=== PATIENT | male | born 1945 | race Caucasian/White ===

== ENCOUNTER 2017-12-09 08:13 | Inpatient (IN) | payer OTHER ==
[~2017-12-09] VITALS: Ht 152.4 cm; Wt 65.8 kg
--- NOTE | 2017-12-09 08:27 | ED UPPER/LOWER EXTREMITY COMPL ---
History of Present Illness General Chief Complaint: General Adult Stated Complaint: LEG WOUND Source: patient, old records, EMS Exam Limitations: no limitations Vital Signs & Intake/Output Vital Signs & Intake/Output Vital Signs Date Time Temp Pulse Resp B/P B/P Pulse O2 O2 Flow FiO2 Mean Ox Delivery Rate 12/09 0814 98.1 68 20 149/78 95 Room Air Allergies Coded Allergies: No Known Allergies (12/09/17) Reconcile Medications Acetaminophen (Tylenol Extra Strength) 500 MG TABLET 2 TAB PO BID PAIM Amiodarone (Cordarone) 200 MG TAB 1 TAB PO DAILY PAF (Reported) Amlodipine Besylate 5 MG TABLET 1 TAB PO DAILY HTN (Reported) Aspirin (Aspirin*) 81 MG TAB.CHEW 1 TAB PO DAILY HEART HEALTH (Reported) Atorvastatin Calcium 80 MG TABLET 1 TAB PO DAILY HLD (Reported) Carvedilol (Coreg) 12.5 MG TABLET 1 TAB PO BID HTN (Reported) Ezetimibe (Zetia) 10 MG TABLET 1 TAB PO DAILY HLP (Reported) Fluticasone Propionate/Salme (Advair Hfa 115-21 Mcg Inhaler) 115 MCG-21 MCG/ ACTUATION HFA.AER.AD 2 PUF IH Q12 sob (Reported) Furosemide (Lasix) 40 MG TABLET 1 TAB PO DAILY WATER RETENTION Ibuprofen 400 MG TABLET 1 TAB PO TID PRN pain control Levothyroxine Sodium (Levo-T) 125 MCG TABLET 1 TAB PO DAILY Hypothyrodism ( Reported) Nystatin (Nyata) 100,000 UNIT/GRAM POWDER 1 AMIE TOP BID SKIN PROBLEMS Potassium Chloride (Klor-Con 10) 10 MEQ TABLET.ER 20 MEQ PO DAILY Potassium supplement (Reported) Triage Note: 72 YO MALE BIBA FROM HOME. PT STATES HE WAS SEEN HERE APPROX 1.5 WEEKS AGO FOR A WOUND ON THE RIGHT LATERAL SIDE OF HIS LOWER LEG. PT NOTED WITH 2 OPEN WOUNDS ON EXTREMTITY. STATES HE HAS VISITNG NURSES THAT COME TO HIS HOUSE EVERY OTHER DAY. R LOWER EXTREMITY NOTED WITH REDNESS AND SWELLING. MD AT BEDSIDE Triage Nurses Notes Reviewed? yes Duration: week(s): (1.5) Timing: recent history Severity: mild, moderate No Modifying Factors: none HPI: This is a 72 year old male with history of CVA, right sided defect who presents from home via EMS for chief complaint of worsening right leg wound. He was seen here on the and had u/s, xray and labs done. He has had nursing care 4 visits every other day and was due to see a vascular specialist yesterday but states the van never came to pick him up. No fever or chills. Reports worsening leg pain. Past History Travel History Traveled to [place] past 21 day No Medical History Any Pertinent Medical History? 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 No Review of Systems Review of Systems Constitutional: Denies: chills, fever. EENTM: Reports: no symptoms. Respiratory: Denies: cough, short of breath. Cardiovascular: Denies: chest pain, palpitations. Gastrointestinal/Abdominal: Denies: abdominal pain. Genitourinary: Reports: no symptoms. Musculoskeletal: Reports: no symptoms. Skin: Reports: erythema. Neurological/Psychological: Reports: no symptoms. Hematologic/Endocrine: Denies: bruising, bleeding, polyuria, polydipsia. Immunological: Reports: no symptoms. All Other Systems: Reviewed and Negative Physical Exam Physical Exam General Appearance: well developed/nourished, alert, awake, mild distress Head: atraumatic Eyes: Bilateral: PERRL, EOMI. Ears, Nose, Throat: normal pharynx, normal ENT inspection, hearing grossly normal Neck: normal inspection, supple Cardiovascular/Respiratory: regular rate/rhythm Back: normal inspection Leg Left: normal range of motion, normal inspection Leg Right: CELLULITIC WITH TWO OPEN WOUNDS TO THE LATERAL SIDE APPROX 4 X 6 CM WITH FOUL SMELLING DISCHARGE Hip Left: normal range of motion, normal inspection Hip Right: normal range of motion, normal inspection Knee Left: normal range of motion, normal inspection Knee Right: normal range of motion, normal inspection Foot Left: normal inspection, normal range of motion Foot Right: normal inspection, normal range of motion Neurologic/Tendon: normal motor functions, normal tendon functions, sensory deficit Skin: intact, normal color, warm/dry Lymphatic: no anterior cervical jay Progress Differential Diagnosis: CELLULITIS, OPEN WOUND, WOUND INFECTION, PVD, PAD Plan of Care: Orders Procedure Date/time Status Heart Healthy Diet 12/09 L Active LACTIC ACID 12/09 1128 Active Patient Data 12/09 1006 Active ED Holding Orders 12/09 955 Active Admit to inpatient 12/09 955 Active Vital Signs 12/09 955 Active Code Status 12/09 955 Active EKG 12/09 940 Active Intake & Output 12/09 845 Active BLOOD CULTURE 12/09 827 Active LACTIC ACID 12/09 827 Complete WESTERGREN SED RATE 12/09 827 Complete COMPREHENSIVE METABOLIC PANEL 12/09 827 Complete CBC WITHOUT DIFFERENTIAL 12/09 827 Complete Laboratory Tests 12/09/17 0845: Anion Gap 14, Estimated GFR > 60, BUN/Creatinine Ratio 46.7 H, Glucose 86, Lactic Acid 1.2, Calcium 9.2, Total Bilirubin 0.6, AST 33, ALT 40, Alkaline Phosphatase 84, Total Protein 6.6, Albumin 3.6, Globulin 3.0, Albumin/Globulin Ratio 1.2, CBC w Diff NO MAN DIFF REQ, RBC 3.66 L, MCV 85.7, MCH 28.3, RDW 15.1 H, MPV 7.4, Gran % 81.1 H, Lymphocytes % 7.6 L, Monocytes % 9.3, Eosinophils % 1.7, Basophils % 0.3, Absolute Granulocytes 6.3, Absolute Lymphocytes 0.6 L, Absolute Monocytes 0.7 H, Absolute Eosinophils 0.1, Absolute Basophils 0, PUBS MCHC 33.0, ESR Westergren 66 H Microbiology 12/09 854 BLOOD: Blood Culture - RECD 12/09 844 BLOOD: Blood Culture - RECD PATIENT HAD RECENT U/S AND XRAY. AGREES TO REPEAT BLOOD WORK. IV ABX ORDERED. PATIETN RELUCTANT TO STAY BUT WOUND HEALING IS AN ISSUE AND PATIETN IS UNABLE TO EVEN SEE THE WOUND. WILL NEED INPATIETN ADMISSION AND WOUND CARE. Initial ED EKG: NSR, LVH, 1ST DEGREE AV BLOCK, T WAVE INVERSIONS V1-V3 Prior EKG: unchanged Departure Departure Time of Disposition: 956 Disposition: STILL A PATIENT Condition: Stable Clinical Impression Primary Impression: Cellulitis Secondary Impressions: Open wound Referrals: Alton COVINGTON,Bill Ramsey (PCP/Family) Departure Forms: Customer Survey General Discharge Information Prescriptions: Current Visit Scripts Nystatin (Nyata) 1 AMIE TOP BID #1 POW Ref 1 Ibuprofen 1 TAB PO TID PRN pain control #15 TAB Furosemide (Lasix) 1 TAB PO DAILY #30 TAB Acetaminophen (Tylenol Extra Strength) 2 TAB PO BID #40 TAB Admission Note Spoke With: Adriana Edgar MD Documentation of Exam: Documentation of any treatments & extenuating circumstances including Concerns Regarding Discharge (functional status, medication knowledge or non-compliance, living conditions, etc.) that warrant an admission rather than observation: [IV ABX, WOUND CARE, WOUND CARE CONSULT, CONSIDER VASCULAR CONSULTATION]
[2017-12-09 08:59] LABS: ABSOLUTE BASOPHIL COUNT 0 /CUMM (0.0-0.2); ABSOLUTE EOSINOPHIL COUNT 0.1 /CUMM (0.0-0.7); ABSOLUTE GRANULOCYTE CT 6.3 /CUMM (1.4-6.5); ABSOLUTE LYMPH COUNT 0.6 /CUMM (1.2-3.4); ABSOLUTE MONOCYTE COUNT 0.7 /CUMM (0.10-0.60); BASOPHIL % 0.3 % (0.0-2.0); EOSINOPHIL % 1.7 % (0-5); GRANULOCYTE % 81.1 % (42.2-75.2); HEMATOCRIT 31.3 % (42-52); MEAN CORPUSCULAR HGB 28.3 PG (27.0-31.0); MEAN CORPUSCULAR VOLUME 85.7 FL (80.0-94.0); MEAN PLATELET VOLUME 7.4 FL (7.4-10.4); PLATELET COUNT 195 /CUMM (130-400); RBC DISTRIBUTION WIDTH 15.1 % (11.5-14.5); RED BLOOD CELL CT 3.66 /CUMM (4.70-6.10); WHITE BLOOD CELL COUNT 7.7 /CUMM (4.8-10.8)
[2017-12-09] MEDS ORDERED: ADVAIR HFA 115-12 GM IH (11:32)
[2017-12-09] MEDS ORDERED: KLOR-CON 1010 ME1 PO (11:36)
[2017-12-09] MEDS ORDERED: AMIODARONE HCL200 M1 PO (11:37)
[2017-12-09] MEDS ORDERED: LEVO-T125 MCG PO (11:37)
[2017-12-09] MEDS ORDERED: COREG12.5 M1 PO (11:38)
[2017-12-09] MEDS ORDERED: ATORVASTATIN CA80 M1 PO (11:38)
[2017-12-09] MEDS ORDERED: AMLODIPINE BESYL5 M1 PO (11:38)
[2017-12-09] MEDS ORDERED: ZETIA10 M1 PO (11:39)
[2017-12-09] MEDS ORDERED: LASIX40 M1 PO (11:39)
[2017-12-09] MEDS ORDERED: ASPIRIN81 M4 PO (11:41)
--- NOTE | 2017-12-09 12:01 | History & Physical ---
See Addendum General Information and HPI MD Statement: I have seen and personally examined ANGEL VALERIO and documented this H& P. The patient is a 72 year old M who presented with a patient stated chief complaint of [bilateral lower extremity ulcers]. Source of Information: patient Exam Limitations: no limitations History of Present Illness: Mr. Valerio is 72 year old male with past medical history significant for hypertension, hyperlipidemia, paroxysmal atrial fibrillation on admission not no anticoagulation for fall risk, hypothyroidism, coronary artery disease status post quadruple bypass in 2001, CVA with residual right-sided weakness happened approximately 4-5 years ago. Patient was recently discharged from short-term rehabilitation after spending 10 month after admission for aspiration pneumonia at [facility], discharged October 08. Patient BIBA because of extreme pain in bilateral lower extremity from ulcers. Patient maintained that he used to sleep on a recliner and used to wrap his legs against each other, one month ago he started to develop ulcers on the inferior surface of bilateral legs. Patient has a visiting nurse since his discharge from short-term rehabilitation that used to come every 3 days, after he developed ulcers she started to come every other day to do change the wound, he reported discharge but do not know the discharge color but no blood. Over the last week, discharge and pain increased, patient visited the ED last week and was discharged after cleaning the wounds. He described pain as throbbing pain 8 out of 10, use aspirin for his pain 5-6 tablets every day for last 4-5 days. He reported having an appointment with vascular surgeon Dr. de la torre yesterday but couldn't make it because of transportation issues. Patient denied any fever, reported chills today. Denied any chest pain, palpitation, shortness of breath, nausea, vomiting, dizziness, new weakness. Patient sleeps on a recliner not because of orthopnea or shortness of breath but because it is easier for him to get help since he have the residual right-sided weakness. Patient use walker and wheelchair to move around. Allergies/Medications Allergies: Coded Allergies: No Known Allergies (12/09/17) Home Med list Amiodarone (Cordarone) 200 MG TAB 1 TAB PO DAILY PAF (Reported) Amlodipine Besylate 5 MG TABLET 1 TAB PO DAILY HTN (Reported) Aspirin (Aspirin*) 81 MG TAB.CHEW 1 TAB PO DAILY HEART HEALTH (Reported) Atorvastatin Calcium 80 MG TABLET 1 TAB PO DAILY HLD (Reported) Carvedilol (Coreg) 12.5 MG TABLET 1 TAB PO BID HTN (Reported) Ezetimibe (Zetia) 10 MG TABLET 1 TAB PO DAILY HLP (Reported) Fluticasone Propionate/Salme (Advair Hfa 115-21 Mcg Inhaler) 115 MCG-21 MCG/ ACTUATION HFA.AER.AD 2 PUF IH Q12 sob (Reported) Furosemide (Lasix) 40 MG TABLET 60 MG PO DAILY WATER RETENTION (Reported) Levothyroxine Sodium (Levo-T) 125 MCG TABLET 1 TAB PO DAILY Hypothyrodism ( Reported) Potassium Chloride (Klor-Con 10) 10 MEQ TABLET.ER 20 MEQ PO DAILY Potassium supplement (Reported) Past History Travel History Traveled to [place] past 21 day No Medical History Neurological: CVA EENT: NONE Cardiovascular: BYPASS Respiratory: pneumonia Gastrointestinal: NONE Hepatic: NONE Renal: NONE Musculoskeletal: rheumatoid arthritis Psychiatric: NONE Endocrine: NONE Blood Disorders: NONE Cancer(s): NONE 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 Denies: fever, weakness. EENTM: Denies: blurred vision, nasal congestion, nasal pain, throat pain. Cardiovascular: Denies: chest pain, orthopena, palpitations, syncope. Respiratory: Denies: cough, short of breath. GI: Denies: abdominal pain, bloating, constipation, nausea. Genitourinary: Denies: hematuria, nocturia. Musculoskeletal: Denies: back pain, joint pain, joint swelling. Skin: Denies: rash. Exam & Diagnostic Data Last 24 Hrs of Vital Signs/I&O Vital Signs Date Time Temp Pulse Resp B/P B/P Pulse O2 O2 Flow FiO2 Mean Ox Delivery Rate 12/09 1219 98.5 68 18 158/64 95 Room Air Room Air 12/09 1047 98.1 76 18 146/84 98 Room Air 12/09 0814 98.1 68 20 149/78 95 Room Air Intake & Output 12/09 1600 12/09 0800 12/09 0000 Intake Total 0 Output Total Balance 0 Intake, Oral 0 Patient 65.771 kg Weight Weight Reported by Patient Measurement Method Physical Exam General Appearance Alert, Oriented X3, Cooperative, No Acute Distress Skin No Rashes, Bilateral ulcers on LE Right leg posterior surface 1x1 supeficial ulcer, no bleeding or purilent discharge Left leg 2 ulcerson posterior serfaces, 5x5 CM, whilte discharge, no blood Skin Temp/Moisture Exam: Warm/Dry HEENT Atraumatic, PERRLA, EOMI, Mucous Membr. moist/pink Neck Supple Lymphatic No cervical lymphadenopathy Cardiovascular Regular Rate, Normal S1, Normal S2, No Murmurs Lungs Clear to Auscultation, Normal Air Movement Abdomen Normal Bowel Sounds, Soft, No Tenderness, Inguinal rash Neurological Normal Speech, Strength 4/5 left LE, 3/5 right LE Sterngth 5/5 BUE on flexion and 4/5 on extension Extremities No Clubbing, No Cyanosis, BL LE edema +1 threading pulse BL Assessment/Plan Assessment: Mr. Valerio is 72 year old male with past medical history significant for hypertension, hyperlipidemia, paroxysmal atrial fibrillation on admission not no anticoagulation for fall risk, hypothyroidism, coronary artery disease status post quadruple bypass in 2001, CVA with residual right-sided weakness happened approximately 4-5 years ago. On admission, vital signs 98.1, pulse 68 regular, blood pressure 149/78, saturating 95% on room air Labs significant for WBC 7.7, H&H 10.4/31.3 with baseline 10-11, platelet 195, electrolytes within normal, ESR 66, lactic acid 1.2. X-ray of right tibia-fibula didn't reveal any osteomyelitis Doppler no DVT EKG sinus rhythm, 63 pulse, first-degree heart block, deep Q waves in V1, V2. Problem list #Bilateral lower extremity for 4 weeks not improving associated with worsening discharge and pain #Questionable peripheral vascular disease #History of paroxysmal atrial fibrillation on aspirin, no anticoagulation due to high fall risk #History of hypertension, hyperlipidemia #History of hypothyroidism #History of CVA with residual right-sided weakness Plan -Admit to general med floor -Continue Unasyn given history of chills, worsening discharge and excruciating pain -We'll obtain vascular consultation -Vital signs every shift -A.m. CBC and BMP -Obtain Hemoccult stool given history of excessive aspirin consumption for pain -Wound consultation -Patient presented with +1 lower extremity edema, will continue Lasix 60 daily and obtain strict ins and outs -Continue home medication -DVT prophylaxis heparin subcutaneous -Diet heart healthy -Code DNI only As Ranked By This Provider Problem List: 1. Open wound Core Measures/Misc (08/17) Acute Coronary Syndrome ACS Diagnosis: No Congestive Heart Failure Congestive Heart Failure Diagnosis No Cerebrovascular Accident CVA/TIA Diagnosis: No VTE (View Protocol) VTE Risk Factors Age>40 No Mechanical VTE Prophylaxis d/t Medical Contraindication No VTE Pharm Prophylaxis d/t NA PharmProphylax ordered Sepsis (View protocol) Sepsis Present: No
[2017-12-09 14:13] VITALS: BP 124/60
--- NOTE | 2017-12-09 15:15 | Admission Certification ---
Admission Certification Certification Statement - As attending physician, I certify that at the time of - admission, based on clinical presentation, severity of - symptoms, need for further diagnostic testing and - therapeutic interventions, and risk of adverse outcomes - without in-hospital treatment, in my clinical assessment, - this patient requires an acute hospital stay for a minimum - of two nights or longer. I have also considered psychsocial - factors such as support system, advanced age, financial - issues, cognitive issues, and failed out-patient treatments, - past re-admission history, safety of patient, and lack of - compliance as applicable. Specific rationale supporting this admission is: Patient with A. fib, hypertension and lower extremity ulcer with suspected cellulitis.
--- NOTE | 2017-12-09 17:03 | Cons- Vascular Surgery ---
General Information and HPI Consulting Request Date of Consult: 12/09/17 Requested By: Dipti Ricketts MD Reason for Consult: Bilateral leg wounds R > L Source of Information: patient, old records Exam Limitations: no limitations History of Present Illness: 72 year old male with past medical history significant for hypertension, hyperlipidemia, paroxysmal atrial fibrillation, CAD, CVA with residual right- sided weakness who has bilateral pressure wounds R>L. Patient was recently discharged from short-term rehabilitation after spending 10 month after admission for aspiration pneumonia. One month ago he started to develop ulcers on the posterior surface of bilateral legs. This corresponds tp recumbent area of leg. Denies rest pain. Allergies/Medications Allergies: Coded Allergies: No Known Allergies (12/09/17) Home Med List: Amiodarone (Cordarone) 200 MG TAB 1 TAB PO DAILY PAF (Reported) Amlodipine Besylate 5 MG TABLET 1 TAB PO DAILY HTN (Reported) Aspirin (Aspirin*) 81 MG TAB.CHEW 1 TAB PO DAILY HEART HEALTH (Reported) Atorvastatin Calcium 80 MG TABLET 1 TAB PO DAILY HLD (Reported) Carvedilol (Coreg) 12.5 MG TABLET 1 TAB PO BID HTN (Reported) Ezetimibe (Zetia) 10 MG TABLET 1 TAB PO DAILY HLP (Reported) Fluticasone Propionate/Salme (Advair Hfa 115-21 Mcg Inhaler) 115 MCG-21 MCG/ ACTUATION HFA.AER.AD 2 PUF IH Q12 sob (Reported) Furosemide (Lasix) 40 MG TABLET 60 MG PO DAILY WATER RETENTION (Reported) Levothyroxine Sodium (Levo-T) 125 MCG TABLET 1 TAB PO DAILY Hypothyrodism ( Reported) Potassium Chloride (Klor-Con 10) 10 MEQ TABLET.ER 20 MEQ PO DAILY Potassium supplement (Reported) Current Medications: Current Medications Sig/Jamie Start time Last Medication Dose Route Stop Time Status Admin Acetaminophen 650 MG Q6P PRN 12/09 1130 AC PO Acetaminophen 1,000 MG Q6P PRN 12/09 1130 AC IV Amiodarone HCl 200 MG DAILY 12/10 1000 DC PO Amiodarone HCl 200 MG DAILY 12/09 1430 AC PO Amlodipine Besylate 5 MG DAILY 12/10 1000 DC PO Amlodipine Besylate 5 MG DAILY 12/09 1430 AC PO Ampicillin Sodium/ 3,000 MG Q6H 12/09 1600 AC Sulbactam Sodium IV Sodium Chloride 100 ML Ampicillin Sodium/ 0 .STK-MED ONE 12/09 0849 DC Sulbactam Sodium .ROUTE Ampicillin Sodium/ 3,000 MG ONCE ONE 12/09 929 DC 12/09 Sulbactam Sodium IV 12/09 958 0953 Sodium Chloride 100 ML Aspirin 81 MG DAILY 12/10 1000 DC PO Aspirin 81 MG DAILY 12/09 1430 AC PO Atorvastatin Calcium 80 MG 1700 12/10 1700 DC PO Atorvastatin Calcium 80 MG 1700 12/09 1700 AC PO Budesonide/ 2 PUF BID 12/09 2200 AC Formoterol Fumarate INH Carvedilol 12.5 MG BID 12/09 2200 AC PO Ezetimibe 10 MG DAILY 12/10 1000 DC PO Ezetimibe 10 MG DAILY 12/09 1430 AC PO Furosemide 60 MG DAILY 12/10 1000 DC PO Furosemide 60 MG DAILY 12/09 1430 AC PO Heparin Sodium 5,000 UNIT Q8 12/09 1400 AC (Porcine) SC Levothyroxine Sodium 0.125 MG DAILY AC 12/10 0700 DC PO Levothyroxine Sodium 0.125 MG DAILY AC 12/09 1430 AC PO Oxycodone/ 1 TAB Q6P PRN 12/09 1130 AC Acetaminophen PO Senna/Docusate Sodium 1 TAB AT BEDTIME NEED.. 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 Home Services at Home: Nursing Smoking Status: Former Smoker Review of Systems Review of Systems: Mild B/L LE pain Review of Systems Constitutional: Reports: no symptoms, see HPI. Exam & Diagnostic Data Vital Signs and I&O Vital Signs Date Time Temp Pulse Resp B/P B/P Pulse O2 O2 Flow FiO2 Mean Ox Delivery Rate 12/09 1413 98.3 67 20 124/60 94 Room Air 12/09 1338 98.4 66 20 123/56 96 Room Air Room Air 12/09 1219 98.5 68 18 158/64 95 Room Air Room Air 12/09 1047 98.1 76 18 146/84 98 Room Air 12/09 0814 98.1 68 20 149/78 95 Room Air Intake & Output 12/09 0000 12/08 0000 Intake Total 0 Output Total Balance 0 Intake, Oral 0 Patient 145 lb Weight Weight Reported by Patient Measurement Method Physical Exam: B/L LE are perfused, normal cap. refill, + eschar on RLE > LLE, this corresponds to pressure area of calf bilaterally, no pus, mild erythema Last 24 Hours of Labs: Laboratory Tests 12/09 12/09 1128 0845 Chemistry Sodium (137 - 145 mmol/L) 145 Potassium (3.5 - 5.1 mmol/L) 3.7 Chloride (98 - 107 mmol/L) 103 Carbon Dioxide (22 - 30 mmol/L) 28 Anion Gap (5 - 16) 14 BUN (9 - 20 mg/dL) 28 H Creatinine (0.7 - 1.2 mg/dL) 0.6 L Estimated GFR (>60 ml/min) > 60 BUN/Creatinine Ratio (7 - 25 %) 46.7 H Glucose (65 - 99 mg/dL) 86 Lactic Acid (0.7 - 2.1 mmol/L) Cancelled 1.2 Calcium (8.4 - 10.2 mg/dL) 9.2 Total Bilirubin (0.2 - 1.3 mg/dL) 0.6 AST (17 - 59 U/L) 33 ALT (21 - 72 U/L) 40 Alkaline Phosphatase (< 127 U/L) 84 Total Protein (6.3 - 8.2 g/dL) 6.6 Albumin (3.5 - 5.0 g/dL) 3.6 Globulin (1.9 - 4.2 gm/dL) 3.0 Albumin/Globulin Ratio (1.1 - 2.2 %) 1.2 Hematology CBC w Diff NO MAN DIFF REQ WBC (4.8 - 10.8 /CUMM) 7.7 RBC (4.70 - 6.10 /CUMM) 3.66 L Hgb (14.0 - 18.0 G/DL) 10.4 L Hct (42 - 52 %) 31.3 L MCV (80.0 - 94.0 FL) 85.7 MCH (27.0 - 31.0 PG) 28.3 RDW (11.5 - 14.5 %) 15.1 H Plt Count (130 - 400 /CUMM) 195 MPV (7.4 - 10.4 FL) 7.4 Gran % (42.2 - 75.2 %) 81.1 H Lymphocytes % (20.5 - 51.1 %) 7.6 L Monocytes % (1.7 - 9.3 %) 9.3 Eosinophils % (0 - 5 %) 1.7 Basophils % (0.0 - 2.0 %) 0.3 Absolute Granulocytes (1.4 - 6.5 /CUMM) 6.3 Absolute Lymphocytes (1.2 - 3.4 /CUMM) 0.6 L Absolute Monocytes (0.10 - 0.60 /CUMM) 0.7 H Absolute Eosinophils (0.0 - 0.7 /CUMM) 0.1 Absolute Basophils (0.0 - 0.2 /CUMM) 0 PUBS MCHC (33.0 - 37.0 G/DL) 33.0 ESR Westergren (0 - 10 MM) 66 H Imaging Results: Neg. for DVT B/L Assessment/Plan Assessment/Plan 72 yo with multiple medical problems and recent prolonged hospital stay now with bilateral pressure wounds. 1.) Recommend a course of local wound care in this patient in a compromised medical state 2.) NO TELFA--recommend santyl to both wounds with gauze and kerlix wrap 3.) Cont. care/abx as per primary team 4.) Offload right calg at all times by laying on left hip 5.) F/u at Wound center on discharge 6.) May need further vascular testing if wounds do not heal with local wound care Consult Acknowledgment - Thank you for your consult request.
[2017-12-09 22:15] VITALS: BP 116/62
[2017-12-10 07:09] VITALS: BP 116/60
--- NOTE | 2017-12-10 08:22 | ULTRASOUND REPORT ---
EXAMINATION: NONINVASIVE ASSESSMENT OF THE ARTERIES OF BOTH LOWER EXTREMITIES INTERPRETING VASCULAR \T\ INTERVENTIONAL RADIOLOGIST: David Aguirre MD CLINICAL INFORMATION: Chronic bilateral lower extremity ulcers. TECHNIQUE: Bilateral lower extremity duplex ultrasound was performed with velocity measurements and waveform analysis in the common femoral arteries, profunda femoris arteries, proximal mid and distal superficial femoral arteries, popliteal arteries and tibial vessels. This study was performed only at rest. COMPARISON: None FINDINGS: Velocities in cm/sec and phasicity as well as the presence of plaque are reported below. Diffuse [id number] plaquing is seen. On the right, there are areas of stenosis seen in the profunda femoris on the right, as well as probably the popliteal artery. On the left, moderate popliteal plaque is present as well. Monophasic flow is noted on the right. On the left, monophasic flow is noted in the tibial vessels. RIGHT LEG: Common Femoral: 154 Profunda Femoris: 60.1 Proximal SFA: 134 Mid SFA: 141 Distal SFA: 127 Popliteal: 142 Anterior tibial: 48.1 Posterior tibial: 104 Dorsalis pedis 96.9 LEFT LEG: Common Femoral: 208 Profunda Femoris: 121 Proximal SFA: 120 Mid SFA: 134 Distal SFA: 132 Popliteal: 149 Anterior tibial: 71.9 Posterior tibial 90.3 Dorsalis pedis 92.4 IMPRESSION: There is evidence of peripheral vascular disease. No critical stenoses are noted. CT angiography may be useful for defining anatomy further.
--- NOTE | 2017-12-10 08:27 | Cons- Wound Care ---
General Information and HPI Consulting Request Date of Consult: 12/10/17 Requested By: Dipti Ricketts MD Reason for Consult: Bilateral lower extremity ulcers present on admission History of Present Illness: Patient is a 72-year-old gentleman with multiple medical problems nonambulatory who is had chronic bilateral lower extremity ulcers. He is sedentary and spends most of the time in a recliner where his legs are externally rotated creating opportunity for pressure ulceration in conjunction with chronic edema. Admitted because of concerns over possible infection though his white count is normal his sedimentation rate is elevated 66. Allergies/Medications Allergies: Coded Allergies: No Known Allergies (12/09/17) Home Med List: Amiodarone (Cordarone) 200 MG TAB 1 TAB PO DAILY PAF (Reported) Amlodipine Besylate 5 MG TABLET 1 TAB PO DAILY HTN (Reported) Aspirin (Aspirin*) 81 MG TAB.CHEW 1 TAB PO DAILY HEART HEALTH (Reported) Atorvastatin Calcium 80 MG TABLET 1 TAB PO DAILY HLD (Reported) Carvedilol (Coreg) 12.5 MG TABLET 1 TAB PO BID HTN (Reported) Ezetimibe (Zetia) 10 MG TABLET 1 TAB PO DAILY HLP (Reported) Fluticasone Propionate/Salme (Advair Hfa 115-21 Mcg Inhaler) 115 MCG-21 MCG/ ACTUATION HFA.AER.AD 2 PUF IH Q12 sob (Reported) Furosemide (Lasix) 40 MG TABLET 60 MG PO DAILY WATER RETENTION (Reported) Levothyroxine Sodium (Levo-T) 125 MCG TABLET 1 TAB PO DAILY Hypothyrodism ( Reported) Potassium Chloride (Klor-Con 10) 10 MEQ TABLET.ER 20 MEQ PO DAILY Potassium supplement (Reported) Review of Systems Review of Systems: Noncontributory Past History Travel History Traveled to [place] past 21 day No Medical History Blood Transfusion Hx: No Neurological: CVA EENT: NONE Cardiovascular: AFIB, hypertension, hyperlipidemia, BYPASS Respiratory: pneumonia Gastrointestinal: NONE Hepatic: NONE Renal: NONE Musculoskeletal: rheumatoid arthritis Psychiatric: NONE Endocrine: NONE Blood Disorders: NONE Cancer(s): NONE CITY WEIGHMASTER/Reproductive: NONE Surgical History Surgical History: non-contributory Psychosocial History Where Do You Live? Home Services at Home: Nursing Smoking Status: Former Smoker Exam & Diagnostic Data Vital Signs and I&O Vital Signs Result Date Time Pulse Ox 94 12/10 0709 B/P 116/60 01/10 0709 Temp 97.0 12/10 708 Pulse 55 12/10 708 Resp 18 12/10 708 O2 Delivery CPAP 12/10 O2 Flow Rate Room Air 12/09 1338 Intake & Output 12/10 0000 12/09 1600 12/09 0800 Intake Total 600 0 Output Total 200 Balance 400 0 Intake, IV 120 Intake, Oral 480 0 Number 0 0 Bowel Movements Output, Urine 200 Patient 145 lb Weight Weight Reported by Patient Measurement Method Exam of the right lateral leg shows there to be 2 ulcers the superior ulcer measures approximately 4 x 2.5 cm with red and yellow fill the wound is several millimeters deep without exposed bone there is no periwound erythema inferior to this is a 4 x 1.5 cm wound with black eschar distal pulses are unable to be palpated there is minimal lower extremity edema over the left lower extremity is a area of ulceration measuring approximately 0.8 x 0.8 mm the surrounding area is slightly indurated though there is no erythema exposed bone or undermining. The pulses are unable be palpated Assessment/Plan Impression/Plan: 72-year-old gentleman who is nonambulatory appears to have bilateral pressure injury ulcers present on admission. Whether there is complicating peripheral vascular disease is at this point uncertain. Elevated sedimentation rate is of concern especially for the superior right lower extremity ulcer which does appear to have depth. Recommend arterial ultrasound to exclude peripheral vascular disease. At this point there does not appear to be evidence of acute soft tissue infection. Lower extremities should be offloaded. Wound care can continue to be Santyl daily with aggressive wound cleansing covered by Adaptic. Further imaging of these areas will likely be necessary in view of elevated sedimentation rate and duration of ulceration. Consult Acknowledgment - Thank you for your consult request.
[2017-12-10 09:27] LABS: ABSOLUTE BASOPHIL COUNT 0 /CUMM (0.0-0.2); ABSOLUTE EOSINOPHIL COUNT 0.2 /CUMM (0.0-0.7); ABSOLUTE GRANULOCYTE CT 4.3 /CUMM (1.4-6.5); ABSOLUTE LYMPH COUNT 0.8 /CUMM (1.2-3.4); ABSOLUTE MONOCYTE COUNT 0.7 /CUMM (0.10-0.60); BASOPHIL % 0.3 % (0.0-2.0); EOSINOPHIL % 2.6 % (0-5); GRANULOCYTE % 71.8 % (42.2-75.2); HEMATOCRIT 28.3 % (42-52); MEAN CORPUSCULAR HGB 28.2 PG (27.0-31.0); MEAN CORPUSCULAR HGB CONC 32.7 G/DL (33.0-37.0); MEAN CORPUSCULAR VOLUME 86.4 FL (80.0-94.0); MEAN PLATELET VOLUME 8.1 FL (7.4-10.4); PLATELET COUNT 166 /CUMM (130-400); RBC DISTRIBUTION WIDTH 15.4 % (11.5-14.5); RED BLOOD CELL CT 3.27 /CUMM (4.70-6.10); WHITE BLOOD CELL COUNT 5.9 /CUMM (4.8-10.8)
--- NOTE | 2017-12-10 10:40 | PN- Housestaff ---
Leeann COVINGTON,[facility] 12/10/17 1039: Subjective Follow-up For: Bilateral lower extremity ulcer Subjective: Patient seen and examined this morning, afebrile, vital signs stable, reported improvement of bilateral lower extremity pain. Review of Systems Constitutional: Reports: see HPI. Objective Last 24 Hrs of Vital Signs/I&O Vital Signs Date Time Temp Pulse Resp B/P B/P Pulse O2 O2 Flow FiO2 Mean Ox Delivery Rate 12/10 1427 98.2 58 18 114/72 92 Room Air 12/10 0906 60 132/68 12/10 0905 60 132/68 12/10 0905 60 132/68 12/10 0709 97.0 55 18 116/60 94 12/10 0235 59 92 12/10 0000 93 CPAP 12/09 2238 65 93 12/09 2215 98.2 66 19 116/62 92 Room Air 12/09 2207 68 116/62 12/09 2115 Room Air Intake & Output 12/10 1600 12/10 0800 12/10 0000 Intake Total 360 600 Output Total 900 200 200 Balance -900 160 400 Intake, IV 120 120 Intake, Oral 240 480 Number 0 Bowel Movements Output, Urine 900 200 200 Physical Exam General Appearance: Alert, Oriented X3, Cooperative, No Acute Distress Skin: No Rashes HEENT: Atraumatic, PERRLA, EOMI, Mucous Membr. moist/pink Neck: Supple Cardiovascular: Regular Rate, Normal S1, Normal S2, No Murmurs Lungs: Clear to Auscultation, Normal Air Movement Abdomen: Normal Bowel Sounds, Soft, No Tenderness Neurological: Normal Speech, right side weakness 4 minus/5 Extremities: No Clubbing, No Cyanosis, Normal Pulses, bilateral +1 pedal edema Assessment/Plan Assessment: Mr. Anders is 72 year old male with past medical history significant for hypertension, hyperlipidemia, paroxysmal atrial fibrillation on admission not no anticoagulation for fall risk, hypothyroidism, coronary artery disease status post quadruple bypass in 2001, CVA with residual right-sided weakness happened approximately 4-5 years ago. Problem list #Bilateral lower extremity for 4 weeks not improving associated with worsening discharge and pain #Questionable peripheral vascular disease #History of paroxysmal atrial fibrillation on aspirin, no anticoagulation due to high fall risk #History of hypertension, hyperlipidemia #History of hypothyroidism #History of CVA with residual right-sided weakness Plan -Wound consultation was obtained, thanks for recommendation -Vascular surgery consultation was obtained, thanks the recommendation -We will discontinue Unasyn since after cleaning the wounds look much better with no signs of inflammation -Peripheral arterial Doppler scan was a day for peripheral vascular disease however no signs of stenosis. We'll continue aspirin and statin -Given elevated ESR 66 on admission, will obtain MRI right leg -Potassium repleted, will remeasure potassium and magnesium in a.m. -DVT prophylaxis heparin subcutaneous -Diet heart healthy -Code DNI only Problem List: 1. Open wound 2. Chronic wound of extremity Pain Ratin Pain Location: Lower extermities Pain Goal: Pain 4 or less Pain Plan: See medication Tomorrow's Labs & Rationales: CBC BMP Mg Dipti Ricketts MD 12/10/17 1314: Attending MD Review Statement Attending Statement Attending MD Statement: examined this patient, discuss w/resident/PA/SUPERVISORY INVESTIGATIVE SPECIALIST, agreed w/resident/PA/SUPERVISORY INVESTIGATIVE SPECIALIST, reviewed EMR data (avail), discussed with case mgmt, reviewed images Attending Assessment/Plan: Overall patient feels okay. He is keen on leaving tomorrow. He was seen by physical therapy who is recommending STR versus home with PT of goals are met. I stopped antibiotics given vascular and wound care input. We'll get an MRI to make sure there is no osteomyelitis. The arterial ultrasound showed peripheral vascular disease but no significant stenosis and patient is already on an aspirin and statin. Will follow-up with the MRI and with PT.
[2017-12-10 14:27] VITALS: BP 114/72
[2017-12-10 22:13] VITALS: BP 114/52
[2017-12-11 07:19] VITALS: BP 110/54
[2017-12-11 08:23] LABS: ABSOLUTE BASOPHIL COUNT 0 /CUMM (0.0-0.2); ABSOLUTE EOSINOPHIL COUNT 0.2 /CUMM (0.0-0.7); ABSOLUTE GRANULOCYTE CT 4.1 /CUMM (1.4-6.5); ABSOLUTE LYMPH COUNT 0.9 /CUMM (1.2-3.4); ABSOLUTE MONOCYTE COUNT 0.8 /CUMM (0.10-0.60); BASOPHIL % 0.4 % (0.0-2.0); EOSINOPHIL % 3.7 % (0-5); GRANULOCYTE % 68.8 % (42.2-75.2); HEMATOCRIT 28.1 % (42-52); MEAN CORPUSCULAR HGB 28.6 PG (27.0-31.0); MEAN CORPUSCULAR HGB CONC 33.3 G/DL (33.0-37.0); MEAN CORPUSCULAR VOLUME 85.9 FL (80.0-94.0); MEAN PLATELET VOLUME 8.2 FL (7.4-10.4); PLATELET COUNT 171 /CUMM (130-400); RBC DISTRIBUTION WIDTH 15.3 % (11.5-14.5); RED BLOOD CELL CT 3.27 /CUMM (4.70-6.10)
--- NOTE | 2017-12-11 08:39 | PN- Wound Care ---
Subjective Subjective: Patient feels well and anticipates discharge. He reports chronic bilateral buttock ulcers present for the past several weeks. Arterial ultrasound demonstrates peripheral vascular disease and vascular surgery follow-up as outpatient would be appropriate Objective Vital Signs and I&Os Vital Signs Result Date Time Pulse Ox 96 12/11 718 B/P 110/54 12/11 718 Temp 97.6 12/11 718 Pulse 51 12/11 718 Resp 18 12/11 718 O2 Delivery CPAP 12/11 O2 Flow Rate Room Air 12/09 1338 Intake & Output 12/11 0000 12/10 1600 12/10 0800 Intake Total 360 Output Total 900 200 Balance -900 160 Intake, IV 120 Intake, Oral 240 Output, Urine 900 200 Bilateral stage III buttock ulcers are present over the right buttock is a 1.5 x 1 cm ulcer with red fill over the left buttock is a 2 x 1 cm stage III pressure ulcer is present both of which were present on admission. Lower extremity ulcers are stage III and 1 is unstageable due to the presence of eschar. Impression/Plan Impression/Plan Impression/Plan: 72-year-old gentleman who is nonambulatory appears to have bilateral pressure injury ulcers present on admission. Bilateral buttock ulcers require offloading and arrangements will be made for offloading cushion when follow-up is in the wound care center. Wound care can be a thin do a term changed every 2-3 days. Lower extremity ulcers continue current wound care regimen with outpatient follow-up in the wound center
[2017-12-11] MEDS ORDERED: TYLENOL EXTRA500 M2 PO ×2 (10:13→14:38)
[2017-12-11] MEDS ORDERED: NYATA15 GM TOP (10:13)
--- NOTE | 2017-12-11 10:32 | PN- Housestaff ---
Leeann COVINGTON,[facility] 12/11/17 1031: Subjective Follow-up For: Bilateral lower extremity ulcer Subjective: Patient was seen and examined, afibrile, vital stable. No complaints. No overnight events. Review of Systems Constitutional: Reports: see HPI. Objective Last 24 Hrs of Vital Signs/I&O Vital Signs Date Time Temp Pulse Resp B/P B/P Pulse O2 O2 Flow FiO2 Mean Ox Delivery Rate 12/11 1341 98.9 57 20 104/54 92 Room Air 12/11 1252 CPAP Room Air 12/11 0947 51 110/54 12/11 0940 51 110/54 12/11 0939 51 110/54 12/11 0719 97.6 51 18 110/54 96 12/11 0054 57 94 12/11 0000 CPAP 12/10 2319 52 92 12/10 2213 98.5 56 20 114/52 92 Room Air 12/10 2117 56 114/52 Intake & Output 12/11 1600 12/11 0800 12/11 0000 Intake Total 720 120 120 Output Total 250 Balance 470 120 120 Intake, Oral 720 120 120 Number 0 Bowel Movements Output, Urine 250 Physical Exam General Appearance: Alert, Oriented X3, Cooperative, No Acute Distress Skin: No Rashes Skin Temp/Moisture Exam: Warm/Dry HEENT: Atraumatic, PERRLA, EOMI, Mucous Membr. moist/pink Neck: Supple Cardiovascular: Regular Rate, Normal S1, Normal S2, No Murmurs Lungs: Clear to Auscultation, Normal Air Movement Abdomen: Normal Bowel Sounds, Soft, No Tenderness Neurological: Normal Speech, Normal Tone Extremities: No Clubbing, No Cyanosis, No Edema, Normal Pulses, 2 buttock wounds approx 2x2 cm present at admission 1 approx 2x2 cm left leg posterior surface wound presents on admission 2 approx 5x5 cm right leg posterior surface wounds present on admission Assessment/Plan Assessment: Mr. Anders is 72 year old male with past medical history significant for hypertension, hyperlipidemia, paroxysmal atrial fibrillation on admission not no anticoagulation for fall risk, hypothyroidism, coronary artery disease status post quadruple bypass in 2001, CVA with residual right-sided weakness happened approximately 4-5 years ago. Problem list #Bilateral lower extremity for 4 weeks not improving associated with worsening discharge and pain #Questionable peripheral vascular disease #History of paroxysmal atrial fibrillation on aspirin, no anticoagulation due to high fall risk #History of hypertension, hyperlipidemia #History of hypothyroidism #History of CVA with residual right-sided weakness Plan -Wound consultation was obtained, thanks for recommendation -Vascular surgery consultation was obtained, thanks the recommendation -Continue off Abx, afibrile, no leukocytosis -Peripheral arterial Doppler scan was a day for peripheral vascular disease however no signs of stenosis. We'll continue aspirin and statin -MRI right leg will be obtained as a outpatient -Potassium repleted, magnisium repleted -PT evaluation with STR recommendation, waiting for placement -DVT prophylaxis heparin subcutaneous -Diet heart healthy -Code DNI only Problem List: 1. Open wound Pain Ratin Pain Location: BL LE Pain Goal: Pain 4 or less Pain Plan: See medication Tomorrow's Labs & Rationales: N/A Dipti Ricketts MD 12/11/17 1543: Attending MD Review Statement Attending Statement Attending MD Statement: examined this patient, discuss w/resident/PA/SWIMMING POOL INSTALLER, agreed w/resident/PA/SWIMMING POOL INSTALLER, reviewed EMR data (avail), discussed with nursing, discussed with case mgmt Attending Assessment/Plan: Appreciate wound care follow-up. We are watching him off antibiotics for bilateral pressure ulcers. PT is recommending STIR versus 24-hour care. Initially the patient was very adamant that he would go home and I explained to him that this would have to be AGAINST MEDICAL ADVICE given PTs recommendations. Case management talk to him and convinced him about STR. The plan will be STR when a bed is available and he'll need outpatient vascular follow-up. He will also need outpatient follow-up for a questionable osteomyeltits. We couldn't get the MRI because of the patient giving this history of a defibrillator wire. We've ordered a chest x-ray to follow-up.
--- NOTE | 2017-12-11 10:47 | Patient Discharge Instructions ---
Discharge Instructions General Discharge Information You were seen/treated for: BILATERAL LOWER EXTERMITIES ULCER Other wound care: PLEASE CHANGE THE WOUND DAILY, APPLY SANTYL AND COVER WITH ADAPTIC ON LOWER EXTERMITY UKCERS PLEASE APPLY DOUDERM ON HIS BACK WOUNDS EVERY 2-3 DAYS Special Instructions: -PLEASE FOLLOW UP WITH YOUR PCP AFTER DISCHARGE -PLEASE FOLLOW UP WITH VASCULAR DR. CEDILLO AFTER DISCHARGE -PLEASE FOLLOW UP CLOSELY WITH WOUND CARE AFTER DISCHARGE -PLEASE DO THE WOUND CARE DIRECTED Acute Coronary Syndrome Inclusion Criteria At DC or during hospital stay patient has or had the following: ACS DIAGNOSIS No Discharge Core Measures Meds if any: Prescribed or Continued at Discharge Meds if any: NOT Prescribed or Continued at Discharge Congestive Heart Failure Inclusion Criteria At DC or during hospital stay patient has or had the following: CHF DIAGNOSIS No Discharge Core Measures Meds if any: Prescribed or Continued at Discharge Meds if any: NOT Prescribed or Continued at Discharge Cerebrovascular accident Inclusion Criteria At DC or during hospital stay patient has or had the following: CVA/TIA Diagnosis No Discharge Core Measures Meds if any: Prescribed or Continued at Discharge Meds if any: NOT Prescribed or Continued at Discharge Venous thromboembolism Inclusion Criteria VTE Diagnosis No VTE Type NONE VTE Confirmed by (Test) UNILATERAL VENOUS DOPPLER Discharge Core Measures - Per Current guidelines, there needs to be overlap - treatment for the first 5 days of Warfarin therapy. - If discharged on Warfarin prior to 5 days of - overlap therapy, the patient will need to be - assessed for post discharge needs including - *Post discharge parental anticoagulation - *Warfarin and/or parental anticoagulation education - *Follow up date to check INR post discharge At least 5 days overlap therapy as Inpatient Yes Meds if any: Prescribed or Continued at Discharge Note: Overlap Therapy is Warfarin and Anticoagulant Meds if any: NOT Prescribed or Continued at Discharge
--- NOTE | 2017-12-11 11:02 | RADIOLOGY REPORT ---
EXAMINATION: XR PORTABLE CHEST CLINICAL INFORMATION: Patient should have MRI. No clear history about intracardiac device. COMPARISON: None TECHNIQUE: Portable AP 85 degree upright view of the chest was obtained. FINDINGS: There is an abandoned epicardial lead. There is no pacemaker or defibrillator device. The heart is normal in size. There is no congestion. There is moderate elevation of the left hemidiaphragm with minor left base atelectasis. Sternal wires are intact. There are [id number] degenerative changes in both shoulders. IMPRESSION: 1. Abandoned epicardial lead. No pacemaker or defibrillator device. 2. Moderate elevation of the left hemidiaphragm with minor left base atelectasis.
[2017-12-11 13:41] VITALS: BP 104/54
[2017-12-11] MEDS ORDERED: IBUPROFEN400 M1 PO (14:38)
--- NOTE | 2017-12-11 17:08 | Discharge Summary ---
Visit Information Visit Dates Admission Date: 12/09/17 Discharge Date: 12/13/17 Hospital Course Course Attending Physician: Jamarcus COVINGTON,Dipti Clemons Primary Care Physician: Alton COVINGTON,Bill Ramsey Consulting Request: Consulting Specialty: Thoracic/Vascular Surgery Hospital Course: Mr. Anders is 72 year old male with past medical history significant for hypertension, hyperlipidemia, paroxysmal atrial fibrillation not no anticoagulation for fall risk, hypothyroidism, coronary artery disease status post quadruple bypass in 2001, CVA with residual right-sided weakness happened approximately 4-5 years ago who presented to ED with complaint of excruciating pain with bilateral lower extremity ulcers. Patient reported left leg posterior surface ulcer and right leg posterior surface 2 ulcers with discharge, unknown color, denied bleeding. Patient denied fever, chills. Reported that his visiting nurse advised him to come to ED in addition to excruciating pain that didn't improve with aspirin. On admission, vital signs 98.1, pulse 68 regular, blood pressure 149/78, saturating 95% on room air Labs significant for WBC 7.7, H&H 10.4/31.3 with baseline 10-11, platelet 195, electrolytes within normal, ESR 66, lactic acid 1.2. X-ray of right tibia-fibula didn't reveal any osteomyelitis Doppler no DVT EKG sinus rhythm, 63 pulse, first-degree heart block, deep Q waves in V1, V2. Problem list #Bilateral pressure lower extremity ulcers for 4 weeks not improving associated with worsening discharge and pain: On admission, wounds were found to have purulent discharge in addition to elevated erythrocytic sedimentation rate 66 and was started on IV Unasyn for cellulitis however next day patient showed great improvement after cleaning and covering his wound. IV Unasyn was discontinued and patient was followed off antibiotics with no documented fever or leukocytosis. X-ray negative for osteomyelitis, will obtain MRI as an outpatient to rule out osteo. Wound consultation was obtained with recommendation for wound care with Santyl daily and aggressive wound cleansing covered by Adaptic. Lower extremities should be offloaded. Lower extremity arterial Doppler scan was obtained that revealed peripheral vascular disease with no critical stenoses are noted. Vascular consultation was obtained, recommendation to follow-up as an outpatient. Pain was controlled with acetaminophen during hospital stay however movement aggravated his pain. Patient will be discharged on acetaminophen extra strength BID scheduled in addition to ibuprofen Q8 hours PRN. Pain regimen should be reviewed and adjusted for better pain control if needed. PT evaluation was obtained with recommendation for 24 hours home health services or STR. Patient was discharged recently from [facility] 10 months ago, he agreed to go to [facility] for wound care and muscle strengthening. On admission: Patient was found to have total of 5 pressure ulcers 3 on the posterior surface of bilateral lower extremities and 2 on the buttock: Exam of the right lateral leg shows there to be 2 ulcers the superior ulcer measures approximately 4 x 2.5 cm with red and yellow fill the wound is several millimeters deep without exposed bone there is no periwound erythema inferior to this is a 4 x 1.5 cm wound with black eschar. over the left lower extremity is a area of ulceration measuring approximately 0.8 x 0.8 mm the surrounding area is slightly indurated though there is no erythema exposed bone or undermining. Lower extremity ulcers are stage III and 1 is unstageable due to the presence of eschar. Bilateral stage III buttock ulcers are present over the right buttock is a 1.5 x 1 cm ulcer with red fill over the left buttock is a 2 x 1 cm stage III pressure ulcer is present both of which were present on admission. PATIENT SHOULD FOLLOW UP CLOSELY WITH WOUND CARE/DR BARNES AFTER DISCHARGE. PATIENT SHOULD FOLLOW WITH VASCULAR DR. CEDILLO AFTER DISCHARGE. #Borderline blood pressure Patient has a home dose lasix of 60 mg daily, during his hospital stay, his BP was borderline with HR 60s and high 50s. He has borderline oral intake (pt is very picky eater, will be given enshur), with no signs of volume overload, lasix was decreased to 40 mg. -DVT prophylaxis heparin subcutaneous -Diet heart healthy -Code DNI only Images 1- EXAM TYPE: US - US-BILAT LOW EXTR ARTERIAL DOP IMPRESSION: There is evidence of peripheral vascular disease. No critical stenoses are noted. CT angiography may be useful for defining anatomy further. 2- EXAM TYPE: RAD - XRY-PORTABLE CHEST XRAY EXAMINATION: XR PORTABLE CHEST CLINICAL INFORMATION: Patient should have MRI. No clear history about intracardiac device. IMPRESSION: 1. Abandoned epicardial lead. No pacemaker or defibrillator device. 2. Moderate elevation of the left hemidiaphragm with minor left base atelectasis. Allergies: Coded Allergies: No Known Allergies (12/09/17) Disposition Summary Disposition Principal Diagnosis: Pressure ulcer b/L lower exremity B/L buttock ulcer PAD Additional Diagnosis: Afib , not on ac CAD Discharge Disposition: SNF Discharge Instructions General Discharge Information Code Status: Do Not Intubate Patient's Diet: Heart healthy Patient's Activity: as tolerated Follow-Up Instructions/Appts: -PLEASE FOLLOW UP WITH YOUR PCP AFTER DISCHARGE -PLEASE FOLLOW UP WITH VASCULAR DR. CEDILLO AFTER DISCHARGE -PLEASE FOLLOW UP WITH WOUND CARE AFTER DISCHARGE -PLEASE DO THE WOUND CARE DIRECTED Medications at Discharge Discharge Medications: Stop taking the following medications: Furosemide (Lasix) 40 MG TABLET ORAL DAILY Continue taking these medications: Fluticasone Propionate/Salme (Advair Hfa 115-21 Mcg Inhaler) 115 MCG-21 MCG/ ACTUATION HFA.AER.AD 2 Puff INHALATION EVERY 12 HOURS Potassium Chloride (Klor-Con 10) 10 MEQ TABLET.ER 20 Millequivalent ORAL DAILY Amiodarone (Cordarone) 200 MG TAB 1 Tablet ORAL DAILY Levothyroxine Sodium (Levo-T) 125 MCG TABLET 1 Tablet ORAL DAILY Amlodipine Besylate (Amlodipine Besylate) 5 MG TABLET 1 Tablet ORAL DAILY Carvedilol (Coreg) 12.5 MG TABLET 1 Tablet ORAL TWICE DAILY Atorvastatin Calcium (Atorvastatin Calcium) 80 MG TABLET 1 Tablet ORAL DAILY Ezetimibe (Zetia) 10 MG TABLET 1 Tablet ORAL DAILY Aspirin (Aspirin*) 81 MG TAB.CHEW 1 Tablet ORAL DAILY Start taking the following new medications: Acetaminophen (Tylenol Extra Strength) 500 MG TABLET 2 Tablet ORAL TWICE DAILY Qty = 40 No Refills Nystatin (Nyata) 100,000 UNIT/GRAM POWDER 1 Application On the skin TWICE DAILY Qty = 1 Refills = 1 Ibuprofen (Ibuprofen) 400 MG TABLET 1 Tablet ORAL THREE TIMES DAILY as needed for pain control Qty = 15 No Refills Furosemide (Lasix) 40 MG TABLET 1 Tablet ORAL DAILY Qty = 30 No Refills Copies To: Yaniv COVINGTON,Asher Ratliff; Alton COVINGTON,Bill Ramsey; Bill Cedillo MD
[2017-12-11 21:47] VITALS: BP 104/66
[2017-12-12 06:32] VITALS: BP 108/54
--- NOTE | 2017-12-12 09:15 | PN- Housestaff ---
Leeann COVINGTON,[facility] 12/12/17 0910: Subjective Follow-up For: Bilateral lower extremity ulcer Subjective: Patient was seen and examined this morning, offer no complaints. He is a very picky eater, suggested enshur. Patient has borderline HR and BP, will decrease the lasix dose to 40 for 60 and monitor. Waiting for palcement. Review of Systems Constitutional: Reports: see HPI. Objective Last 24 Hrs of Vital Signs/I&O Vital Signs Date Time Temp Pulse Resp B/P B/P Pulse O2 O2 Flow FiO2 Mean Ox Delivery Rate 12/12 0632 98.1 56 20 108/54 94 Room Air 12/12 0057 63 95 12/12 0000 CPAP 12/11 2232 58 93 12/11 2148 58 104/66 12/11 2147 98.4 58 20 10466 92 Room Air 12/11 1341 98.9 57 20 104/54 92 Room Air 12/11 1252 CPAP Room Air 12/11 0947 51 110/54 12/11 0940 51 110/54 12/11 0939 51 110/54 Intake & Output 12/12 1600 12/12 0800 12/12 0000 Intake Total 250 480 Output Total 220 200 Balance 30 280 Intake, Oral 250 480 Output, Urine 220 200 Physical Exam General Appearance: Alert, Oriented X3, Cooperative, No Acute Distress Skin: No Rashes Skin Temp/Moisture Exam: Warm/Dry HEENT: Atraumatic, PERRLA, EOMI, Mucous Membr. moist/pink Neck: Supple Cardiovascular: Regular Rate, Normal S1, Normal S2, No Murmurs Lungs: Clear to Auscultation, Normal Air Movement Abdomen: Normal Bowel Sounds, Soft, No Tenderness Neurological: Normal Speech, Strength at 5/5 X4 Ext, Normal Tone, Sensation Intact Extremities: No Clubbing, No Cyanosis, No Edema, Normal Pulses, Chhronic ulcers right 2 and left 1 Assessment/Plan Assessment: Mr. Anders is 72 year old male with past medical history significant for hypertension, hyperlipidemia, paroxysmal atrial fibrillation on admission not no anticoagulation for fall risk, hypothyroidism, coronary artery disease status post quadruple bypass in 2001, CVA with residual right-sided weakness happened approximately 4-5 years ago. Problem list #Bilateral lower extremity for 4 weeks not improving associated with worsening discharge and pain #Questionable peripheral vascular disease #History of paroxysmal atrial fibrillation on aspirin, no anticoagulation due to high fall risk #History of hypertension, hyperlipidemia #History of hypothyroidism #History of CVA with residual right-sided weakness Plan -Wound consultation was obtained, thanks for recommendation -Vascular surgery consultation was obtained, thanks the recommendation -Continue off Abx, afibrile, no leukocytosis -Peripheral arterial Doppler scan was a day for peripheral vascular disease however no signs of stenosis. We'll continue aspirin and statin -Plans for MRI right leg after discharge however I contacted the MRI departement today and they said the defibrliator wire he has is incompatable with MRI -Potassium repleted, magnisium repleted -PT evaluation with STR recommendation, waiting for placement -Miralax for constipation -Decrease lasix to 40 mg for borderline BP and HR with borderline oral intake ( pt is very picky eater, will be given enshur) -DVT prophylaxis heparin subcutaneous -Diet heart healthy -Code DNI only Problem List: 1. Open wound Pain Ratin Pain Location: BL LE Pain Goal: Pain 4 or less Pain Plan: See medication Tomorrow's Labs & Rationales: N/A Jamarcus COVINGTON,[facility] 12/12/17 1444: Attending MD Review Statement Attending Statement Attending MD Statement: examined this patient, discuss w/resident/PA/BRANCH EMPLOYMENT COORDINATOR, agreed w/resident/PA/BRANCH EMPLOYMENT COORDINATOR, reviewed EMR data (avail), discussed with nursing, discussed with case mgmt Attending Assessment/Plan: Patient is doing well. He is awaiting a bed STR. He is given case management a couple of choices and we are waiting to hear back. PT is recommending STIR versus 24-hour care. Initially was reluctant to go to STR but he has agreed. He has underlying A. fib not on anticoagulation due to high fall risk, previous CVA, CAD on a beta clifford and aspirin. He has underlying peripheral arterial disease with pressure ulcers on both his lower extremities and bilateral buttocks. The plan is outpatient follow-up at the wound care center and with vascular surgery.
[2017-12-12] MEDS ORDERED: LASIX40 M1 PO (10:02)
[2017-12-12] MEDS ORDERED: TYLENOL EXTRA500 M2 PO (10:30)
[2017-12-12 15:50] VITALS: BP 120/74
[2017-12-12 22:35] VITALS: BP 108/62
[2017-12-13 06:42] VITALS: BP 119/68
[2017-12-13 14:59] VITALS: BP 110/70
[2017-12-13 17:18] VITALS: BP 110/70
== END 2017-12-13 17:48 | DRG 592 ==
LOC: ERH 08:13 → ERHI 09:56 → 2NB 09:56 → ERHI 10:26 → ENRESERV 13:19 → ENTRNSPT 13:38 → EDTRNSPTSTS 13:49 → 2NB 14:02 → CMPTRNSPT 14:11 → 2NB 15:54 → ENPENDDIS 12-13 15:00 → 2NB 12-13 17:48
PROVIDERS: Emergency Medicine; Student in an Organized Health Care Education/Training Program
DX: L89.893 Pressure ulcer of other site, stage 3 (principal); I48.0 Paroxysmal atrial fibrillation; I69.351 Hemiplegia and hemiparesis following cerebral infarction affecting right dominant side; I10 Essential (primary) hypertension; L89.323 Pressure ulcer of left buttock, stage 3; L89.313 Pressure ulcer of right buttock, stage 3; L89.890 Pressure ulcer of other site, unstageable; I73.9 Peripheral vascular disease, unspecified; E78.5 Hyperlipidemia, unspecified; E03.9 Hypothyroidism, unspecified; I25.10 Atherosclerotic heart disease of native coronary artery without angina pectoris; Z95.1 Presence of aortocoronary bypass graft
CPT/HCPCS: 2NBP; 36415; 71045; 82436; 87040; 93005; 93010; 93925; 97110-GO; 97116-GO; 97161-GP; 97530-GO; J0131; J1644; J3490

== ENCOUNTER 2018-07-17 15:23 | Inpatient (IN) | payer OTHER ==
[~2018-07-17] VITALS: Ht 152.4 cm; Wt 62.6 kg
[~2018-07-17 15:23] MED LIST: ADVAIR HFA 115-12 GM IH; AMIODARONE HCL200 M1 PO; AMLODIPINE BESYL5 M1 PO; ASPIRIN81 M4 PO; ATORVASTATIN CA80 M1 PO; COREG12.5 M1 PO; IBUPROFEN400 M1 PO; KLOR-CON 1010 ME1 PO; LASIX40 M1 PO; LEVO-T125 MCG PO; NYATA15 GM TOP; TYLENOL EXTRA500 M2 PO; ZETIA10 M1 PO
--- NOTE | 2018-07-17 15:34 | ED CARDIAC/CP/PALPITATIONS ---
History of Present Illness General Chief Complaint: Chest Pain Stated Complaint: CP/SOB Source: patient, old records, EMS Exam Limitations: no limitations Vital Signs & Intake/Output Vital Signs & Intake/Output Vital Signs Date Time Temp Pulse Resp B/P B/P Pulse O2 O2 Flow FiO2 Mean Ox Delivery Rate 07/17 1716 Ventilator 50% 07/17 1530 20 89 Nasal 4.0L Cannula 07/17 1528 98.6 59 20 167/68 80 Room Air Allergies Coded Allergies: No Known Allergies (12/09/17) Reconcile Medications Acetaminophen (Tylenol Extra Strength) 500 MG TABLET 2 TAB PO BID PAIM Amiodarone (Cordarone) 200 MG TAB 1 TAB PO DAILY PAF (Reported) Amlodipine Besylate 5 MG TABLET 1 TAB PO DAILY HTN (Reported) Aspirin (Aspirin*) 81 MG TAB.CHEW 1 TAB PO DAILY HEART HEALTH (Reported) Atorvastatin Calcium 80 MG TABLET 1 TAB PO DAILY HLD (Reported) Carvedilol (Coreg) 12.5 MG TABLET 1 TAB PO BID HTN (Reported) Ezetimibe (Zetia) 10 MG TABLET 1 TAB PO DAILY HLP (Reported) Fluticasone Propionate/Salme (Advair Hfa 115-21 Mcg Inhaler) 115 MCG-21 MCG/ ACTUATION HFA.AER.AD 2 PUF IH Q12 sob (Reported) Furosemide (Lasix) 40 MG TABLET 1 TAB PO DAILY WATER RETENTION Ibuprofen 400 MG TABLET 1 TAB PO TID PRN pain control Levothyroxine Sodium (Levo-T) 125 MCG TABLET 1 TAB PO DAILY Hypothyrodism ( Reported) Nystatin (Nyata) 100,000 UNIT/GRAM POWDER 1 AMIE TOP BID SKIN PROBLEMS Potassium Chloride (Klor-Con 10) 10 MEQ TABLET.ER 20 MEQ PO DAILY Potassium supplement (Reported) Triage Note: PT BIBA FROM HOME C/O X1 HR. PT STATES HE WAS EATING A SNACK AND TAKING HIS AFTERNOON MEDICATION WHERE HE WAS HAVING DIFFICULTY SWALLOWING. PT ARRIVED A&0X3. PT STATES SOB AND CP 1 HR PRIOR, PAIN FREE ON ARRIVAL. Triage Nurses Notes Reviewed? yes HPI: Patient brought in by ambulance for increasing shortness of breath, nonproductive cough and chest pain. The shortness of breath and nonproductive cough started 2 days ago and then the chest pain started approximately 1 hour ago. The chest pain has subsequently resolved. He states that the chest pain started after eating something of a likely got stuck transiently before it radiated down into his epigastric area and then went away. In total the chest pain lasted approximately 5-10 minutes. The pain was cramping in nature. There are no aggravating or mitigating factors. His shortness of breath and nonproductive cough he states are very similar to when he had aspiration pneumonia in the past. He denies any fevers or chills. Past History Travel History Traveled to [place] past 21 day No Medical History Any Pertinent Medical History? 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 No Review of Systems Review of Systems Constitutional: Reports: no symptoms. EENTM: Reports: no symptoms. Respiratory: Reports: see HPI, cough, short of breath. Cardiovascular: Reports: see HPI, chest pain. GI: Reports: no symptoms. Genitourinary: Reports: no symptoms. Musculoskeletal: Reports: no symptoms. Skin: Reports: no symptoms. Neurological/Psychological: Reports: no symptoms. Hematologic/Endocrine: Reports: no symptoms. Immunologic/Allergic: Reports: no symptoms. All Other Systems: Reviewed and Negative Physical Exam Physical Exam General Appearance: well developed/nourished, alert, awake, anxious, moderate distress Head: atraumatic, normal appearance Eyes: Bilateral: PERRL, EOMI. Ears, Nose, Throat: normal pharynx, normal ENT inspection Neck: normal inspection, supple, full range of motion Respiratory: decreased breath sounds, rhonchi, respiratory distress Cardiovascular: regular rate/rhythm, normal peripheral pulses Gastrointestinal: normal bowel sounds, soft, non-tender, no organomegaly Back: normal inspection, normal range of motion Extremities: normal inspection, normal capillary refill Neurologic/Psych: no motor/sensory deficits, awake, alert, oriented x 3, normal gait, normal mood/affect Skin: intact, normal color, warm/dry Core Measures ACS in differential dx? No CVA/TIA Diagnosis No Sepsis Present: No Sepsis Focused Exam Completed? No Progress Differential Diagnosis: AMI, CHF/pulm edema, musculoskeletal pain, myocarditis, pericarditis, pneumonia, pneumothorax Plan of Care: Orders Procedure Date/time Status Nothing by Mouth 07/18 B Active ED Holding Orders 07/17 171 Active Admit to inpatient 07/17 1719 Active Vital Signs 07/17 1719 Active Code Status 07/17 1719 Active ARTERIAL BLOOD GAS (GEN) 07/17 1649 Active EKG 07/17 1619 Active BLOOD CULTURE 07/17 1540 Active Telemetry/Soldering Machine Operator Automatic 07/17 1534 Active TROPONIN LEVEL 07/17 1534 Complete COMPREHENSIVE METABOLIC PANEL 07/17 1534 Complete CBC WITHOUT DIFFERENTIAL 07/17 1534 Complete Current Medications Sig/Jamie Start time Last Medication Dose Stop Time Status Admin Albuterol Sulfate 3 ML ONCE ONE 07/17 1700 UNVr 07/17 (Proventil) 07/17 1701 1716 Ampicillin Sodium/ 3,000 MG ONCE ONE 07/17 1700 UNVr 07/17 Sulbactam Sodium 07/17 1729 1708 (Unasyn) Sodium Chloride 100 ML (Normal Saline 0.9%) Laboratory Tests 07/17/18 1550: Anion Gap 9, Estimated GFR > 60, BUN/Creatinine Ratio 31.7 H, Glucose 153 H, Calcium 9.1, Total Bilirubin 0.7, AST 36, ALT 32, Alkaline Phosphatase 71, Troponin I 0.02, Total Protein 6.8, Albumin 3.8, Globulin 3.0, Albumin/Globulin Ratio 1.3, CBC w Diff NO MAN DIFF REQ, RBC 4.08 L, MCV 87.3, MCH 29.2, MCHC 33.4, RDW 15.6 H, MPV 7.4, Gran % 84.5 H, Lymphocytes % 5.2 L, Monocytes % 9.5 H, Eosinophils % 0.6, Basophils % 0.2, Absolute Granulocytes 6.1, Absolute Lymphocytes 0.4 L, Absolute Monocytes 0.7 H, Absolute Eosinophils 0, Absolute Basophils 0 Microbiology 07/17 1556 BLOOD: Blood Culture - RECD 07/17 1550 BLOOD: Blood Culture - RECD Diagnostic Imaging: Viewed by Me: Radiology Read. Discussed w/RAD: Radiology Read. CXR Impression: PATIENT: ANGEL VALERIO PRESENT AGE: 73 PATIENT ACCOUNT NO: [id number] : 44 LOCATION: [facility] ORDERING PHYSICIAN: Hamzah Hopson MD SERVICE DATE: 07/17/18 EXAM TYPE: RAD - XRY-PORTABLE CHEST XRAY EXAMINATION: XR PORTABLE CHEST CLINICAL INFORMATION: Chest pain. Cough. Presumptive diagnosis of aspiration pneumonia. COMPARISON: Chest x-ray dated 12/11/2017. TECHNIQUE: Portable AP semierect view of the chest was obtained. FINDINGS: EKG leads overlie the chest. Patient is status post median sternotomy and CABG surgery. Orphaned epicardiac pacer lead is seen projected over the left heart border, unchanged. The cardiomediastinal silhouette is enlarged, unchanged.. Again seen is elevation of the left hemidiaphragm with gaseous distention of the stomach underneath the left hemidiaphragm and presumably dependent and compressive atelectasis in the left lung base. There are some reticular opacity in the right lung base, most likely due to incomplete lung expansion and subsegmental atelectasis, though evolving pneumonia cannot be excluded. No significant effusion is seen. No pneumothorax is noted. Lower cervical spine fusion hardware is partially included. S-shaped thoracolumbar scoliosis is seen. IMPRESSION: 1. Chronic elevation of left hemidiaphragm and associated left basilar atelectasis. 2. New reticular opacity in the right lung base, likely representing atelectasis. However, clinical correlation and follow-up films are recommended to exclude an evolving pneumonia. DICTATED BY: Adrianna Mackey MD DATE/TIME DICTATED:07/17/181604 UNIX ANALYST:ANTONIA DATE/TIME TRANSCRIBED:07/17/181604 CONFIDENTIAL, DO NOT COPY WITHOUT APPROPRIATE AUTHORIZATION. <Electronically signed in Other Vendor System> SIGNED BY: Adrianna Mackey MD 07/17/18 1614 Initial ED EKG: NSR, nonspecific ST T wave chg Prior EKG: unchanged Comments: Patient dropped his O2 sat. Patient came in on 2 L and was hovering around 92% however then he desaturated into the low 80s. Patient is currently on a Ventimask and his O2 sat is 89%. Departure Departure Disposition: STILL A PATIENT Condition: Stable Clinical Impression Primary Impression: Aspiration pneumonia Secondary Impressions: ACS (acute coronary syndrome) Referrals: Alton COVINGTON,Bill Ramsey (PCP/Family) Departure Forms: Customer Survey General Discharge Information Admission Note Spoke With: Adriana Edgar MD Documentation of Exam: Documentation of any treatments & extenuating circumstances including Concerns Regarding Discharge (functional status, medication knowledge or non-compliance, living conditions, etc.) that warrant an admission rather than observation: [ TELE MONITORING, SERIALENZYMES, IV ABX, SWALLOW EVAL, CARDIOLOGY CONSULT] Critical Care Note Critical Care Note Critical Care Time: mins: (90 MIN)
[2018-07-17 16:08] LABS: ABSOLUTE BASOPHIL COUNT 0 /CUMM (0.0-0.2); ABSOLUTE EOSINOPHIL COUNT 0 /CUMM (0.0-0.7); ABSOLUTE GRANULOCYTE CT 6.1 /CUMM (1.4-6.5); ABSOLUTE LYMPH COUNT 0.4 /CUMM (1.2-3.4); ABSOLUTE MONOCYTE COUNT 0.7 /CUMM (0.10-0.60); BASOPHIL % 0.2 % (0.0-2.0); EOSINOPHIL % 0.6 % (0-5); GRANULOCYTE % 84.5 % (42.2-75.2); HEMATOCRIT 35.6 % (42-52); MEAN CORPUSCULAR HGB 29.2 PG (27.0-31.0); MEAN CORPUSCULAR HGB CONC 33.4 G/DL (33.0-37.0); MEAN CORPUSCULAR VOLUME 87.3 FL (80.0-94.0); MEAN PLATELET VOLUME 7.4 FL (7.4-10.4); PLATELET COUNT 141 /CUMM (130-400); RBC DISTRIBUTION WIDTH 15.6 % (11.5-14.5); RED BLOOD CELL CT 4.08 /CUMM (4.70-6.10); WHITE BLOOD CELL COUNT 7.3 /CUMM (4.8-10.8)
--- NOTE | 2018-07-17 16:17 | RADIOLOGY REPORT ---
EXAMINATION: XR PORTABLE CHEST CLINICAL INFORMATION: Chest pain. Cough. Presumptive diagnosis of aspiration pneumonia. COMPARISON: Chest x-ray dated 12/11/2017. TECHNIQUE: Portable AP semierect view of the chest was obtained. FINDINGS: EKG leads overlie the chest. Patient is status post median sternotomy and CABG surgery. Orphaned epicardiac pacer lead is seen projected over the left heart border, unchanged. The cardiomediastinal silhouette is enlarged, unchanged.. Again seen is elevation of the left hemidiaphragm with gaseous distention of the stomach underneath the left hemidiaphragm and presumably dependent and compressive atelectasis in the left lung base. There are some reticular opacity in the right lung base, most likely due to incomplete lung expansion and subsegmental atelectasis, though evolving pneumonia cannot be excluded. No significant effusion is seen. No pneumothorax is noted. Lower cervical spine fusion hardware is partially included. S-shaped thoracolumbar scoliosis is seen. IMPRESSION: 1. Chronic elevation of left hemidiaphragm and associated left basilar atelectasis. 2. New reticular opacity in the right lung base, likely representing atelectasis. However, clinical correlation and follow-up films are recommended to exclude an evolving pneumonia.
--- NOTE | 2018-07-17 19:04 | History & Physical ---
Agustin Turner 07/17/183: General Information and HPI MD Statement: I have seen and personally examined ANGEL ANDERS and documented this H& P. 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 He was known to be in his usual state of health until a few days prior to presentation. He reported to have cough with productive sputum that started a few days ago, associated with occasional chest pain. He also reported difficulty swallowing large pills, but did not have any difficulty swallowing fluids. Reported decreased by mouth intake in the last few days. He is usually ambulatory at baseline, uses a walker. He had fever on the a.m. of admission, but did not have any recorded temperature. He was sitting in his chair, outside his home when he had acute onset of dyspnea. While he was being brought to the hospital, he had chest pain located in the center of the chest, with no radiation and lasted for approximately 20 minutes. Also associated with diaphoresis. Reported to have orthopnea, but no PND recently. He also had nausea, but did not have any vomiting. No pedal edema, no change in urine output. He has multiple ulcers on his back, and lower extremities which did not have any serious sinus discharge. No abdominal pain, neurological symptoms. No loss of consciousness, lightheadedness or dizziness. No recent falls. No chest pain at the time of examination. But, had chills and acute dyspnea at the time of examination. Allergies/Medications Allergies: Coded Allergies: No Known Allergies (12/09/17) Home Med list Acetaminophen (Tylenol Extra Strength) 500 MG TABLET 2 TAB PO BID PAIM Amiodarone (Cordarone) 200 MG TAB 1 TAB PO DAILY PAF (Reported) Amlodipine Besylate 5 MG TABLET 1 TAB PO DAILY HTN (Reported) Amoxicillin 875 MG TABLET 1 TAB PO BID ABX (Reported) Aspirin (Ecotrin*) 325 MG TABLET.DR 1 TAB PO DAILY HEART/BLOOD (Reported) Atorvastatin Calcium 80 MG TABLET 1 TAB PO DAILY HLD (Reported) Carvedilol (Coreg) 12.5 MG TABLET 1 TAB PO BID HTN (Reported) Ezetimibe (Zetia) 10 MG TABLET 1 TAB PO DAILY HLP (Reported) Fluticasone Propionate (Flonase Allergy Relief) 50 MCG/ACTUATION SPRAY.SUSP 2 SPRAY NASB AD PRN ALLERGIES (Reported) Fluticasone Propionate/Salme (Advair Hfa 115-21 Mcg Inhaler) 115 MCG-21 MCG/ ACTUATION HFA.AER.AD 2 PUF IH Q12 sob (Reported) Levothyroxine Sodium 100 MCG TABLET 1 TAB PO DAILY THYROID (Reported) Potassium Chloride (Klor-Con 10) 10 MEQ TABLET.ER 20 MEQ PO DAILY Potassium supplement (Reported) Past History Travel History Traveled to [place] past 21 day No Medical History Neurological: CVA EENT: NONE Cardiovascular: AFIB, hypertension, hyperlipidemia, BYPASS Respiratory: pneumonia Gastrointestinal: NONE Hepatic: NONE Renal: NONE Musculoskeletal: rheumatoid arthritis Psychiatric: NONE Endocrine: NONE Blood Disorders: NONE Cancer(s): NONE COMMODITIES MANAGER/Reproductive: NONE History of MRSA: No History of VRE: No History of CDIFF: No Surgical History Surgical History: non-contributory Past Family/Social History Family History Relations & Conditions if any No Known Family History. Psychosocial History Services at Home: Nursing ETOH Use: denies use Illicit Drug Use: denies illicit drug use Functional Ability ADLs Independent: dressing, eating. Unknown: toileting, bathing. Ambulation: walker Review of Systems Review of Systems Constitutional: Reports: chills, fever, malaise. EENTM: Denies: blurred vision. Cardiovascular: Denies: chest pain. Respiratory: Denies: hemoptysis. GI: Denies: abdominal pain, distention. Genitourinary: Denies: dysuria. Musculoskeletal: Denies: back pain. Skin: Denies: change in skin color. Neurological/Psychological: Denies: anxiety. Hematologic/Endocrine: Denies: bruising. Exam & Diagnostic Data Last 24 Hrs of Vital Signs/I&O Vital Signs Date Time Temp Pulse Resp B/P B/P Pulse O2 O2 Flow FiO2 Mean Ox Delivery Rate 07/17 1901 98.8 76 20 146/70 95 Venti Mask 55% 07/17 1757 98.7 72 18 129/78 94 Venti Mask 55% 07/17 1729 94 Venti Mask 55% 07/17 1729 18 94 Venti Mask 55% 07/17 1716 Ventilator 50% 07/17 1530 20 89 Nasal 4.0L Cannula 07/17 1528 98.6 59 20 167/68 80 Room Air Intake & Output 07/17 1600 07/17 0800 07/17 0000 Intake Total Output Total Balance Patient 145 lb Weight Weight Reported by Patient Measurement Method Physical Exam General Appearance Alert, Oriented X3, Cooperative, Mild Distress Skin No Rashes, multiple ulcers on the back ( couldnt examine all the ulcers, because the pt didnt let us examine due to discomfort ? stage 2) ulcers on the RLE, and LLE stage 1. no erythema, serous discharge in the right ear, auricular area associated erythema Skin Temp/Moisture Exam: Warm/Dry Sepsis Skin Exam (color): Normal for Ethnicity HEENT Atraumatic, PERRLA, EOMI, mucus membranes dry Neck Supple, No JVD, No thryomegaly, no JVD Lymphatic Axillary nl, Cervical nl Cardiovascular Regular Rate, Normal S1, Normal S2, No Murmurs, Gallops, Rubs Lungs ronchi b/l, no wheezes decreased air entry ( limited exam due to venti mask ) Abdomen Normal Bowel Sounds, Soft, No Tenderness, No Hepatospenomegaly, No Masses Neurological Normal Speech, Strength at 5/5 X4 Ext, Normal Tone, Sensation Intact, Cranial Nerves 3-12 NL, Reflexes 2+, cerebellar test no done. Extremities No Clubbing, No Cyanosis, Normal Pulses, swelling in feet due to bandages. Unclear if he has pedal edema due to bandages extendign upto knees Vascular Pulses Symmetrical Sepsis Peripheral Pulse Location: Dorsalis Pedis Sepsis Peripheral Pulse Exam: Normal Sepsis Cap Refill Exam: <2 Sec Breasts No breast discharge Body Front and Back (Adult) 1) multiple ulcers 2) multiple ulcers no erythema Diagnostic Data EKG Results Regular rhythm, left axis deviation, left anterior physical block, first-degree AV block. T-wave inversions in V3-V4 which are new compared to before. V5-V6 t wave flattening. could not visualize P waves, due to artifact. Would repeat. 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 At the time of admission-temperature 98.7, pulse rate 72, respiration 18, blood pressure 129/78, 94% on 55% oxygen-Ventimask. Pertinent lab findings: WBC 7.3 (84.5 granulocytes), hemoglobin 11.9, platelet count 141. Sodium 137, potassium 4.4, chloride 98, bicarbonate 29. BUN 19, creatinine 0.6. Glucose 153 AST 36, AST 32, alkaline phosphatase 71. Troponin I- 0.02 VBG-pH 7.35. UA revealed elevated protein, but no ULE, nitrites. Chest x-ray revealed- 1. Chronic elevation of left hemidiaphragm and associated left basilar atelectasis. 2. New reticular opacity in the right lung base, likely representing atelectasis. However, clinical correlation and follow-up films are recommended to exclude an evolving pneumonia. He was given ampicillin sulbactam, albuterol. Blood cultures drawn. History of acute onset of symptoms associated w/ fever, chills, rigors, cough with purulent sputum, dyspnea, chest pain is likely due to pneumonia. Radiological signs of diffuse interstitial opacity on the right side is likely bacterial pneumonia- community acquired pneumonia. Typical organisms usually considered are strep pneumo, Haemophilus, Klebsiella, Moraxella, staph aureus, while atypicals such as mycoplasma, chlamydophila, Legionella shold be covered. Given possible history suggestive of aspiration, chemical pneumonitis with oral and gastric anaerobes causing pneumonia are likely. Mortality is usually higher in elderly patients with coexisting conditions such as chronic heart disease, which needs an admission. Based on the severity of illness, and these coexisting conditions, ability of home care and follow-up this patient needs to be admitted to general medicine service. Other differentials are CHF, COPD exacerbation. In regards to his chest pain, ACS should be ruled out given his previous cardiac history. He also had an acute onset of dyspnea, but no history of immobility or history of cancer, that said PE should be in the differentials that need to be ruled out. About the right external otititis externa, he should be covered for strep, but should broaden the abx coverage if no response. Problem list: 1. Pneumonia- commnity acquired pneumonia, aspiration pneumonia, acute hypoxic respiratory failure 2. r/o ACS 3. h/o paroxysmal Afib 4. h/o COPD 5. h/o PAD, multiple ulcers in LE. 6. h/o CAD s/p CABG in 2001 7. Otitis externa r/o mastoiditis Plan: # Obtain venous access, and fluid resuscitation as needed. Check proBNP. #Supplemental oxygen, TRC as needed. NIPPV if needed. #Continue cardiac technician. #Inhaled bronchodilators as needed #Follow CBCs with differential, serum chemistry #Check blood cultures, sputum cultures and Gram stain #Check urine antigen test for strep pneumo and legionella #Trend lactate, if elevated. #Start IV antibiotics-preferably beta lactam+ macrolide at this time for possible CAP. #Check CTA. #ASA UT for ACS. #Check Echocardiogram #Serial electrocardiograms, and cardiac enzymes. Admission checklist: 1. DVT PPx- Heparin sc 2. Code- Full code. 3. Med rec not completed. Pt unclear about his meds, will follow up. 4. Diet NPO, pending swallow eval. 5. Consults- Cards, Swallow eval. ENT surgeon Dr. Perez called back for discussing about the pt. He recommend neomycin+polymyxin+HC ear drops for now. He plans on seeing this patient, and would review the CT scan findings. As Ranked By This Provider Problem List: 1. ACS (acute coronary syndrome) 2. Aspiration pneumonia 3. Open wound Core Measures/Misc (08/17) Acute Coronary Syndrome ACS Diagnosis: No Congestive Heart Failure Congestive Heart Failure Diagnosis No Cerebrovascular Accident CVA/TIA Diagnosis: No VTE (View Protocol) VTE Risk Factors Acute Medical Illness No Mechanical VTE Prophylaxis d/t N/A MechProphylax Ordered No VTE Pharm Prophylaxis d/t NA PharmProphylax ordered Sepsis (View protocol) Sepsis Present: No If YES complete Sepsis Event Note If YES complete Sepsis Event Note Joce COVINGTON,Dolores 07/17/18 5574: Core Measures/Misc (08/17) Sepsis (View protocol) If YES complete Sepsis Event Note If YES complete Sepsis Event Note Attending MD Review Statement Attending Statement Attending Assessment/Plan: This is a 73-year-old male with a past medical history significant for coronary artery disease status post CABG who presented to the hospital for evaluation of dysphagia, shortness of breath and fevers. Of note, he was recently prescribed doxycycline for a right ear infection and felt a sensation of something being stuck in the center of his chest after taking this pill. He also admitted to mild aspiration. Patient states that this has happened to him in the past, requiring a swallow evaluation which he states he passed. Problem list: Acute hypoxic respiratory failure secondary to aspiration pneumonia versus community-acquired pneumonia. CTA of the chest was done to rule out pulmonary embolism; findings revealed right lower lobe consolidation with air bronchogram involving the entire right lobe/partial consolidation of the right middle lobe Right periauricular cellulitis/otitis externa/mastoiditis: Patient has mild erythema, edema and exudative purulent discharge surrounding his periauricular region. Upon otoscopic examination he had significant edema and erythema noted in the middle ear. Plan: Start ceftriaxone and doxycycline Obtain sputum culture and blood cultures ENT consultation in the morning CT of the right ear Speech evaluation tomorrow morning; patient is to remain n.p.o.
[2018-07-17] MEDS ORDERED: ASPIRIN EC325 M2 PO (19:51)
[2018-07-17] MEDS ORDERED: AMOXICILLIN875 M1 PO (19:54)
[2018-07-17] MEDS ORDERED: LEVOTHYROXINE100 MC1 PO (19:54)
[2018-07-17] MEDS ORDERED: FLONASE ALLERG9.9 ML NASB (19:55)
[2018-07-17 20:25] VITALS: BP 128/68
--- NOTE | 2018-07-17 23:21 | CT SCAN REPORT ---
EXAMINATION: CT ANGIOGRAM OF THE CHEST WITH AND WITHOUT CONTRAST (CT PULMONARY ANGIOGRAM FOR PE) CLINICAL INFORMATION: Acute onset of dyspnea. COMPARISON: Radiograph from earlier today. TECHNIQUE: Prior to contrast administration, noncontrast localization images were obtained. Subsequently, multidetector volumetric imaging was performed from the thoracic inlet to below the diaphragms following the administration of 95 mL Optiray 320 intravenous contrast. No contrast reaction reported. Sagittal, coronal, and MIP oblique sagittal reformatted images were obtained on the CT workstation, uploaded to PACS, and reviewed. Total exam dose-length product 493 mGy-cm. FINDINGS: QUALITY OF STUDY/CONTRAST BOLUS: Satisfactory PULMONARY ARTERIES: No central or segmental pulmonary emboli. THORACIC AORTA: No aneurysm or dissection. Moderate atherosclerotic calcifications. LUNG: The central airways are patent. Multiple bronchial filling defects are seen in the right lower lobe. There is a dense right lower lobe consolidation, involving nearly the entire right lower lobe. Right middle lobe consolidation also present. Air bronchograms noted. There is also a left lower lobe consolidation with air bronchograms, to a lesser extent in the right. This is seen at the base. No pneumothorax. Trace left pleural effusion. Elevated left hemidiaphragm. MEDIASTINUM: The heart is enlarged. No pericardial effusion. Epicardial pacer lead is noted. No mediastinal lymphadenopathy. Multiple small mediastinal nodes are present. No evidence of septal bowing or right heart strain. CHEST WALL/AXILLA: No axillary or internal mammary lymphadenopathy. OSSEOUS STRUCTURES: No acute or suspicious osseous abnormality. Multilevel degenerative changes throughout the spine. Status post median sternotomy. UPPER ABDOMEN: Unremarkable. No reflux of contrast into the hepatic veins to suggest elevated right heart pressures. IMPRESSION: 1. No pulmonary embolism. 2. There is a dense right lower lobe consolidation with air bronchograms, involving essentially the entire right lower lobe. Partial consolidation within the right middle lobe as well. Smaller left lower lobe consolidation. The appearance is suspicious for pneumonia, given the presence of air bronchograms in the patency of the central airways. Some component of atelectasis is likely present. Follow-up to resolution. VTE: negative
[2018-07-18 06:23] VITALS: BP 120/58
[2018-07-18 08:37] LABS: ABSOLUTE BASOPHIL COUNT 0 /CUMM (0.0-0.2); ABSOLUTE EOSINOPHIL COUNT 0 /CUMM (0.0-0.7); ABSOLUTE GRANULOCYTE CT 8.2 /CUMM (1.4-6.5); ABSOLUTE LYMPH COUNT 0.5 /CUMM (1.2-3.4); ABSOLUTE MONOCYTE COUNT 0.7 /CUMM (0.10-0.60); BASOPHIL % 0.1 % (0.0-2.0); EOSINOPHIL % 0 % (0-5); GRANULOCYTE % 87.9 % (42.2-75.2); HEMATOCRIT 31.3 % (42-52); MEAN CORPUSCULAR HGB 29.2 PG (27.0-31.0); MEAN CORPUSCULAR HGB CONC 33.5 G/DL (33.0-37.0); MEAN CORPUSCULAR VOLUME 87.1 FL (80.0-94.0); MEAN PLATELET VOLUME 7.9 FL (7.4-10.4); PLATELET COUNT 124 /CUMM (130-400); RBC DISTRIBUTION WIDTH 15.8 % (11.5-14.5); WHITE BLOOD CELL COUNT 9.4 /CUMM (4.8-10.8)
--- NOTE | 2018-07-18 08:44 | PN- Housestaff ---
HemanthLexijovita 07/18/18 0844: Subjective Follow-up For: right ear infection Subjective: Patient had temp of 104.3F overnight. He endorses decreased hearing in right ear , states the pain in his ear has improved. Review of Systems Constitutional: Reports: see HPI. Objective Last 24 Hrs of Vital Signs/I&O Vital Signs Date Time Temp Pulse Resp B/P B/P Pulse O2 O2 Flow FiO2 Mean Ox Delivery Rate 07/18 2205 98.7 68 15 130/74 92 07/18 2140 92 Nasal 55% Cannula 07/18 1855 92 Nasal 55% Cannula 07/18 1417 Nasal 55% Cannula 07/18 1416 94 Nasal 55% Cannula 07/18 1409 99.1 64 20 122/60 91 Nasal Cannula 07/18 0900 93 Nasal 55% Cannula 07/18 0800 Nasal 60% Cannula 07/18 0623 98.2 57 20 120/58 95 Nasal Cannula 07/18 0502 99.0 07/18 0121 95 Nasal 60% Cannula 07/17 2337 95 Nasal 60% Cannula 07/17 2333 94 Nasal 60% Cannula Intake & Output 07/18 1600 07/18 0800 07/18 0000 Intake Total 75 550 Output Total 200 Balance -125 550 Intake, IV 75 550 Intake, Oral 0 Output, Urine 200 Patient 142 lb 142 lb Weight Weight Bed scale Measurement Method Physical Exam General Appearance: Alert, Oriented X3, Cooperative HEENT: unable to visualize right tympanic membrane, serous drainage in right ear canal. 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 #Right Ear External Otitis: involving the auricle and ear canal -continue Neomycin, polymyxin and hydrocortisone ear drops, 4 drops into right ear TID #Acute Right Pharngitis: patient c/o of pain and difficulty swallowing. Could have contributed to failed swallow eval today. -IV Acyclovir 500mg TID -repeat swallow eval tomorrow #Pnuemonia: CTA chest 07/17/18 findings-dense right lower lobe consoidation with air bronchograms, and partial consolidation of right middle lobe. LLL consolidation -Urinary strep pneumo and legionella negative -f/u blood and sputum culture -continue Ceftriaxone Contiue treatment of chronic conditions Diet- NPO currently Code Status: Full code DVT PPx: Heparin SC Problem List: 1. Otitis externa Pain Ratin Pain Location: right ear Pain Goal: Remain pain free Pain Plan: tylenol Tomorrow's Labs & Rationales: cbc Sarah COVINGTON,Amir 07/18/18 1135: Attending MD Review Statement Attending Statement Attending MD Statement: examined this patient, discuss w/resident/PA/DIRECTOR TRANSLATION, agreed w/resident/PA/DIRECTOR TRANSLATION, reviewed EMR data (avail), discussed with nursing Attending Assessment/Plan: Pt was katie and evaluated. Chart reviewed. Denies any preceeding events related to right ear infx, + cough while swallowing. --f/u ENT eval --cont abx for now and f/u C&S --agree with swallow eval --rest of the plan as per resident's note
--- NOTE | 2018-07-18 13:37 | CT SCAN REPORT ---
EXAMINATION: CT INTERNAL AUDITORY CANALS WITHOUT CONTRAST CLINICAL INFORMATION: Rule out mastoiditis, temporal bone, right ear infection. COMPARISON: None TECHNIQUE: Contiguous axial imaging was performed without intravenous administration of contrast. DLP: 685 mGy-cm FINDINGS: On the right, there is diffuse thickening of the right external ear as well as the cartilaginous external auditory canal. Mild soft tissue thickening is also seen along the superior wall of the osseous external auditory canal with additional minimal soft tissue seen within the hypotympanum. A small amount of fluid is present in scattered mastoid air cells. No septal destruction or erosive change is seen. The lateral wall of the mastoid is intact without erosion. The ossicular chain is intact. The facial nerve describes a normal course. The inner ear structures are normally formed. On the left, the external auditory canal is normal. The tympanic membrane is not thickened. The ossicular chain is intact. No osseous erosion is seen. No soft tissue abnormality is seen in the middle ear cavity. The mastoid air cells are normally pneumatized and clear. The left maxillary sinus is completely opacified. There is leftward deviation of the nasal septum with prominent leftward projecting septal spur. There are partially visualized postoperative findings in the upper cervical spine. The visualized intracranial structures appear normal. IMPRESSION: - Diffuse thickening of the right external ear and cartilaginous external auditory canal compatible with otitis externa. A few scattered mastoid air cells are opacified but no septal destruction or erosion is seen. Minimal soft tissue thickening is seen in the osseous external auditory canal and in the hypotympanum which is nonspecific and may reflect granulation tissue. Normal appearance of the left middle ears are and inner ear structures. - Complete opacification of the left maxillary sinus.
[2018-07-18 14:09] VITALS: BP 122/60
--- NOTE | 2018-07-18 15:29 | Cons- Cardiology ---
General Information and HPI Consulting Request Date of Consult: 07/18/18 Requested By: Dolores Hobson MD History of Present Illness: Mr Anders is a 73 year old male with history of hypertension, dyslipidemia, paroxysmal atrial fibrillation and coronary artery disease s/p CABG x 4 in 2001. 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 At baseline, this patient is minimally active due to a combination of his prior CVA and arthrititis althought he does exercise using his arms and walks a bit with a walker. Mr. Anders was brought to the ER for evaluation of shortness of breath with a productive cough, fever and chills. These symptoms began a few days ago but have become progressively worse. Chest pain was reported at the time of admission although the patient now denies any chest pain, pressure, tightness, lightheadedness or palpitations. This discomfort apparently was non-radiating and lasted for about twenty minutes. The patient also reports orthopnea which is a more chronic condition. CT disclosed evidence of a right sided pneumonia. Allergies/Medications Allergies: Coded Allergies: No Known Allergies (12/09/17) Home Med List: Acetaminophen (Tylenol Extra Strength) 500 MG TABLET 2 TAB PO BID PAIM Amiodarone (Cordarone) 200 MG TAB 1 TAB PO DAILY PAF (Reported) Amlodipine Besylate 5 MG TABLET 1 TAB PO DAILY HTN (Reported) Amoxicillin 875 MG TABLET 1 TAB PO BID ABX (Reported) Aspirin (Ecotrin*) 325 MG TABLET.DR 1 TAB PO DAILY HEART/BLOOD (Reported) Atorvastatin Calcium 80 MG TABLET 1 TAB PO DAILY HLD (Reported) Carvedilol (Coreg) 12.5 MG TABLET 1 TAB PO BID HTN (Reported) Ezetimibe (Zetia) 10 MG TABLET 1 TAB PO DAILY HLP (Reported) Fluticasone Propionate (Flonase Allergy Relief) 50 MCG/ACTUATION SPRAY.SUSP 2 SPRAY NASB AD PRN ALLERGIES (Reported) Fluticasone Propionate/Salme (Advair Hfa 115-21 Mcg Inhaler) 115 MCG-21 MCG/ ACTUATION HFA.AER.AD 2 PUF IH Q12 sob (Reported) Levothyroxine Sodium 100 MCG TABLET 1 TAB PO DAILY THYROID (Reported) Potassium Chloride (Klor-Con 10) 10 MEQ TABLET.ER 20 MEQ PO DAILY Potassium supplement (Reported) Review of Systems Review of Systems: A twelve point review of systems is unremarkable. 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 Psychosocial History Where Do You Live? Home Services at Home: Home Health Aide, Nursing Smoking Status: Former Smoker ETOH Use: denies use Illicit Drug Use: denies illicit drug use Functional Ability ADLs Independent: dressing, eating. Unknown: toileting, bathing. Ambulation: walker Exam & Diagnostic Data Vital Signs and I&O Vital Signs Date Time Temp Pulse Resp B/P B/P Pulse O2 O2 Flow FiO2 Mean Ox Delivery Rate 07/18 1417 Nasal 55% Cannula 07/18 1416 94 Nasal 55% Cannula 07/18 1409 99.1 64 20 122/60 91 Nasal Cannula 07/18 0900 93 Nasal 55% Cannula 07/18 0800 Nasal 60% Cannula 07/18 0623 98.2 57 20 120/58 95 Nasal Cannula 07/18 0502 99.0 07/18 0121 95 Nasal 60% Cannula 07/17 2337 95 Nasal 60% Cannula 07/17 2333 94 Nasal 60% Cannula 07/17 2221 102.3 07/17 2136 92 Nasal 60% Cannula 07/17 2033 104.3 07/17 2025 104.3 74 20 128/68 91 Venti Mask 07/17 1901 98.8 76 20 146/70 95 Venti Mask 55% 07/17 1757 98.7 72 18 129/78 94 Venti Mask 55% 07/17 1729 94 Venti Mask 55% 07/17 1729 18 94 Venti Mask 55% 07/17 1716 Ventilator 50% 07/17 1530 20 89 Nasal 4.0L Cannula Intake & Output 07/18 1600 07/18 0800 18 0000 07/17 1600 07/17 0800 07/17 0000 Intake Total 75 550 Output Total 200 Balance -125 550 Intake, IV 75 550 Intake, Oral 0 Output, Urine 200 Patient 142 lb 142 lb 145 lb Weight Weight Bed scale Reported by Patient Measurement Method Physical Exam: General: WD/WN male in NAD; alert and oriented x 3 HEENT: NC/AT, PERRL, EOMI Neck: no JVD, no carotid bruit Heart: RRR w/o murmur Lungs: decreased breath sounds on the right Abdomen: soft, NT, +ve bowel sounds Extremities: no edema Assessment/Plan Assessment/Plan * This patient has shortness of breath related to his pneumonia. In consideration of his prior cardiac history and symptoms it is nevertheless recommended that an echocardiogram be obtained to assess his EF. * There is no evidence of myocardial ischemia at this time. The patient may have had transient chest discomfort that was a musculoskeletal discomfort related to coughing or perhaps there is a pleuritic component to his pneumonia. The discomfort is resolved. We will continue to watch his risk factors for myocardial ischemia and will consider an outpatient stress test when more stable. I would continue his usual cardiac medications for now. Consult Acknowledgment - Thank you for your consult request.
--- NOTE | 2018-07-18 18:00 | Cons- Ear,Nose&Throat ---
General Information and HPI Consulting Request Date of Consult: 07/18/18 Requested By: Dolores Hobson MD Reason for Consult: Right external ear infection associated with sore throat and pneumonia Source of Information: patient Exam Limitations: no limitations History of Present Illness: This pleasant elderly gentleman was admitted to the hospital with symptoms of dyspnea, dysphagia and chest pain. He states that for the past 3 days prior to his admission he developed right ear discomfort which radiated down to the right throat. He then developed shortness of breath, cough, chest pain with fever. He denies significant change in his hearing, dizziness or facial weakness No recent voice changes He is S/P tonsillectomy in his youth No history of ear disease Examination by the admitting physicians revealed evidence of a right pneumonia by x-ray and there was swelling of the right pinna of his ear with discharge from the right ear canal Allergies/Medications Allergies: Coded Allergies: No Known Allergies (12/09/17) Home Med List: Acetaminophen (Tylenol Extra Strength) 500 MG TABLET 2 TAB PO BID PAIM Amiodarone (Cordarone) 200 MG TAB 1 TAB PO DAILY PAF (Reported) Amlodipine Besylate 5 MG TABLET 1 TAB PO DAILY HTN (Reported) Amoxicillin 875 MG TABLET 1 TAB PO BID ABX (Reported) Aspirin (Ecotrin*) 325 MG TABLET.DR 1 TAB PO DAILY HEART/BLOOD (Reported) Atorvastatin Calcium 80 MG TABLET 1 TAB PO DAILY HLD (Reported) Carvedilol (Coreg) 12.5 MG TABLET 1 TAB PO BID HTN (Reported) Ezetimibe (Zetia) 10 MG TABLET 1 TAB PO DAILY HLP (Reported) Fluticasone Propionate (Flonase Allergy Relief) 50 MCG/ACTUATION SPRAY.SUSP 2 SPRAY NASB AD PRN ALLERGIES (Reported) Fluticasone Propionate/Salme (Advair Hfa 115-21 Mcg Inhaler) 115 MCG-21 MCG/ ACTUATION HFA.AER.AD 2 PUF IH Q12 sob (Reported) Levothyroxine Sodium 100 MCG TABLET 1 TAB PO DAILY THYROID (Reported) Potassium Chloride (Klor-Con 10) 10 MEQ TABLET.ER 20 MEQ PO DAILY Potassium supplement (Reported) Current Medications: Current Medications Sig/Jamie Start time Last Medication Dose Route Stop Time Status Admin Acetaminophen 1,000 MG ONCE ONE 07/18 0500 DC 07/18 N/A 1 UNIT IV 07/18 0514 0502 Acetaminophen 0 .STK-MED ONE 07/17 2034 DC IV Acetaminophen 0 .STK-MED ONE 07/17 2031 DC IV Acetaminophen 1,000 MG BID PRN 07/17 1930 AC 07/18 IV 1348 Albuterol Sulfate 3 ML Q4P PRN 07/17 194 AC INH Amiodarone HCl 200 MG DAILY 07/18 900 AC PO Aspirin 81 MG DAILY 07/18 900 CAN PO Aspirin 300 MG ONCE ONE 07/17 191 DC 07/17 [place] 07/17 191 2305 Aspirin Buffered 325 MG DAILY 07/18 900 AC PO Atorvastatin Calcium 80 MG DAILY 07/18 900 AC PO Azithromycin 500 MG 2200 07/17 2200 DC 07/17 Sodium Chloride 250 ML IV 2304 Azithromycin 500 MG 2100 07/17 2100 DC PO Budesonide/ 2 PUF BID 07/17 2100 AC 07/18 Formoterol Fumarate INH 0742 Ceftriaxone Sodium 1,000 MG 2100 07/17 2100 AC 07/17 IV 2214 Dextrose/Sodium 1,000 ML Q13H 07/18 1300 AC 07/18 Chloride IV 1346 Doxycycline Hyclate 100 MG Q12H 07/18 0200 AC 07/18 Dextrose/Water 100 ML IV 1352 Ezetimibe 10 MG DAILY 07/18 09 AC PO Heparin Sodium 5,000 UNIT Q8 07/17 2200 AC 07/18 (Porcine) SC 1348 Levothyroxine Sodium 0.1 MG DAILY AC 07/18 07 AC PO Neomycin/Polymyxin/ 4 GTT TID 07/18 09 AC 07/18 Bacitr/Hydrocort OTIC 1348 Sodium Chloride 1,000 ML ONCE ONE 07/17 1915 CAN IV 07/18 1514 Past History Medical History Blood Transfusion Hx: No Neurological: CVA EENT: NONE Cardiovascular: aflutter, CAD, hypertension, hyperlipidemia, BYPASS Respiratory: COPD, obstructive sleep apnea, pneumonia Gastrointestinal: NONE Hepatic: NONE Renal: NONE Musculoskeletal: rheumatoid arthritis Psychiatric: NONE Endocrine: NONE Blood Disorders: NONE Cancer(s): NONE 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 Psychosocial History Where Do You Live? Home Services at Home: Home Health Aide, Nursing Smoking Status: Former Smoker ETOH Use: denies use Illicit Drug Use: denies illicit drug use Functional Ability ADLs Independent: dressing, eating. Unknown: toileting, bathing. Ambulation: walker Exam & Diagnostic Data Vital Signs and I&O Vital Signs Date Time Temp Pulse Resp B/P B/P Pulse O2 O2 Flow FiO2 Mean Ox Delivery Rate 07/18 1417 Nasal 55% Cannula 07/18 1416 94 Nasal 55% Cannula 07/18 1409 99.1 64 20 122/60 91 Nasal Cannula 07/18 0900 93 Nasal 55% Cannula 07/18 0800 Nasal 60% Cannula 07/18 0623 98.2 57 20 120/58 95 Nasal Cannula 07/18 0502 99.0 07/18 0121 95 Nasal 60% Cannula 07/17 2337 95 Nasal 60% Cannula 07/17 2333 94 Nasal 60% Cannula 07/17 2221 102.3 07/17 2136 92 Nasal 60% Cannula 07/17 2033 104.3 07/17 202 104.3 74 20 128/68 91 Venti Mask 07/17 1901 98.8 76 20 146/70 95 Venti Mask 55% 07/17 1757 98.7 72 18 129/78 94 Venti Mask 55% Intake & Output 07/18 1600 07/18 0800 07/18 0000 07/17 1600 07/17 0800 07/17 0000 Intake Total 75 550 Output Total 200 Balance -125 550 Intake, IV 75 550 Intake, Oral 0 Output, Urine 200 Patient 142 lb 142 lb 145 lb Weight Weight Bed scale Reported by Patient Measurement Method Physical Exam: Head and neck examination was performed at the bedside. He is awake alert and oriented and cooperative. Ear examination revealed: Right ear pinna to be slightly swollen with slight crusting of the skin with serous discharge from the ear canal. Tympanic membrane was not visible. The mastoid area was not tender The left ear revealed an unremarkable auricle. The ear canal had moderate cerumen and the tympanic membrane was not visible The nose revealed that he had nasal cannula in place. The nasal septum was deviated to the left The oropharynx revealed that he was edentulous. There was no trismus. The right tonsillar fossa revealed a superficial ulcerative area with erythema the left tonsil fossa was normal Tongue mobility was normal Neck examination was unremarkable. Assessment/Plan Assessment/Plan Impression: External otitis of both the auricle and the ear canal, right ear Acute right pharyngitis Slight suspicion of a herpetic infection of right glossopharyngeal nerve Acute pneumonia per attending physician As per my phone call with the residents, I would recommend eardrops in the form of neomycin, polymyxin and hydrocortisone suspension, 4 drops into the right ear canal 3 times a day. I feel is appropriate to cover for the right auriculitis Consider adding antiviral treatment to his regimen based on the evidence of unilateral pharyngitis and otitis externa Monitor facial nerve function which is normal at this time Consult Acknowledgment - Thank you for your consult request. Attending MD Review Statement Attending Statement Attending MD Statement: examined this patient
[2018-07-18 22:05] VITALS: BP 130/74
[2018-07-19 07:04] VITALS: BP 118/58
[2018-07-19 08:12] LABS: ABSOLUTE BASOPHIL COUNT 0 /CUMM (0.0-0.2); ABSOLUTE EOSINOPHIL COUNT 0 /CUMM (0.0-0.7); ABSOLUTE GRANULOCYTE CT 5.5 /CUMM (1.4-6.5); ABSOLUTE LYMPH COUNT 0.4 /CUMM (1.2-3.4); ABSOLUTE MONOCYTE COUNT 0.5 /CUMM (0.10-0.60); BASOPHIL % 0 % (0.0-2.0); EOSINOPHIL % 0 % (0-5); HEMATOCRIT 29.7 % (42-52); MEAN CORPUSCULAR HGB 29.4 PG (27.0-31.0); MEAN CORPUSCULAR HGB CONC 33.5 G/DL (33.0-37.0); MEAN CORPUSCULAR VOLUME 87.9 FL (80.0-94.0); MEAN PLATELET VOLUME 7.8 FL (7.4-10.4); PLATELET COUNT 124 /CUMM (130-400); RBC DISTRIBUTION WIDTH 15.4 % (11.5-14.5); RED BLOOD CELL CT 3.38 /CUMM (4.70-6.10); WHITE BLOOD CELL COUNT 6.4 /CUMM (4.8-10.8)
--- NOTE | 2018-07-19 08:46 | PN- Housestaff ---
Nakul Reynoso 07/19/18 0846: Subjective Follow-up For: Aspiration pneumonia Fever Due to hypoxic respiratory failure Pulmonary edema Complaints: no complaints Tele-Events Since Last Visit: Sinus rhythm with first-degree heart block 63-75 bpm and no overnight events Subjective: Review the patient lying on the bed he reports that his has been having mild headache has been coughing and producing grayish phlegm. Reports fevers and chills overnight but denies any nausea or vomiting. Patient failed swallow evaluation yesterday and overnight spiked temperature to 103 he has been on ceftriaxone for the past 2 days. Review of Systems Constitutional: Reports: chills, fever. Cardiovascular: Denies: chest pain, palpitations. Respiratory: Reports: cough, short of breath. Gastrointestinal: Denies: nausea, vomiting. Genitourinary: Denies: no symptoms. Musculoskeletal: Denies: no symptoms. Objective Last 24 Hrs of Vital Signs/I&O Vital Signs Date Time Temp Pulse Resp B/P B/P Pulse O2 O2 Flow FiO2 Mean Ox Delivery Rate 07/19 0940 92 Nasal 90% Cannula 07/19 0800 Nasal 90% Cannula 07/19 0704 101.6 74 18 118/58 100 07/19 0644 62 89 07/19 0415 103.0 07/19 0400 101.6 07/19 0354 72 90 07/19 0300 103.0 07/19 0124 71 90 07/19 0123 Nasal 55% Cannula 07/19 0119 72 87 07/18 2302 92 07/18 2205 98.7 68 15 130/74 92 07/18 2140 92 Nasal 55% Cannula 07/18 1855 92 Nasal 55% Cannula 07/18 1417 Nasal 55% Cannula 07/18 1416 94 Nasal 55% Cannula 07/18 1409 99.1 64 20 122/60 91 Nasal Cannula Intake & Output 07/19 1600 07/19 0800 07/19 0000 Intake Total 650 400 Output Total 150 Balance 650 250 Intake, IV 650 400 Number 0 Bowel Movements Output, Urine 150 Patient 144 lb Weight Physical Exam General Appearance: Alert, Oriented X3, Cooperative, No Acute Distress Skin: Overt discharge from the right ear Skin Temp/Moisture Exam: Warm/Dry Sepsis Skin Exam (color): Normal for Ethnicity HEENT: Atraumatic, Mucous Membr. moist/pink, Right ear discharge Neck: Supple, No JVD Cardiovascular: Regular Rate, Normal S1, Normal S2 Lungs: Decreased breath sounds mostly in the lung bases Abdomen: Normal Bowel Sounds, Soft, No Tenderness Neurological: Normal Speech, Normal Tone Current Medications: Current Medications Sig/Jamie Start time Last Medication Dose Route Stop Time Status Admin Acetaminophen 1,000 MG BID PRN 07/17 1930 AC 07/19 IV 0415 Acyclovir 500 MG Q8H 07/18 2000 AC 07/19 Dextrose/Water 100 ML IV 1123 Albuterol Sulfate 3 ML Q4P PRN 07/17 1945 AC INH Amiodarone HCl 200 MG DAILY 07/18 0900 AC PO Ampicillin Sodium/ 3,000 MG Q6H 07/19 1100 DC Sulbactam Sodium IV Sodium Chloride 100 ML Aspirin 81 MG DAILY 07/20 0900 UNVr DC Aspirin Buffered 81 MG DAILY 07/20 0900 CANr PO Aspirin Buffered 325 MG DAILY 07/18 0900 DC PO Atorvastatin Calcium 80 MG DAILY 07/18 0900 AC PO Bisacodyl 10 MG ONCE ONE 07/19 1030 DC DC 07/19 1031 Budesonide/ 2 PUF BID 07/17 2100 AC 07/19 Formoterol Fumarate INH 0938 Ceftriaxone Sodium 1,000 MG 2100 07/17 2100 DC 07/18 IV 2104 Dextrose/Sodium 1,000 ML Q13H 07/18 1300 DC 07/19 Chloride IV 0331 Doxycycline Hyclate 100 MG Q12H 07/18 0200 DC 07/18 Dextrose/Water 100 ML IV 1352 Ezetimibe 10 MG DAILY 07/18 0900 AC PO Furosemide 40 MG ONCE ONE 07/19 0945 DC 07/19 IV 07/19 0946 0946 Furosemide 0 .STK-MED ONE 07/19 0944 DC IV Heparin Sodium 5,000 UNIT Q8 07/17 2200 AC 07/19 (Porcine) SC 0614 Levothyroxine Sodium 0.1 MG DAILY AC 07/20 0700 AC PO Levothyroxine Sodium 50 MCG ONCE ONE 07/19 0700 DC 07/19 IV 07/19 0701 0937 Levothyroxine Sodium 0.1 MG DAILY AC 07/18 0700 DC PO Neomycin/Polymyxin/ 4 GTT TID 07/18 0900 AC 07/19 Bacitr/Hydrocort OTIC 0938 Non-Formulary 0 SEE ADMIN CRITERIA 07/19 1200 CAN Medication ANY Pantoprazole Sodium 40 MG DAILY 07/19 1215 AC IV Piperacillin Sod/ 4.5 GM Q6 07/19 1200 AC Tazobactam Sod IV Sodium Chloride 100 ML Vancomycin HCl 1,000 MG ONCE ONE 07/19 1145 AC Sodium Chloride 250 ML IV 07/19 1244 Last 24 Hrs of Lab/Shen Results Last 24 Hrs of Labs/Mics: Laboratory Tests 07/19/18 0623: CBC w Diff NO MAN DIFF REQ, RBC 3.38 L, MCV 87.9, MCH 29.4, MCHC 33.5, RDW 15.4 H, MPV 7.8, Gran % 85.6 H, Lymphocytes % 6.1 L, Monocytes % 8.3, Eosinophils % 0, Basophils % 0, Absolute Granulocytes 5.5, Absolute Lymphocytes 0.4 L, Absolute Monocytes 0.5, Absolute Eosinophils 0, Absolute Basophils 0 Microbiology 07/19 1203 LOWER RESP: Respiratory Culture - ORD 07/19 120 LOWER RESP: Gram Stain - ORD Assessment/Plan Assessment: Mr Anders is a 73 year old man w/ a PMHx of HTN,HLD, COPD (not on any home oxygen), drew on cpap, paroxysmal atrial fibrillation not on any AC due to fall risk, hypothyroidism, CAD s/p quadruple bypass in 2001, CVA 4-5yrs ago with residual right-sided weakness, RA was brought from his home w/ a chief concern of acute onset of dyspnea that began on the day of admission. He was known to be in his usual state of health until a few days prior to presentation. Patient was started on ceftriaxone 1 g daily and received 1 dose of IV Unasyn. Continued spiking fevers and today morning was found to be in acute hypoxic respiratory failure. Aspiration pneumonia This patient failed swallow evaluation terribly is reporting sensation of choking in the middle of his throat. He had 12 bands yesterday but white blood cells has been within normal range. CT is suggestive of pneumonia in the right lobe with air bronchogram. We are changing antibiotic from ceftriaxone to Zosyn and will give 1 dose of vancomycin today. We will check sputum cultures and continue to monitor the patient very closely to do panculture if he spikes temperature again. Acute hypoxic respiratory failure This morning patient is desaturating requiring oxygen at 90% and saturating at 92% after being hypoxic to as low as 85%. Chest x-ray showing evidence of pulmonary edema. Patient received IV diuresis with 40 mg of IV Lasix. We will continue to monitor the patient closely with low threshold to transfer the patient to the ICU as he is full code. Patient seen by photolithographic stripper Jaden Monroy MD and will continue to monitor closely nebulization as needed. Patient will continue to be n.p.o. and will get a swallow evaluation when has improved. Hypothyroidism Patient is on home dose of levothyroxine which was changed to IV today because of inability to swallow. We are checking thyroid function with TSH and free T4 and might adjust levothyroxine dose accordingly. Problem List: 1. Otitis externa 2. Aspiration pneumonia 3. Acute respiratory failure with hypoxia Pain Ratin Pain Location: hEADACHE/Ear Pain Goal: Remain pain free Pain Plan: PRN pain meds Tomorrow's Labs & Rationales: CBC/BEP DVT/Prophylaxis: pharmacological Consulting Request: Consulting Specialty: Infectious Disease Consulting Physician: Dr Joe Reason for Consult: Fever/aspiration pneumonia Sarah COVINGTON,Amir 07/19/18 1453: Attending MD Review Statement Attending Statement Attending MD Statement: examined this patient, discuss w/resident/PA/SUPERVISOR CARTOGRAPHY, agreed w/resident/PA/SUPERVISOR CARTOGRAPHY, reviewed EMR data (avail), discussed with nursing Attending Assessment/Plan: Was seen by ENT, was seen by Dr. Monroy. Low threshold to tx to ICU due to inc O2 requirement. Will need ID & GI eval also rest of the plan as per resident's note
[2018-07-19 09:00] LABS: GRANULOCYTE % 85.6 % (42.2-75.2)
--- NOTE | 2018-07-19 10:59 | RADIOLOGY REPORT ---
EXAMINATION: XR PORTABLE CHEST CLINICAL INFORMATION: Fluid overload. Shortness of breath with increased O2 demand. COMPARISON: 07/17/18. 12/11/17. TECHNIQUE: Portable frontal view of the chest was obtained. FINDINGS: Sternal wires are again demonstrated from previous cardiac surgery. The single left epicardial pacemaker lead remains in stable position. There is bilateral perihilar and lower lobe airspace opacity. Mild interstitial prominence with Nomi B-lines. The appearance is consistent with acute pulmonary edema. Pneumonia could cause similar appearance. There is chronic elevation of the left hemidiaphragm. Heart size is mildly enlarged but unchanged. Degenerative changes are seen in both shoulders. IMPRESSION: Findings consistent with acute pulmonary edema as described. Pneumonia could have similar appearance. Other chronic changes as noted.
--- NOTE | 2018-07-19 11:48 | PN- Cardiology ---
Subjective Subjective: * Patient is resting comfortably. No complaints. * sinus rhythm Objective Vital Signs and I&Os Vital Signs Date Time Temp Pulse Resp B/P B/P Pulse O2 O2 Flow FiO2 Mean Ox Delivery Rate 07/19 0940 92 Nasal 90% Cannula 07/19 0800 Nasal 90% Cannula 07/19 0704 101.6 74 18 118/58 100 07/19 0644 62 89 07/19 0415 103.0 07/19 0400 101.6 07/19 0354 72 90 07/19 0300 103.0 07/19 0124 71 90 07/19 0123 Nasal 55% Cannula 07/19 0119 72 87 07/18 2302 92 07/18 2205 98.7 68 15 130/74 92 07/18 2140 92 Nasal 55% Cannula 07/18 1855 92 Nasal 55% Cannula 07/18 1417 Nasal 55% Cannula 07/18 1416 94 Nasal 55% Cannula 07/18 1409 99.1 64 20 122/60 91 Nasal Cannula Intake & Output 07/19 1600 07/19 0800 07/19 0000 07/18 1600 07/18 0800 07/18 0000 Intake Total 650 400 75 550 Output Total 150 200 Balance 650 250 -125 550 Intake, IV 650 400 75 550 Intake, Oral 0 Number 0 Bowel Movements Output, Urine 150 200 Patient 144 lb 142 lb 142 lb Weight Weight Bed scale Measurement Method Physical Exam: General: WD/WN male in NAD; alert and oriented x 3 HEENT: NC/AT, PERRL, EOMI Neck: no JVD, no carotid bruit Heart: RRR w/o murmur Lungs: decreased breath sounds on the right Abdomen: soft, NT, +ve bowel sounds Extremities: no edema Assessment/Plan Assessment/Plan * This patient had shortness of breath related to his pneumonia. In consideration of his prior cardiac history and symptoms it is nevertheless recommended that an echocardiogram be obtained to assess his EF. * There is no evidence of myocardial ischemia at this time. The patient may have had transient chest discomfort that was a musculoskeletal discomfort related to coughing or perhaps there is a pleuritic component to his pneumonia. The discomfort is resolved. We will continue to watch his risk factors for myocardial ischemia and will consider an outpatient stress test when more stable. I would continue his usual cardiac medications for now. Continue telemetry? Yes
--- NOTE | 2018-07-19 11:48 | Cons- Pulmonary ---
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 He was known to be in his usual state of health until a few days prior to presentation. He reported to have cough with productive sputum that started a few days ago, associated with occasional chest pain. He also reported difficulty swallowing with food getting stuck in the upper esopahgus Reported decreased by mouth intake in the last few days. He is usually ambulatory at baseline, uses a walker. He had fever on the a.m. of admission, but did not have any recorded temperature. He was sitting in his chair, outside his home when he had acute onset of dyspnea. While he was being brought to the hospital, he had chest pain located in the center of the chest, with no radiation and lasted for approximately 20 minutes. Also associated with diaphoresis. Reported to have orthopnea, but no PND recently. He also had nausea, but did not have any vomiting. No pedal edema, no change in urine output. He has multiple ulcers on his back, and lower extremities which did not have any serious sinus discharge. No abdominal pain, neurological symptoms. No loss of consciousness, lightheadedness or dizziness. No recent falls. Since he came in he has had progressive respiratory failure now requiring 90% FiO2 with high flow oxygen He was also complaining of sore throat and right auricular pain. ENT evaluation done yesterday which showed pharyngitis,? Herpetic lesion in the right side, external otitis Patient has had prolonged hospitalization last year with respiratory failure with aspiration pneumonia, was in a rehab facility. He has had more than [id number] smoking history quit many years ago.. Allergies/Medications Allergies: Coded Allergies: No Known Allergies (12/09/17) Home Med List: Acetaminophen (Tylenol Extra Strength) 500 MG TABLET 2 TAB PO BID PAIM Amiodarone (Cordarone) 200 MG TAB 1 TAB PO DAILY PAF (Reported) Amlodipine Besylate 5 MG TABLET 1 TAB PO DAILY HTN (Reported) Amoxicillin 875 MG TABLET 1 TAB PO BID ABX (Reported) Aspirin (Ecotrin*) 325 MG TABLET.DR 1 TAB PO DAILY HEART/BLOOD (Reported) Atorvastatin Calcium 80 MG TABLET 1 TAB PO DAILY HLD (Reported) Carvedilol (Coreg) 12.5 MG TABLET 1 TAB PO BID HTN (Reported) Ezetimibe (Zetia) 10 MG TABLET 1 TAB PO DAILY HLP (Reported) Fluticasone Propionate (Flonase Allergy Relief) 50 MCG/ACTUATION SPRAY.SUSP 2 SPRAY NASB AD PRN ALLERGIES (Reported) Fluticasone Propionate/Salme (Advair Hfa 115-21 Mcg Inhaler) 115 MCG-21 MCG/ ACTUATION HFA.AER.AD 2 PUF IH Q12 sob (Reported) Levothyroxine Sodium 100 MCG TABLET 1 TAB PO DAILY THYROID (Reported) Potassium Chloride (Klor-Con 10) 10 MEQ TABLET.ER 20 MEQ PO DAILY Potassium supplement (Reported) Review of Systems Review of Systems Constitutional: Reports: see HPI. 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 Psychosocial History Where Do You Live? Home Services at Home: Home Health Aide, Nursing Smoking Status: Former Smoker ETOH Use: denies use Illicit Drug Use: denies illicit drug use Functional Ability ADLs Independent: dressing, eating. Unknown: toileting, bathing. Ambulation: walker Exam & Diagnostic Data Last 24 Hrs of Vital Signs/I&O Vital Signs Date Time Temp Pulse Resp B/P B/P Pulse O2 O2 Flow FiO2 Mean Ox Delivery Rate 07/19 0940 92 Nasal 90% Cannula 07/19 0800 Nasal 90% Cannula 07/19 0704 101.6 74 18 118/58 100 07/19 0644 62 89 07/19 0415 103.0 07/19 0400 101.6 07/19 0354 72 90 07/19 0300 103.0 07/19 0124 71 90 07/19 0123 Nasal 55% Cannula 07/19 0119 72 87 07/18 2302 92 07/18 2205 98.7 68 15 130/74 92 07/18 2140 92 Nasal 55% Cannula 07/18 1855 92 Nasal 55% Cannula 07/18 1417 Nasal 55% Cannula 07/18 1416 94 Nasal 55% Cannula 07/18 1409 99.1 64 20 122/60 91 Nasal Cannula Intake & Output 07/19 1600 07/19 0800 07/19 0000 Intake Total 650 400 Output Total 150 Balance 650 250 Intake, IV 650 400 Number 0 Bowel Movements Output, Urine 150 Patient 144 lb Weight Physical Exam Cranial Nerves: normal hearing Last 48 Hrs of Labs/Shen: Laboratory Tests 07/19/18 0623: CBC w Diff NO MAN DIFF REQ, RBC 3.38 L, MCV 87.9, MCH 29.4, MCHC 33.5, RDW 15.4 H, MPV 7.8, Gran % 85.6 H, Lymphocytes % 6.1 L, Monocytes % 8.3, Eosinophils % 0, Basophils % 0, Absolute Granulocytes 5.5, Absolute Lymphocytes 0.4 L, Absolute Monocytes 0.5, Absolute Eosinophils 0, Absolute Basophils 0 07/18/18 0630: Anion Gap 8, Estimated GFR > 60, BUN/Creatinine Ratio 27.1 H, CBC w Diff MAN DIFF ORDERED, RBC 3.60 L, MCV 87.1, MCH 29.2, MCHC 33.5, RDW 15.8 H, MPV 7.9, Gran % 87.9 H, Lymphocytes % 5.0 L, Monocytes % 7.0, Eosinophils % 0, Basophils % 0.1, Absolute Granulocytes 8.2 H, Segmented Neutrophils 74, Band Neutrophils 12 H, Absolute Lymphocytes 0.5 L, Lymphocytes 11 L, Monocytes 3, Absolute Monocytes 0.7 H, Absolute Eosinophils 0, Absolute Basophils 0, Platelet Estimate DECREASED, Hypochromic-Microcytic 1+, Poikilocytosis 1+, Anisocytosis 1+ 07/18/18 0250: Troponin I 0.05 07/17/18 1948: Troponin I 0.03, Ur Random Creatinine 98.8, U Random Total Protein 39 H, Protein/Creatinin Ratio 0.3 H 07/17/181947: Lactic Acid 1.0, Urine Color YEL, Urine Clarity CLEAR, Urine pH 7.0, Ur Specific [place] 1.025, Urine Protein 100 H, Urine Ketones NEG, Urine Nitrite NEG, Urine Bilirubin NEG, Urine Urobilinogen 4.0 H, Ur Leukocyte Esterase NEG, Ur Microscopic SEDIMENT EXAMINED, Urine WBC RARE, Ur Epithelial Cells RARE, Urine Bacteria FEW H, Urine Mucus RARE, Urine Hemoglobin NEG, Urine Glucose NEG 07/17/18 1934: Xda-X-Sivkatmwqks Pept Cancelled 07/17/18 1710: Bicarbonate Actual 27 H, Mixed VBG pH 7.35, Mixed VBG pCO2 50, Mixed VBG O2 Saturation 21 L, Carboxyhemoglobin 0.4 L, O2 Concentration % 45%, O2 Delivery Method VENTI, Phlebotomy Draw Site LEFT RADIAL 07/17/18 1550: Anion Gap 9, Estimated GFR > 60, BUN/Creatinine Ratio 31.7 H, Glucose 153 H, Calcium 9.1, Total Bilirubin 0.7, AST 36, ALT 32, Alkaline Phosphatase 71, Troponin I 0.02, Udk-F-Dlymmtqlrlp Pept 574 H, Total Protein 6.8, Albumin 3.8, Globulin 3.0, Albumin/Globulin Ratio 1.3, CBC w Diff NO MAN DIFF REQ, RBC 4.08 L, MCV 87.3, MCH 29.2, MCHC 33.4, RDW 15.6 H, MPV 7.4, Gran % 84.5 H, Lymphocytes % 5.2 L, Monocytes % 9.5 H, Eosinophils % 0.6, Basophils % 0.2, Absolute Granulocytes 6.1, Absolute Lymphocytes 0.4 L, Absolute Monocytes 0.7 H, Absolute Eosinophils 0, Absolute Basophils 0 Microbiology 07/17 1948 URINE ROUT: Legionella Antigen - COMP 07/17 1948 URINE ROUT: Streptococcus pneumoniae Antigen (M - COMP Assessment/Plan Impression/Plan: SIGNIFICANT DATA Chest x-ray showed bilateral pulmonary edema with pneumonia done this morning CT of the auditory canal showed diffuse thickening of the right external ear, complete opacification of the left maxillary sinus CT scan of the chest did show no pulmonary embolism, dense right lower lobe pneumonia with air bronchograms with right middle lobe pneumonia as well with opacities in the left lower lobe highly suggestive of aspiration VBG reviewed yesterday which showed MVPCO2 of 50 mixed venous sat was low Urinary antigens were negative blood cultures pending no sputum culture sent out yet General: WD/WN male in NAD; alert and oriented x 3 HEENT: NC/AT, PERRL, EOMI Inflammation of the right pinna noted Right sided pharyngeal swelling with ulcerations Neck: no JVD, no carotid bruit Heart: RRR w/o murmur Lungs: decreased breath sounds on the right Abdomen: soft, NT, +ve bowel sounds Extremities: no edema IMPRESSION This is a gentleman with more than [id number] smoking history, obstructive sleep apnea on CPAP, significant COPD not on home oxygen, paroxysmal atrial fibrillation not on anticoagulation due to significant past history of fall, hypothyroidism on supplementation, ischemic heart disease with previous CABG in 2001, previous CVA with right-sided ramila-plegia, hyperlipidemia, significant history of rheumatoid arthritis does not seem to be on any immunosuppressive now , peripheral vascular disease, multiple wounds now has * Acute hypoxemic respiratory failure related to bilateral multilobar pneumonia most likely related to his recurrent aspiration. Now compounded by Pulm edema * Significant fever due to bilateral pneumonia, with otitis externa, sinusitis, right-sided pharyngitis with ulcerative lesions. Patient appears to have aspiration pneumonia compounded by sinusitis and rule out zoster infection of the pharynx and pinna * Ischemic heart disease, paroxysmal atrial fibrillation not on anticoagulation but on amiodarone however, probable reduced ejection fraction, now in acute pulmonary edema. Seems to be maintaining in sinus rhythm. No evidence suggestive of acute coronary syndrome so far, does have EKG changes however * Dysphagia, difficulty swallowing at times with food getting stuck in the mid esophagus to rule out any esophageal lesion * Significant lung disease with prior smoking with chronic obstructive restrictive lung disease with prior aspiration pneumonitis and prolonged hospitalization due to chronic respiratory failure * Multiple other issues including rheumatoid arthritis, peripheral vascular disease, multiple ulcers including ulcers in the back with malnutrition and poor performance status RECOMMENDATION * Continue high flow * Hold off on using positive airway pressure ventilation which could increase the risk of aspiration for now unless patient has tachypnea and increased work of breathing * Lasix 1 dose * Minimize IV fluids, once he is diuresis can start 50 cc of D5 half-normal saline * Continue antibiotics to cover aspiration and antiviral therapy twice daily to see * Continue other medications * Reduce aspirin to 81 mg * Nebulizer therapy as needed with DuoNeb * Sputum culture * Check random cortisol level * Check thyroid function tests and resume his levothyroxine if appropriate * Continue CPAP at bedtime keep the head of bed elevated * Proton pump inhibitor intravenously for now * Continue subcu heparin * Transferred to the ICU if he gets worse Prognosis guarded /Patient critically ill total time spent 40 minutes Consult Acknowledgment - Thank you for your consult request.
[2018-07-19 15:02] VITALS: BP 124/60
--- NOTE | 2018-07-19 15:55 | Cons- Infect Disease ---
General Information and HPI Consulting Request Date of Consult: 07/19/18 Requested By: Dolores Hobson MD Reason for Consult: fever Source of Information: patient, primary team Exam Limitations: clinical condition History of Present Illness: 73 year old man w/ a PMHx of HTN,HLD, COPD (not on any home oxygen), BILL on CPAP , paroxysmal atrial fibrillation not on any AC due to fall risk, hypothyroidism, CAD s/p quadruple bypass in 2001, CVA with residual right-sided weakness, RA was admitted from his home w/ acute onset of SOB, fever and productive cough. He reported cough with productive sputum that started a few days prior to admission, associated with occasional chest pain. C/O difficulty swallowing with food getting "stuck". He also had nausea, but did not have any vomiting. Denies abdominal pain, diarrhea or difficulty voiding. No loss of consciousness, lightheadedness or dizziness. No recent falls. Since he came in he has had progressive respiratory failure now requiring 90% FiO2 with high flow oxygen; continue to have high fever (103F0 while treated for CAP. He was also complaining of sore throat and right auricular pain. ENT evaluation done yesterday which showed pharyngitis,? herpetic lesion in the right side, and external otitis. Patient has had prolonged hospitalization last year with respiratory failure with aspiration pneumonia, was in a rehab facility. Allergies/Medications Allergies: Coded Allergies: No Known Allergies (12/09/17) Home Med List: Acetaminophen (Tylenol Extra Strength) 500 MG TABLET 2 TAB PO BID PAIM Amiodarone (Cordarone) 200 MG TAB 1 TAB PO DAILY PAF (Reported) Amlodipine Besylate 5 MG TABLET 1 TAB PO DAILY HTN (Reported) Amoxicillin 875 MG TABLET 1 TAB PO BID ABX (Reported) Aspirin (Ecotrin*) 325 MG TABLET.DR 1 TAB PO DAILY HEART/BLOOD (Reported) Atorvastatin Calcium 80 MG TABLET 1 TAB PO DAILY HLD (Reported) Carvedilol (Coreg) 12.5 MG TABLET 1 TAB PO BID HTN (Reported) Ezetimibe (Zetia) 10 MG TABLET 1 TAB PO DAILY HLP (Reported) Fluticasone Propionate (Flonase Allergy Relief) 50 MCG/ACTUATION SPRAY.SUSP 2 SPRAY NASB AD PRN ALLERGIES (Reported) Fluticasone Propionate/Salme (Advair Hfa 115-21 Mcg Inhaler) 115 MCG-21 MCG/ ACTUATION HFA.AER.AD 2 PUF IH Q12 sob (Reported) Levothyroxine Sodium 100 MCG TABLET 1 TAB PO DAILY THYROID (Reported) Potassium Chloride (Klor-Con 10) 10 MEQ TABLET.ER 20 MEQ PO DAILY Potassium supplement (Reported) Current Medications: Current Medications Sig/Jamie Start time Last Medication Dose Route Stop Time Status Admin Acetaminophen 1,000 MG BID PRN 07/17 1930 AC 07/19 IV 0415 Acyclovir 500 MG Q8H 07/18 2000 AC 07/19 Dextrose/Water 100 ML IV 1123 Albuterol Sulfate 3 ML Q4P PRN 07/17 194 AC INH Amiodarone HCl 200 MG DAILY 07/18 0900 AC PO Ampicillin Sodium/ 3,000 MG Q6H 07/19 1100 DC Sulbactam Sodium IV Sodium Chloride 100 ML Aspirin 300 MG DAILY 07/20 0900 AC [place] Aspirin Buffered 81 MG DAILY 07/20 0900 CAN PO Aspirin Buffered 325 MG DAILY 07/18 0900 DC PO Atorvastatin Calcium 80 MG DAILY 07/18 0900 AC PO Bisacodyl 10 MG ONCE ONE 07/19 1030 DC 07/19 W[place] 07/19 1031 1331 Budesonide/ 2 PUF BID 07/17 2100 AC 07/19 Formoterol Fumarate INH 0938 Ceftriaxone Sodium 1,000 MG 2100 07/17 2100 DC 07/18 IV 2104 Dextrose/Sodium 1,000 ML Q13H 07/18 1300 DC 07/19 Chloride IV 0331 Doxycycline Hyclate 100 MG Q12H 07/18 0200 DC 07/18 Dextrose/Water 100 ML IV 1352 Ezetimibe 10 MG DAILY 07/18 0900 AC PO Furosemide 40 MG ONCE ONE 07/19 0945 DC 07/19 IV 07/19 0946 0946 Furosemide 0 .STK-MED ONE 07/19 0944 DC IV Heparin Sodium 5,000 UNIT Q8 07/17 2200 AC 07/19 (Porcine) SC 1326 Levothyroxine Sodium 0.1 MG DAILY AC 07/20 0700 AC PO Levothyroxine Sodium 50 MCG ONCE ONE 07/19 0700 DC 07/19 IV 07/19 0701 0937 Levothyroxine Sodium 0.1 MG DAILY AC 07/18 0700 DC PO Neomycin/Polymyxin/ 4 GTT TID 07/18 0900 AC 07/19 Bacitr/Hydrocort OTIC 1325 Non-Formulary 0 SEE ADMIN CRITERIA 07/19 1200 CAN Medication ANY Pantoprazole Sodium 40 MG DAILY 07/19 1215 AC 07/19 IV 1325 Piperacillin Sod/ 4.5 GM Q6 07/19 1200 AC Tazobactam Sod IV Sodium Chloride 100 ML Vancomycin HCl 1,000 MG ONCE ONE 07/19 1145 DC 07/19 Sodium Chloride 250 ML IV 07/19 1244 1325 Past History Travel History Traveled to [place] past 21 day No Medical History Blood Transfusion Hx: No Neurological: CVA EENT: NONE Cardiovascular: aflutter, CAD, hypertension, hyperlipidemia, BYPASS Respiratory: COPD, obstructive sleep apnea, pneumonia Gastrointestinal: NONE Hepatic: NONE Renal: NONE Musculoskeletal: rheumatoid arthritis Psychiatric: NONE Endocrine: NONE Blood Disorders: NONE Cancer(s): NONE 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 Psychosocial History Where Do You Live? Home Services at Home: Home Health Aide, Nursing Smoking Status: Former Smoker ETOH Use: denies use Illicit Drug Use: denies illicit drug use Functional Ability ADLs Independent: dressing, eating. Unknown: toileting, bathing. Ambulation: walker Review of Systems Comments 12 points reviewed as noted, otherwise negative. Exam & Diagnostic Data Last 24 Hrs of Vital Signs/I&O Vital Signs Date Time Temp Pulse Resp B/P B/P Pulse O2 O2 Flow FiO2 Mean Ox Delivery Rate 07/19 1502 98.8 66 20 124/60 89 Nasal Cannula 07/19 1433 92 Nasal 60% Cannula 07/19 1230 97 Nasal 60% Cannula 07/19 0940 92 Nasal 90% Cannula 07/19 0800 Nasal 90% Cannula 07/19 0704 101.6 74 18 118/58 100 07/19 0644 62 89 07/19 0415 103.0 07/19 0400 101.6 07/19 0354 72 90 07/19 0300 103.0 07/19 0124 71 90 07/19 0123 Nasal 55% Cannula 07/19 0119 72 87 07/18 2302 92 07/18 2205 98.7 68 15 130/74 92 07/18 2140 92 Nasal 55% Cannula 07/18 1855 92 Nasal 55% Cannula Intake & Output 07/19 1600 07/19 0800 07/19 0000 Intake Total 300 650 400 Output Total 150 Balance 300 650 250 Intake, IV 300 650 400 Number 0 Bowel Movements Output, Urine 150 Patient 144 lb Weight Physical Exam Other Physical Findings: General Appearance: Alert, Oriented X3, Cooperative Skin Temp/Moisture Exam: Warm/Dry HEENT: Atraumatic, Mucous Membr. moist/pink, Right ear discharge & ulceration pinna Neck: Supple, No JVD Cardiovascular: S1, S2 prersent Lungs: Decreased breath sounds mostly in the lung bases Abdomen: Normal Bowel Sounds, Soft, No Tenderness Extr: no c/c Neurological: Normal Speech, Normal Tone Last 24 Hours of Lab Results: Laboratory Tests 07/19 07/19 1230 0623 Chemistry TSH (0.270 - 4.200 uIU/mL) 0.221 L Free T4 (0.78 - 2.44 ng/dL) 2.29 Cortisol PM Sample (1.7 - 14.1) 49.8 H Hematology CBC w Diff NO MAN DIFF REQ WBC (4.8 - 10.8 /CUMM) 6.4 RBC (4.70 - 6.10 /CUMM) 3.38 L Hgb (14.0 - 18.0 G/DL) 9.9 L Hct (42 - 52 %) 29.7 L MCV (80.0 - 94.0 FL) 87.9 MCH (27.0 - 31.0 PG) 29.4 MCHC (33.0 - 37.0 G/DL) 33.5 RDW (11.5 - 14.5 %) 15.4 H Plt Count (130 - 400 /CUMM) 124 L MPV (7.4 - 10.4 FL) 7.8 Gran % (42.2 - 75.2 %) 85.6 H Lymphocytes % (20.5 - 51.1 %) 6.1 L Monocytes % (1.7 - 9.3 %) 8.3 Eosinophils % (0 - 5 %) 0 Basophils % (0.0 - 2.0 %) 0 Absolute Granulocytes (1.4 - 6.5 /CUMM) 5.5 Absolute Lymphocytes (1.2 - 3.4 /CUMM) 0.4 L Absolute Monocytes (0.10 - 0.60 /CUMM) 0.5 Absolute Eosinophils (0.0 - 0.7 /CUMM) 0 Absolute Basophils (0.0 - 0.2 /CUMM) 0 Last 24 Hours of Shen Results: Patient : ANGEL VALERIO Acct: [id number] DR: Joce COVINGTON,Dolores Birthdate: [birth year] Age/Sex: 73/M Unit: [id number] Loc: 1NO 189 Status : ADM IN SPEC #: [id number] KIMBERLY: 07/17/181556 STATUS: RES RECD: 07/17/[address]: Mark Anthony COVINGTON,Hamzah Ratliff SOURCE: BLOOD ENTR: 07/17/1815[address]: Bill Dang MD SPDESC: 2ND/VENOUS ORDERED: BLOOD CULTURE Procedure Result > BLOOD CULTURE REPORT Preliminary 07/18/18 No growth after 1 day incubation. Specimen is examined continuously for 5 days before final report unless culture becomes positive. atient : ANGEL VALERIO Acct: [id number] DR: Joce COVINGTON,Dolores Birthdate: [birth year] Age/Sex: 73/M Unit: [id number] Loc: 1NO 189 Status : ADM IN SPEC #: [id number] KIMBERLY: 07/19/18 STATUS: CAN RECD: 07/19/[address]: Nakul Reynoso MD SOURCE: LOWER RESP ENTR: 07/19/18[address]: Joce COVINGTON,Dolores SPDESC: SPUTUM Bill Dang MD ORDERED: LOWER RESPIRATO Procedure Result CANCELLED NUMBER OF SQUAMOUS CELLS INDICATES POOR QUALITY SPECIMEN PLEASE RECOLLECT. CALLED TO PATIENT UNIT (INPATIENT) Called to/Readback by LAN by [facility] 07/19/18 8915 Diagnostic Data Recent Imaging Findings: SERVICE DATE: 07/18/18- EXAM TYPE: CAT - CT INT AUD CANALS WO IV CONT EXAMINATION: CT INTERNAL AUDITORY CANALS WITHOUT CONTRAST CLINICAL INFORMATION: Rule out mastoiditis, temporal bone, right ear infection. COMPARISON: None TECHNIQUE: Contiguous axial imaging was performed without intravenous administration of contrast. DLP: 685 mGy-cm FINDINGS: On the right, there is diffuse thickening of the right external ear as well as the cartilaginous external auditory canal. Mild soft tissue thickening is also seen along the superior wall of the osseous external auditory canal with additional minimal soft tissue seen within the hypotympanum. A small amount of fluid is present in scattered mastoid air cells. No septal destruction or erosive change is seen. The lateral wall of the mastoid is intact without erosion. The ossicular chain is intact. The facial nerve describes a normal course. The inner ear structures are normally formed. On the left, the external auditory canal is normal. The tympanic membrane is not thickened. The ossicular chain is intact. No osseous erosion is seen. No soft tissue abnormality is seen in the middle ear cavity. The mastoid air cells are normally pneumatized and clear. The left maxillary sinus is completely opacified. There is leftward deviation of the nasal septum with prominent leftward projecting septal spur. There are partially visualized postoperative findings in the upper cervical spine. The visualized intracranial structures appear normal. IMPRESSION: - Diffuse thickening of the right external ear and cartilaginous external auditory canal compatible with otitis externa. A few scattered mastoid air cells are opacified but no septal destruction or erosion is seen. Minimal soft tissue thickening is seen in the osseous external auditory canal and in the hypotympanum which is nonspecific and may reflect granulation tissue. Normal appearance of the left middle ears are and inner ear structures. - Complete opacification of the left maxillary sinus. DICTATED BY: Michele Rivas MD DATE/TIME DICTATED:07/18/181242 [employer]:LAMAS DATE/TIME TRANSCRIBED:07/18/181242 CTA IMPRESSION: 1. No pulmonary embolism. 2. There is a dense right lower lobe consolidation with air bronchograms, involving essentially the entire right lower lobe. Partial consolidation within the right middle lobe as well. Smaller left lower lobe consolidation. The appearance is suspicious for pneumonia, given the presence of air bronchograms in the patency of the central airways. Some component of atelectasis is likely present. Follow-up to resolution. VTE: negative DICTATED BY: Demetrius Hoyt MD DATE/TIME DICTATED:07/17/182313 [employer]:JUD.LAMAS DATE/TIME TRANSCRIBED:07/17/182313 TECHNIQUE: Portable frontal view of the chest was obtained. FINDINGS: Sternal wires are again demonstrated from previous cardiac surgery. The single left epicardial pacemaker lead remains in stable position. There is bilateral perihilar and lower lobe airspace opacity. Mild interstitial prominence with Nomi B-lines. The appearance is consistent with acute pulmonary edema. Pneumonia could cause similar appearance. There is chronic elevation of the left hemidiaphragm. Heart size is mildly enlarged but unchanged. Degenerative changes are seen in both shoulders. IMPRESSION: Findings consistent with acute pulmonary edema as described. Pneumonia could have similar appearance. Other chronic changes as noted. DICTATED BY: Carol Medeiros MD DATE/TIME DICTATED:07/19/181051 [employer]:ANTONIA DATE/TIME TRANSCRIBED:07/19/181051 Assessment/Plan Assessment/Plan Impression: 73 year old man w/ a PMHx of HTN,HLD, COPD (not on any home oxygen), BILL on CPAP , paroxysmal atrial fibrillation not on any AC due to fall risk, hypothyroidism, CAD s/p quadruple bypass in 2001, CVA with residual right-sided weakness, RA admitted on 07/17/18. Aspiration pneumonia; RLL consolidation on CT of the chest; negative legionella and pneumococcal ur ag; no leukocytosis; although L shift present (12% bands previous on 07/18) Fever curve trending up while treated w/ CTX/azithromycin Acute right pharyngitis; maxillary sinusitis Suspicion of a herpetic infection of right glossopharyngeal nerve; eval for reactivation of latent varicella-zoster virus (ie, herpes zoster) within the geniculate ganglion; monitor clinically for developing Hernandez Olivera sd; started empirically iv Acyclovir 500 mg q 8 h on 07/18; requiring strict I&O's; while IVF on hold and patient NPO, he has increased risk ELOY (acyclovir crystalluria); monitor urinary output closely. Suggestion: 1. Monitor CBC w/ diff, BMP. 2. Empiric iv abx Zosyn 4.5 qm q 6 h and vancomycin 1 gm now; 3. Obtain sputum cx and nasal MRSA surv cx 4. R ear drainage bacterial culture, as well as HSV/VZV DNA PCR; contact precautions. 5. F/U pulm recom; tx to ICU if clinically worsening Consult Acknowledgment - Thank you for your consult request.
[2018-07-19 21:00] VITALS: BP 120/74
--- NOTE | 2018-07-19 22:38 | RADIOLOGY REPORT ---
EXAMINATION: XRY-PORTABLE CHEST XRAY CLINICAL INFORMATION: Reason for Study:
Presumptive Dx: Pneumonia
Signs Symptoms: SOB, low o2
COMPARISON: Same day earlier TECHNIQUE: XRY-PORTABLE CHEST XRAY Lungs and Delilah: Newly developed dense consolidation over the LEFT upper lobe. Infiltrates over the RIGHT lower lobe and LEFT lower lobe unchanged. Sternotomy wires remain in place. There is a probably LEFT pleural effusion. No pneumothorax. Pleura: Left pleural effusion unchanged. Heart: Heart and mediastinum are widened exaggerated by the portable technique. Bones: Skeletal structures included are normal for patient's age. IMPRESSION: Newly developed dense consolidation over the LEFT upper lobe, infiltrate at lower lobes bilaterally has not changed. Left pleural effusion.
[2018-07-19 22:46] LABS: ABSOLUTE BASOPHIL COUNT 0 /CUMM (0.0-0.2); ABSOLUTE EOSINOPHIL COUNT 0 /CUMM (0.0-0.7); ABSOLUTE GRANULOCYTE CT 11.3 /CUMM (1.4-6.5); ABSOLUTE LYMPH COUNT 0.3 /CUMM (1.2-3.4); ABSOLUTE MONOCYTE COUNT 0.8 /CUMM (0.10-0.60); BASOPHIL % 0.1 % (0.0-2.0); EOSINOPHIL % 0 % (0-5); GRANULOCYTE % 90.7 % (42.2-75.2); MEAN PLATELET VOLUME 7.3 FL (7.4-10.4); RBC DISTRIBUTION WIDTH 15.6 % (11.5-14.5); RED BLOOD CELL CT 4.16 /CUMM (4.70-6.10)
[2018-07-19 22:55] LABS: PT 11.9 SEC (9.4-12.5); PTT 31 SEC (25-37)
[2018-07-19 22:58] LABS: HEMATOCRIT 36.6 % (42-52); PLATELET COUNT 200 /CUMM (130-400)
[2018-07-19 23:00] VITALS: BP 98/50
[2018-07-19 23:13] LABS: WHITE BLOOD CELL COUNT 12.5 /CUMM (4.8-10.8)
--- NOTE | 2018-07-20 01:01 | Event Note ---
Event Note Event Note: 73 year old male with PMH of HTN, HLD COPD, pAfib, hypothyroidism, CAD s/p CABG, and CVA admitted for pneumonia. He continued to be febrile antibiotics to broadened to vancoymcin and zosyn. Patient continued to spike fevers and developed refractory hypoxemia despite high flow nasal canula for which house staff was paged to evaluate. The patient was saturating in the 60s on fio2 of 0.7, ABG was performed, nasal suctioning revealed frothy pink sputum. 40mg IV lasix was administered. An ABG was performed. The patient was transferred to ICU, care was discussed with critical care attending Dr. Monroy. Cultures and comprehensive labs were sent. The patient continues to have hypoxemic respiratory failure with hypercarbia and was trialed on BiPAP with additional lasix given. Repeat ABGs failed to show significant progress and the patient was intubated for hypoxemic/hypercarbic respiratory failure and increased work of breathing. The patient later required central line placement for hypotension and probable sepsis. Chest x-ray demonstrated a new left upper lobe dense consolidation and levophed was started to maintain MAP > 65. Attendimg Note : This patient is a 73 year old male admitted for pneumonia on 07/17/18 transferred to the Intensive care unit for persistent fevers and refractory hypoxemia. The patient was saturating in the 60s on fio2 of 0.7, ABG was performed, nasal suctioning revealed frothy pink sputum. 40mg IV lasix was administered aproximately 500cc of urine output. An ABG was performed. The patient was transferred to ICU, care was discussed with critical care attending Dr. Monroy. Cultures and comprehensive labs were sent. The patient continues to have hypoxemic respiratory failure with hypercarbia and was trialed on BiPAP with additional lasix given with another 500cc of output. The patients daughter was contacted and came to the intensive care unit with her and daughter. She was made aware of lucas situation. She had appropriate paperwork for power of commonwealth attorney. The care of her father was discussed at this point and she did not want to make a decision on CODE STATUS. He remains a full code but she is aware of the prognosis if CPR needs to be initiated. We performed a repeat ABGs which failed to show significant progress and the patient was intubated for hypoxemic/ hypercarbic respiratory failure and increased work of breathing. The patient later required central line placement for hypotension and probable sepsis. Chest x-ray demonstrated a new left upper lobe dense consolidation and levophed was started to maintain MAP > 65.
--- NOTE | 2018-07-20 02:00 | Proc Note Internal Medicine ---
Medicine Procedure Procedure Date: 07/20/18 Medical Procedure(s): central venous cath place Pre-Operative Diagnosis: hypotension Post-Operative Diagnosis: same Estimated Blood Loss: scant Anesthesia: none Procedure Findings: A time-out was completed, verifying correct patient, procedure, site, and positioning. Patients right IJ area was prepped and draped in usual sterile fashion. 2% Lidocaine was used to anesthetize the area. A Triple lumen central line was introduced over a wire via the Seldinger technique, then sutured in place. Good blood flow was noted from all ports. The patient tolerated the procedure well. Chest x-ray was ordered to assess for pneumothorax and catheter placement. Complications: None Blood loss: Minimal
--- NOTE | 2018-07-20 02:12 | RADIOLOGY REPORT ---
EXAMINATION: CHEST 1 VIEW CLINICAL INFORMATION: Respiratory failure. Pneumonia. Intubated. COMPARISON: Multiple prior exams are reviewed. The most recent is from 07/19/2018. TECHNIQUE: An AP view of the chest is provided. FINDINGS: The cardiac silhouette is stable. Intact midline sternal wires are present. In endotracheal tube is in place. The tip is approximately 4.5 cm above the yakov. There is persistent multifocal airspace disease, predominantly within the left mid to upper lung zone. There is likely a small left pleural effusion. The osseous structures are stable. IMPRESSION: Endotracheal tube in place. Multifocal airspace disease again identified, most prominently within the left mid to upper lung zone.
--- NOTE | 2018-07-20 03:07 | RADIOLOGY REPORT ---
EXAMINATION: CHEST 1 VIEW CLINICAL INFORMATION: Respiratory failure. Pneumonia. Intubated. COMPARISON: Multiple prior exams are reviewed. The most recent is from the same day obtained at 0130 hours. TECHNIQUE: An AP view of the chest was obtained at 0244 hours. FINDINGS: The cardiac silhouette is stable. Intact midline sternal wires are present. An endotracheal tube is in place. The tip is approximately 4.5 cm above the yakov. A right central venous line has been placed. The tip overlies the mid to distal SVC. There is persistent multifocal airspace disease, predominantly within the left mid to upper lung zone. There is likely a small left pleural effusion. The osseous structures are stable. IMPRESSION: Endotracheal tube and right central venous line in place. Multifocal airspace disease again identified, most prominently within the left mid to upper lung zone.
[2018-07-20 05:04] LABS: ABSOLUTE BASOPHIL COUNT 0 /CUMM (0.0-0.2); ABSOLUTE EOSINOPHIL COUNT 0 /CUMM (0.0-0.7); ABSOLUTE GRANULOCYTE CT 15.2 /CUMM (1.4-6.5); ABSOLUTE LYMPH COUNT 0.7 /CUMM (1.2-3.4); ABSOLUTE MONOCYTE COUNT 1.1 /CUMM (0.10-0.60); BASOPHIL % 0 % (0.0-2.0); EOSINOPHIL % 0 % (0-5); HEMATOCRIT 34.2 % (42-52); MEAN CORPUSCULAR HGB 28.7 PG (27.0-31.0); MEAN CORPUSCULAR VOLUME 87.1 FL (80.0-94.0); MEAN PLATELET VOLUME 7.9 FL (7.4-10.4); PLATELET COUNT 217 /CUMM (130-400); RED BLOOD CELL CT 3.93 /CUMM (4.70-6.10); WHITE BLOOD CELL COUNT 17.1 /CUMM (4.8-10.8)
--- NOTE | 2018-07-20 07:23 | PN- Resident CRCU ---
Impression/Plan Plan DVT/Prophylaxis: pharmacological
--- NOTE | 2018-07-20 07:25 | Cons- CRCU ---
General Information and HPI Allergies/Medications Allergies: Coded Allergies: No Known Allergies (12/09/17) Home Med List: Acetaminophen (Tylenol Extra Strength) 500 MG TABLET 2 TAB PO BID PAIM Amiodarone (Cordarone) 200 MG TAB 1 TAB PO DAILY PAF (Reported) Amlodipine Besylate 5 MG TABLET 1 TAB PO DAILY HTN (Reported) Amoxicillin 875 MG TABLET 1 TAB PO BID ABX (Reported) Aspirin (Ecotrin*) 325 MG TABLET.DR 1 TAB PO DAILY HEART/BLOOD (Reported) Atorvastatin Calcium 80 MG TABLET 1 TAB PO DAILY HLD (Reported) Carvedilol (Coreg) 12.5 MG TABLET 1 TAB PO BID HTN (Reported) Ezetimibe (Zetia) 10 MG TABLET 1 TAB PO DAILY HLP (Reported) Fluticasone Propionate (Flonase Allergy Relief) 50 MCG/ACTUATION SPRAY.SUSP 2 SPRAY NASB AD PRN ALLERGIES (Reported) Fluticasone Propionate/Salme (Advair Hfa 115-21 Mcg Inhaler) 115 MCG-21 MCG/ ACTUATION HFA.AER.AD 2 PUF IH Q12 sob (Reported) Levothyroxine Sodium 100 MCG TABLET 1 TAB PO DAILY THYROID (Reported) Potassium Chloride (Klor-Con 10) 10 MEQ TABLET.ER 20 MEQ PO DAILY Potassium supplement (Reported) Past History Travel History Traveled to [place] past 21 day No Medical History Blood Transfusion Hx: No Neurological: CVA EENT: NONE Cardiovascular: aflutter, CAD, hypertension, hyperlipidemia, BYPASS Respiratory: COPD, obstructive sleep apnea, pneumonia Gastrointestinal: NONE Hepatic: NONE Renal: NONE Musculoskeletal: rheumatoid arthritis Psychiatric: NONE Endocrine: NONE Blood Disorders: NONE Cancer(s): NONE 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 Psychosocial History Where Do You Live? Home Services at Home: Home Health Aide, Nursing Smoking Status: Former Smoker ETOH Use: denies use Illicit Drug Use: denies illicit drug use Functional Ability ADLs Independent: dressing, eating. Unknown: toileting, bathing. Ambulation: walker Assessment/Plan CRCU Consult Acknowledgment - Thank you for your consult request.
[2018-07-20 08:00] VITALS: BP 120/50
--- NOTE | 2018-07-20 08:34 | ECHOCARDIOGRAM REPORT ---
ANGEL VALERIO Age: 73 : 1945 Gender: M Exam Date: 07/19/2018 08:45 Exam Location: [address] [facility] Ht (in): 61 Wt (lb): 145 BSA: 1.70 BP: 118 / 58 Ordering Physician: Agustin Turner MD Referring Physician: Agustin Turner MD Technologist: Neetu Brown [facility] Room Number: 189-01 Indications: Chest pain Rhythm: Sinus Technical Quality: good FINDINGS Left Ventricle Normal left ventricular size and wall thickness. Moderately decreased systolic function with anterior, anteroseptal and apical akinesis. Normal left ventricular diastolic filling pattern for age. The ejection fraction is visually estimated at 30%. Right Ventricle The right ventricle is normal in size and function. Right Atrium The right atrium is normal in size. Left Atrium The left atrium is mildly enlarged. The interatrial septum is intact. Mitral Valve The mitral valve is normal in structure and function. There is moderate mitral regurgitation. Aortic Valve Structurally normal aortic valve without significant sclerosis or stenosis. There is no aortic regurgitation. Tricuspid Valve The tricuspid valve is normal in structure and function. There is mild tricuspid regurgitation. Pulmonary artery systolic pressure is normal. Pulmonic Valve Structurally normal pulmonic valve. There is no pulmonic regurgitation. Pericardium Normal pericardium without effusion. No pleural effusion. Great Vessels Normal aortic root dimension. The aortic arch and great vessels are well seen and are normal. CONCLUSIONS 1. Moderately decreased EF of 30% with regional wall motion abnormalities as described above. 2. Mild left atrial enlargement. 3. Moderate mitral regurgitation. 4. Mild tricuspid regurgitaiton. Asher Anton M.D. (Electronically Signed) Final Date: 20 July 2018 08:34 MEASUREMENTS (Male / Female) Normal Values 2D ECHO LV Diastolic Diameter PLAX 4.2 cm 4.2 - 5.9 / 3.9 - 5.3 cm LV Systolic Diameter PLAX 3.5 cm 2.1 - 4.0 cm LV Fractional Shortening PLAX 16.7 % 25 - 46 % LV Ejection Fraction 2D Teich 35.3 % IVS Diastolic Thickness 1.1 cm LVPW Diastolic Thickness 1.1 cm LV Relative Wall Thickness 0.5 RV Internal Dim ED PLAX 3.3 cm 1.9 - 3.8 cm LVOT Diameter 1.8 cm Aortic Root Diameter 2.9 cm LA Systolic Diameter LX 4.2 cm 3.0 - 4.0 / 2.7 - 3.8 cm LA Volume 58.0 cm 18 - 58 / 22 - 52 cm DOPPLER AV Peak Velocity 135.0 cm/s AV Peak Gradient 7.3 mmHg AV Mean Velocity 84.2 cm/s AV Mean Gradient 3.0 mmHg AV Velocity Time Integral 29.9 cm LVOT Peak Velocity 99.3 cm/s LVOT Peak Gradient 3.9 mmHg LVOT Mean Velocity 64.6 cm/s LVOT Mean Gradient 2.0 mmHg LVOT Velocity Time Integral 23.4 cm LVOT Stroke Volume 59.5 cm AV Area Cont Eq vti 2.0 cm AV Area Cont Eq pk 1.9 cm MV Peak Velocity 149.0 cm/s MV Peak Gradient 8.9 mmHg MV Mean Velocity 82.0 cm/s MV Mean Gradient 3.0 mmHg Mitral E Point Velocity 129.0 cm/s Mitral A Point Velocity 108.0 cm/s Mitral E to A Ratio 1.2 MV PHT Velocity 154.0 cm/s MV Deceleration Cataño 586.0 cm/s MV Pressure Half Time 78.8 ms MV Area PHT 2.8 cm MV Deceleration Time 129.0 ms LV E' Lateral Velocity 11.6 cm/s Mitral E to LV E' Lateral Ratio 11.1 LV E' Septal Velocity 6.9 cm/s Mitral E to LV E' Septal Ratio 18.6
--- NOTE | 2018-07-20 10:30 | PN- CRCU ---
Subjective HPI/Critical Care Issues: Events and data reviewd Patient had progressive respiratory failure yesterday with persistent hypoxemia and was becoming more hypercarbic. She could not be adequately ventilated. Since patient was intubated. He did also have a triple-lumen catheter did require vasopressors as he was hypotensive as well. This morning he was sedated appeared comfortable on a mechanical ventilator. Is making adequate urine so far. His CVP was 10. No other history could be obtained Objective Current Medications: Current Medications Sig/Jamie Start time Last Medication Dose Route Stop Time Status Admin Acetaminophen 1,000 MG BID PRN 07/17 1930 AC 07/19 IV 0415 Acyclovir 500 MG Q8H 07/20 0700 AC Dextrose/Water 100 ML IV Acyclovir 500 MG Q8H 07/18 2000 DC 07/19 Dextrose/Water 100 ML IV 2247 Albuterol Sulfate 3 ML Q4P PRN 07/17 194 AC INH Amiodarone HCl 200 MG DAILY 07/18 09 AC PO Ampicillin Sodium/ 3,000 MG Q6H 07/19 1100 DC Sulbactam Sodium IV Sodium Chloride 100 ML Aspirin 300 MG DAILY 07/20 0900 CAN SD Aspirin 325 MG DAILY 07/20 0900 AC 07/20 PO 0932 Aspirin Buffered 81 MG DAILY 07/20 09 CAN PO Aspirin Buffered 325 MG DAILY 07/18 0900 DC PO Atorvastatin Calcium 80 MG DAILY 07/18 0900 AC 07/20 PO 0932 Bisacodyl 10 MG ONCE ONE 07/19 1030 DC 07/19 SD 07/19 1031 1331 Budesonide/ 2 PUF BID 07/17 2100 AC 07/19 Formoterol Fumarate INH 0938 Ceftriaxone Sodium 1,000 MG 2100 07/17 2100 DC 07/18 IV 2104 Ezetimibe 10 MG DAILY 07/18 0900 AC 07/20 PO 0932 Fentanyl Citrate 1,000 MCG Q24H 07/20 0100 AC 07/20 Dextrose/Water 250 ML IV 0320 Furosemide 40 MG ONCE ONE 07/19 2215 DC 07/19 IV 07/19 Furosemide 0 .STK-MED ONE 07/19 2213 DC IV Furosemide 40 MG ONCE ONE 07/190 DC 07/19 IV PUSH 07/19 Furosemide 0 .STK-MED ONE 07/19 2127 DC IV Heparin Sodium 5,000 UNIT Q8 07/17 2200 AC 07/20 (Porcine) SC 0624 Levothyroxine Sodium 0.1 MG DAILY AC 07/20 0700 AC 07/20 PO 0617 Lorazepam 50 MG Q24H 07/20 0100 DC 07/20 Dextrose/Water 500 ML IV 0320 Magnesium Sulfate 1 GM Q2H 07/20 0630 AC 07/20 Dextrose/Water 100 ML IV 07/20 1029 0930 Neomycin/Polymyxin/ 4 GTT TID 07/18 0900 AC 07/20 Bacitr/Hydrocort OTIC 0931 Non-Formulary 0 SEE ADMIN CRITERIA 07/19 1200 CAN Medication ANY Norepinephrine 4 MG Q24H 07/20 1430 DC Sodium Chloride 250 ML IV Norepinephrine 4 MG Q6H 07/20 1430 AC Sodium Chloride 250 ML IV Norepinephrine 4 MG Q24H 07/20 0330 AC 07/20 Sodium Chloride 250 ML IV 07/20 1429 0230 Norepinephrine 0 .STK-MED ONE 07/20 0213 DC IV Pantoprazole Sodium 40 MG DAILY 07/19 1215 AC 07/20 IV 0932 Piperacillin Sod/ 4.5 GM Q6 07/19 1200 AC 07/20 Tazobactam Sod IV 0617 Sodium Chloride 100 ML Potassium Chloride 40 MEQ ONCE ONE 07/20 0615 DC 07/20 PO 07/20 0616 0617 Potassium Chloride 20 MEQ Q1H 07/20 0615 DC 07/20 IV 07/20 0716 0807 Potassium Chloride 0 .STK-MED ONE 07/20 0610 DC PO Potassium Chloride 0 .STK-MED ONE 07/20 0609 DC PO Potassium Phosphate 15 mMol ONE ONE 07/20 0630 AC 07/20 Dextrose/Water 250 ML IV 07/20 1034 0932 Vancomycin HCl 1,000 MG ONCE ONE 07/19 1145 DC 07/19 Sodium Chloride 250 ML IV 07/19 1244 1325 Vital Signs & I&O Last 24 Hrs of Vitals and I&O: Vital Signs Date Time Temp Pulse Resp B/P B/P Pulse O2 O2 Flow FiO2 Mean Ox Delivery Rate 07/20 0817 100 07/20 0544 100 07/20 0400 94 Ventilator 100% 07/20 0315 100 07/20 0230 76 20 98/53 07/20 0159 100 07/20 0115 100 07/20 0000 89 BIPAP 100% 07/20 0000 85 91 07/19 2306 81 91 07/19 2300 98.3 83 32 98/50 89 BIPAP 100% 07/19 2215 87 BIPAP 100% 07/19 2208 86 88 07/19 2130 71 Nasal 60% Cannula 07/19 2100 103.2 90 30 120/74 71 Nasal 60% Cannula 07/19 1928 92 Nasal 60% Cannula 07/19 1502 98.8 66 20 124/60 89 Nasal Cannula 07/19 1433 92 Nasal 60% Cannula 07/19 1230 97 Nasal 60% Cannula Intake & Output 07/20 1600 07/20 0800 07/20 0000 Intake Total 900 100 Output Total 485 775 Balance 415 -675 Intake, IV 900 100 Number 0 0 Bowel Movements Output, Urine 485 [id number] Patient 142 lb Weight Weight Bed scale Measurement Method Impression/Plan Impression/Plan Impression/Plan: SIGNIFICANT DATA Potassium is 2.9 BUN/creatinine relatively stable but creatinine has gone up to 0.9 lactic acid was unremarkable magnesium is low phosphorus is also low troponin was elevated at 0.45 TSH was low and free T4 was elevated random cortisol level was high White count 17 up from 12 upon admission it was not significantly elevated left shift ABG reviewed 742/47/75 Cultures showed no organism so far and the Gram stain other cultures are pending General: WD/WN male in NAD; sedated and intubated HEENT: NC/AT, PERRL, EOMI pharynx difficult to eval Neck: no JVD, no carotid bruit Heart: RRR w/o murmur Lungs: decreased breath sounds on the right Abdomen: soft, NT, +ve bowel sounds Extremities: no edema IMPRESSION This is a gentleman with more than [id number] smoking history, obstructive sleep apnea on CPAP, significant COPD not on home oxygen, paroxysmal atrial fibrillation not on anticoagulation due to significant past history of fall, hypothyroidism on supplementation, ischemic heart disease with previous CABG in 2001, previous CVA with right-sided ramila-plegia, hyperlipidemia, significant history of rheumatoid arthritis does not seem to be on any immunosuppressive at this time, peripheral vascular disease, multiple wounds now has * Acute hypoxemic respiratory failure now requiring intubation / related to bilateral multilobar pneumonia most likely related to his recurrent aspiration. PT does say that he has dysphagia and food getting stuck in the mid esophagus area. This is compounded by Severe IHD with low ef with Pulm edema * Significant fever due to bilateral pneumonia, with otitis externa, sinusitis, right-sided pharyngitis with ulcerative lesions. Patient appears to have aspiration pneumonia compounded by sinusitis and rule out zoster infection of the pharynx and pinna. ID and ent onboard * Ischemic heart disease now with low ef, with acute systolic chf, paroxysmal atrial fibrillation not on anticoagulation but on amiodarone however, probable reduced ejection fraction, now in acute pulmonary edema. Seems to be maintaining sinus rhythm. * Myocardial necrosis with mildly elevated troponin with low ef and wall motion abnormality rule out active acute coronary syndrome so far, does have EKG changes however * Dysphagia, difficulty swallowing at times with food getting stuck in the mid esophagus to rule out any esophageal lesion * Significant lung disease with prior smoking with chronic obstructive restrictive lung disease with prior aspiration pneumonitis and prolonged hospitalization due to chronic respiratory failure * Multiple other issues including rheumatoid arthritis, peripheral vascular disease, multiple ulcers including ulcers in the back with malnutrition and poor performance status RECOMMENDATION * Continue vent and reduce fio2 and can increase peep to 7.5. * Cont fentanyl and prn lorazepam * WEan down levo * D5 ringers at 60 cc per hour / if cvp is more than 12 can use prn lasix, if not hold it for now * Continue antibiotics discussed with id / can use unasyn or pip/tazo with azithro * Hold amio - travis and has sig prolonge qtc this am * Reduce aspirin to 162 mg/ follow ekg and cont cardiac meds * Nebulizer therapy as needed with DuoNeb if wheezing * Sputum culture, rpt * Reduce levothyroxine to 88 mcg * Proton pump inhibitor down og, start tube feeding a 20 cc * Replace potassium IV and down ng 40 meq three doses today * IV mag * Neutrophos 2 packets down ng for two days * Continue subcu heparin Prognosis guarded /Patient critically ill total time spent 40 minutes
--- NOTE | 2018-07-20 10:44 | PN- Infect Dx ---
Subjective Subjective: T-max 103.2. He is intubated and sedated with Ativan and, therefore, is unable to provide any history. He has minimal secretions reported. Objective Last 24 Hrs of Vital Signs/I&O Vital Signs Date Time Temp Pulse Resp B/P B/P Pulse O2 O2 Flow FiO2 Mean Ox Delivery Rate 07/20 0817 100 07/20 0544 100 07/20 0400 94 Ventilator 100% 07/20 0315 100 07/20 0230 76 20 98/53 07/20 0159 100 07/20 0115 100 07/20 0000 89 BIPAP 100% 07/20 0000 85 91 07/19 2306 81 91 07/19 2300 98.3 83 32 98/50 89 BIPAP 100% 07/19 2215 87 BIPAP 100% 07/19 2208 86 88 07/19 2130 71 Nasal 60% Cannula 07/19 2100 103.2 90 30 120/74 71 Nasal 60% Cannula 07/19 1928 92 Nasal 60% Cannula 07/19 1502 98.8 66 20 124/60 89 Nasal Cannula 07/19 1433 92 Nasal 60% Cannula 07/19 1230 97 Nasal 60% Cannula Intake & Output 07/20 1600 07/20 0800 07/20 0000 Intake Total 900 100 Output Total 485 775 Balance 415 -675 Intake, IV 900 100 Number 0 0 Bowel Movements Output, Urine 485 775 Patient 142 lb Weight Weight Bed scale Measurement Method Physical Exam Other Physical Findings: He is arousable, appearing in no acute distress HEENT crusted lesions in the right ear Neck right IJ triple lumen catheter with no inflammation at the site Lungs rhonchi bilaterally Heart regular rhythm with no murmur Abdomen soft, nontender with positive bowel sounds Extremities no cyanosis, clubbing or edema; superficial abrasions on both lower extremities Stout catheter remains in place Results Last 24 Hours of Lab Results: Laboratory Tests 07/20 07/20 07/20 0940 0412 0412 Chemistry Sodium (137 - 145 mmol/L) Pending 138 Potassium (3.5 - 5.1 mmol/L) Pending 2.9 *L Chloride (98 - 107 mmol/L) Pending 96 L Carbon Dioxide (22 - 30 mmol/L) Pending 31 H Anion Gap (5 - 16) Pending 10 BUN (9 - 20 mg/dL) Pending 25 H Creatinine (0.7 - 1.2 mg/dL) Pending 0.9 Estimated GFR (>60 ml/min) > 60 Glucose (65 - 99 mg/dL) Pending 112 H Lactic Acid (0.7 - 2.1 mmol/L) 1.3 Calcium (8.4 - 10.2 mg/dL) Pending 8.3 L Phosphorus (2.5 - 4.5 mg/dL) Pending 2.3 L Magnesium (1.6 - 2.3 mg/dL) Pending 1.4 L Total Bilirubin (0.2 - 1.3 mg/dL) Pending 1.3 AST (17 - 59 U/L) Pending 249 H ALT (21 - 72 U/L) Pending 207 H Troponin I (<0.11 ng/ml) Pending 0.45 *H Albumin (3.5 - 5.0 g/dL) Pending 3.0 L Hematology CBC w Diff MAN DIFF ORDERED WBC (4.8 - 10.8 /CUMM) 17.1 H RBC (4.70 - 6.10 /CUMM) 3.93 L Hgb (14.0 - 18.0 G/DL) 11.3 L Hct (42 - 52 %) 34.2 L MCV (80.0 - 94.0 FL) 87.1 MCH (27.0 - 31.0 PG) 28.7 MCHC (33.0 - 37.0 G/DL) 33.0 RDW (11.5 - 14.5 %) 15.0 H Plt Count (130 - 400 /CUMM) 217 MPV (7.4 - 10.4 FL) 7.9 Gran % (42.2 - 75.2 %) 89.0 H Lymphocytes % (20.5 - 51.1 %) 4.3 L Monocytes % (1.7 - 9.3 %) 6.7 Eosinophils % (0 - 5 %) 0 Basophils % (0.0 - 2.0 %) 0 Absolute Granulocytes (1.4 - 6.5 /CUMM) 15.2 H Segmented Neutrophils (42.2 - 75.2 %) 87 H Band Neutrophils (0.0 - 5.0 %) 5 Absolute Lymphocytes (1.2 - 3.4 /CUMM) 0.7 L Lymphocytes (20.5 - 51.1 %) 4 L Monocytes (1.7 - 9.3 %) 4 Absolute Monocytes (0.10 - 0.60 /CUMM) 1.1 H Absolute Eosinophils (0.0 - 0.7 /CUMM) 0 Absolute Basophils (0.0 - 0.2 /CUMM) 0 Platelet Estimate (ADEQUATE) ADEQUATE Normocytic RBCs VERIFIED Normochromic RBCs VERIFIED 07/20 07/20 07/19 0310 0000 2240 Blood Gas pH (7.35 - 7.45 PH) 7.42 7.32 L 7.29 *L pCO2 (35 - 45 TORR) 47 H 62 *H 65 *H pO2 (80 - 100 TORR) 75 L 63 L 67 L HCO3 (21 - 28 MEQ/L) 30 H 31 H 30 H ABG O2 Sat (Measured) (>96.0 %) 95.0 L 91.0 L 90.0 L P-50 (Temp Corrected) Y Y Y Carboxyhemoglobin (1.5 - 5.0 %) 0.3 L 0.1 L 0.5 L O2 Concentration % 100% 100% 100 Temperature (97.0 - 100.0 FARH) 98.3 98.3 98.9 Respiration Rate (BPM) 20 22 22 O2 Delivery Method ESPRIT V-60 FFM BIPAP Vent Mode AC ST ST Expiratory Pressure (CMH2O/P) 5 10 10 Tidal Volume (CC) 500 Inspiratory Pressure (CM H2O P) 22 20 Miscellaneous Phlebotomy Draw Site RIGHT BRACHIAL RIGHT RADIAL RIGHT RADIAL 07/198 8 Blood Gas pH (7.35 - 7.45 PH) 7.29 *L pCO2 (35 - 45 TORR) 69 *H pO2 (80 - 100 TORR) 44 *L HCO3 (21 - 28 MEQ/L) 32 H ABG O2 Sat (Measured) (>96.0 %) 71.0 L P-50 (Temp Corrected) Pending Carboxyhemoglobin (1.5 - 5.0 %) 0.7 L O2 Concentration % 100% Temperature (97.0 - 100.0 FARH) Pending O2 Delivery Method HFNC Chemistry Sodium (137 - 145 mmol/L) 137 Potassium (3.5 - 5.1 mmol/L) 3.5 Chloride (98 - 107 mmol/L) 96 L Carbon Dioxide (22 - 30 mmol/L) 35 H Anion Gap (5 - 16) 7 BUN (9 - 20 mg/dL) 23 H Creatinine (0.7 - 1.2 mg/dL) 0.6 L Estimated GFR (>60 ml/min) > 60 BUN/Creatinine Ratio (7 - 25 %) 38.3 H Lactic Acid (0.7 - 2.1 mmol/L) 0.9 Calcium (8.4 - 10.2 mg/dL) 8.8 Phosphorus (2.5 - 4.5 mg/dL) 3.0 Magnesium (1.6 - 2.3 mg/dL) 1.5 L Total Bilirubin (0.2 - 1.3 mg/dL) 1.0 Direct Bilirubin (< 0.4 mg/dL) 0.4 AST (17 - 59 U/L) 139 H ALT (21 - 72 U/L) 141 H Alkaline Phosphatase (< 127 U/L) 60 Troponin I (<0.11 ng/ml) 0.13 *H Total Protein (6.3 - 8.2 g/dL) 6.3 Albumin (3.5 - 5.0 g/dL) 3.3 L Coagulation PT (9.4 - 12.5 SEC) 11.9 INR (0.90 - 1.17) 1.09 APTT (25 - 37 SEC) 31 Hematology CBC w Diff NO MAN DIFF REQ WBC (4.8 - 10.8 /CUMM) 12.5 H RBC (4.70 - 6.10 /CUMM) 4.16 L Hgb (14.0 - 18.0 G/DL) 12.1 L Hct (42 - 52 %) 36.6 L MCV (80.0 - 94.0 FL) 88.0 MCH (27.0 - 31.0 PG) 29.0 MCHC (33.0 - 37.0 G/DL) 33.0 RDW (11.5 - 14.5 %) 15.6 H Plt Count (130 - 400 /CUMM) 200 MPV (7.4 - 10.4 FL) 7.3 L Gran % (42.2 - 75.2 %) 90.7 H Lymphocytes % (20.5 - 51.1 %) 2.8 L Monocytes % (1.7 - 9.3 %) 6.4 Eosinophils % (0 - 5 %) 0 Basophils % (0.0 - 2.0 %) 0.1 Absolute Granulocytes (1.4 - 6.5 /CUMM) 11.3 H Absolute Lymphocytes (1.2 - 3.4 /CUMM) 0.3 L Absolute Monocytes (0.10 - 0.60 /CUMM) 0.8 H Absolute Eosinophils (0.0 - 0.7 /CUMM) 0 Absolute Basophils (0.0 - 0.2 /CUMM) 0 Miscellaneous Phlebotomy Draw Site RIGHT RADIAL 07/19 1230 Chemistry TSH (0.270 - 4.200 uIU/mL) 0.221 L Free T4 (0.78 - 2.44 ng/dL) 2.29 Cortisol PM Sample (1.7 - 14.1) 49.8 H Last 24 Hours of Shen Results: Blood cultures July 17 negative Blood cultures July 19 negative Sputum culture July 20 pending, with gram stain revealing moderate white cells and no organisms Urine culture July 19 pending Recent Imaging Studies: Chest x-ray July 20 reveals multifocal airspace disease, most prominently within the left mid to upper lung Assessment/Plan ID Impression: Recurrent fevers with increasing white blood cell count and worsening respiratory status, requiring intubation overnight, now on Zosyn after several days of various antibiotics, including Ceftriaxone, Azithromycin, Doxycycline, Unasyn and Vancomycin for what appears to be a multilobar community-acquired pneumonia of acute onset. He apparently reported dysphagia with large pills, raising concern for aspiration, and the progression from unilobar to multilobar pneumonia does raise concern for Legionella, though his urine antigen is negative. He is also on Acyclovir because of the concern of right periauricular lesions/drainage, with ENT suspecting otitis externa and possible herpes infection of the right glossopharyngeal nerve. Suggestion: 1. No need for Contact isolation if no history of any multidrug resistant organisms 2. Follow-up recent sputum culture 3. Discontinue Zosyn 4. Begin Unasyn 3 g IV every 6 hours and Azithromycin 500 mg IV every 24 hours 5. Continue Acyclovir
--- NOTE | 2018-07-20 11:03 | PN- Resident CRCU ---
Subjective HPI/CRCU Issues: Acute hypoxic and hypercapnic respiratory failure requiring intubation secondary to multilobar pneumonia. Otitis externa, sinusitis, right-sided pharyngitis with ulcerative lesion. Acute systolic CHF ejection fraction 30% Rule out ACS, elevated troponin History of paroxysmal AF not on any anticoagulation History of COPD, aspiration pneumonitis and chronic respiratory failure Study of rheumatoid arthritis, peripheral vascular disease, multiple ulcers including ulcers on the back, malnutrition. 24 Hour Events: Patient had acute hypoxic and hypercapnic respiratory failure last night and was not able to maintain his airway so he was intubated. Patient remained intubated. He is on 100% oxygen and maintaining saturation 91%. Patient is on lorazepam drip when necessary and fentanyl drip. Objective Vital Signs & I&O Last 8 Hrs of Vitals and I&O: Intake & Output 07/20 1600 07/20 0800 07/20 0000 Intake Total 900 100 Output Total 485 775 Balance 415 -675 Intake, IV 900 100 Number 0 0 Bowel Movements Output, Urine 485 775 Patient 142 lb Weight Weight Bed scale Measurement Method Laboratory Tests 07/20 07/20 07/20 07/20 1615 1240 0940 0412 Chemistry Sodium (137 - 145 mmol/L) 136 L Potassium (3.5 - 5.1 mmol/L) 4.4 Chloride (98 - 107 mmol/L) 98 Carbon Dioxide (22 - 30 mmol/L) 34 H Anion Gap (5 - 16) 4 L BUN (9 - 20 mg/dL) 25 H Creatinine (0.7 - 1.2 mg/dL) 0.9 Estimated GFR (>60 ml/min) > 60 Glucose (65 - 99 mg/dL) 127 H Lactic Acid (0.7 - 2.1 mmol/L) 1.3 Calcium (8.4 - 10.2 mg/dL) 8.2 L Phosphorus (2.5 - 4.5 mg/dL) 1.6 L Magnesium (1.6 - 2.3 mg/dL) 2.4 H Total Bilirubin (0.2 - 1.3 mg/dL) 0.9 AST (17 - 59 U/L) 343 H ALT (21 - 72 U/L) 261 H Troponin I (<0.11 ng/ml) 0.45 *H 0.53 *H Albumin (3.5 - 5.0 g/dL) 2.6 L Coagulation D-Dimer High Sensitivty (0 - 243 ng/ml) 453 H 07/20 07/20 0332 0310 Blood Gas pH (7.35 - 7.45 PH) 7.42 pCO2 (35 - 45 TORR) 47 H pO2 (80 - 100 TORR) 75 L HCO3 (21 - 28 MEQ/L) 30 H ABG O2 Sat (Measured) (>96.0 %) 95.0 L P-50 (Temp Corrected) Y Carboxyhemoglobin (1.5 - 5.0 %) 0.3 L O2 Concentration % 100% Temperature (97.0 - 100.0 FARH) 98.3 Respiration Rate (BPM) 20 O2 Delivery Method ESPRIT Vent Mode AC Expiratory Pressure (CMH2O/P) 5 Tidal Volume (CC) 500 Chemistry Sodium (137 - 145 mmol/L) 138 Potassium (3.5 - 5.1 mmol/L) 2.9 *L Chloride (98 - 107 mmol/L) 96 L Carbon Dioxide (22 - 30 mmol/L) 31 H Anion Gap (5 - 16) 10 BUN (9 - 20 mg/dL) 25 H Creatinine (0.7 - 1.2 mg/dL) 0.9 Estimated GFR (>60 ml/min) > 60 Glucose (65 - 99 mg/dL) 112 H Calcium (8.4 - 10.2 mg/dL) 8.3 L Phosphorus (2.5 - 4.5 mg/dL) 2.3 L Magnesium (1.6 - 2.3 mg/dL) 1.4 L Total Bilirubin (0.2 - 1.3 mg/dL) 1.3 AST (17 - 59 U/L) 249 H ALT (21 - 72 U/L) 207 H Troponin I (<0.11 ng/ml) 0.45 *H Albumin (3.5 - 5.0 g/dL) 3.0 L Hematology CBC w Diff MAN DIFF ORDERED WBC (4.8 - 10.8 /CUMM) 17.1 H RBC (4.70 - 6.10 /CUMM) 3.93 L Hgb (14.0 - 18.0 G/DL) 11.3 L Hct (42 - 52 %) 34.2 L MCV (80.0 - 94.0 FL) 87.1 MCH (27.0 - 31.0 PG) 28.7 MCHC (33.0 - 37.0 G/DL) 33.0 RDW (11.5 - 14.5 %) 15.0 H Plt Count (130 - 400 /CUMM) 217 MPV (7.4 - 10.4 FL) 7.9 Gran % (42.2 - 75.2 %) 89.0 H Lymphocytes % (20.5 - 51.1 %) 4.3 L Monocytes % (1.7 - 9.3 %) 6.7 Eosinophils % (0 - 5 %) 0 Basophils % (0.0 - 2.0 %) 0 Absolute Granulocytes (1.4 - 6.5 /CUMM) 15.2 H Segmented Neutrophils (42.2 - 75.2 %) 87 H Band Neutrophils (0.0 - 5.0 %) 5 Absolute Lymphocytes (1.2 - 3.4 /CUMM) 0.7 L Lymphocytes (20.5 - 51.1 %) 4 L Monocytes (1.7 - 9.3 %) 4 Absolute Monocytes (0.10 - 0.60 /CUMM) 1.1 H Absolute Eosinophils (0.0 - 0.7 /CUMM) 0 Absolute Basophils (0.0 - 0.2 /CUMM) 0 Platelet Estimate (ADEQUATE) ADEQUATE Normocytic RBCs VERIFIED Normochromic RBCs VERIFIED Miscellaneous Phlebotomy Draw Site RIGHT BRACHIAL 07/20 07/19 0000 2240 Blood Gas pH (7.35 - 7.45 PH) 7.32 L 7.29 *L pCO2 (35 - 45 TORR) 62 *H 65 *H pO2 (80 - 100 TORR) 63 L 67 L HCO3 (21 - 28 MEQ/L) 31 H 30 H ABG O2 Sat (Measured) (>96.0 %) 91.0 L 90.0 L P-50 (Temp Corrected) Y Y Carboxyhemoglobin (1.5 - 5.0 %) 0.1 L 0.5 L O2 Concentration % 100% 100 Temperature (97.0 - 100.0 FARH) 98.3 98.9 Respiration Rate (BPM) 22 22 O2 Delivery Method V-60 FFM [address] Vent Mode [address] ST Expiratory Pressure (CM H2O P) 10 10 Inspiratory Pressure (CM H2O P) 22 20 Miscellaneous Phlebotomy Draw Site RIGHT RADIAL RIGHT RADIAL 07/19 07/19 2226 2128 Blood Gas pH (7.35 - 7.45 PH) 7.29 *L pCO2 (35 - 45 TORR) 69 *H pO2 (80 - 100 TORR) 44 *L HCO3 (21 - 28 MEQ/L) 32 H ABG O2 Sat (Measured) (>96.0 %) 71.0 L Carboxyhemoglobin (1.5 - 5.0 %) 0.7 L O2 Concentration % 100% O2 Delivery Method HFNC Chemistry Sodium (137 - 145 mmol/L) 137 Potassium (3.5 - 5.1 mmol/L) 3.5 Chloride (98 - 107 mmol/L) 96 L Carbon Dioxide (22 - 30 mmol/L) 35 H Anion Gap (5 - 16) 7 BUN (9 - 20 mg/dL) 23 H Creatinine (0.7 - 1.2 mg/dL) 0.6 L Estimated GFR (>60 ml/min) > 60 BUN/Creatinine Ratio (7 - 25 %) 38.3 H Lactic Acid (0.7 - 2.1 mmol/L) 0.9 Calcium (8.4 - 10.2 mg/dL) 8.8 Phosphorus (2.5 - 4.5 mg/dL) 3.0 Magnesium (1.6 - 2.3 mg/dL) 1.5 L Total Bilirubin (0.2 - 1.3 mg/dL) 1.0 Direct Bilirubin (< 0.4 mg/dL) 0.4 AST (17 - 59 U/L) 139 H ALT (21 - 72 U/L) 141 H Alkaline Phosphatase (< 127 U/L) 60 Troponin I (<0.11 ng/ml) 0.13 *H Total Protein (6.3 - 8.2 g/dL) 6.3 Albumin (3.5 - 5.0 g/dL) 3.3 L Coagulation PT (9.4 - 12.5 SEC) 11.9 INR (0.90 - 1.17) 1.09 APTT (25 - 37 SEC) 31 Hematology CBC w Diff NO MAN DIFF REQ WBC (4.8 - 10.8 /CUMM) 12.5 H RBC (4.70 - 6.10 /CUMM) 4.16 L Hgb (14.0 - 18.0 G/DL) 12.1 L Hct (42 - 52 %) 36.6 L MCV (80.0 - 94.0 FL) 88.0 MCH (27.0 - 31.0 PG) 29.0 MCHC (33.0 - 37.0 G/DL) 33.0 RDW (11.5 - 14.5 %) 15.6 H Plt Count (130 - 400 /CUMM) 200 MPV (7.4 - 10.4 FL) 7.3 L Gran % (42.2 - 75.2 %) 90.7 H Lymphocytes % (20.5 - 51.1 %) 2.8 L Monocytes % (1.7 - 9.3 %) 6.4 Eosinophils % (0 - 5 %) 0 Basophils % (0.0 - 2.0 %) 0.1 Absolute Granulocytes (1.4 - 6.5 /CUMM) 11.3 H Absolute Lymphocytes (1.2 - 3.4 /CUMM) 0.3 L Absolute Monocytes (0.10 - 0.60 /CUMM) 0.8 H Absolute Eosinophils (0.0 - 0.7 /CUMM) 0 Absolute Basophils (0.0 - 0.2 /CUMM) 0 Miscellaneous Phlebotomy Draw Site RIGHT RADIAL Exam General Appearance: intubated Head: atraumatic Neck: normal inspection Respiratory: Decreased breath sounds b/l Cardiovascular: irregularly irregular Gastrointestinal: normal bowel sounds, soft Extremities: B/L chronic venous changes Skin Temp/Moisture Exam: Warm/Dry Sepsis Skin Exam (color): Normal for Ethnicity Current Medications: Current Medications Sig/Jamie Start time Last Medication Dose Route Stop Time Status Admin Acetaminophen 1,000 MG BID PRN 07/17 1930 AC 07/19 IV 0415 Acyclovir 500 MG 1000,1800,0200 07/20 1800 AC 07/20 Dextrose/Water 100 ML IV 1846 Acyclovir 500 MG Q8H 07/20 0700 DC 07/20 Dextrose/Water 100 ML IV 1030 Acyclovir 500 MG Q8H 07/18 2000 DC 07/19 Dextrose/Water 100 ML IV 2247 Albuterol Sulfate 3 ML Q4P PRN 07/17 194 AC INH Amiodarone HCl 200 MG DAILY 07/18 0900 DC PO Ampicillin Sodium/ 3,000 MG Q6 07/20 1200 AC 07/20 Sulbactam Sodium IV 1851 Sodium Chloride 100 ML Aspirin 162 MG DAILY 07/21 900 DC PO Aspirin 162 MG DAILY 07/21 900 AC PO Aspirin 300 MG DAILY 07/20 0900 CAN HI Aspirin 325 MG DAILY 07/20 0900 DC 07/20 PO 0932 Atorvastatin Calcium 80 MG DAILY 07/18 0900 AC 07/20 PO 0932 Azithromycin 500 MG DAILY 07/20 1104 AC 07/20 Sodium Chloride 250 ML IV 1412 Budesonide/ 2 PUF BID 07/17 2100 AC 07/19 Formoterol Fumarate INH 0938 Dextrose/Lactated 1,000 ML .[id number] 07/20 1100 AC 07/20 Ringer's IV 1229 Ezetimibe 10 MG DAILY 07/18 0900 AC 07/20 PO 0932 Fentanyl Citrate 1,000 MCG Q24H 07/20 0100 AC 07/20 Dextrose/Water 250 ML IV 0320 Furosemide 40 MG ONCE ONE 07/19 2215 DC 07/19 IV 07/19 221 2215 Furosemide 0 .STK-MED ONE 07/19 2213 DC IV Furosemide 40 MG ONCE ONE 07/19 2130 DC 07/19 IV PUSH 07/19 213 2130 Furosemide 0 .STK-MED ONE 07/197 DC IV Heparin Sodium 5,000 UNIT Q8 07/17 2200 DC 07/20 (Porcine) SC 0624 Heparin Sodium/ 25,000 UNIT Q24H 07/20 1215 AC 07/20 Dextrose IV 1519 Dextrose/Water 500 ML Ipratropium [place] 2.5 ML Q4P PRN 07/20 1545 AC INH Levothyroxine Sodium 0.088 MG DAILY AC 07/21 0700 AC PO Levothyroxine Sodium 0.1 MG DAILY AC 07/20 0700 DC 07/20 PO 0617 Lorazepam 50 MG Q24H 07/20 0100 DC 07/20 Dextrose/Water 500 ML IV 0320 Magnesium Sulfate 1 GM Q2H 07/20 0630 DC 07/20 Dextrose/Water 100 ML IV 07/20 1029 0930 Neomycin/Polymyxin/ 4 GTT TID 07/20 2100 AC Bacitr/Hydrocort OTIC Neomycin/Polymyxin/ 4 GTT TID 07/18 0900 DC 07/20 Bacitr/Hydrocort OTIC 0931 Norepinephrine 4 MG Q7H 07/20 1600 AC 07/20 Dextrose/Water 250 ML IV 1849 Norepinephrine 4 MG Q24H 07/20 1430 DC Sodium Chloride 250 ML IV Norepinephrine 4 MG Q6H 07/20 1430 DC Sodium Chloride 250 ML IV Norepinephrine 4 MG Q24H 07/20 0330 DC 07/20 Sodium Chloride 250 ML IV 07/20 1429 0230 Norepinephrine 0 .STK-MED ONE 07/20 0213 DC IV Omeprazole 40 MG DAILY AC 07/20 1057 DC PO Pantoprazole Sodium 40 MG DAILY 07/21 0900 CAN IV Pantoprazole Sodium 40 MG DAILY 07/20 1209 AC IV Pantoprazole Sodium 40 MG DAILY 07/19 1215 DC 07/20 IV 0932 Phosphate 250 MG PC AND AT BEDTIME 07/20 1300 AC 07/20 PO 07/21 2000 1848 Piperacillin Sod/ 4.5 GM Q6 07/19 1200 DC 07/20 Tazobactam Sod IV 0617 Sodium Chloride 100 ML Potassium Chloride 40 MEQ ONCE ONE 07/20 0615 DC 07/20 PO 07/20 0616 0617 Potassium Chloride 20 MEQ Q1H 07/20 0615 DC 07/20 IV 07/20 0716 0807 Potassium Chloride 0 .STK-MED ONE 07/20 0610 DC PO Potassium Chloride 0 .STK-MED ONE 07/20 0609 DC PO Potassium Phosphate 15 mMol ONE ONE 07/20 0630 DC 07/20 Dextrose/Water 250 ML IV 07/20 1034 0932 Impression/Plan Impression/Problem List Impression: 73 YO M with PMH of HTN, HLD, COPD (not on any home oxygen), paroxysmal atrial fibrillation not on any AC due to fall risk, hypothyroidism, CAD s/p quadruple bypass in 2001, 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 He was known to be in his usual state of health until a few days prior to presentation. Recurrent fever with increasing WBC and worsening respiratory status, requiring intubation overnight, now on Zosyn after several days of various antibiotics, including Ceftriaxone, Azithromycin, Doxycycline, Unasyn and Vancomycin for what appears to be a multilobar community -acquired pneumonia of acute onset. Following the patient in ICU for following problems: Acute hypoxic and hypercapnic respiratory failure: -Possibly due to community-acquired pneumonia and possible aspiration pneumonia as patient was complaining of dysphagia with large pills. -Possible sepsis as patient meeting SIRS criteria, WBC count 17.1, temperature 103.2 and on imaging study patient has a multilobar pneumonia. Although his lactic acid and remained negative. -Could be due to aspiration pneumonia that causing multiple lobe opacities. -Patient Zosyn was discontinued today. Patient was started on Unasyn and azithromycin. Day 1 -Continue intubation with settings of respiratory rate 20, tidal volume 500, peak flow 65, PEEP 5 and percentage oxygen 100. -Continue fentanyl drip -Ativan when necessary -Follow-up sputum culture -Follow-up blood cultures -Patient strep and Legionella antigens remained negative. -TRC nebulization as needed -Continue omeprazole through tube feeds. Hypotension: -Possibly due to hypovolemia, less likely due to sepsis as his lactic acid remained negative. -His slowest blood pressure was 98/50 last night. Central venous line was maintained and patient was given IV fluids and Levophed. -We will wean down his Levophed. -This morning his blood pressure was 102/46 -Patient is getting D5 Ringer lactate at the rate of 60 mL per hour but he feels CVP pressure goes >12 then we'll give him when necessary Lasix. -His IOP overnight 1000/1260 Otitis externa and pharyngitis: -Patient is otitis externa and sinusitis with right sided pharyngitis with ulcerative region. -Possibly due to zoster infection. -Viral PCR is pending. -Continue Corticosporin ointment. -Continue acyclovir IV 500 mg. -ENT recommendations appreciate. Acute systolic CHF: -Patient has ejection fraction 30% -On imaging study patient had pulmonary congestion. His BNP was 574 -Patient will get when necessary Lasix if his CVP pressure is more than 12. -Follow cardiology recommendations Elevated troponin: -Initially patient's troponin was normal but now his trop was last night 0.13--> 0.45-->0.53 -Possibly due to ischemia, rule out ACS. -We will start IV heparin according to ACS protocol -Ruling out PE by doing leg ultrasound for DVT and d-dimer's. -We will trend his troponin -Follow up cardiology recommendations Hypophosphatemia: -Possibly due to low intake of excessive excretion to kidney. -Repeating phosphate through tube feeds. History of atrial fibrillation: -Not any anticoagulation -Holding his amiodarone due to prolonged QTC History of hypothyroidism: -Decreasing his levothyroxine to 0.088 mg daily History of CAD status post CABG: -Reducing his aspirin to 162 mg daily. -Hold his carvedilol due to low blood pressure History of hyperlipidemia and hypertension: -Continue atorvastatin and ezetimibe. -Holding his amlodipine due to low blood pressure. Diet: -We will start tube feeds today. DVT prophylaxis: Mechanical and subcutaneous heparin. CODE STATUS: Full code Problem List: 1. Acute respiratory failure with hypoxia 2. Otitis externa 3. ACS (acute coronary syndrome) 4. Aspiration pneumonia Pain Ratin Pain Location: none Pain Plan: pain pathway Tomorrow's Labs & Rationales: cbc/icu bundle Plan DVT/Prophylaxis: mechanical, pharmacological
--- NOTE | 2018-07-20 11:25 | PN- Cardiology ---
Subjective Subjective: * Patient decompensated last evening and is now intubated. * increased WBC count Objective Vital Signs and I&Os Vital Signs Date Time Temp Pulse Resp B/P B/P Pulse O2 O2 Flow FiO2 Mean Ox Delivery Rate 07/20 1000 58 102/46 07/20 0817 100 07/20 0544 100 07/20 0400 94 Ventilator 100% 07/20 0315 100 07/20 0230 76 20 98/53 07/20 0159 100 07/20 0115 100 07/20 0000 89 BIPAP 100% 07/20 0000 85 91 07/19 2306 81 91 07/19 2300 98.3 83 32 98/50 89 BIPAP 100% 07/19 2215 87 BIPAP 100% 07/19 2208 86 88 07/19 2130 71 Nasal 60% Cannula 07/19 2100 103.2 90 30 120/74 71 Nasal 60% Cannula 07/19 1928 92 Nasal 60% Cannula 07/19 1502 98.8 66 20 124/60 89 Nasal Cannula 07/19 1433 92 Nasal 60% Cannula 07/19 1230 97 Nasal 60% Cannula Intake & Output 07/20 1600 07/20 0800 07/20 0000 07/19 1600 07/19 0800 07/19 0000 Intake Total 900 100 300 650 400 Output Total 485 775 150 Balance 415 -675 300 650 250 Intake, IV 900 100 300 650 400 Number 0 0 0 Bowel Movements Output, Urine 485 775 150 Patient 142 lb 144 lb Weight Weight Bed scale Measurement Method Physical Exam: General: WD/WN male in NAD; alert and oriented x 3 HEENT: NC/AT, PERRL, EOMI Neck: no JVD, no carotid bruit Heart: RRR w/o murmur Lungs: decreased breath sounds on the right with bilateral crackles Abdomen: soft, NT, +ve bowel sounds Extremities: no edema Assessment/Plan Assessment/Plan * This patient had shortness of breath related to his pneumonia but he has acutely decompensated and is now intubated and hypotensive. This may be related to progression of his pneumonia with concurrent sepsis. There is likley some superimposed CHF as well since he does have crackles and pulmonary edema was noted on his X-ray. In addition, he does have a decreased EF. Finally, in the setting of acute decompensation in both breathing and blood pressure in a patient that has been sedentary with borderline increased troponin a PE should be considered. There are certainly alternative explainations for the above findings. Obtain a D-dimer and LE ultrasound. In consideration of his increased troponin I would begin IV heparin and monitor his H/H. * Continue Norepinephrine and titrate to a SBP of 90mmHg. * Due to his borderline BP diuretics may not be tolerated at this point. * Continue antibiotic therapy. Continue telemetry? Yes
--- NOTE | 2018-07-20 12:22 | RADIOLOGY REPORT ---
EXAMINATION: XR PORTABLE CHEST CLINICAL INFORMATION: ETT position COMPARISON: Multiple prior x-rays most recent 07/20/2018 at 2:44 AM TECHNIQUE: Portable frontal view of the chest was obtained. FINDINGS: Endotracheal tube tip approximately 4 cm above the yakov. Not significantly changed compared to prior. Central venous catheter remains in the region of the SVC unchanged. NG tube tip extends at least to the EG junction. Full distal extent is not assessed on this examination given the limited [id number]. There is persistent bilateral multifocal consolidation most apparent in the left upper lung zone unchanged. Sternotomy wires present. Cardiac silhouette within normal limits. IMPRESSION: Endotracheal tube approximately 4 cm above the yakov The lungs unchanged
--- NOTE | 2018-07-20 14:50 | ULTRASOUND REPORT ---
EXAMINATION: US TRIPLEX OF LOWER EXTREMITIES, BILATERAL CLINICAL INFORMATION: Leg swelling COMPARISON: Prior duplex ultrasound October 2017 TECHNIQUE: Color-flow triplex imaging with spectral analysis and compression Doppler were performed on the lower extremities. FINDINGS: Respiratory variation, normal compression and augmented flow are noted throughout the lower extremities. The visualized common femoral vein, superficial femoral vein, profunda femoral vein, popliteal vein and midcalf peroneal and posterior tibial venous segments show no evidence of deep venous thrombosis. There is no Cabezas's cyst. IMPRESSION: No evidence of deep venous thrombosis involving the bilateral lower extremities.
[2018-07-20 16:00] VITALS: BP 92/48
[2018-07-20 22:18] LABS: PTT 64 SEC (25-37)
[2018-07-21] VITALS: BP 100/50
[2018-07-21 04:20] LABS: ABSOLUTE BASOPHIL COUNT 0 /CUMM (0.0-0.2); ABSOLUTE EOSINOPHIL COUNT 0 /CUMM (0.0-0.7); ABSOLUTE LYMPH COUNT 0.5 /CUMM (1.2-3.4); RED BLOOD CELL CT 3.04 /CUMM (4.70-6.10)
[2018-07-21 04:43] LABS: ABSOLUTE GRANULOCYTE CT 4.4 /CUMM (1.4-6.5); ABSOLUTE MONOCYTE COUNT 0.5 /CUMM (0.10-0.60); BASOPHIL % 0.1 % (0.0-2.0); EOSINOPHIL % 0.5 % (0-5); GRANULOCYTE % 80.7 % (42.2-75.2); MEAN CORPUSCULAR HGB 28.5 PG (27.0-31.0); MEAN CORPUSCULAR HGB CONC 32.8 G/DL (33.0-37.0); MEAN CORPUSCULAR VOLUME 87.1 FL (80.0-94.0); MEAN PLATELET VOLUME 7.6 FL (7.4-10.4); PLATELET COUNT 126 /CUMM (130-400); RBC DISTRIBUTION WIDTH 14.9 % (11.5-14.5)
[2018-07-21 04:51] LABS: WHITE BLOOD CELL COUNT 5.4 /CUMM (4.8-10.8)
[2018-07-21 04:52] LABS: HEMATOCRIT 26.5 % (42-52)
--- NOTE | 2018-07-21 07:04 | PN- Resident CRCU ---
Subjective HPI/CRCU Issues: Acute hypoxic and hypercapnic respiratory failure requiring intubation secondary to multilobar pneumonia.(improving) Otitis externa, sinusitis, right-sided pharyngitis with ulcerative lesion. Acute systolic CHF ejection fraction 30% Rule out ACS, elevated troponin History of paroxysmal AF not on any anticoagulation History of COPD, aspiration pneumonitis and chronic respiratory failure Study of rheumatoid arthritis, peripheral vascular disease, multiple ulcers including ulcers on the back, malnutrition. 24 Hour Events: No overnight events. Patient remained afebrile overnight. Seen and examined this morning. Patient remained intubated on fentanyl drip. This morning patient was responding to verbal command. Possibly we will give him a weaning trial today. Patient is hemodynamically stable. Objective Vital Signs & I&O Last 8 Hrs of Vitals and I&O: Intake & Output 07/21 1600 07/21 0800 07/21 0000 Intake Total 1232 2985 Output Total 240 450 Balance 992 2535 Intake, IV 1053 2603 Intake, Oral 0 0 Intake, Other 50 170 Intake, Tube 129 212 Feeding Number 2 0 Bowel Movements Output, Urine 240 450 Patient 141 lb Weight Weight Bed scale Measurement Method Laboratory Tests 07/21 07/20 07/20 07/20 0345 2125 1615 1240 Chemistry Sodium (137 - 145 mmol/L) 137 Potassium (3.5 - 5.1 mmol/L) 3.2 L Chloride (98 - 107 mmol/L) 100 Carbon Dioxide (22 - 30 mmol/L) 34 H Anion Gap (5 - 16) 3 L BUN (9 - 20 mg/dL) 27 H Creatinine (0.7 - 1.2 mg/dL) 0.7 Estimated GFR (>60 ml/min) > 60 Glucose (65 - 99 mg/dL) 169 H Calcium (8.4 - 10.2 mg/dL) 7.5 L Phosphorus (2.5 - 4.5 mg/dL) 2.5 Magnesium (1.6 - 2.3 mg/dL) 2.0 Total Bilirubin (0.2 - 1.3 mg/dL) 0.6 AST (17 - 59 U/L) 216 H ALT (21 - 72 U/L) 205 H Troponin I (<0.11 ng/ml) 0.45 *H Albumin (3.5 - 5.0 g/dL) 2.2 L Coagulation APTT (25 - 37 SEC) 64 H D-Dimer High Sensitivty (0 - 243 ng/ml) 453 H Hematology CBC w Diff NO MAN DIFF REQ WBC (4.8 - 10.8 /CUMM) 5.4 RBC (4.70 - 6.10 /CUMM) 3.04 L Hgb (14.0 - 18.0 G/DL) 8.7 L Hct (42 - 52 %) 26.5 L MCV (80.0 - 94.0 FL) 87.1 MCH (27.0 - 31.0 PG) 28.5 MCHC (33.0 - 37.0 G/DL) 32.8 L RDW (11.5 - 14.5 %) 14.9 H Plt Count (130 - 400 /CUMM) 126 L MPV (7.4 - 10.4 FL) 7.6 Gran % (42.2 - 75.2 %) 80.7 H Lymphocytes % (20.5 - 51.1 %) 9.3 L Monocytes % (1.7 - 9.3 %) 9.4 H Eosinophils % (0 - 5 %) 0.5 Basophils % (0.0 - 2.0 %) 0.1 Absolute Granulocytes (1.4 - 6.5 /CUMM) 4.4 Absolute Lymphocytes (1.2 - 3.4 /CUMM) 0.5 L Absolute Monocytes (0.10 - 0.60 /CUMM) 0.5 Absolute Eosinophils (0.0 - 0.7 /CUMM) 0 Absolute Basophils (0.0 - 0.2 /CUMM) 0 08/20 0940 Chemistry Sodium (137 - 145 mmol/L) 136 L Potassium (3.5 - 5.1 mmol/L) 4.4 Chloride (98 - 107 mmol/L) 98 Carbon Dioxide (22 - 30 mmol/L) 34 H Anion Gap (5 - 16) 4 L BUN (9 - 20 mg/dL) 25 H Creatinine (0.7 - 1.2 mg/dL) 0.9 Estimated GFR (>60 ml/min) > 60 Glucose (65 - 99 mg/dL) 127 H Calcium (8.4 - 10.2 mg/dL) 8.2 L Phosphorus (2.5 - 4.5 mg/dL) 1.6 L Magnesium (1.6 - 2.3 mg/dL) 2.4 H Total Bilirubin (0.2 - 1.3 mg/dL) 0.9 AST (17 - 59 U/L) 343 H ALT (21 - 72 U/L) 261 H Troponin I (<0.11 ng/ml) 0.53 *H Albumin (3.5 - 5.0 g/dL) 2.6 L Exam General Appearance: no apparent distress, alert, awake Head: atraumatic Ears, Nose, Throat: ulcerations/vesicles Neck: normal inspection Respiratory: normal breath sounds, chest non-tender Cardiovascular: regular rate/rhythm Gastrointestinal: soft, non-tender Extremities: Right leg chronic wound, b/l chronic venous changes Skin Temp/Moisture Exam: Warm/Dry Sepsis Skin Exam (color): Normal for Ethnicity Current Medications: Current Medications Sig/Jamie Start time Last Medication Dose Route Stop Time Status Admin Acetaminophen 1,000 MG BID PRN 07/17 1930 AC 07/19 IV 0415 Acyclovir 500 MG 1000,1800,0200 07/20 1800 AC 07/21 Dextrose/Water 100 ML IV 0146 Acyclovir 500 MG Q8H 07/20 0700 DC 07/20 Dextrose/Water 100 ML IV 1030 Albuterol Sulfate 3 ML Q4P PRN 07/17 1945 AC INH Amiodarone HCl 200 MG DAILY 07/18 0900 DC PO Ampicillin Sodium/ 3,000 MG Q6 07/20 1200 AC 07/21 Sulbactam Sodium IV 0620 Sodium Chloride 100 ML Aspirin 162 MG DAILY 07/21 0900 DC PO Aspirin 162 MG DAILY 07/21 0900 AC PO Aspirin 325 MG DAILY 07/20 0900 DC 07/20 PO 0932 Atorvastatin Calcium 80 MG DAILY 07/18 0900 AC 07/20 PO 0932 Azithromycin 500 MG DAILY 07/20 1104 AC 07/20 Sodium Chloride 250 ML IV 1412 Budesonide/ 2 PUF BID 07/17 2100 AC 07/19 Formoterol Fumarate INH 0938 Dextrose/Lactated 1,000 ML .[id number] 07/20 1100 AC 07/21 Ringer's IV 0302 Ezetimibe 10 MG DAILY 07/18 0900 AC 07/20 PO 0932 Fentanyl Citrate 1,000 MCG Q24H 07/20 0100 AC 07/21 Dextrose/Water 250 ML IV 0304 Heparin Sodium 5,000 UNIT Q8 07/17 2200 DC 07/20 (Porcine) SC 0624 Heparin Sodium/ 25,000 UNIT Q24H 07/20 1215 AC 07/20 Dextrose IV 1519 Dextrose/Water 500 ML Ipratropium [place] 2.5 ML Q4P PRN 07/20 1545 AC INH Levothyroxine Sodium 0.088 MG DAILY AC 07/21 0700 AC 07/21 PO 0620 Levothyroxine Sodium 0.1 MG DAILY AC 07/20 0700 DC 07/20 PO 0617 Magnesium Sulfate 1 GM Q2H 07/20 0630 DC 07/20 Dextrose/Water 100 ML IV 07/20 1029 0930 Neomycin/Polymyxin/ 4 GTT TID 07/20 2100 AC 07/20 Bacitr/Hydrocort OTIC 2127 Neomycin/Polymyxin/ 4 GTT TID 07/18 0900 DC 07/20 Bacitr/Hydrocort OTIC 0931 Norepinephrine 4 MG Q7H 07/20 1600 AC 07/21 Dextrose/Water 250 ML IV 0110 Norepinephrine 4 MG Q24H 07/20 1430 DC Sodium Chloride 250 ML IV Norepinephrine 4 MG Q6H 07/20 1430 DC Sodium Chloride 250 ML IV Norepinephrine 4 MG Q24H 07/20 0330 DC 07/20 Sodium Chloride 250 ML IV 07/20 1429 0230 Omeprazole 40 MG DAILY AC 07/20 1057 DC PO Pantoprazole Sodium 40 MG DAILY 07/21 0900 CAN IV Pantoprazole Sodium 40 MG DAILY 07/20 1209 AC IV Pantoprazole Sodium 40 MG DAILY 07/19 1215 DC 07/20 IV 0932 Phosphate 250 MG PC AND AT BEDTIME 07/20 1300 AC 07/20 PO 07/21 2000 2127 Piperacillin Sod/ 4.5 GM Q6 07/19 1200 DC 07/20 Tazobactam Sod IV 0617 Sodium Chloride 100 ML Potassium Chloride 40 MEQ ONCE ONE 07/21 0715 DC PO 07/21 0716 Potassium Chloride 10 MEQ Q1H 07/21 0600 DC 07/21 IV 07/21 0701 0657 Potassium Phosphate 15 mMol ONE ONE 07/20 0630 DC 07/20 Dextrose/Water 250 ML IV 07/20 1034 0932 Impression/Plan Impression/Problem List Impression: 73 YO M with PMH of HTN, HLD, COPD (not on any home oxygen), paroxysmal atrial fibrillation not on any AC due to fall risk, hypothyroidism, CAD s/p quadruple bypass in 2001, 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 He was known to be in his usual state of health until a few days prior to presentation. Recurrent fever with increasing WBC and worsening respiratory status, requiring intubation overnight, now on Zosyn after several days of various antibiotics, including Ceftriaxone, Azithromycin, Doxycycline, Unasyn and Vancomycin for what appears to be a multilobar community -acquired pneumonia of acute onset. Following the patient in ICU for following problems: Acute hypoxic and hypercapnic respiratory failure: -Possibly due to community-acquired pneumonia and possible aspiration pneumonia as patient was complaining of dysphagia with large pills. -Possible sepsis as patient meeting SIRS criteria, WBC count 17.1, temperature 103.2 and on imaging study patient has a multilobar pneumonia. Although his lactic acid and remained negative. -Could be due to aspiration pneumonia that causing multiple lobe opacities. -Continue Unasyn and azithromycin. Day 2. Total Abx day 4 of treatment. -Continue intubation with settings of respiratory rate 20, tidal volume 450, peak flow 65, PEEP 8 and percentage oxygen 100. -Continue fentanyl drip @ 25 g/h with slow taper -Ativan when necessary -Follow-up sputum culture -Follow-up blood cultures -TRC nebulization as needed -Continue omeprazole through tube feeds. Hypotension:(improving) -Possibly due to hypovolemia, less likely due to sepsis as his lactic acid remained negative. -His slowest blood pressure was 98/50. Central venous line was maintained and patient was given IV fluids and Levophed. -This morning his blood pressure was 123/54 -Patient is getting D5 Ringer lactate at the rate of 60 mL per hour but he feels CVP pressure goes >12 then we'll give him when necessary Lasix. -Levophed is off since this morning 4:30am. Otitis externa and pharyngitis: -Patient is otitis externa and sinusitis with right sided pharyngitis with ulcerative region. -Possibly due to zoster infection. -Viral PCR is pending. -Continue Corticosporin ointment. -Continue acyclovir IV 500 mg. Day 3 -ENT recommendations appreciate. Acute systolic CHF: -Patient has ejection fraction 30% -On imaging study patient had pulmonary congestion. His BNP was 574 -Patient will get when necessary Lasix if his CVP pressure is more than 12. -Follow cardiology recommendations Elevated troponin: -Initially patient's troponin was normal but now his trop was last night 0.13--> 0.45-->0.53 -Possibly due to ischemia, NSTEMI considering wall motion abnormality and elevated trops. -Continue IV heparin according to ACS protocol -His Doppler studies negative for DVT. -Trops were trended -Follow up cardiology recommendations Hypophosphatemia:(resolved) -Possibly due to low intake of excessive excretion to kidney. -Repeating phosphate through tube feeds. -Today his phosphate level is 2.5 History of atrial fibrillation: -Not any anticoagulation -Holding his amiodarone due to prolonged QTC -His amiodarone can be resumed if his heart rate is up we will touch base with cardiology. History of hypothyroidism: -Decreasing his levothyroxine to 0.088 mg daily History of CAD status post CABG: -Reducing his aspirin to 162 mg daily. -Hold his carvedilol due to low blood pressure History of hyperlipidemia and hypertension: -Continue atorvastatin and ezetimibe. -Holding his amlodipine due to low blood pressure. Diet: -Continue tube feeds. DVT prophylaxis: Mechanical and subcutaneous heparin. CODE STATUS: Full code Problem List: 1. Acute respiratory failure with hypoxia 2. Otitis externa 3. Aspiration pneumonia Pain Ratin Pain Location: NONE Pain Plan: PAIN PATHWAY Tomorrow's Labs & Rationales: CBC/ICU BUNDLE Plan DVT/Prophylaxis: mechanical, pharmacological
[2018-07-21 08:00] VITALS: BP 116/62
--- NOTE | 2018-07-21 08:48 | RADIOLOGY REPORT ---
EXAMINATION: XR PORTABLE CHEST CLINICAL INFORMATION: ET tube position and pulmonary congestion COMPARISON: 07/20/2018 TECHNIQUE: Portable frontal view of the chest was obtained. FINDINGS: Rotated positioning limiting evaluation. Endotracheal tube tip approximately 4.8 cm from the ykaov. Central venous catheter similar in position, remains in the region of the SVC. NG tube tip in the expected region of the stomach. Status post sternotomy. Additional wires, tubing project over the chest. Persistent bilateral multifocal consolidation, especially seen in the left upper lung zone, left lower lung. Possible small bilateral effusions. Cardiomediastinal silhouette is stable, allowing for technique. Possible component of pulmonary congestion/pulmonary edema. IMPRESSION: 1. Endotracheal tube tip approximately 4.8 cm from the yakov. 2. Lung findings, detailed above, similar to previous.
--- NOTE | 2018-07-21 10:47 | PN- CRCU ---
Subjective HPI/Critical Care Issues: No overnight events. Patient remained afebrile overnight. Seen and examined this morning. Patient remained intubated on fentanyl drip. This morning patient was responding to verbal command. Patient is hemodynamically stable. Objective Current Medications: Current Medications Sig/Jamie Start time Last Medication Dose Route Stop Time Status Admin Acetaminophen 1,000 MG BID PRN 07/17 1930 AC 07/19 IV 0415 Acyclovir 500 MG 1000,1800,0200 07/20 1800 AC 07/21 Dextrose/Water 100 ML IV 0940 Acyclovir 500 MG Q8H 07/20 0700 DC 07/20 Dextrose/Water 100 ML IV 1030 Albuterol Sulfate 3 ML Q4P PRN 07/17 194 AC INH Amiodarone HCl 200 MG DAILY 07/18 0900 DC PO Ampicillin Sodium/ 3,000 MG Q6 07/20 1200 AC 07/21 Sulbactam Sodium IV 0620 Sodium Chloride 100 ML Aspirin 162 MG DAILY 07/21 0900 DC PO Aspirin 162 MG DAILY 07/21 0900 AC 07/21 PO 0946 Aspirin 325 MG DAILY 07/20 0900 DC 07/20 PO 0932 Atorvastatin Calcium 80 MG DAILY 07/18 0900 AC 07/21 PO 0946 Azithromycin 500 MG DAILY 07/20 1104 AC 07/21 Sodium Chloride 250 ML IV 0948 Budesonide/ 2 PUF BID 07/17 2100 AC 07/19 Formoterol Fumarate INH 0938 Dextrose/Lactated 1,000 ML .[id number] 07/20 1100 AC 07/21 Ringer's IV 0302 Ezetimibe 10 MG DAILY 07/18 0900 AC 07/21 PO 0946 Fentanyl Citrate 1,000 MCG Q24H 07/20 0100 AC 07/21 Dextrose/Water 250 ML IV 0304 Heparin Sodium 5,000 UNIT Q8 07/17 2200 DC 07/20 (Porcine) SC 0624 Heparin Sodium/ 25,000 UNIT Q24H 07/20 1215 AC 07/20 Dextrose IV 1519 Dextrose/Water 500 ML Ipratropium [place] 2.5 ML Q4P PRN 07/20 1545 AC INH Levothyroxine Sodium 0.088 MG DAILY AC 07/21 0700 AC 07/21 PO 0620 Levothyroxine Sodium 0.1 MG DAILY AC 07/20 0700 DC 07/20 PO 0617 Magnesium Sulfate 1 GM Q2H 07/20 0630 DC 07/20 Dextrose/Water 100 ML IV 07/20 1029 0930 Neomycin/Polymyxin/ 4 GTT TID 07/20 2100 AC 07/21 Bacitr/Hydrocort OTIC 0947 Neomycin/Polymyxin/ 4 GTT TID 07/18 0900 DC 07/20 Bacitr/Hydrocort OTIC 0931 Norepinephrine 4 MG Q7H 07/20 1600 AC 07/21 Dextrose/Water 250 ML IV 0110 Norepinephrine 4 MG Q24H 07/20 1430 DC Sodium Chloride 250 ML IV Norepinephrine 4 MG Q6H 07/20 1430 DC Sodium Chloride 250 ML IV Norepinephrine 4 MG Q24H 07/20 0330 DC 07/20 Sodium Chloride 250 ML IV 07/20 1429 0230 Omeprazole 40 MG DAILY AC 07/20 1057 DC PO Pantoprazole Sodium 40 MG DAILY 07/21 0900 CAN IV Pantoprazole Sodium 40 MG DAILY 07/20 1209 AC 07/21 IV 0946 Pantoprazole Sodium 40 MG DAILY 07/19 1215 DC 07/20 IV 0932 Phosphate 250 MG PC AND AT BEDTIME 07/20 1300 AC 07/21 PO 07/21 2000 0946 Piperacillin Sod/ 4.5 GM Q6 07/19 1200 DC 07/20 Tazobactam Sod IV 0617 Sodium Chloride 100 ML Potassium Chloride 40 MEQ ONCE ONE 07/21 0715 DC 07/21 PO 07/21 0716 0946 Potassium Chloride 10 MEQ Q1H 07/21 0600 DC 07/21 IV 07/21 0701 0657 Potassium Phosphate 15 mMol ONE ONE 07/20 0630 DC 07/20 Dextrose/Water 250 ML IV 07/20 1034 0932 Vital Signs & I&O Last 24 Hrs of Vitals and I&O: Vital Signs Date Time Temp Pulse Resp B/P B/P Pulse O2 O2 Flow FiO2 Mean Ox Delivery Rate 07/21 0943 70 07/21 0617 62 123/54 07/21 0613 70 07/21 0400 92 Ventilator 70% 07/21 0240 70 07/21 0110 62 95/48 07/21 0101 70 07/21 0000 97.6 62 20 100/50 92 Ventilator 70% 07/21 0000 92 Ventilator 70% 07/20 2249 70 07/20 2000 93 Ventilator 70% 07/20 1945 70 07/20 1849 59 111/52 07/20 1633 80 07/20 1600 93 Ventilator 80% 07/20 1600 97.0 58 20 92/48 94 Ventilator 80% 07/20 1406 80 07/20 1200 92 Ventilator 80% 07/20 1140 70 Intake & Output 07/21 1600 07/21 0800 07/21 0000 Intake Total 1232 2985 Output Total 240 450 Balance 992 2535 Intake, IV 1053 2603 Intake, Oral 0 0 Intake, Other 50 170 Intake, Tube 129 212 Feeding Number 2 0 Bowel Movements Output, Urine 240 450 Patient 141 lb Weight Weight Bed scale Measurement Method CXR Persistent bilateral multifocal consolidation, especially seen in the left upper lung zone, left lower lung. Possible small bilateral effusions. Cardiomediastinal silhouette is stable, allowing for technique. Possible component of pulmonary congestion/pulmonary edema. IMPRESSION: 1. Endotracheal tube tip approximately 4.8 cm from the yakov. 2. Lung findings, detailed above, similar to previous. Laboratory Tests 07/21 07/20 07/20 07/20 0345 2125 1615 1240 Chemistry Sodium (137 - 145 mmol/L) 137 Potassium (3.5 - 5.1 mmol/L) 3.2 L Chloride (98 - 107 mmol/L) 100 Carbon Dioxide (22 - 30 mmol/L) 34 H Anion Gap (5 - 16) 3 L BUN (9 - 20 mg/dL) 27 H Creatinine (0.7 - 1.2 mg/dL) 0.7 Estimated GFR (>60 ml/min) > 60 Glucose (65 - 99 mg/dL) 169 H Calcium (8.4 - 10.2 mg/dL) 7.5 L Phosphorus (2.5 - 4.5 mg/dL) 2.5 Magnesium (1.6 - 2.3 mg/dL) 2.0 Total Bilirubin (0.2 - 1.3 mg/dL) 0.6 AST (17 - 59 U/L) 216 H ALT (21 - 72 U/L) 205 H Troponin I (<0.11 ng/ml) 0.45 *H Albumin (3.5 - 5.0 g/dL) 2.2 L Coagulation APTT (25 - 37 SEC) 64 H D-Dimer High Sensitivty (0 - 243 ng/ml) 453 H Hematology CBC w Diff NO MAN DIFF REQ WBC (4.8 - 10.8 /CUMM) 5.4 RBC (4.70 - 6.10 /CUMM) 3.04 L Hgb (14.0 - 18.0 G/DL) 8.7 L Hct (42 - 52 %) 26.5 L MCV (80.0 - 94.0 FL) 87.1 MCH (27.0 - 31.0 PG) 28.5 MCHC (33.0 - 37.0 G/DL) 32.8 L RDW (11.5 - 14.5 %) 14.9 H Plt Count (130 - 400 /CUMM) 126 L MPV (7.4 - 10.4 FL) 7.6 Gran % (42.2 - 75.2 %) 80.7 H Lymphocytes % (20.5 - 51.1 %) 9.3 L Monocytes % (1.7 - 9.3 %) 9.4 H Eosinophils % (0 - 5 %) 0.5 Basophils % (0.0 - 2.0 %) 0.1 Absolute Granulocytes (1.4 - 6.5 /CUMM) 4.4 Absolute Lymphocytes (1.2 - 3.4 /CUMM) 0.5 L Absolute Monocytes (0.10 - 0.60 /CUMM) 0.5 Absolute Eosinophils (0.0 - 0.7 /CUMM) 0 Absolute Basophils (0.0 - 0.2 /CUMM) 0 07/20 07/20 07/20 0940 0412 0412 Chemistry Sodium (137 - 145 mmol/L) 136 L 138 Potassium (3.5 - 5.1 mmol/L) 4.4 2.9 *L Chloride (98 - 107 mmol/L) 98 96 L Carbon Dioxide (22 - 30 mmol/L) 34 H 31 H Anion Gap (5 - 16) 4 L 10 BUN (9 - 20 mg/dL) 25 H 25 H Creatinine (0.7 - 1.2 mg/dL) 0.9 0.9 Estimated GFR (>60 ml/min) > 60 > 60 Glucose (65 - 99 mg/dL) 127 H 112 H Lactic Acid (0.7 - 2.1 mmol/L) 1.3 Calcium (8.4 - 10.2 mg/dL) 8.2 L 8.3 L Phosphorus (2.5 - 4.5 mg/dL) 1.6 L 2.3 L Magnesium (1.6 - 2.3 mg/dL) 2.4 H 1.4 L Total Bilirubin (0.2 - 1.3 mg/dL) 0.9 1.3 AST (17 - 59 U/L) 343 H 249 H ALT (21 - 72 U/L) 261 H 207 H Troponin I (<0.11 ng/ml) 0.53 *H 0.45 *H Albumin (3.5 - 5.0 g/dL) 2.6 L 3.0 L Hematology CBC w Diff MAN DIFF ORDERED WBC (4.8 - 10.8 /CUMM) 17.1 H RBC (4.70 - 6.10 /CUMM) 3.93 L Hgb (14.0 - 18.0 G/DL) 11.3 L Hct (42 - 52 %) 34.2 L MCV (80.0 - 94.0 FL) 87.1 MCH (27.0 - 31.0 PG) 28.7 MCHC (33.0 - 37.0 G/DL) 33.0 RDW (11.5 - 14.5 %) 15.0 H Plt Count (130 - 400 /CUMM) 217 MPV (7.4 - 10.4 FL) 7.9 Gran % (42.2 - 75.2 %) 89.0 H Lymphocytes % (20.5 - 51.1 %) 4.3 L Monocytes % (1.7 - 9.3 %) 6.7 Eosinophils % (0 - 5 %) 0 Basophils % (0.0 - 2.0 %) 0 Absolute Granulocytes (1.4 - 6.5 /CUMM) 15.2 H Segmented Neutrophils (42.2 - 75.2 %) 87 H Band Neutrophils (0.0 - 5.0 %) 5 Absolute Lymphocytes (1.2 - 3.4 /CUMM) 0.7 L Lymphocytes (20.5 - 51.1 %) 4 L Monocytes (1.7 - 9.3 %) 4 Absolute Monocytes (0.10 - 0.60 /CUMM) 1.1 H Absolute Eosinophils (0.0 - 0.7 /CUMM) 0 Absolute Basophils (0.0 - 0.2 /CUMM) 0 Platelet Estimate (ADEQUATE) ADEQUATE Normocytic RBCs VERIFIED Normochromic RBCs VERIFIED 07/20 07/20 07/19 0310 0000 2240 Blood Gas pH (7.35 - 7.45 PH) 7.42 7.32 L 7.29 *L pCO2 (35 - 45 TORR) 47 H 62 *H 65 *H pO2 (80 - 100 TORR) 75 L 63 L 67 L HCO3 (21 - 28 MEQ/L) 30 H 31 H 30 H ABG O2 Sat (Measured) (>96.0 %) 95.0 L 91.0 L 90.0 L P-50 (Temp Corrected) Y Y Y Carboxyhemoglobin (1.5 - 5.0 %) 0.3 L 0.1 L 0.5 L O2 Concentration % 100% 100% 100 Temperature (97.0 - 100.0 FARH) 98.3 98.3 98.9 Respiration Rate (BPM) 20 22 22 O2 Delivery Method ESPRIT V-60 FFM BIPAP Vent Mode AC ST ST Expiratory Pressure (CMH2O/P) 5 10 10 Tidal Volume (CC) 500 Inspiratory Pressure (CM H2O P) 22 20 Miscellaneous Phlebotomy Draw Site RIGHT BRACHIAL RIGHT RADIAL RIGHT RADIAL 07/192 Blood Gas pH (7.35 - 7.45 PH) 7.29 *L pCO2 (35 - 45 TORR) 69 *H pO2 (80 - 100 TORR) 44 *L HCO3 (21 - 28 MEQ/L) 32 H ABG O2 Sat (Measured) (>96.0 %) 71.0 L Carboxyhemoglobin (1.5 - 5.0 %) 0.7 L O2 Concentration % 100% O2 Delivery Method [facility] Chemistry Sodium (137 - 145 mmol/L) 137 Potassium (3.5 - 5.1 mmol/L) 3.5 Chloride (98 - 107 mmol/L) 96 L Carbon Dioxide (22 - 30 mmol/L) 35 H Anion Gap (5 - 16) 7 BUN (9 - 20 mg/dL) 23 H Creatinine (0.7 - 1.2 mg/dL) 0.6 L Estimated GFR (>60 ml/min) > 60 BUN/Creatinine Ratio (7 - 25 %) 38.3 H Lactic Acid (0.7 - 2.1 mmol/L) 0.9 Calcium (8.4 - 10.2 mg/dL) 8.8 Phosphorus (2.5 - 4.5 mg/dL) 3.0 Magnesium (1.6 - 2.3 mg/dL) 1.5 L Total Bilirubin (0.2 - 1.3 mg/dL) 1.0 Direct Bilirubin (< 0.4 mg/dL) 0.4 AST (17 - 59 U/L) 139 H ALT (21 - 72 U/L) 141 H Alkaline Phosphatase (< 127 U/L) 60 Troponin I (<0.11 ng/ml) 0.13 *H Total Protein (6.3 - 8.2 g/dL) 6.3 Albumin (3.5 - 5.0 g/dL) 3.3 L Coagulation PT (9.4 - 12.5 SEC) 11.9 INR (0.90 - 1.17) 1.09 APTT (25 - 37 SEC) 31 Hematology CBC w Diff NO MAN DIFF REQ WBC (4.8 - 10.8 /CUMM) 12.5 H RBC (4.70 - 6.10 /CUMM) 4.16 L Hgb (14.0 - 18.0 G/DL) 12.1 L Hct (42 - 52 %) 36.6 L MCV (80.0 - 94.0 FL) 88.0 MCH (27.0 - 31.0 PG) 29.0 MCHC (33.0 - 37.0 G/DL) 33.0 RDW (11.5 - 14.5 %) 15.6 H Plt Count (130 - 400 /CUMM) 200 MPV (7.4 - 10.4 FL) 7.3 L Gran % (42.2 - 75.2 %) 90.7 H Lymphocytes % (20.5 - 51.1 %) 2.8 L Monocytes % (1.7 - 9.3 %) 6.4 Eosinophils % (0 - 5 %) 0 Basophils % (0.0 - 2.0 %) 0.1 Absolute Granulocytes (1.4 - 6.5 /CUMM) 11.3 H Absolute Lymphocytes (1.2 - 3.4 /CUMM) 0.3 L Absolute Monocytes (0.10 - 0.60 /CUMM) 0.8 H Absolute Eosinophils (0.0 - 0.7 /CUMM) 0 Absolute Basophils (0.0 - 0.2 /CUMM) 0 Miscellaneous Phlebotomy Draw Site RIGHT RADIAL 07/19 1230 Chemistry TSH (0.270 - 4.200 uIU/mL) 0.221 L Free T4 (0.78 - 2.44 ng/dL) 2.29 Cortisol PM Sample (1.7 - 14.1) 49.8 H Microbiology Date/Time Procedure - Status Source Growth 07/20 0654 Respiratory Culture - RES LOWER RESP 07/20 0654 Gram Stain - RES LOWER RESP 07/20 0420 Surveillance Culture - COMP GI 07/20 0330 Surveillance Culture - COMP UPPER RESP METH RESIST STAPH AUREUS 07/19 2343 Blood Culture - RES BLOOD 07/19 2312 Blood Culture - RES BLOOD 07/19 2253 Urine Culture - RES URINE ROUT 07/19 1337 Respiratory Culture - CAN LOWER RESP Cancelled: NUMBER OF SQUAMOUS CELLS INDICATES POOR QUALITY SPECIMEN 07/19 1337 Gram Stain - CAN LOWER RESP Cancelled: NUMBER OF SQUAMOUS CELLS INDICATES POOR QUALITY SPECIMEN Impression/Plan Impression/Plan Impression/Plan: General: WD/WN male in NAD; sedated and intubated HEENT: NC/AT, PERRL, EOMI pharynx difficult to eval Neck: no JVD, no carotid bruit Heart: RRR w/o murmur Lungs: decreased breath sounds on the right Abdomen: soft, NT, +ve bowel sounds Extremities: no edema IMPRESSION This is a gentleman with more than [id number] smoking history, obstructive sleep apnea on CPAP, significant COPD not on home oxygen, paroxysmal atrial fibrillation not on anticoagulation due to significant past history of fall, hypothyroidism on supplementation, ischemic heart disease with previous CABG in 2001, previous CVA with right-sided ramila-plegia, hyperlipidemia, significant history of rheumatoid arthritis does not seem to be on any immunosuppressive at this time, peripheral vascular disease, multiple wounds now has * Acute hypoxemic respiratory failure now requiring intubation / related to bilateral multilobar pneumonia most likely related to his recurrent aspiration. PT does say that he has dysphagia and food getting stuck in the mid esophagus area. This is compounded by Severe IHD with low ef with Acute systolic CHF with Pulm edema * Significant fever due to bilateral pneumonia, with otitis externa, sinusitis, right-sided pharyngitis with ulcerative lesions. Patient appears to have aspiration pneumonia compounded by sinusitis and rule out zoster infection of the pharynx and pinna. ID and ent onboard * Ischemic heart disease now with low ef, with acute systolic chf, paroxysmal atrial fibrillation (was not on anticoagulation prior to admission) and was on amiodarone however. Seems to be maintaining sinus rhythm. * Myocardial necrosis with mildly elevated troponin with low ef and wall motion abnormality, consistant with NSTEMI * Prior Dysphagia, difficulty swallowing at times with food getting stuck in the mid esophagus to rule out any esophageal lesion * Significant lung disease with prior smoking with chronic obstructive restrictive lung disease with prior aspiration pneumonitis and prolonged hospitalization due to chronic respiratory failure * Multiple other issues including rheumatoid arthritis, peripheral vascular disease, multiple ulcers including ulcers in the back with malnutrition and poor performance status * Sig drop in crit - watch for any sig bleeding - pt is heme neg by stool RECOMMENDATION * Continue vent and reduce fio2 and can start weaning trials * Cont fentanyl and prn lorazepam * DC ivt and start free water flushes down ng and increase tube feeding to 40 cc per hour * Continue antibiotics * Amiodarone can be restarted if his heart rate is improved to maintain sinus ( ask cardio) * Reduce aspirin to 162 mg/ follow ekg and cont cardiac meds * Nebulizer therapy as needed with DuoNeb if wheezing * Sputum culture, rpt * Proton pump inhibitor down og, start tube feeding a 20 cc * Replace potassium down ng 40 meq three doses today * Continue heparin / watch crit and if it continues to drop will eval further with imaging Prognosis guarded /Patient critically ill total time spent 40 minutes
--- NOTE | 2018-07-21 10:52 | PN- Infect Dx ---
Subjective Subjective: Afebrile. His pressors were discontinued early this morning. He notes some discomfort in the right ear. Objective Last 24 Hrs of Vital Signs/I&O Vital Signs Date Time Temp Pulse Resp B/P B/P Pulse O2 O2 Flow FiO2 Mean Ox Delivery Rate 07/21 0943 70 07/21 0617 62 123/54 07/21 0613 70 07/21 0400 92 Ventilator 70% 07/21 0240 70 07/21 0110 62 95/48 07/21 0101 70 07/21 0000 97.6 62 20 100/50 92 Ventilator 70% 07/21 0000 92 Ventilator 70% 07/20 2249 70 07/20 2000 93 Ventilator 70% 07/20 1945 70 07/20 1849 59 111/52 07/20 1633 80 07/20 1600 93 Ventilator 80% 07/20 1600 97.0 58 20 92/48 94 Ventilator 80% 07/20 1406 80 07/20 1200 92 Ventilator 80% 07/20 1140 70 Intake & Output 07/21 1600 07/21 0800 07/21 0000 Intake Total 1232 2985 Output Total 240 450 Balance 992 2535 Intake, IV 1053 2603 Intake, Oral 0 0 Intake, Other 50 170 Intake, Tube 129 212 Feeding Number 2 0 Bowel Movements Output, Urine 240 450 Patient 141 lb Weight Weight Bed scale Measurement Method Physical Exam Other Physical Findings: He is easily arousable and responsive on the ventilator in no acute distress HEENT crusted lesions in the right ear Neck right IJ triple lumen catheter with no inflammation at the site Lungs are clear Heart regular rhythm without a murmur Abdomen is soft, nontender with positive bowel sounds Extremities no cyanosis, clubbing or edema Stout catheter remains in place Results Last 24 Hours of Lab Results: Laboratory Tests 07/21 07/20 07/20 07/20 0345 2125 1615 1240 Chemistry Sodium (137 - 145 mmol/L) 137 Potassium (3.5 - 5.1 mmol/L) 3.2 L Chloride (98 - 107 mmol/L) 100 Carbon Dioxide (22 - 30 mmol/L) 34 H Anion Gap (5 - 16) 3 L BUN (9 - 20 mg/dL) 27 H Creatinine (0.7 - 1.2 mg/dL) 0.7 Estimated GFR (>60 ml/min) > 60 Glucose (65 - 99 mg/dL) 169 H Calcium (8.4 - 10.2 mg/dL) 7.5 L Phosphorus (2.5 - 4.5 mg/dL) 2.5 Magnesium (1.6 - 2.3 mg/dL) 2.0 Total Bilirubin (0.2 - 1.3 mg/dL) 0.6 AST (17 - 59 U/L) 216 H ALT (21 - 72 U/L) 205 H Troponin I (<0.11 ng/ml) 0.45 *H Albumin (3.5 - 5.0 g/dL) 2.2 L Coagulation APTT (25 - 37 SEC) 64 H D-Dimer High Sensitivty (0 - 243 ng/ml) 453 H Hematology CBC w Diff NO MAN DIFF REQ WBC (4.8 - 10.8 /CUMM) 5.4 RBC (4.70 - 6.10 /CUMM) 3.04 L Hgb (14.0 - 18.0 G/DL) 8.7 L Hct (42 - 52 %) 26.5 L MCV (80.0 - 94.0 FL) 87.1 MCH (27.0 - 31.0 PG) 28.5 MCHC (33.0 - 37.0 G/DL) 32.8 L RDW (11.5 - 14.5 %) 14.9 H Plt Count (130 - 400 /CUMM) 126 L MPV (7.4 - 10.4 FL) 7.6 Gran % (42.2 - 75.2 %) 80.7 H Lymphocytes % (20.5 - 51.1 %) 9.3 L Monocytes % (1.7 - 9.3 %) 9.4 H Eosinophils % (0 - 5 %) 0.5 Basophils % (0.0 - 2.0 %) 0.1 Absolute Granulocytes (1.4 - 6.5 /CUMM) 4.4 Absolute Lymphocytes (1.2 - 3.4 /CUMM) 0.5 L Absolute Monocytes (0.10 - 0.60 /CUMM) 0.5 Absolute Eosinophils (0.0 - 0.7 /CUMM) 0 Absolute Basophils (0.0 - 0.2 /CUMM) 0 Last 24 Hours of Shen Results: Sputum culture July 20 scant mixed mehreen Blood cultures x July 19 negative Urine culture July 19 negative Blood cultures July 17 negative Recent Imaging Studies: Chest x-ray July 21 persistent bilateral multifocal consolidation, especially in the left upper lung and left lower lung Dopplers of both lower extremities July 20 negative Assessment/Plan ID Impression: Overall improved, with his temperatures and white blood cell count now normal, on Unasyn and Azithromycin, Day 4 of treatment for multilobar pneumonia of unclear etiology, with his sputum culture from yesterday, after several days of antibiotics, only growing mixed mehreen. Aspiration is possible given his history of dysphagia with pills. He remains on Acyclovir, now Day 3 of treatment for possible Mayito Olivera given the concern by ENT of otitis externa and possible right glossopharyngeal nerve involvement, with the right periauricular lesions all crusted. He is now on Heparin because of his elevated troponin per Cardiology. Suggestion: 1. Follow-up final sputum culture 2. Remove right IJ triple-lumen catheter if he remains stable off pressors 3. Continue Unasyn and Azithromycin 4. Continue Acyclovir
[2018-07-21 11:19] LABS: ABSOLUTE BASOPHIL COUNT 0 /CUMM (0.0-0.2); ABSOLUTE EOSINOPHIL COUNT 0 /CUMM (0.0-0.7); ABSOLUTE GRANULOCYTE CT 5.3 /CUMM (1.4-6.5); ABSOLUTE LYMPH COUNT 0.5 /CUMM (1.2-3.4); ABSOLUTE MONOCYTE COUNT 0.5 /CUMM (0.10-0.60); BASOPHIL % 0 % (0.0-2.0); EOSINOPHIL % 0.7 % (0-5); HEMATOCRIT 27.5 % (42-52); MEAN CORPUSCULAR HGB 29.1 PG (27.0-31.0); MEAN CORPUSCULAR HGB CONC 33.4 G/DL (33.0-37.0); MEAN CORPUSCULAR VOLUME 87.3 FL (80.0-94.0); MEAN PLATELET VOLUME 7.9 FL (7.4-10.4); PLATELET COUNT 125 /CUMM (130-400); RBC DISTRIBUTION WIDTH 15.1 % (11.5-14.5); RED BLOOD CELL CT 3.15 /CUMM (4.70-6.10); WHITE BLOOD CELL COUNT 6.3 /CUMM (4.8-10.8)
[2018-07-21 11:33] LABS: PTT 62 SEC (25-37)
[2018-07-21 12:00] VITALS: BP 100/52
[2018-07-21 12:05] LABS: GRANULOCYTE % 83.5 % (42.2-75.2)
[2018-07-21 16:00] VITALS: BP 108/50
--- NOTE | 2018-07-21 19:45 | PN- Cardiology ---
Subjective Subjective: * Patient is intubated but is responsive and is breathing comfortably on the vent. No chest discomfort. * sinus rhythm * potassium 3.2 * acutely decreased H/H this morning Objective Vital Signs and I&Os Vital Signs Date Time Temp Pulse Resp B/P B/P Pulse O2 O2 Flow FiO2 Mean Ox Delivery Rate 07/21 1610 50 07/21 1600 91 Ventilator 50% 07/21 1600 97.5 63 19 108/50 91 Ventilator 50% 07/21 1426 50 07/21 1120 50 07/21 0943 70 07/21 0617 62 123/54 07/21 0613 70 07/21 0400 92 Ventilator 70% 07/21 0240 70 07/21 0110 62 95/48 07/21 0101 70 07/21 0000 97.6 62 20 100/50 92 Ventilator 70% 07/21 0000 92 Ventilator 70% 07/20 2249 70 07/20 2000 93 Ventilator 70% 07/20 1945 70 Intake & Output 07/21 1600 07/21 0800 07/21 0000 07/20 1600 07/20 0800 07/20 0000 Intake Total 1232 1658 1327 900 100 Output Total 240 200 250 485 775 Balance 992 1458 1077 415 -675 Intake, IV 1053 1401 1202 900 100 Intake, Oral 0 0 Intake, Other 50 90 80 Intake, Tube 129 167 45 Feeding Number 2 0 0 0 Bowel Movements Output, Urine 240 200 250 485 775 Patient 141 lb 141 lb 142 lb Weight Weight Bed scale Bed scale Measurement Method Physical Exam: General: WD/WN male in NAD; alert and oriented x 3 HEENT: NC/AT, PERRL, EOMI Neck: no JVD, no carotid bruit Heart: RRR w/o murmur Lungs: clear anteriorly bilaterally Abdomen: soft, NT, +ve bowel sounds Extremities: no edema Assessment/Plan Assessment/Plan * This patient had shortness of breath related to his pneumonia but he has acutely decompensated and is now intubated and hypotensive. This may be related to progression of his pneumonia with concurrent sepsis. There is likely some superimposed CHF as well since he does have crackles and pulmonary edema was noted on his X-ray. In addition, he does have a decreased EF. I believe this patient's mild rise is troponin was due to demand ischemia rather that a ruptured intracoronary plaque with thrombus. In consideration of his drop in H/H I would stop his heparin. That being said, his decreased H/H is likely dilutional. * Due to his borderline BP diuretics may not be tolerated at this point. * Continue antibiotic therapy. * Okay to restart Amiodarone at 100mg daily. Continue telemetry? Yes
--- NOTE | 2018-07-21 20:49 | RADIOLOGY REPORT ---
EXAMINATION: XR PORTABLE CHEST CLINICAL INFORMATION: Desaturation. Rule out edema. COMPARISON: Chest x-ray from 07/21/2018. TECHNIQUE: Portable frontal view of the chest was obtained. FINDINGS: An ETT is unchanged in position. A right IJ central venous line is also unchanged. Cardiomegaly again evident. Patchy airspace disease again visible throughout the left lung without significant change. There is stable mild perihilar patchy opacity on the right side as well. Evaluation for a small left-sided pleural effusion is limited. No acute osseous abnormality is seen. Fusion hardware again visible in the lower cervical spine. Sternotomy wires in place. IMPRESSION: No significant changes compared to prior imaging. Airspace disease in the right perihilar region and more diffusely throughout the left lung which may reflect pulmonary edema in the setting of CHF. Underlying aspiration and/or pneumonia cannot be ruled out.
[2018-07-21 22:20] LABS: PTT 54 SEC (25-37)
[2018-07-22] VITALS: BP 142/80
--- NOTE | 2018-07-22 05:27 | RADIOLOGY REPORT ---
EXAMINATION: CHEST 1 VIEW CLINICAL INFORMATION: Intubated. Pulmonary congestion. COMPARISON: Multiple prior exams are reviewed. The most recent is from July 21, 2018. TECHNIQUE: An AP view of the chest is provided. FINDINGS: The cardiac silhouette is stable. Intact midline sternal wires are present. The right central venous line and endotracheal tube are in unchanged position. The tip of the endotracheal tube is approximately 4 cm above the yakov. Patchy opacification throughout the left lung is stable. There is increasing right lower lobe airspace disease. I favor the presence of a small left pleural effusion. The osseous structures are stable. IMPRESSION: Lines and tubes in place as stated above. Stable nonspecific patchy opacification throughout the left lung with increasing right lower lobe airspace disease. Likely small left pleural effusion.
[2018-07-22 06:24] LABS: ABSOLUTE BASOPHIL COUNT 0 /CUMM (0.0-0.2); ABSOLUTE EOSINOPHIL COUNT 0.1 /CUMM (0.0-0.7); ABSOLUTE LYMPH COUNT 0.5 /CUMM (1.2-3.4); ABSOLUTE MONOCYTE COUNT 0.7 /CUMM (0.10-0.60); BASOPHIL % 0.1 % (0.0-2.0); EOSINOPHIL % 1.2 % (0-5); GRANULOCYTE % 82.4 % (42.2-75.2); HEMATOCRIT 25.2 % (42-52); MEAN CORPUSCULAR HGB 29.3 PG (27.0-31.0); MEAN CORPUSCULAR HGB CONC 33.5 G/DL (33.0-37.0); MEAN CORPUSCULAR VOLUME 87.2 FL (80.0-94.0); MEAN PLATELET VOLUME 7.9 FL (7.4-10.4); PLATELET COUNT 132 /CUMM (130-400); RBC DISTRIBUTION WIDTH 15.4 % (11.5-14.5); RED BLOOD CELL CT 2.89 /CUMM (4.70-6.10); WHITE BLOOD CELL COUNT 7.2 /CUMM (4.8-10.8)
[2018-07-22 06:28] LABS: PTT 69 SEC (25-37)
--- NOTE | 2018-07-22 07:12 | PN- Resident CRCU ---
Subjective HPI/CRCU Issues: Acute hypoxic and hypercapnic respiratory failure requiring intubation secondary to multilobar pneumonia.(improving) Otitis externa, sinusitis, right-sided pharyngitis with ulcerative lesion. Acute systolic CHF ejection fraction 30% Rule out ACS, elevated troponin History of paroxysmal AF not on any anticoagulation History of COPD, aspiration pneumonitis and chronic respiratory failure Study of rheumatoid arthritis, peripheral vascular disease, multiple ulcers including ulcers on the back, malnutrition. 24 Hour Events: Patient was requiring more FiO2 last night. Patient remained afebrile overnight. Seen and examined this morning. Patient was awake and alert and responding to verbal command. Still remained intubated considering his oxygen saturation. Patient still required 60% oxygen. We will try to decrease his oxygen and see if he tolerates. He is able to maintain good saturation we will give him weaning trial. Patient's heart rate remained in 60s and he is maintaining blood pressure off Levophed since yesterday. Objective Vital Signs & I&O Last 8 Hrs of Vitals and I&O: Intake & Output 07/22 1600 07/22 0800 07/22 0000 Intake Total 1143 1013.6 Output Total 1030 160 Balance 113 853.6 Intake, IV 505 373.6 Intake, Other 320 Intake, Tube 318 320 Feeding Intake, Tube 320 Irrigant Number 1 Bowel Movements Output, Urine 1030 160 Patient 140 lb Weight Weight Bed scale Measurement Method Laboratory Tests 07/22 07/21 0545 2150 Chemistry Sodium (137 - 145 mmol/L) 137 Potassium (3.5 - 5.1 mmol/L) 4.1 Chloride (98 - 107 mmol/L) 100 Carbon Dioxide (22 - 30 mmol/L) 33 H Anion Gap (5 - 16) 4 L BUN (9 - 20 mg/dL) 23 H Creatinine (0.7 - 1.2 mg/dL) 0.5 L Estimated GFR (>60 ml/min) > 60 Glucose (65 - 99 mg/dL) 129 H Calcium (8.4 - 10.2 mg/dL) 7.6 L Phosphorus (2.5 - 4.5 mg/dL) 3.2 Magnesium (1.6 - 2.3 mg/dL) 1.9 Total Bilirubin (0.2 - 1.3 mg/dL) 0.4 AST (17 - 59 U/L) 101 H ALT (21 - 72 U/L) 133 H Albumin (3.5 - 5.0 g/dL) 2.2 L Coagulation APTT (25 - 37 SEC) 69 H 54 H Hematology CBC w Diff NO MAN DIFF REQ WBC (4.8 - 10.8 /CUMM) 7.2 RBC (4.70 - 6.10 /CUMM) 2.89 L Hgb (14.0 - 18.0 G/DL) 8.5 L Hct (42 - 52 %) 25.2 L MCV (80.0 - 94.0 FL) 87.2 MCH (27.0 - 31.0 PG) 29.3 MCHC (33.0 - 37.0 G/DL) 33.5 RDW (11.5 - 14.5 %) 15.4 H Plt Count (130 - 400 /CUMM) 132 MPV (7.4 - 10.4 FL) 7.9 Gran % (42.2 - 75.2 %) 82.4 H Lymphocytes % (20.5 - 51.1 %) 7.3 L Monocytes % (1.7 - 9.3 %) 9.0 Eosinophils % (0 - 5 %) 1.2 Basophils % (0.0 - 2.0 %) 0.1 Absolute Granulocytes (1.4 - 6.5 /CUMM) 6.0 Absolute Lymphocytes (1.2 - 3.4 /CUMM) 0.5 L Absolute Monocytes (0.10 - 0.60 /CUMM) 0.7 H Absolute Eosinophils (0.0 - 0.7 /CUMM) 0.1 Absolute Basophils (0.0 - 0.2 /CUMM) 0 08/21 1035 Coagulation APTT (25 - 37 SEC) 62 H Hematology CBC w Diff NO MAN DIFF REQ WBC (4.8 - 10.8 /CUMM) 6.3 RBC (4.70 - 6.10 /CUMM) 3.15 L Hgb (14.0 - 18.0 G/DL) 9.2 L Hct (42 - 52 %) 27.5 L MCV (80.0 - 94.0 FL) 87.3 MCH (27.0 - 31.0 PG) 29.1 MCHC (33.0 - 37.0 G/DL) 33.4 RDW (11.5 - 14.5 %) 15.1 H Plt Count (130 - 400 /CUMM) 125 L MPV (7.4 - 10.4 FL) 7.9 Gran % (42.2 - 75.2 %) 83.5 H Lymphocytes % (20.5 - 51.1 %) 7.5 L Monocytes % (1.7 - 9.3 %) 8.3 Eosinophils % (0 - 5 %) 0.7 Basophils % (0.0 - 2.0 %) 0 Absolute Granulocytes (1.4 - 6.5 /CUMM) 5.3 Absolute Lymphocytes (1.2 - 3.4 /CUMM) 0.5 L Absolute Monocytes (0.10 - 0.60 /CUMM) 0.5 Absolute Eosinophils (0.0 - 0.7 /CUMM) 0 Absolute Basophils (0.0 - 0.2 /CUMM) 0 Exam General Appearance: well developed/nourished, awake, intubated Head: atraumatic Neck: normal inspection, supple Respiratory: normal breath sounds Cardiovascular: regular rate/rhythm Gastrointestinal: normal bowel sounds, soft, non-tender Extremities: rIGHT LEG CHRONIC WOUND, B/L CHRONIC VENOUS CHANGES, chronic wound on right thumb Skin Temp/Moisture Exam: Warm/Dry Sepsis Skin Exam (color): Normal for Ethnicity Current Medications: Current Medications Sig/Jamie Start time Last Medication Dose Route Stop Time Status Admin Acetaminophen 1,000 MG BID PRN 07/17 1930 AC 07/19 IV 0415 Acyclovir 500 MG 1000,1800,0200 07/20 1800 AC 07/22 Dextrose/Water 100 ML IV 1810 Albuterol Sulfate 3 ML Q4P PRN 07/17 1945 AC INH Amiodarone HCl 100 MG DAILY 07/21 2315 AC 07/22 PO 0900 Ampicillin Sodium/ 3,000 MG Q6 07/20 1200 DC 07/22 Sulbactam Sodium IV 0549 Sodium Chloride 100 ML Aspirin 162 MG DAILY 07/21 0900 AC 07/22 PO 1014 Atorvastatin Calcium 80 MG DAILY 07/18 09 AC 07/22 PO 0900 Azithromycin 500 MG DAILY 07/20 1104 DC 07/22 Sodium Chloride 250 ML IV 0900 Budesonide/ 2 PUF BID 07/17 2100 AC 07/19 Formoterol Fumarate INH 0938 Ezetimibe 10 MG DAILY 07/18 09 AC 07/22 PO 0900 Fentanyl Citrate 1,000 MCG Q24H 07/20 0100 AC 07/21 Dextrose/Water 250 ML IV 0304 Furosemide 20 MG BID 07/22 1138 AC 07/22 IV 1225 Furosemide 0 .STK-MED ONE 07/21 2338 DC .ROUTE Furosemide 20 MG ONCE ONE 07/21 2315 DC 07/21 IV 07/21 2316 2346 Heparin Sodium 2,000 UNIT ONCE ONE 07/21 2345 DC 07/21 (Porcine) IV 07/21 2346 2351 Heparin Sodium 0 .STK-MED ONE 07/21 2338 DC (Porcine) .ROUTE Heparin Sodium/ 25,000 UNIT Q24H 07/20 1215 DC 07/21 Dextrose IV 2244 Dextrose/Water 500 ML Ipratropium [place] 2.5 ML Q4P PRN 07/20 1545 AC INH Levothyroxine Sodium 0.088 MG DAILY AC 07/21 0700 AC 07/22 PO 0621 Magnesium Oxide 400 MG ONE ONE 07/22 0730 DC 07/22 PO 07/22 0731 1017 Neomycin/Polymyxin/ 4 GTT TID 07/20 2100 AC 07/22 Bacitr/Hydrocort OTIC 1422 Pantoprazole Sodium 40 MG DAILY 07/20 1209 AC 07/22 IV 0900 Phosphate 250 MG PC AND AT BEDTIME 07/20 1300 DC 07/21 PO 07/21 2000 2045 Potassium Chloride 40 MEQ DAILY 07/23 0900 AC PO Potassium Chloride 40 MEQ ONCE ONE 07/22 1145 DC 07/22 PO 07/22 1146 1226 Vancomycin HCl 1,000 MG Q24H 07/22 1200 AC 07/22 Sodium Chloride 250 ML IV 1226 Impression/Plan Impression/Problem List Impression: 73 YO M with PMH of HTN, HLD, COPD (not on any home oxygen), paroxysmal atrial fibrillation not on any AC due to fall risk, hypothyroidism, CAD s/p quadruple bypass in 2001, 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 He was known to be in his usual state of health until a few days prior to presentation. Recurrent fever with increasing WBC and worsening respiratory status, requiring intubation overnight, now on Zosyn after several days of various antibiotics, including Ceftriaxone, Azithromycin, Doxycycline, Unasyn and Vancomycin for what appears to be a multilobar community -acquired pneumonia of acute onset. Following the patient in ICU for following problems: Acute hypoxic and hypercapnic respiratory failure: -Possibly due to community-acquired pneumonia and possible aspiration pneumonia as patient was complaining of dysphagia with large pills. -Possible sepsis as patient meeting SIRS criteria, WBC count 17.1, temperature 103.2 and on imaging study patient has a multilobar pneumonia. Although his lactic acid and remained negative. -Could be due to aspiration pneumonia that causing multiple lobe opacities. -Unasyn and azithromycin was discontinued and vancomycin 1 g IV daily was started today due to MRSA in sputum cultures. Total antibiotic D5 -Continue intubation with settings of respiratory rate 20, tidal volume 450, peak flow 65, PEEP 8 and percentage oxygen 60. -Continue fentanyl drip @ 25 g/h with slow taper -Ativan when necessary -sputum culture is positive with MRSA. -Blood cultures remain negative so far. -TRC nebulization as needed -Continue omeprazole through tube feeds. Hypotension:(improved) -Possibly due to hypovolemia, less likely due to sepsis as his lactic acid remained negative. -His slowest blood pressure was 98/50. Central venous line was maintained and patient was given IV fluids and Levophed. -This morning his blood pressure was 130/58 -Patient is getting D5 Ringer lactate at the rate of 60 mL per hour but he feels CVP pressure goes >12 then we'll give him when necessary Lasix. -Levophed is off since yesterday. Otitis externa and pharyngitis: -Patient is otitis externa and sinusitis with right sided pharyngitis with ulcerative region. 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 -Viral PCR is pending. -Continue Corticosporin ointment. -Continue acyclovir IV 500 mg. Day 4 -ENT recommendations appreciate. Acute systolic CHF: -Patient has ejection fraction 30% -On imaging study patient had pulmonary congestion. His BNP was 574 -IV Lasix 20 mg twice a day. Day 1 -Follow cardiology recommendations -Daily potassium supplementation 40 mEq. Day 1 Elevated troponin: -Initially patient's troponin was normal but now his trop was last night 0.13--> 0.45-->0.53 -Possibly due to NSTEMI considering wall motion abnormality on echo and elevated trops. -IV heparin was discontinued as recommended by cardiology considering drop in H& H. -His Doppler studies negative for DVT. -Trops were trended -Follow up cardiology recommendations Hypophosphatemia:(resolved) -Possibly due to low intake of excessive excretion to kidney. -Repeating phosphate through tube feeds. -Today his phosphate level is 2.5 History of atrial fibrillation: -Not any anticoagulation -Amiodarone was resumed with low-dose 100 mg daily. History of hypothyroidism: -Decreasing his levothyroxine to 0.088 mg daily History of CAD status post CABG: -Reducing his aspirin to 162 mg daily. -Hold his carvedilol due to low blood pressure History of hyperlipidemia and hypertension: -Continue atorvastatin and ezetimibe. -Holding his amlodipine due to low blood pressure. Chronic wounds; -On right knuckle, left buttock and weaping wounds on legs were present on admission. -Getting dressing everyday. Diet: -Continue tube feeds. DVT prophylaxis: Mechanical and subcutaneous heparin. CODE STATUS: Full code Problem List: 1. Acute respiratory failure with hypoxia 2. Otitis externa Pain Ratin Pain Location: NONE Pain Plan: PAIN PATHWAY Tomorrow's Labs & Rationales: CBC/ICU BUNDLE Plan DVT/Prophylaxis: mechanical, pharmacological
[2018-07-22 08:00] VITALS: BP 110/56
--- NOTE | 2018-07-22 09:54 | PN- CRCU ---
Subjective HPI/Critical Care Issues: Sig decompensation last night requiring higher fio2 Cxr sugg of pulm edema now improved Objective Current Medications: Current Medications Sig/Jamie Start time Last Medication Dose Route Stop Time Status Admin Acetaminophen 1,000 MG BID PRN 07/17 1930 AC 07/19 IV 0415 Acyclovir 500 MG 1000,1800,0200 07/20 1800 AC 07/22 Dextrose/Water 100 ML IV 0130 Albuterol Sulfate 3 ML Q4P PRN 07/17 1945 AC INH Amiodarone HCl 100 MG DAILY 07/21 2315 AC 07/22 PO 0031 Ampicillin Sodium/ 3,000 MG Q6 07/20 1200 AC 07/22 Sulbactam Sodium IV 0549 Sodium Chloride 100 ML Aspirin 162 MG DAILY 07/21 0900 AC 07/21 PO 0946 Atorvastatin Calcium 80 MG DAILY 07/18 0900 AC 07/21 PO 0946 Azithromycin 500 MG DAILY 07/20 1104 AC 07/21 Sodium Chloride 250 ML IV 0948 Budesonide/ 2 PUF BID 07/17 2100 AC 07/19 Formoterol Fumarate INH 0938 Dextrose/Lactated 1,000 ML .[id number] 07/20 1100 DC 07/21 Ringer's IV 0302 Ezetimibe 10 MG DAILY 07/18 0900 AC 07/21 PO 0946 Fentanyl Citrate 1,000 MCG Q24H 07/20 0100 AC 07/21 Dextrose/Water 250 ML IV 0304 Furosemide 0 .STK-MED ONE 07/21 2338 DC .ROUTE Furosemide 20 MG ONCE ONE 07/21 2315 DC 07/21 IV 07/21 2316 2346 Heparin Sodium 2,000 UNIT ONCE ONE 07/21 2345 DC 07/21 (Porcine) IV 07/21 2346 2351 Heparin Sodium 0 .STK-MED ONE 07/21 2338 DC (Porcine) .ROUTE Heparin Sodium/ 25,000 UNIT Q24H 07/20 1215 AC 07/21 Dextrose IV 2244 Dextrose/Water 500 ML Ipratropium [place] 2.5 ML Q4P PRN 07/20 1545 AC INH Levothyroxine Sodium 0.088 MG DAILY AC 07/21 0700 AC 07/22 PO 0621 Magnesium Oxide 400 MG ONE ONE 07/22 0730 DC PO 07/22 0731 Neomycin/Polymyxin/ 4 GTT TID 07/20 2100 AC 07/21 Bacitr/Hydrocort OTIC 2043 Norepinephrine 4 MG Q7H 07/20 1600 DC 07/21 Dextrose/Water 250 ML IV 0110 Pantoprazole Sodium 40 MG DAILY 07/20 1209 AC 07/21 IV 0946 Phosphate 250 MG PC AND AT BEDTIME 07/20 1300 DC 07/21 PO 07/21 Potassium Chloride 20 MEQ ONCE ONE 07/21 1745 DC 07/21 PO 07/21 1746 1847 Vital Signs & I&O Last 24 Hrs of Vitals and I&O: Vital Signs Date Time Temp Pulse Resp B/P B/P Pulse O2 O2 Flow FiO2 Mean Ox Delivery Rate 07/22 0833 60 07/22 0601 60 07/22 0557 70 07/22 0400 95 Ventilator 70% 07/22 0327 70 07/22 0043 70 07/22 0031 99.8 69 22 130/58 07/22 0000 96 Ventilator 70% 07/22 0000 99.8 69 22 142/80 96 Ventilator 70% 07/21 2208 70 07/21 2000 91 Nasal 70% Cannula 07/21 1915 50 07/21 1610 50 07/21 1600 91 Ventilator 50% 07/21 1600 97.5 63 19 108/50 91 Ventilator 50% 07/21 1426 50 07/21 1200 97.5 64 20 100/52 92 Ventilator 50% 07/21 1200 92 Ventilator 50% 07/21 1120 50 Intake & Output 07/22 1600 07/22 0800 07/22 0000 Intake Total 1143 1013.6 Output Total 1030 160 Balance 113 853.6 Intake, IV 505 373.6 Intake, Other 320 Intake, Tube 318 320 Feeding Intake, Tube 320 Irrigant Number 1 Bowel Movements Output, Urine 1030 160 Patient 140 lb Weight Weight Bed scale Measurement Method Impression/Plan Impression/Plan Impression/Plan: SIGNIFICANT DATA BUN 23 creatinine 0.5 potassium stable magnesium 1.9 phosphorus adequate white count 7.2 hemoglobin has been stabilized no further drop Prior ABG reviewed Lower respiratory cultures growing staph aureus General: WD/WN male in NAD; sedated and intubated HEENT: NC/AT, PERRL, EOMI pharynx difficult to eval Neck: no JVD, no carotid bruit Heart: RRR w/o murmur Lungs: decreased breath sounds on the right Abdomen: soft, NT, +ve bowel sounds Extremities: no edema IMPRESSION This is a gentleman with more than [id number] smoking history, obstructive sleep apnea on CPAP, significant COPD not on home oxygen, paroxysmal atrial fibrillation not on anticoagulation due to significant past history of fall, hypothyroidism on supplementation, ischemic heart disease with previous CABG in 2001, previous CVA with right-sided ramila-plegia, hyperlipidemia, significant history of rheumatoid arthritis does not seem to be on any immunosuppressive at this time, peripheral vascular disease, multiple wounds now has * Acute hypoxemic respiratory failure now requiring intubation / related to bilateral multilobar pneumonia most likely related to his recurrent aspiration. Now seems to have MRSA in the sputum. PT does say that he has dysphagia. This is compounded by Severe IHD with low ef with Acute systolic CHF with Pulm edema / Had an episode of pulm edema last night * Significant fever due to bilateral pneumonia, with otitis externa, sinusitis, right-sided pharyngitis with ulcerative lesions. Patient appears to have aspiration pneumonia compounded by sinusitis. Also has lesions consistatn with zoster infection of the pharynx and pinna. ID and ent onboard * Ischemic heart disease now with low ef, with acute systolic chf, paroxysmal atrial fibrillation (was not on anticoagulation prior to admission) and was on amiodarone however. Seems to be maintaining sinus rhythm. * Myocardial necrosis with mildly elevated troponin with low ef and wall motion abnormality, consistant with NSTEMI * Prior Dysphagia, difficulty swallowing at times with food getting stuck in the mid esophagus to rule out any esophageal lesion * Significant lung disease with prior smoking with chronic obstructive restrictive lung disease with prior aspiration pneumonitis and prolonged hospitalization due to chronic respiratory failure * Multiple other issues including rheumatoid arthritis, peripheral vascular disease, multiple ulcers including ulcers in the back with malnutrition and poor performance status * Sig drop in crit - watch for any sig bleeding - pt is heme neg by stool RECOMMENDATION * Continue vent and reduce fio2 and can start weaning trials * Cont fentanyl and prn lorazepam * IV lasix 20 mg bid and potassium 40 meq daily * Ask ID about 1instituting vanco (seems to have responded to unasyn however) * Amiodarone can be restarted if his heart rate is improved to maintain sinus ( ask cardio) * Reduce aspirin to 162 mg/ follow ekg and cont cardiac meds * Nebulizer therapy as needed with DuoNeb if wheezing * Sputum culture, rpt * Proton pump inhibitor down og, start tube feeding a 20 cc * Continue heparin / watch crit and if it continues to drop will eval further with imaging / Ask cardio about continuation of this Prognosis guarded /Patient critically ill total time spent 40 minutes
--- NOTE | 2018-07-22 10:55 | PN- Cardiology ---
Subjective Subjective: No significant change from cardiac perspective. No new arrhythmias detected. Objective Vital Signs and I&Os Vital Signs Date Time Temp Pulse Resp B/P B/P Pulse O2 O2 Flow FiO2 Mean Ox Delivery Rate 07/22 0833 60 07/22 0601 60 07/22 0557 70 07/22 0400 95 Ventilator 70% 07/22 0327 70 07/22 0043 70 07/22 0031 99.8 69 22 130/58 07/22 0000 96 Ventilator 70% 07/22 0000 99.8 69 22 142/80 96 Ventilator 70% 07/21 2208 70 07/21 2000 91 Nasal 70% Cannula 07/21 1915 50 07/21 1610 50 07/21 1600 91 Ventilator 50% 07/21 1600 97.5 63 19 108/50 91 Ventilator 50% 07/21 1426 50 07/21 1200 97.5 64 20 100/52 92 Ventilator 50% 07/21 1200 92 Ventilator 50% 07/21 1120 50 Intake & Output 07/22 1600 07/22 0800 07/22 0000 07/21 1600 07/21 0800 07/21 0000 Intake Total 1143 1013.6 1525 1232 2985 Output Total 1030 160 250 240 450 Balance 113 853.6 6572 086 6703 Intake, IV 505 373.6 991 1053 2603 Intake, Oral 0 0 Intake, Other 320 400 50 170 Intake, Tube 318 320 134 129 212 Feeding Intake, Tube 320 Irrigant Number 1 2 2 0 Bowel Movements Output, Urine 1030 160 250 240 450 Patient 140 lb 141 lb 141 lb Weight Weight Bed scale Bed scale Measurement Method Physical Exam: General Appearance: well developed/nourished, intubated, sedated Head: normal HEENT: Normal Neck: supple, JVP normal, carotid upstrokes normal bilaterally, no masses or thyromegaly Respiratory: chest non-tender, clear to auscultation and percussion bilaterally Cardiovascular: regular rate/rhythm, normal S1, S2, 1/6 systolic murmur Abdomen: normal bowel sounds, soft, non-tender Extremities: normal inspection, no edema Vascular: Pulses are 2+ and equal bilaterally Neurologic: Grossly normal/nonfocal Current Medications: Current Medications Sig/Jamie Start time Last Medication Dose Route Stop Time Status Admin Acetaminophen 1,000 MG BID PRN 07/17 1930 AC 07/19 IV 0415 Acyclovir 500 MG 1000,1800,0200 07/20 1800 AC 07/22 Dextrose/Water 100 ML IV 1015 Albuterol Sulfate 3 ML Q4P PRN 07/17 1945 AC INH Amiodarone HCl 100 MG DAILY 07/21 2315 AC 07/22 PO 0900 Ampicillin Sodium/ 3,000 MG Q6 07/20 1200 AC 07/22 Sulbactam Sodium IV 0549 Sodium Chloride 100 ML Aspirin 162 MG DAILY 07/21 0900 AC 07/22 PO 1014 Atorvastatin Calcium 80 MG DAILY 07/18 0900 AC 07/22 PO 0900 Azithromycin 500 MG DAILY 07/20 1104 AC 07/22 Sodium Chloride 250 ML IV 0900 Budesonide/ 2 PUF BID 07/17 2100 AC 07/19 Formoterol Fumarate INH 0938 Dextrose/Lactated 1,000 ML .[id number] 07/20 1100 DC 07/21 Ringer's IV 0302 Ezetimibe 10 MG DAILY 07/18 0900 AC 07/22 PO 0900 Fentanyl Citrate 1,000 MCG Q24H 07/20 0100 AC 07/21 Dextrose/Water 250 ML IV 0304 Furosemide 0 .STK-MED ONE 07/21 2338 DC .ROUTE Furosemide 20 MG ONCE ONE 07/21 2315 DC 07/21 IV 07/21 2316 2346 Heparin Sodium 2,000 UNIT ONCE ONE 07/21 2345 DC 07/21 (Porcine) IV 07/21 2346 2351 Heparin Sodium 0 .STK-MED ONE 07/21 2338 DC (Porcine) .ROUTE Heparin Sodium/ 25,000 UNIT Q24H 07/20 1215 AC 07/21 Dextrose IV 2244 Dextrose/Water 500 ML Ipratropium [place] 2.5 ML Q4P PRN 07/20 1545 AC INH Levothyroxine Sodium 0.088 MG DAILY AC 07/21 0700 AC 07/22 PO 0621 Magnesium Oxide 400 MG ONE ONE 07/22 0730 DC 07/22 PO 07/22 0731 1017 Neomycin/Polymyxin/ 4 GTT TID 07/20 2100 AC 07/22 Bacitr/Hydrocort OTIC 0900 Norepinephrine 4 MG Q7H 07/20 1600 DC 07/21 Dextrose/Water 250 ML IV 0110 Pantoprazole Sodium 40 MG DAILY 07/20 1209 AC 07/22 IV 0900 Phosphate 250 MG PC AND AT BEDTIME 08/20 1300 DC 07/21 PO 07/21 Potassium Chloride 20 MEQ ONCE ONE 07/21 1745 DC 07/21 PO 07/21 1746 1847 Results Last 48 Hrs of Labs/Mics: Laboratory Tests 07/22/18 0545: Anion Gap 4 L, Estimated GFR > 60, Glucose 129 H, Calcium 7.6 L, Phosphorus 3.2, Magnesium 1.9, Total Bilirubin 0.4, AST 101 H, ALT 133 H, Albumin 2.2 L, APTT 69 H, CBC w Diff NO MAN DIFF REQ, RBC 2.89 L, MCV 87.2, MCH 29.3, MCHC 33.5, RDW 15.4 H, MPV 7.9, Gran % 82.4 H, Lymphocytes % 7.3 L, Monocytes % 9.0, Eosinophils % 1.2, Basophils % 0.1, Absolute Granulocytes 6.0, Absolute Lymphocytes 0.5 L, Absolute Monocytes 0.7 H, Absolute Eosinophils 0.1, Absolute Basophils 0 07/21/180: APTT 54 H 07/21/18 1035: APTT 62 H, CBC w Diff NO MAN DIFF REQ, RBC 3.15 L, MCV 87.3, MCH 29.1, MCHC 33.4, RDW 15.1 H, MPV 7.9, Gran % 83.5 H, Lymphocytes % 7.5 L, Monocytes % 8.3, Eosinophils % 0.7, Basophils % 0, Absolute Granulocytes 5.3, Absolute Lymphocytes 0.5 L, Absolute Monocytes 0.5, Absolute Eosinophils 0, Absolute Basophils 0 07/21/18 0345: Anion Gap 3 L, Estimated GFR > 60, Glucose 169 H, Calcium 7.5 L, Phosphorus 2.5, Magnesium 2.0, Total Bilirubin 0.6, AST 216 H, ALT 205 H, Albumin 2.2 L, CBC w Diff NO MAN DIFF REQ, RBC 3.04 L, MCV 87.1, MCH 28.5, MCHC 32.8 L, RDW 14.9 H, MPV 7.6, Gran % 80.7 H, Lymphocytes % 9.3 L, Monocytes % 9.4 H, Eosinophils % 0.5, Basophils % 0.1, Absolute Granulocytes 4.4, Absolute Lymphocytes 0.5 L, Absolute Monocytes 0.5, Absolute Eosinophils 0, Absolute Basophils 0 08/20/18 2125: APTT 64 H 07/20/18 1615: Troponin I 0.45 *H 07/20/18 1240: D-Dimer High Sensitivty 453 H Assessment/Plan Assessment/Plan Assessment: 1. Elevated troponin consistent with anteroapical wall motion abnormality and depressed ejection fraction suggestive of nstemi 2. Acute hypoxemic respiratory failure; intubated 3. Bilateral pneumonia 4. History of ischemic heart disease with ischemic cardiomyopathy with anteroapical wall motion abnormality and ejection fraction 30% 5. History of paroxysmal atrial fibrillation 6. Underlying COPD 7. Worsening anemia-please discontinue IV heparin as suggested by Dr. Anton 8. Hypokalemia-improved Recommendations: -Continue current management as per the ICU/critical care team -Continue to monitor intakes, outputs, and weights closely. -Follow-up labs pending -Further cardiac evaluation when patient stable (pharmacologic stress versus cardiac catheterization to be decided upon later by Dr. Anton). Continue telemetry? Yes
--- NOTE | 2018-07-22 10:57 | PN- Infect Dx ---
Subjective Subjective: Afebrile without complaints. Objective Last 24 Hrs of Vital Signs/I&O Vital Signs Date Time Temp Pulse Resp B/P B/P Pulse O2 O2 Flow FiO2 Mean Ox Delivery Rate 07/22 0833 60 07/22 0601 60 07/22 0557 70 07/22 0400 95 Ventilator 70% 07/22 0327 70 07/22 0043 70 07/22 0031 99.8 69 22 130/58 08 0000 96 Ventilator 70% 07/22 0000 99.8 69 22 142/80 96 Ventilator 70% 07/21 2208 70 07/21 2000 91 Nasal 70% Cannula 07/21 1915 50 07/21 1610 50 07/21 1600 91 Ventilator 50% 07/21 1600 97.5 63 19 108/50 91 Ventilator 50% 07/21 1426 50 07/21 1200 97.5 64 20 100/52 92 Ventilator 50% 07/21 1200 92 Ventilator 50% 07/21 1120 50 Intake & Output 07/22 1600 07/22 0800 07/22 0000 Intake Total 1143 1013.6 Output Total 1030 160 Balance 113 853.6 Intake, IV 505 373.6 Intake, Other 320 Intake, Tube 318 320 Feeding Intake, Tube 320 Irrigant Number 1 Bowel Movements Output, Urine 1030 160 Patient 140 lb Weight Weight Bed scale Measurement Method Physical Exam Other Physical Findings: He appears comfortable on the ventilator in no acute distress Neck right IJ triple lumen catheter with no inflammation at the site Lungs are clear Heart regular rhythm without a murmur Abdomen is soft, nontender with positive bowel sounds Extremities no cyanosis, clubbing or edema Stout catheter remains in place Results Last 24 Hours of Lab Results: Laboratory Tests 07/22 07/21 0545 2150 Chemistry Sodium (137 - 145 mmol/L) 137 Potassium (3.5 - 5.1 mmol/L) 4.1 Chloride (98 - 107 mmol/L) 100 Carbon Dioxide (22 - 30 mmol/L) 33 H Anion Gap (5 - 16) 4 L BUN (9 - 20 mg/dL) 23 H Creatinine (0.7 - 1.2 mg/dL) 0.5 L Estimated GFR (>60 ml/min) > 60 Glucose (65 - 99 mg/dL) 129 H Calcium (8.4 - 10.2 mg/dL) 7.6 L Phosphorus (2.5 - 4.5 mg/dL) 3.2 Magnesium (1.6 - 2.3 mg/dL) 1.9 Total Bilirubin (0.2 - 1.3 mg/dL) 0.4 AST (17 - 59 U/L) 101 H ALT (21 - 72 U/L) 133 H Albumin (3.5 - 5.0 g/dL) 2.2 L Coagulation APTT (25 - 37 SEC) 69 H 54 H Hematology CBC w Diff NO MAN DIFF REQ WBC (4.8 - 10.8 /CUMM) 7.2 RBC (4.70 - 6.10 /CUMM) 2.89 L Hgb (14.0 - 18.0 G/DL) 8.5 L Hct (42 - 52 %) 25.2 L MCV (80.0 - 94.0 FL) 87.2 MCH (27.0 - 31.0 PG) 29.3 MCHC (33.0 - 37.0 G/DL) 33.5 RDW (11.5 - 14.5 %) 15.4 H Plt Count (130 - 400 /CUMM) 132 MPV (7.4 - 10.4 FL) 7.9 Gran % (42.2 - 75.2 %) 82.4 H Lymphocytes % (20.5 - 51.1 %) 7.3 L Monocytes % (1.7 - 9.3 %) 9.0 Eosinophils % (0 - 5 %) 1.2 Basophils % (0.0 - 2.0 %) 0.1 Absolute Granulocytes (1.4 - 6.5 /CUMM) 6.0 Absolute Lymphocytes (1.2 - 3.4 /CUMM) 0.5 L Absolute Monocytes (0.10 - 0.60 /CUMM) 0.7 H Absolute Eosinophils (0.0 - 0.7 /CUMM) 0.1 Absolute Basophils (0.0 - 0.2 /CUMM) 0 Last 24 Hours of Shen Results: Sputum culture July 20 positive for scant mixed mehreen with scant growth of Staph aureus Blood cultures x 2 July 19 negative Nares surveillance culture July 20 positive for MRSA Recent Imaging Studies: Chest x-ray July 22 reveals a stable patchy opacification throughout the left lung with increasing right lower lobe airspace disease Assessment/Plan ID Impression: Deterioration in his respiratory status, requiring an increase in his FiO2 last evening, with his temperatures and white blood cell count remaining normal on Unasyn and Azithromycin, Day 5 of treatment for multilobar pneumonia, with his sputum culture from 2 days ago positive for Staph aureus. Given his positive nares surveillance culture for MRSA suspect this will prove to be MRSA and, therefore, feel that his antibiotics will need to be adjusted. He remains on Acyclovir, now Day 4 of treatment for possible [place], with otitis externa and possible right glossopharyngeal nerve involvement suspected by ENT. Suggestion: 1. Follow-up final sputum culture 2. Remove right IJ triple-lumen catheter as soon as feasible 3. Discontinue Unasyn and Azithromycin 4. Begin Vancomycin 1 gram IV every 24 hours
[2018-07-22 16:00] VITALS: BP 108/50
[2018-07-23] VITALS: BP 113/51
[2018-07-23 05:05] LABS: ABSOLUTE BASOPHIL COUNT 0 /CUMM (0.0-0.2); ABSOLUTE EOSINOPHIL COUNT 0.1 /CUMM (0.0-0.7); ABSOLUTE GRANULOCYTE CT 5.4 /CUMM (1.4-6.5); ABSOLUTE LYMPH COUNT 0.5 /CUMM (1.2-3.4); ABSOLUTE MONOCYTE COUNT 0.8 /CUMM (0.10-0.60); BASOPHIL % 0.1 % (0.0-2.0); EOSINOPHIL % 1.7 % (0-5); GRANULOCYTE % 78.6 % (42.2-75.2); HEMATOCRIT 24.9 % (42-52); MEAN CORPUSCULAR HGB 28.7 PG (27.0-31.0); MEAN CORPUSCULAR HGB CONC 32.9 G/DL (33.0-37.0); MEAN CORPUSCULAR VOLUME 87.3 FL (80.0-94.0); MEAN PLATELET VOLUME 8.2 FL (7.4-10.4); PLATELET COUNT 155 /CUMM (130-400); RBC DISTRIBUTION WIDTH 15.4 % (11.5-14.5); RED BLOOD CELL CT 2.85 /CUMM (4.70-6.10); WHITE BLOOD CELL COUNT 6.9 /CUMM (4.8-10.8)
--- NOTE | 2018-07-23 07:05 | PN- Resident CRCU ---
Subjective HPI/CRCU Issues: Acute hypoxic and hypercapnic respiratory failure requiring intubation secondary to multilobar pneumonia, MRSA.(improving) Otitis externa, sinusitis, right-sided pharyngitis with ulcerative lesion. Acute systolic CHF ejection fraction 30% Rule out ACS, elevated troponin History of paroxysmal AF not on any anticoagulation History of COPD, aspiration pneumonitis and chronic respiratory failure Study of rheumatoid arthritis, peripheral vascular disease, multiple ulcers including ulcers on the back, malnutrition. 24 Hour Events: No overnight events. Patient remained afebrile overnight. Seen and examined this morning. He remained intubated and responding to verbal command. Patient is on 50% oxygen. Patient is getting tube feeds and tolerating it. We will try to decrease his oxygen as tolerated and give him weaning trials. Objective Vital Signs & I&O Last 8 Hrs of Vitals and I&O: Intake & Output 07/23 1600 07/23 0800 07/23 0000 Intake Total 799 570 Output Total 1000 390 Balance -201 180 Intake, IV 220 50 Intake, Other 60 Intake, Tube 319 320 Feeding Intake, Tube 200 200 Irrigant Number 1 1 Bowel Movements Output, Urine 1000 390 Laboratory Tests 07/23 07/22 0415 1745 Chemistry Sodium (137 - 145 mmol/L) 135 L Potassium (3.5 - 5.1 mmol/L) 4.4 Chloride (98 - 107 mmol/L) 96 L Carbon Dioxide (22 - 30 mmol/L) 35 H Anion Gap (5 - 16) 4 L BUN (9 - 20 mg/dL) 21 H Creatinine (0.7 - 1.2 mg/dL) 0.6 L Estimated GFR (>60 ml/min) > 60 Glucose (65 - 99 mg/dL) 125 H Calcium (8.4 - 10.2 mg/dL) 7.8 L Phosphorus (2.5 - 4.5 mg/dL) 3.4 Magnesium (1.6 - 2.3 mg/dL) 2.0 Total Bilirubin (0.2 - 1.3 mg/dL) 0.5 AST (17 - 59 U/L) 68 H ALT (21 - 72 U/L) 105 H Albumin (3.5 - 5.0 g/dL) 2.3 L Coagulation APTT Cancelled Hematology CBC w Diff NO MAN DIFF REQ WBC (4.8 - 10.8 /CUMM) 6.9 RBC (4.70 - 6.10 /CUMM) 2.85 L Hgb (14.0 - 18.0 G/DL) 8.2 L Hct (42 - 52 %) 24.9 L MCV (80.0 - 94.0 FL) 87.3 MCH (27.0 - 31.0 PG) 28.7 MCHC (33.0 - 37.0 G/DL) 32.9 L RDW (11.5 - 14.5 %) 15.4 H Plt Count (130 - 400 /CUMM) 155 MPV (7.4 - 10.4 FL) 8.2 Gran % (42.2 - 75.2 %) 78.6 H Lymphocytes % (20.5 - 51.1 %) 7.3 L Monocytes % (1.7 - 9.3 %) 12.3 H Eosinophils % (0 - 5 %) 1.7 Basophils % (0.0 - 2.0 %) 0.1 Absolute Granulocytes (1.4 - 6.5 /CUMM) 5.4 Absolute Lymphocytes (1.2 - 3.4 /CUMM) 0.5 L Absolute Monocytes (0.10 - 0.60 /CUMM) 0.8 H Absolute Eosinophils (0.0 - 0.7 /CUMM) 0.1 Absolute Basophils (0.0 - 0.2 /CUMM) 0 Exam General Appearance: no apparent distress, awake, intubated Head: atraumatic, normal appearance Neck: normal inspection, supple Respiratory: normal breath sounds, chest non-tender Cardiovascular: regular rate/rhythm Gastrointestinal: soft, non-tender Extremities: B/L leg chronic venous changes and wounds. Skin Temp/Moisture Exam: Warm/Dry Sepsis Skin Exam (color): Normal for Ethnicity Weaning Parameters NIF: 19 Minute Volume: 5.56 Resp rate: 32 Vt: 248 Heart Rate: 67 Current Medications: Current Medications Sig/Jamie Start time Last Medication Dose Route Stop Time Status Admin Acetaminophen 1,000 MG BID PRN 07/17 1930 AC 07/19 IV 0415 Acyclovir 500 MG 1000,1800,0200 07/20 1800 AC 07/23 Dextrose/Water 100 ML IV 0153 Albuterol Sulfate 3 ML Q4P PRN 07/17 1945 AC INH Amiodarone HCl 100 MG DAILY 07/21 2315 AC 07/22 PO 0900 Ampicillin Sodium/ 3,000 MG Q6 07/20 1200 DC 07/22 Sulbactam Sodium IV 0549 Sodium Chloride 100 ML Aspirin 162 MG DAILY 07/21 0900 AC 07/22 PO 1014 Atorvastatin Calcium 80 MG DAILY 07/18 0900 AC 07/22 PO 0900 Azithromycin 500 MG DAILY 07/20 1104 DC 07/22 Sodium Chloride 250 ML IV 0900 Budesonide/ 2 PUF BID 07/17 2100 AC 07/19 Formoterol Fumarate INH 0938 Ezetimibe 10 MG DAILY 07/18 0900 AC 07/22 PO 0900 Fentanyl Citrate 1,000 MCG Q24H 07/20 0100 AC 07/23 Dextrose/Water 250 ML IV 0149 Furosemide 20 MG BID 07/22 1138 AC 07/22 IV 2156 Heparin Sodium/ 25,000 UNIT Q24H 07/20 1215 DC 07/21 Dextrose IV 2244 Dextrose/Water 500 ML Ipratropium [place] 2.5 ML Q4P PRN 07/20 1545 AC INH Levothyroxine Sodium 0.088 MG DAILY AC 07/21 0700 AC 07/23 PO 0545 Neomycin/Polymyxin/ 4 GTT TID 07/20 2100 AC 07/22 Bacitr/Hydrocort OTIC 2157 Pantoprazole Sodium 40 MG DAILY 07/20 1209 AC 07/22 IV 0900 Potassium Chloride 40 MEQ DAILY 07/23 0900 AC PO Potassium Chloride 40 MEQ ONCE ONE 07/22 1145 DC 07/22 PO 07/22 1146 1226 Vancomycin HCl 1,000 MG Q24H 07/22 1200 AC 07/22 Sodium Chloride 250 ML IV 1226 Impression/Plan Impression/Problem List Impression: 73 YO M with PMH of HTN, HLD, COPD (not on any home oxygen), paroxysmal atrial fibrillation not on any AC due to fall risk, hypothyroidism, CAD s/p quadruple bypass in 2001, 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 He was known to be in his usual state of health until a few days prior to presentation. Recurrent fever with increasing WBC and worsening respiratory status, requiring intubation overnight, now on Zosyn after several days of various antibiotics, including Ceftriaxone, Azithromycin, Doxycycline, Unasyn and Vancomycin for what appears to be a multilobar community -acquired pneumonia of acute onset. Following the patient in ICU for following problems: Acute hypoxic and hypercapnic respiratory failure: -Possibly due to community-acquired pneumonia and possible aspiration pneumonia as patient was complaining of dysphagia with large pills. -Possible sepsis as patient meeting SIRS criteria, WBC count 17.1, temperature 103.2 and on imaging study patient has a multilobar pneumonia. Although his lactic acid and remained negative. -Could be due to aspiration pneumonia that causing multiple lobe opacities. -Continue vancomycin 1gm, day 2 Total antibiotic D 6 -Continue intubation with settings of respiratory rate 20, tidal volume 450, peak flow 65, PEEP 5 and percentage oxygen 45%. -Continue fentanyl drip @ 25 g/h with slow taper -Ativan when necessary -sputum culture is positive with MRSA. -Blood cultures remain negative so far. -TRC nebulization as needed -Continue omeprazole through tube feeds. Hypotension:(improved) -Possibly due to hypovolemia, less likely due to sepsis as his lactic acid remained negative. -His slowest blood pressure was 98/50. Central venous line was maintained and patient was given IV fluids and Levophed. -This morning his blood pressure was 113/51 -Off levophed. day 4 Otitis externa and pharyngitis: -Patient is otitis externa and sinusitis with right sided pharyngitis with ulcerative region. -Possibly due to zoster infection, Wells lópez syndrome. -Viral PCR is pending. -Continue Corticosporin ointment. -Continue acyclovir IV 500 mg. Day 5 -ENT recommendations appreciate. Acute systolic CHF: -Patient has ejection fraction 30% -On imaging study patient had pulmonary congestion. His BNP was 574 -IV Lasix 20 mg twice a day. Day 2 -Follow cardiology recommendations -Daily potassium supplementation 40 mEq. Day 2 -IOP 2564/1940 Elevated troponin: -Initially patient's troponin was normal but now his trop was last night 0.13--> 0.45-->0.53 -Possibly due to NSTEMI considering wall motion abnormality on echo and elevated trops. -IV heparin was discontinued as recommended by cardiology considering drop in H& H. -His Doppler studies negative for DVT. -Trops were trended -Follow up cardiology recommendations Hypophosphatemia:(resolved) -Possibly due to low intake of excessive excretion to kidney. -Repeating phosphate through tube feeds. -Today his phosphate level is 3.4 History of atrial fibrillation: -Not any anticoagulation -Amiodarone was resumed with low-dose 100 mg daily. History of hypothyroidism: -Decreasing his levothyroxine to 0.088 mg daily History of CAD status post CABG: -Continue aspirin to 162 mg daily. -Hold his carvedilol due to low blood pressure History of hyperlipidemia and hypertension: -Continue atorvastatin and ezetimibe. -Holding his amlodipine due to low blood pressure. Chronic wounds; -On right knuckle, left buttock and weaping wounds on legs were present on admission. -Getting dressing everyday. Diet: -Continue tube feeds. DVT prophylaxis: Mechanical and s/c heparin CODE STATUS: Full code Problem List: 1. Acute respiratory failure with hypoxia 2. Otitis externa 3. ACS (acute coronary syndrome) 4. Aspiration pneumonia Pain Ratin Pain Location: NONE Pain Plan: PAIN PATHWAY Tomorrow's Labs & Rationales: CBC/ICU BUNDLE Plan DVT/Prophylaxis: mechanical, pharmacological
--- NOTE | 2018-07-23 07:53 | RADIOLOGY REPORT ---
EXAMINATION: XR PORTABLE CHEST CLINICAL INFORMATION: Intubated. Pulmonary congestion. COMPARISON: Chest x-ray 07/22/2018 TECHNIQUE: Portable frontal view of the chest was obtained. FINDINGS: Endotracheal tube terminates approximately 5.5 cm above the level of the yakov. Enteric tube terminates well below the level of the diaphragm. Right-sided jugular venous catheter is stable in position. An abandoned cardiac leads is again noted in addition to sternotomy wires. Cardiac silhouette is stable. Continued airspace disease of the left lung base. Patchy airspace disease throughout the left lung is persistent. IMPRESSION: Stable support apparatus. Airspace disease primarily of the left hemithorax is relatively unchanged.
[2018-07-23 08:00] VITALS: BP 110/50
--- NOTE | 2018-07-23 10:17 | PN- CRCU ---
Subjective HPI/Critical Care Issues: No overnight events. Patient remained afebrile overnight. Seen and examined this morning. He remained intubated and responding to verbal command. Patient is on 45% oxygen. Objective Current Medications: Current Medications Sig/Jamie Start time Last Medication Dose Route Stop Time Status Admin Acetaminophen 1,000 MG BID PRN 07/17 1930 AC 07/19 IV 0415 Acyclovir 500 MG 1000,1800,0200 07/20 1800 AC 07/23 Dextrose/Water 100 ML IV 0153 Albuterol Sulfate 3 ML Q4P PRN 07/17 1945 AC INH Amiodarone HCl 100 MG DAILY 07/21 2315 AC 07/22 PO 0900 Ampicillin Sodium/ 3,000 MG Q6 07/20 1200 DC 07/22 Sulbactam Sodium IV 0549 Sodium Chloride 100 ML Aspirin 162 MG DAILY 07/21 0900 AC 07/22 PO 1014 Atorvastatin Calcium 80 MG DAILY 07/18 0900 AC 07/22 PO 0900 Azithromycin 500 MG DAILY 07/20 1104 DC 07/22 Sodium Chloride 250 ML IV 0900 Budesonide/ 2 PUF BID 07/17 2100 AC 07/19 Formoterol Fumarate INH 0938 Ezetimibe 10 MG DAILY 07/18 0900 AC 07/22 PO 0900 Fentanyl Citrate 1,000 MCG Q24H 07/20 0100 AC 07/23 Dextrose/Water 250 ML IV 0149 Furosemide 20 MG BID 07/22 1138 AC 07/22 IV 2156 Heparin Sodium/ 25,000 UNIT Q24H 07/20 1215 DC 07/21 Dextrose IV 2244 Dextrose/Water 500 ML Ipratropium [place] 2.5 ML Q4P PRN 07/20 1545 AC INH Levothyroxine Sodium 0.088 MG DAILY AC 07/21 0700 AC 07/23 PO 0545 Neomycin/Polymyxin/ 4 GTT TID 07/20 2100 AC 07/22 Bacitr/Hydrocort OTIC 2157 Pantoprazole Sodium 40 MG DAILY 07/20 1209 AC 07/22 IV 0900 Potassium Chloride 40 MEQ DAILY 07/23 0900 AC PO Potassium Chloride 40 MEQ ONCE ONE 07/22 1145 DC 07/22 PO 07/22 1146 1226 Vancomycin HCl 1,000 MG Q24H 07/22 1200 AC 07/22 Sodium Chloride 250 ML IV 1226 Vital Signs & I&O Last 24 Hrs of Vitals and I&O: Vital Signs Date Time Temp Pulse Resp B/P B/P Pulse O2 O2 Flow FiO2 Mean Ox Delivery Rate 07/23 0916 45 07/23 0800 95 Ventilator 50% 07/23 0800 97.6 70 20 110/50 95 Ventilator 50% 07/23 0555 50 07/23 0550 40 07/23 0400 94 Ventilator 40% 07/23 0349 40 07/23 0131 40 07/23 0000 98.0 70 20 113/51 94 Ventilator 40% 07/23 0000 94 Ventilator 40% 07/22 2225 40 07/22 2000 95 Ventilator 40% 07/22 1930 96 Ventilator 45% 07/22 1928 45 07/22 1657 50 07/22 1600 97 Ventilator 50% 07/22 1600 97.2 64 26 108/50 98 Ventilator 50% 07/22 1431 50 07/22 1200 95 Ventilator 55% 07/22 1109 55 Intake & Output 07/23 1600 07/23 0800 07/23 0000 Intake Total 799 570 Output Total 1000 390 Balance -201 180 Intake, IV 220 50 Intake, Other 60 Intake, Tube 319 320 Feeding Intake, Tube 200 200 Irrigant Number 1 1 Bowel Movements Output, Urine 1000 390 Impression/Plan Impression/Plan Impression/Plan: General: WD/WN male in NAD; sedated and intubated HEENT: NC/AT, PERRL, EOMI pharynx difficult to eval Neck: no JVD, no carotid bruit Heart: RRR w/o murmur Lungs: decreased breath sounds on the right Abdomen: soft, NT, +ve bowel sounds Extremities: no edema IMPRESSION This is a gentleman with more than 90-[id number] smoking history, obstructive sleep apnea on CPAP, significant COPD not on home oxygen, paroxysmal atrial fibrillation not on anticoagulation due to significant past history of fall, hypothyroidism on supplementation, ischemic heart disease with previous CABG in 2001, previous CVA with right-sided ramila-plegia, hyperlipidemia, significant history of rheumatoid arthritis does not seem to be on any immunosuppressive at this time, peripheral vascular disease, multiple wounds now has * Acute hypoxemic respiratory failure now requiring intubation / related to bilateral multilobar pneumonia MRSA * Herpes zoster of the pinna and pharnyx * Ischemic heart disease now with low ef, with acute systolic chf, paroxysmal atrial fibrillation (was not on anticoagulation prior to admission) and was on amiodarone however. Seems to be maintaining sinus rhythm. * Myocardial necrosis with mildly elevated troponin with low ef and wall motion abnormality, consistant with NSTEMI * Prior Dysphagia, difficulty swallowing at times with food getting stuck in the mid esophagus to rule out any esophageal lesion * Significant lung disease with prior smoking with chronic obstructive restrictive lung disease with prior aspiration pneumonitis and prolonged hospitalization due to chronic respiratory failure * Multiple other issues including rheumatoid arthritis, peripheral vascular disease, multiple ulcers including ulcers in the back with malnutrition and poor performance status RECOMMENDATION * Continue vent and reduce fio2 and can start weaning trials * Cont fentanyl and prn lorazepam * IV lasix 20 mg bid and potassium 40 meq daily * Amiodarone 100 * Reduce aspirin to 162 mg/ follow ekg and cont cardiac meds * Nebulizer therapy as needed with DuoNeb if wheezing * Proton pump inhibitor down og Prognosis guarded /Patient critically ill total time spent 39 minutes
--- NOTE | 2018-07-23 10:50 | PN- Infect Dx ---
Subjective Subjective: Afebrile without complaints Objective Last 24 Hrs of Vital Signs/I&O Vital Signs Date Time Temp Pulse Resp B/P B/P Pulse O2 O2 Flow FiO2 Mean Ox Delivery Rate 07/23 0916 45 07/23 0800 95 Ventilator 50% 07/23 0800 97.6 70 20 110/50 95 Ventilator 50% 07/23 0555 50 07/23 0550 40 07/23 0400 94 Ventilator 40% 07/23 0349 40 07/23 0131 40 07/23 0000 98.0 70 20 113/51 94 Ventilator 40% 07/23 0000 94 Ventilator 40% 07/22 2225 40 07/22 2000 95 Ventilator 40% 07/22 1930 96 Ventilator 45% 07/22 1928 45 07/22 1657 50 07/22 1600 97 Ventilator 50% 07/22 1600 97.2 64 26 108/50 98 Ventilator 50% 07/22 1431 50 07/22 1200 95 Ventilator 55% 07/22 1109 55 Intake & Output 07/23 1600 07/23 0800 07/23 0000 Intake Total 799 570 Output Total 1000 390 Balance -201 180 Intake, IV 220 50 Intake, Other 60 Intake, Tube 319 320 Feeding Intake, Tube 200 200 Irrigant Number 1 1 Bowel Movements Output, Urine 1000 390 Physical Exam Other Physical Findings: He appears comfortable in no acute distress on the ventilator Neck right IJ triple lumen catheter remains in place with no inflammation at the site Lungs are clear Heart regular rhythm without murmur Abdomen is mildly distended, nontender with positive bowel sounds Extremities trace edema both lower extremities Stout catheter remains in place Results Last 24 Hours of Lab Results: Laboratory Tests 07/23 07/22 8715 1745 Chemistry Sodium (137 - 145 mmol/L) 135 L Potassium (3.5 - 5.1 mmol/L) 4.4 Chloride (98 - 107 mmol/L) 96 L Carbon Dioxide (22 - 30 mmol/L) 35 H Anion Gap (5 - 16) 4 L BUN (9 - 20 mg/dL) 21 H Creatinine (0.7 - 1.2 mg/dL) 0.6 L Estimated GFR (>60 ml/min) > 60 Glucose (65 - 99 mg/dL) 125 H Calcium (8.4 - 10.2 mg/dL) 7.8 L Phosphorus (2.5 - 4.5 mg/dL) 3.4 Magnesium (1.6 - 2.3 mg/dL) 2.0 Total Bilirubin (0.2 - 1.3 mg/dL) 0.5 AST (17 - 59 U/L) 68 H ALT (21 - 72 U/L) 105 H Albumin (3.5 - 5.0 g/dL) 2.3 L Coagulation APTT Cancelled Hematology CBC w Diff NO MAN DIFF REQ WBC (4.8 - 10.8 /CUMM) 6.9 RBC (4.70 - 6.10 /CUMM) 2.85 L Hgb (14.0 - 18.0 G/DL) 8.2 L Hct (42 - 52 %) 24.9 L MCV (80.0 - 94.0 FL) 87.3 MCH (27.0 - 31.0 PG) 28.7 MCHC (33.0 - 37.0 G/DL) 32.9 L RDW (11.5 - 14.5 %) 15.4 H Plt Count (130 - 400 /CUMM) 155 MPV (7.4 - 10.4 FL) 8.2 Gran % (42.2 - 75.2 %) 78.6 H Lymphocytes % (20.5 - 51.1 %) 7.3 L Monocytes % (1.7 - 9.3 %) 12.3 H Eosinophils % (0 - 5 %) 1.7 Basophils % (0.0 - 2.0 %) 0.1 Absolute Granulocytes (1.4 - 6.5 /CUMM) 5.4 Absolute Lymphocytes (1.2 - 3.4 /CUMM) 0.5 L Absolute Monocytes (0.10 - 0.60 /CUMM) 0.8 H Absolute Eosinophils (0.0 - 0.7 /CUMM) 0.1 Absolute Basophils (0.0 - 0.2 /CUMM) 0 Last 24 Hours of Shen Results: Sputum culture July 20 positive for Staph aureus, sensitivities pending Blood cultures 2 July 19 remain negative Recent Imaging Studies: Chest x-ray July 23 decreased airspace disease in the left hemithorax Assessment/Plan ID Impression: Overall improvement, with a decrease in his oxygen requirements, now on 45%, with his temperatures and white blood cell count remaining normal, now on Vancomycin Day 2 of treatment for multilobar pneumonia, presumably secondary to aspiration, with his sputum culture positive for Staph aureus, which will likely prove to be MRSA. He remains on Acyclovir, now Day 5 of treatment for possible [place] Olivera, with otitis externa and possible right glossopharyngeal nerve involvement suspected by ENT. Suggestion: 1. Follow-up final sputum culture 2. Remove right IJ triple-lumen catheter as soon as possible 3. Continue Vancomycin 4. Continue Acyclovir
[2018-07-23 16:00] VITALS: BP 108/50
[2018-07-24] VITALS: BP 130/50
[2018-07-24 04:44] LABS: ABSOLUTE BASOPHIL COUNT 0 /CUMM (0.0-0.2); ABSOLUTE EOSINOPHIL COUNT 0.2 /CUMM (0.0-0.7); ABSOLUTE GRANULOCYTE CT 4.8 /CUMM (1.4-6.5); ABSOLUTE LYMPH COUNT 0.6 /CUMM (1.2-3.4); ABSOLUTE MONOCYTE COUNT 0.9 /CUMM (0.10-0.60); BASOPHIL % 0.1 % (0.0-2.0); EOSINOPHIL % 2.5 % (0-5); GRANULOCYTE % 74.4 % (42.2-75.2); HEMATOCRIT 24.3 % (42-52); MEAN CORPUSCULAR HGB 28.8 PG (27.0-31.0); MEAN CORPUSCULAR HGB CONC 33.1 G/DL (33.0-37.0); MEAN CORPUSCULAR VOLUME 86.8 FL (80.0-94.0); MEAN PLATELET VOLUME 8.2 FL (7.4-10.4); PLATELET COUNT 178 /CUMM (130-400); RBC DISTRIBUTION WIDTH 15.2 % (11.5-14.5); WHITE BLOOD CELL COUNT 6.4 /CUMM (4.8-10.8)
--- NOTE | 2018-07-24 07:00 | PN- Resident CRCU ---
Subjective HPI/CRCU Issues: Acute hypoxic and hypercapnic respiratory failure requiring intubation secondary to multilobar pneumonia, MRSA.(improving) Otitis externa, sinusitis, right-sided pharyngitis with ulcerative lesion. Acute systolic CHF ejection fraction 30% Rule out ACS, elevated troponin History of paroxysmal AF not on any anticoagulation History of COPD, aspiration pneumonitis and chronic respiratory failure Study of rheumatoid arthritis, peripheral vascular disease, multiple ulcers including ulcers on the back, malnutrition. 24 Hour Events: No overnight events. Patient remained afebrile overnight. Seen and examined this morning. He remained intubated and responding to verbal command. Patient is on 60% oxygen. Patient still requiring more oxygen and not able to wean him off. Patient is getting tube feeds and tolerating it. Objective Vital Signs & I&O Last 8 Hrs of Vitals and I&O: Intake & Output 07/24 1600 07/24 0800 07/24 0000 Intake Total 570 913 Output Total 1150 900 Balance -580 13 Intake, IV 50 240 Intake, Oral 0 Intake, Tube 320 472 Feeding Intake, Tube 200 201 Irrigant Number 0 Bowel Movements Output, Urine 1150 900 Patient 142 lb Weight Weight Bed scale Measurement Method Laboratory Tests 07/24 0345 Chemistry Sodium (137 - 145 mmol/L) 133 L Potassium (3.5 - 5.1 mmol/L) 4.4 Chloride (98 - 107 mmol/L) 94 L Carbon Dioxide (22 - 30 mmol/L) 34 H Anion Gap (5 - 16) 5 BUN (9 - 20 mg/dL) 20 Creatinine (0.7 - 1.2 mg/dL) 0.6 L Estimated GFR (>60 ml/min) > 60 Glucose (65 - 99 mg/dL) 115 H Calcium (8.4 - 10.2 mg/dL) 7.8 L Phosphorus (2.5 - 4.5 mg/dL) 3.2 Magnesium (1.6 - 2.3 mg/dL) 2.0 Total Bilirubin (0.2 - 1.3 mg/dL) 0.6 AST (17 - 59 U/L) 58 ALT (21 - 72 U/L) 87 H Albumin (3.5 - 5.0 g/dL) 2.4 L Hematology CBC w Diff NO MAN DIFF REQ WBC (4.8 - 10.8 /CUMM) 6.4 RBC (4.70 - 6.10 /CUMM) 2.80 L Hgb (14.0 - 18.0 G/DL) 8.1 L Hct (42 - 52 %) 24.3 L MCV (80.0 - 94.0 FL) 86.8 MCH (27.0 - 31.0 PG) 28.8 MCHC (33.0 - 37.0 G/DL) 33.1 RDW (11.5 - 14.5 %) 15.2 H Plt Count (130 - 400 /CUMM) 178 MPV (7.4 - 10.4 FL) 8.2 Gran % (42.2 - 75.2 %) 74.4 Lymphocytes % (20.5 - 51.1 %) 9.2 L Monocytes % (1.7 - 9.3 %) 13.8 H Eosinophils % (0 - 5 %) 2.5 Basophils % (0.0 - 2.0 %) 0.1 Absolute Granulocytes (1.4 - 6.5 /CUMM) 4.8 Absolute Lymphocytes (1.2 - 3.4 /CUMM) 0.6 L Absolute Monocytes (0.10 - 0.60 /CUMM) 0.9 H Absolute Eosinophils (0.0 - 0.7 /CUMM) 0.2 Absolute Basophils (0.0 - 0.2 /CUMM) 0 Exam General Appearance: no apparent distress, alert, awake Head: atraumatic Ears, Nose, Throat: ulcerations/vesicles Respiratory: chest non-tender, decreased breath sounds bilaterally at bases Cardiovascular: regular rate/rhythm Gastrointestinal: normal bowel sounds, soft, non-tender Extremities: chronic venous changes b/l, no luis, b/l leg chronic wounds Skin Temp/Moisture Exam: Warm/Dry Sepsis Skin Exam (color): Normal for Ethnicity Weaning Parameters NIF: 23 Minute Volume: 5.21 Resp rate: 35 Vt: 150 Heart Rate: 66 Weaning Schedule Start Time: 1999 Minute Volume: 7.58 Resp Rate: 22 Vt: 340 Heart Rate: 68 Current Medications: Current Medications Sig/Jamie Start time Last Medication Dose Route Stop Time Status Admin Acetaminophen 1,000 MG BID PRN 07/17 1930 AC 07/19 IV 0415 Acyclovir 500 MG 1000,1800,0200 07/20 1800 AC 07/24 Dextrose/Water 100 ML IV 1025 Albuterol Sulfate 3 ML Q4P PRN 08/17 1945 AC INH Amiodarone HCl 100 MG DAILY 07/21 2315 AC 07/24 PO 0914 Aspirin 162 MG DAILY 07/21 0900 AC 07/24 PO 0915 Atorvastatin Calcium 80 MG DAILY 07/18 09 AC 07/24 PO 0913 Budesonide/ 2 PUF BID 07/17 2100 AC 07/24 Formoterol Fumarate INH 1700 Ezetimibe 10 MG DAILY 07/18 0900 AC 07/24 PO 0913 Fentanyl Citrate 1,000 MCG Q24H 07/20 0100 AC 07/23 Dextrose/Water 250 ML IV 0149 Furosemide 20 MG BID 07/22 1138 AC 07/24 IV 0915 Heparin Sodium 5,000 UNIT Q8 07/23 1400 AC 07/24 (Porcine) SC 1416 Ipratropium [place] 2.5 ML Q4P PRN 07/20 1545 AC INH Levothyroxine Sodium 0.088 MG DAILY AC 07/21 0700 AC 07/24 PO 0739 Neomycin/Polymyxin/ 4 GTT TID 07/20 2100 AC 07/24 Bacitr/Hydrocort OTIC 1416 Pantoprazole Sodium 40 MG DAILY 07/20 1209 AC 07/24 IV 0915 Potassium Chloride 40 MEQ DAILY 07/23 0900 AC 07/24 PO 0914 Senna 187 MG AT BEDTIME 07/24 2100 AC PO Vancomycin HCl 1,000 MG Q24H 07/22 1200 AC 07/24 Sodium Chloride 250 ML IV 1258 Impression/Plan Impression/Problem List Impression: 73 YO M with PMH of HTN, HLD, COPD (not on any home oxygen), paroxysmal atrial fibrillation not on any AC due to fall risk, hypothyroidism, CAD s/p quadruple bypass in 2001, 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 He was known to be in his usual state of health until a few days prior to presentation. Recurrent fever with increasing WBC and worsening respiratory status, requiring intubation overnight, now on Zosyn after several days of various antibiotics, including Ceftriaxone, Azithromycin, Doxycycline, Unasyn and Vancomycin for what appears to be a multilobar community -acquired pneumonia of acute onset. Following the patient in ICU for following problems: Acute hypoxic and hypercapnic respiratory failure: -Possibly due to community-acquired pneumonia and aspiration pneumonia, MRSA and acute and chronic systolic CHF. -Possible sepsis as patient meeting SIRS criteria, WBC count 17.1, temperature 103.2 and on imaging study patient has a multilobar pneumonia. Although his lactic acid and remained negative. -Could be due to aspiration pneumonia that causing multiple lobe opacities. -Continue vancomycin 1gm, day 3 Total antibiotic D 7. Patient needs PICC line to complete 2 weeks course of vancomycin. -Continue intubation with settings of respiratory rate 20, tidal volume 450, peak flow 65, PEEP 5 and percentage oxygen 60%. -Continue fentanyl drip @ 25 g/h with slow taper -Ativan when necessary -sputum culture is positive with MRSA. -Blood cultures remain negative so far. -TRC nebulization as needed -Continue iv ppi. Hypotension:(improved) -Possibly due to hypovolemia, less likely due to sepsis as his lactic acid remained negative. -His slowest blood pressure was 98/50. Central venous line was maintained and patient was given IV fluids and Levophed. -This morning his blood pressure was 130/50 -Off levophed. day 5 -We will remove his triple lumen today. Otitis externa and pharyngitis: -Patient is otitis externa and sinusitis with right sided pharyngitis with ulcerative region. -Possibly due to zoster infection, [place] lópez syndrome. -Viral PCR is pending. -Continue Corticosporin ointment. -Continue acyclovir IV 500 mg. Day 6. We will discontinue his acyclovir in am. -ENT recommendations appreciate. Acute systolic CHF: -Patient has ejection fraction 30%. Contributing to his respiratory failure. -On imaging study patient had pulmonary congestion. His BNP was 574 -IV Lasix 20 mg twice a day. Day 3 -Follow cardiology recommendations -Daily potassium supplementation 40 mEq. Day 3 Elevated troponin: -Initially patient's troponin was normal but now his trop was last night 0.13--> 0.45-->0.53 -Possibly due to NSTEMI considering wall motion abnormality on echo and elevated trops. -IV heparin was discontinued as recommended by cardiology considering drop in H& H. -His Doppler studies negative for DVT. -Trops were trended -Follow up cardiology recommendations Hypophosphatemia:(resolved) -Possibly due to low intake of excessive excretion to kidney. -Repeating phosphate through tube feeds. -Today his phosphate level is 3.2 History of atrial fibrillation: -Not any anticoagulation -Amiodarone was resumed with low-dose 100 mg daily. History of hypothyroidism: -Continue levothyroxine to 0.088 mg daily. History of CAD status post CABG: -Continue aspirin to 162 mg daily. -Hold his carvedilol due to low blood pressure History of hyperlipidemia and hypertension: -Continue atorvastatin and ezetimibe. -Holding his amlodipine due to low blood pressure. Chronic wounds; -On right knuckle, left buttock and weaping wounds on legs were present on admission. -Getting dressing everyday. Diet: -Continue tube feeds. DVT prophylaxis: Mechanical and s/c heparin CODE STATUS: Full code Problem List: 1. Acute respiratory failure with hypoxia 2. Aspiration pneumonia 3. ACS (acute coronary syndrome) 4. Otitis externa Pain Ratin Pain Location: none Pain Plan: pain pathway Tomorrow's Labs & Rationales: cbc/icu bundle Plan DVT/Prophylaxis: mechanical, pharmacological
[2018-07-24 08:00] VITALS: BP 120/52
--- NOTE | 2018-07-24 08:00 | RADIOLOGY REPORT ---
EXAMINATION: XR PORTABLE CHEST CLINICAL INFORMATION: ET tube position/pleural effusion COMPARISON: 07/23/2018 TECHNIQUE: Portable frontal semierect view of the chest was obtained. FINDINGS: ET tube terminates 5.5 cm from the yakov. Enteric tube terminates off the inferior border of the study. Right IJ central venous catheter terminates near the cavoatrial junction. Sternal wires are unchanged. Abandoned epicardial pacer leads are unchanged. Cardiac silhouette is unchanged in size. Small left pleural effusion is unchanged. There is pulmonary venous congestion without significant interstitial edema. Airspace opacification in the left lung base and upper lobe appears unchanged. Chronic bilateral rotator cuff tears are evident. Degenerative disc disease present in the thoracic spine. IMPRESSION: 1. Tubes and lines are unchanged. 2. Persistent airspace disease in the left lung with a small left pleural effusion 3. Pulmonary venous congestion, unchanged
--- NOTE | 2018-07-24 11:53 | PN- Infect Dx ---
Subjective Subjective: Afebrile without complaints Objective Last 24 Hrs of Vital Signs/I&O Vital Signs Date Time Temp Pulse Resp B/P B/P Pulse O2 O2 Flow FiO2 Mean Ox Delivery Rate 07/24 1136 55 07/24 0914 62 105/50 07/24 0835 55 07/24 0541 60 07/24 0400 92 Ventilator 60% 07/24 0350 60 07/24 0322 50 07/24 0119 50 07/24 0000 95 Ventilator 50% 07/24 0000 97.4 62 20 130/50 95 Ventilator 50% 07/23 2226 50 07/23 2000 92 Ventilator 40% 07/23 1950 40 07/23 1625 45 07/23 1600 97.6 62 20 108/50 94 Ventilator 45% 07/23 1442 45 07/23 1320 94 Ventilator 45% Intake & Output 07/24 1600 07/24 0800 07/24 0000 Intake Total 570 913 Output Total 1150 900 Balance -580 13 Intake, IV 50 240 Intake, Oral 0 Intake, Tube 320 472 Feeding Intake, Tube 200 201 Irrigant Number 0 Bowel Movements Output, Urine 1150 900 Patient 142 lb Weight Weight Bed scale Measurement Method Physical Exam Other Physical Findings: He appears comfortable on the ventilator in no acute distress Neck right IJ triple lumen catheter remains in place, with no inflammation at the site Lungs are clear Heart regular rhythm with no murmur Abdomen is mildly distended, nontender with positive bowel sounds Extremities no cyanosis, clubbing or edema Stout catheter remains in place Results Last 24 Hours of Lab Results: Laboratory Tests 07/24 0345 Chemistry Sodium (137 - 145 mmol/L) 133 L Potassium (3.5 - 5.1 mmol/L) 4.4 Chloride (98 - 107 mmol/L) 94 L Carbon Dioxide (22 - 30 mmol/L) 34 H Anion Gap (5 - 16) 5 BUN (9 - 20 mg/dL) 20 Creatinine (0.7 - 1.2 mg/dL) 0.6 L Estimated GFR (>60 ml/min) > 60 Glucose (65 - 99 mg/dL) 115 H Calcium (8.4 - 10.2 mg/dL) 7.8 L Phosphorus (2.5 - 4.5 mg/dL) 3.2 Magnesium (1.6 - 2.3 mg/dL) 2.0 Total Bilirubin (0.2 - 1.3 mg/dL) 0.6 AST (17 - 59 U/L) 58 ALT (21 - 72 U/L) 87 H Albumin (3.5 - 5.0 g/dL) 2.4 L Hematology CBC w Diff NO MAN DIFF REQ WBC (4.8 - 10.8 /CUMM) 6.4 RBC (4.70 - 6.10 /CUMM) 2.80 L Hgb (14.0 - 18.0 G/DL) 8.1 L Hct (42 - 52 %) 24.3 L MCV (80.0 - 94.0 FL) 86.8 MCH (27.0 - 31.0 PG) 28.8 MCHC (33.0 - 37.0 G/DL) 33.1 RDW (11.5 - 14.5 %) 15.2 H Plt Count (130 - 400 /CUMM) 178 MPV (7.4 - 10.4 FL) 8.2 Gran % (42.2 - 75.2 %) 74.4 Lymphocytes % (20.5 - 51.1 %) 9.2 L Monocytes % (1.7 - 9.3 %) 13.8 H Eosinophils % (0 - 5 %) 2.5 Basophils % (0.0 - 2.0 %) 0.1 Absolute Granulocytes (1.4 - 6.5 /CUMM) 4.8 Absolute Lymphocytes (1.2 - 3.4 /CUMM) 0.6 L Absolute Monocytes (0.10 - 0.60 /CUMM) 0.9 H Absolute Eosinophils (0.0 - 0.7 /CUMM) 0.2 Absolute Basophils (0.0 - 0.2 /CUMM) 0 Last 24 Hours of Shen Results: Sputum culture July 20 positive for MRSA Recent Imaging Studies: Chest x-ray July 24 reveals persistent airspace disease in the left lung with a small left pleural effusion and unchanged pulmonary venous congestion Assessment/Plan ID Impression: Ongoing respiratory failure, with increased oxygen requirements overnight, but with his temperatures and white blood cell count remaining normal on Vancomycin, Day 3 of treatment for multilobar MRSA pneumonia, presumably secondary to aspiration. He remains on Acyclovir, now Day 6 of treatment for possible [place], with otitis externa and possible right glossopharyngeal nerve involvement suspected by ENT, with crusting of his lesions. Suggestion: 1. Remove right IJ triple-lumen catheter and, if still felt to require central access, would pursue placement of a PICC 2. Discontinue Acyclovir in the a.m. 3. Continue Vancomycin
--- NOTE | 2018-07-24 12:15 | PN- CRCU ---
Subjective HPI/Critical Care Issues: No overnight events. Patient remained afebrile overnight. Seen and examined this morning. He remained intubated and responding to verbal command. Patient is on 55% oxygen. . Patient is getting tube feeds and tolerating it. Objective Current Medications: Current Medications Sig/Jamie Start time Last Medication Dose Route Stop Time Status Admin Acetaminophen 1,000 MG BID PRN 07/17 1930 AC 07/19 IV 0415 Acyclovir 500 MG 1000,1800,0200 07/20 1800 AC 07/24 Dextrose/Water 100 ML IV 1025 Albuterol Sulfate 3 ML Q4P PRN 07/17 1945 AC INH Amiodarone HCl 100 MG DAILY 07/21 2315 AC 07/24 PO 0914 Aspirin 162 MG DAILY 07/21 09 AC 07/24 PO 0915 Atorvastatin Calcium 80 MG DAILY 07/18 09 AC 07/24 PO 0913 Budesonide/ 2 PUF BID 07/17 2100 AC 07/24 Formoterol Fumarate INH 0848 Ezetimibe 10 MG DAILY 07/18 09 AC 07/24 PO 0913 Fentanyl Citrate 1,000 MCG Q24H 07/20 0100 AC 07/23 Dextrose/Water 250 ML IV 0149 Furosemide 20 MG BID 07/22 1138 AC 07/24 IV 0915 Heparin Sodium 5,000 UNIT Q8 07/23 1400 AC 07/24 (Porcine) SC 0739 Ipratropium [place] 2.5 ML Q4P PRN 07/20 1545 AC INH Levothyroxine Sodium 0.088 MG DAILY AC 07/21 0700 AC 07/24 PO 0739 Neomycin/Polymyxin/ 4 GTT TID 07/20 2100 AC 07/24 Bacitr/Hydrocort OTIC 0915 Pantoprazole Sodium 40 MG DAILY 07/20 1209 AC 07/24 IV 0915 Potassium Chloride 40 MEQ DAILY 07/23 0900 AC 07/24 PO 0914 Vancomycin HCl 1,000 MG Q24H 07/22 1200 AC 07/23 Sodium Chloride 250 ML IV 1024 Vital Signs & I&O Last 24 Hrs of Vitals and I&O: Vital Signs Date Time Temp Pulse Resp B/P B/P Pulse O2 O2 Flow FiO2 Mean Ox Delivery Rate 07/24 1136 55 07/24 0914 62 105/50 07/24 0835 55 07/24 0541 60 07/24 0400 92 Ventilator 60% 07/24 0350 60 07/24 0322 50 07/24 0119 50 07/24 0000 95 Ventilator 50% 07/24 0000 97.4 62 20 130/50 95 Ventilator 50% 07/23 2226 50 07/23 2000 92 Ventilator 40% 07/23 1950 40 07/23 1625 45 07/23 1600 97.6 62 20 108/50 94 Ventilator 45% 07/23 1442 45 07/23 1320 94 Ventilator 45% Intake & Output 07/24 1600 07/24 0800 07/24 0000 Intake Total 570 913 Output Total 1150 900 Balance -580 13 Intake, IV 50 240 Intake, Oral 0 Intake, Tube 320 472 Feeding Intake, Tube 200 201 Irrigant Number 0 Bowel Movements Output, Urine 1150 900 Patient 142 lb Weight Weight Bed scale Measurement Method Impression/Plan Impression/Plan Impression/Plan: General: WD/WN male in NAD; sedated and intubated HEENT: NC/AT, PERRL, EOMI pharynx difficult to eval Neck: no JVD, no carotid bruit Heart: RRR w/o murmur Lungs: decreased breath sounds on the right Abdomen: soft, NT, +ve bowel sounds Extremities: no edema IMPRESSION This is a gentleman with more than [id number] smoking history, obstructive sleep apnea on CPAP, significant COPD not on home oxygen, paroxysmal atrial fibrillation not on anticoagulation due to significant past history of fall, hypothyroidism on supplementation, ischemic heart disease with previous CABG in 2001, previous CVA with right-sided ramila-plegia, hyperlipidemia, significant history of rheumatoid arthritis does not seem to be on any immunosuppressive at this time, peripheral vascular disease, multiple wounds now has * Acute hypoxemic respiratory failure now requiring intubation / related to bilateral multilobar pneumonia MRSA compounded by acute systolic chf * Herpes zoster of the pinna and pharnyx * Ischemic heart disease now with low ef, with acute systolic chf, paroxysmal atrial fibrillation (was not on anticoagulation prior to admission) and was on amiodarone however. Seems to be maintaining sinus rhythm. * Myocardial necrosis with mildly elevated troponin with low ef and wall motion abnormality, consistant with NSTEMI * Prior Dysphagia, difficulty swallowing at times with food getting stuck in the mid esophagus to rule out any esophageal lesion * Significant lung disease with prior smoking with chronic obstructive restrictive lung disease with prior aspiration pneumonitis and prolonged hospitalization due to chronic respiratory failure * Multiple other issues including rheumatoid arthritis, peripheral vascular disease, multiple ulcers including ulcers in the back with malnutrition and poor performance status RECOMMENDATION * Continue vent and reduce fio2 and can start weaning trials and extubate to high flow * Cont fentanyl and prn lorazepam * IV lasix 20 mg tid and potassium 40 meq daily * Amiodarone 100 and if becomes travis can dc for now * Picc line and dc tlc * Abx per id * Reduce aspirin to 162 mg/ follow ekg and cont cardiac meds * Nebulizer therapy as needed with DuoNeb if wheezing * Change to pepcid from ppi Prognosis guarded /Patient critically ill total time spent 39 minutes
[2018-07-24 16:00] VITALS: BP 110/56
[2018-07-25] VITALS: BP 100/49
[2018-07-25 04:42] LABS: ABSOLUTE BASOPHIL COUNT 0 /CUMM (0.0-0.2); ABSOLUTE EOSINOPHIL COUNT 0.2 /CUMM (0.0-0.7); ABSOLUTE GRANULOCYTE CT 5.3 /CUMM (1.4-6.5); ABSOLUTE LYMPH COUNT 0.7 /CUMM (1.2-3.4); BASOPHIL % 0.1 % (0.0-2.0); EOSINOPHIL % 2.5 % (0-5); GRANULOCYTE % 74.5 % (42.2-75.2); MEAN CORPUSCULAR HGB 29.3 PG (27.0-31.0); MEAN CORPUSCULAR HGB CONC 33.9 G/DL (33.0-37.0); MEAN CORPUSCULAR VOLUME 86.5 FL (80.0-94.0); PLATELET COUNT 211 /CUMM (130-400); RBC DISTRIBUTION WIDTH 15.1 % (11.5-14.5); RED BLOOD CELL CT 2.66 /CUMM (4.70-6.10); WHITE BLOOD CELL COUNT 7.2 /CUMM (4.8-10.8)
[2018-07-25 08:00] VITALS: BP 120/50
--- NOTE | 2018-07-25 08:15 | PN- CRCU ---
Subjective HPI/Critical Care Issues: The patient is awake, and following commands. He remained stable, on mechanical ventilation. He is able to move all his extremities independently. He remains on 60% oxygen and is not weaning as a result of his A-a gradient. The patient is afebrile. He is hemodynamically stable. He has excellent urine output. He is tolerating tube feeds without issue. Objective Current Medications: Current Medications Sig/Jamie Start time Last Medication Dose Route Stop Time Status Admin Acetaminophen 1,000 MG BID PRN 07/17 1930 AC 07/19 IV 0415 Acyclovir 500 MG 1000,1800,0200 07/20 1800 AC 07/25 Dextrose/Water 100 ML IV 0212 Albuterol Sulfate 3 ML Q4P PRN 07/17 1945 AC INH Amiodarone HCl 100 MG DAILY 07/21 2315 AC 07/24 PO 0914 Aspirin 162 MG DAILY 07/21 09 AC 07/24 PO 0915 Atorvastatin Calcium 80 MG DAILY 07/18 09 AC 07/24 PO 0913 Budesonide/ 2 PUF BID 07/17 2100 AC 07/24 Formoterol Fumarate INH 1700 Ezetimibe 10 MG DAILY 07/18 0900 AC 07/24 PO 0913 Fentanyl Citrate 1,000 MCG Q24H 07/20 0100 AC 07/24 Dextrose/Water 250 ML IV 0800 Furosemide 20 MG BID 07/22 1138 AC 07/24 IV 2143 Heparin Sodium 5,000 UNIT Q8 07/23 1400 AC 07/25 (Porcine) SC 0556 Ipratropium [place] 2.5 ML Q4P PRN 07/20 1545 AC INH Levothyroxine Sodium 0.088 MG DAILY AC 07/21 0700 AC 07/25 PO 0556 Neomycin/Polymyxin/ 4 GTT TID 07/20 2100 AC 07/24 Bacitr/Hydrocort OTIC 2144 Pantoprazole Sodium 40 MG DAILY 07/20 1209 AC 07/24 IV 0915 Potassium Chloride 40 MEQ DAILY 07/23 09 AC 07/24 PO 0914 Senna 187 MG AT BEDTIME 07/24 2100 AC 07/24 PO 2144 Vancomycin HCl 1,000 MG Q24H 07/22 1200 AC 07/24 Sodium Chloride 250 ML IV 1258 Vital Signs & I&O Last 24 Hrs of Vitals and I&O: Vital Signs Date Time Temp Pulse Resp B/P B/P Pulse O2 O2 Flow FiO2 Mean Ox Delivery Rate 07/25 0537 60 07/25 0400 94 Ventilator 60% 07/25 0341 60 07/25 0051 60 07/25 0000 97.6 62 20 100/49 94 Ventilator 60% 07/25 0000 94 Ventilator 60% 07/24 2236 60 07/24 Ventilator 60% 07/24 1919 60 07/24 1703 60 07/24 1624 55 07/24 1600 92 Ventilator 55% 07/24 1600 98.8 60 20 110/56 92 Ventilator 55% 07/24 1426 55 07/24 1200 92 Ventilator 55% 07/24 1136 55 07/24 0914 62 105/50 07/24 0835 55 Intake & Output 07/25 1600 07/25 0800 07/25 0000 Intake Total 690 1152 Output Total 1540 500 Balance -850 652 Intake, IV 56 149 Intake, Oral 350 Intake, Other 50 Intake, Tube 334 303 Feeding Intake, Tube 300 300 Irrigant Number 1 0 Bowel Movements Output, Urine 1540 500 Patient 138 lb Weight Weight Bed scale Measurement Method Exam General Appearance: alert, awake, comfortable, intubated Head: atraumatic Neck: normal inspection, supple Respiratory: decreased breath sounds Cardiovascular: regular rate/rhythm Gastrointestinal: normal bowel sounds, soft, non-tender Extremities: no edema, bilateral chronic venous changes, chronic wounds Sepsis Skin Exam (color): Normal for Ethnicity Results Last 24 Hrs of Lab Results: Laboratory Tests 07/25/18 0355: Anion Gap 5, Estimated GFR > 60, Glucose 124 H, Calcium 7.6 L, Phosphorus 4.1, Magnesium 2.1, Total Bilirubin 0.5, AST 64 H, ALT 79 H, Albumin 2.3 L, CBC w Diff NO MAN DIFF REQ, RBC 2.66 L, MCV 86.5, MCH 29.3, MCHC 33.9, RDW 15.1 H, MPV 8.0, Gran % 74.5, Lymphocytes % 9.6 L, Monocytes % 13.3 H, Eosinophils % 2.5, Basophils % 0.1, Absolute Granulocytes 5.3, Absolute Lymphocytes 0.7 L, Absolute Monocytes 1.0 H, Absolute Eosinophils 0.2, Absolute Basophils 0 Impression/Plan Impression/Plan Impression/Plan: 1. Acute respiratory failure secondary to multilobar pneumonia, sputum positive for MRSA. 2. Acute systolic congestive heart failure. 3. Herpes zoster of the pinna and pharynx. 4. Ischemic heart disease with low EF (30%), PAF, and non-ST elevation [place]. 5. History of prior dysphasia with difficulty swallowing and recurrent aspiration, possible underlying esophageal lesion which needs to be excluded once stable. 6. Significant COPD with prior aspiration pneumonitis, and history of chronic respiratory failure. 7. History of rheumatoid arthritis, peripheral vascular disease, multiple ulcers and hypothyroidism. 8. Malnutrition and poor performance status. 9. Decrease in Hgb, without evidence of bleeding, likely delutional and second to venipunctures. 10. Multiple chronic wounds. Recommendations: * Continue to wean oxygen down to 40% if able. Maintain saturations greater than 92%. * Will begin weaning trials if the patient's oxygenation has improved and stabilized. * Continue Lasix for negative fluid balance. Replete potassium levels. * Continue amiodarone, which can be discontinued if the patient is bradycardic. * Antibiotics as per ID -vancomycin, 2 week course to be completed. * Slowly taper fentanyl drip down to off, continue with pain control. * Attempt to minimize sedation. * Continue with wound care and skin monitoring. * Ventilator bundlecontinue DVT and GI prophylaxis at all times. * Continue all supportive care.
--- NOTE | 2018-07-25 08:36 | PN- Housestaff ---
Subjective Follow-up For: Acute hypoxic and hypercapnic respiratory failure requiring intubation secondary to multilobar pneumonia, MRSA.(improving) Otitis externa, sinusitis, right-sided pharyngitis with ulcerative lesion. Acute systolic CHF ejection fraction 30% Rule out ACS, elevated troponin History of paroxysmal AF not on any anticoagulation History of COPD, aspiration pneumonitis and chronic respiratory failure HX rheumatoid arthritis, peripheral vascular disease, multiple ulcers including ulcers on the back, malnutrition. Assessment/Plan Consulting Request: Consulting Specialty: Infectious Disease Consulting Physician: Dr Joe Reason for Consult: Fever/aspiration pneumonia
--- NOTE | 2018-07-25 10:11 | RADIOLOGY REPORT ---
XR PORTABLE CHEST CLINICAL INFORMATION: Endotracheal tube position. COMPARISON: Chest x-ray 07/24/2018. TECHNIQUE: Portable frontal view of the chest was obtained. FINDINGS: Median sternotomy wires. Endotracheal tube tip terminates approximately 7 cm above the yakov. Orogastric tube courses below the diaphragm with the tip projecting over the stomach. Previously seen right IJ central venous catheter is no longer visualized. Left pleural effusion with adjacent dense retrocardiac opacity is slightly progressed. Worsening airspace and interstitial opacities throughout the lungs bilaterally. Possible component of interstitial edema. IMPRESSION: Endotracheal tube tip terminates approximately 8 cm above the yakov. Orogastric tube courses below the diaphragm with the tip projecting over the stomach. Previously seen right IJ central venous catheter is no longer visualized. Worsening left pleural effusion with adjacent airspace disease. Worsening airspace and interstitial opacities throughout the lungs bilaterally. Possible component of interstitial edema. Stable enlargement of the cardiac silhouette. Covering provider has been paged with these findings at 10:06 AM and 07/25/2018.
--- NOTE | 2018-07-25 11:35 | RADIOLOGY REPORT ---
EXAMINATION: XR PORTABLE CHEST CLINICAL INFORMATION: Intubated. COMPARISON: Chest 07/25/2018 at 6:43 AM. TECHNIQUE: Portable frontal view of the chest was obtained. FINDINGS: There is cardiomegaly with a normal pulmonary vascularity. There is moderate haziness in left lung base from underlying effusion/infiltrate or atelectasis. Bilateral interstitial opacities or edema seen throughout both lungs has improved. The endotracheal tube tip lies 5.4 cm above the yakov. Enteric tube is at the GE junction these radiodensities by 5 cm. No central venous catheter is seen. There is cardiomegaly. No gross bony abnormality. IMPRESSION: Enteric tube tip at the GE junction. Advance enteric tube by 5 to 10 cm. Tip of endotracheal tube 5.4 cm above the yakov. Interval significant no change in cardiomegaly, left lower lobe effusion, atelectasis or scarring. Improvement in the bilateral additional opacity or edema from the previous study.
--- NOTE | 2018-07-25 13:09 | PN- Resident CRCU ---
Subjective HPI/CRCU Issues: Acute hypoxic and hypercapnic respiratory failure requiring intubation secondary to multilobar pneumonia, MRSA.(improving) Otitis externa, sinusitis, right-sided pharyngitis with ulcerative lesion. Acute systolic CHF ejection fraction 30% Rule out ACS, elevated troponin History of paroxysmal AF not on any anticoagulation History of COPD, aspiration pneumonitis and chronic respiratory failure Hx of heumatoid arthritis, peripheral vascular disease, multiple ulcers including ulcers on the back, malnutrition. 24 Hour Events: No overnight events, vital signs stable, afebrile, still intubated, on 60% oxygen over night, will have trials for extubation today, patient is awake and responding to verbal stimuli. Objective Vital Signs & I&O Last 8 Hrs of Vitals and I&O: Vital Signs Date Time Temp Pulse Resp B/P B/P Pulse O2 O2 Flow FiO2 Mean Ox Delivery Rate 07/25 1043 50 07/25 0916 62 120/50 07/25 0855 55 07/25 0825 60 07/25 0537 60 07/25 0400 94 Ventilator 60% 07/25 0341 60 07/25 0051 60 07/25 0000 97.6 62 20 100/49 94 Ventilator 60% 07/25 0000 94 Ventilator 60% 07/24 2236 60 07/24 2000 93 Ventilator 60% 07/24 1919 60 07/24 1703 60 07/24 1624 55 07/24 1600 92 Ventilator 55% 07/24 1600 98.8 60 20 110/56 92 Ventilator 55% 07/24 1426 55 Intake & Output 07/25 1600 07/25 0800 07/25 0000 Intake Total 690 1152 Output Total 1540 500 Balance -850 652 Intake, IV 56 149 Intake, Oral 350 Intake, Other 50 Intake, Tube 334 303 Feeding Intake, Tube 300 300 Irrigant Number 1 0 Bowel Movements Output, Urine 1540 500 Patient 138 lb Weight Weight Bed scale Measurement Method Exam General Appearance: alert, awake, comfortable, intubated Head: atraumatic Neck: normal inspection, supple Respiratory: decreased breath sounds Cardiovascular: regular rate/rhythm Gastrointestinal: normal bowel sounds, soft, non-tender Extremities: no edema, bilateral chronic venous changes, chronic wounds Sepsis Skin Exam (color): Normal for Ethnicity Weaning Parameters NIF: 23 Minute Volume: 5.21 Resp rate: 35 Vt: 150 Heart Rate: 66 Weaning Schedule Start Time: 1999 Minute Volume: 7.58 Resp Rate: 22 Vt: 340 Heart Rate: 68 Current Medications: Current Medications Sig/Jamie Start time Last Medication Dose Route Stop Time Status Admin Acetaminophen 1,000 MG BID PRN 07/17 1930 AC 07/19 IV 0415 Acyclovir 500 MG 1000,1800,0200 07/20 1800 DC 07/25 Dextrose/Water 100 ML IV 1040 Albuterol Sulfate 3 ML Q4P PRN 07/17 1945 AC INH Amiodarone HCl 100 MG DAILY 07/21 2315 AC 07/25 PO 0916 Aspirin 162 MG DAILY 07/21 0900 AC 07/25 PO 0917 Atorvastatin Calcium 80 MG DAILY 07/18 0900 AC 07/25 PO 0916 Budesonide/ 2 PUF BID 07/17 2100 AC 07/25 Formoterol Fumarate INH 0830 Ezetimibe 10 MG DAILY 07/18 09 AC 07/25 PO 0916 Fentanyl Citrate 1,000 MCG Q24H 07/20 0100 AC 07/24 Dextrose/Water 250 ML IV 0800 Furosemide 20 MG BID 07/22 1138 AC 07/25 IV 0916 Heparin Sodium 5,000 UNIT Q8 07/23 1400 AC 07/25 (Porcine) SC 0556 Ipratropium [place] 2.5 ML Q4P PRN 07/20 1545 AC INH Levothyroxine Sodium 0.088 MG DAILY AC 07/21 0700 AC 07/25 PO 0556 Neomycin/Polymyxin/ 4 GTT TID 07/20 2100 AC 07/25 Bacitr/Hydrocort OTIC 0917 Pantoprazole Sodium 40 MG DAILY 07/20 1209 AC 07/25 IV 0916 Potassium Chloride 40 MEQ DAILY 07/23 0900 AC 07/25 PO 0916 Senna 187 MG AT BEDTIME 07/24 2100 AC 07/24 PO 2144 Vancomycin HCl 1,000 MG Q24H 07/22 1200 AC 07/25 Sodium Chloride 250 ML IV 1227 Impression/Plan Impression/Problem List Impression: 73 YO M with PMH of HTN, HLD, COPD (not on any home oxygen), paroxysmal atrial fibrillation not on any AC due to fall risk, hypothyroidism, CAD s/p quadruple bypass in 2001, 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 He was known to be in his usual state of health until a few days prior to presentation. Recurrent fever with increasing WBC and worsening respiratory status, requiring intubation overnight, now on Zosyn after several days of various antibiotics, including Ceftriaxone, Azithromycin, Doxycycline, Unasyn and Vancomycin for what appears to be a multilobar community -acquired pneumonia of acute onset. Following the patient in ICU for following problems: Acute hypoxic and hypercapnic respiratory failure: -Possibly due to community-acquired pneumonia and aspiration pneumonia, MRSA and acute and chronic systolic CHF. -Possible sepsis as patient meeting SIRS criteria, WBC count 17.1, temperature 103.2 and on imaging study patient has a multilobar pneumonia. Although his lactic acid and remained negative. -Could be due to aspiration pneumonia that causing multiple lobe opacities. -Continue vancomycin 1gm, day 4 Total antibiotic D 8. -Continue intubation with settings of respiratory rate 20, tidal volume 450, peak flow 65, PEEP 5 and percentage oxygen 60%. Continue trials to wean him off the ventilator -Try to taper down fentanyl drip -Ativan when necessary -sputum culture is positive with MRSA. -Blood cultures remain negative so far. -TRC nebulization as needed -Continue iv ppi. Hypotension:(improved) -Possibly due to hypovolemia, less likely due to sepsis as his lactic acid remained negative. -His slowest blood pressure was 98/50. Central venous line was maintained and patient was given IV fluids and Levophed. Blood pressure is normal off pressors Otitis externa and pharyngitis: -Patient is otitis externa and sinusitis with right sided pharyngitis with ulcerative region. 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 -Viral PCR is pending. -Continue Corticosporin ointment. -Acyclovir was discontinued this morning -ENT recommendations appreciate. Acute systolic CHF: -Patient has ejection fraction 30%. Contributing to his respiratory failure. -On imaging study patient had pulmonary congestion. His BNP was 574 -IV Lasix 20 mg twice a day. -Follow cardiology recommendations -Daily potassium supplementation 40 mEq. (Potassium was normal this morning) Elevated troponin: -Initially patient's troponin was normal but now his trop was last night 0.13--> 0.45-->0.53 -Possibly due to NSTEMI considering wall motion abnormality on echo and elevated trops. -IV heparin was discontinued as recommended by cardiology considering drop in H& H. -His Doppler studies negative for DVT. -Trops were trended -Follow up cardiology recommendations Hypophosphatemia:(resolved) -Possibly due to low intake of excessive excretion to kidney. -Repeating phosphate through tube feeds. -Today his phosphate level is normal History of atrial fibrillation: -Not any anticoagulation -Continue amiodarone 100 mg daily History of hypothyroidism: -Continue levothyroxine to 0.088 mg daily. History of CAD status post CABG: -Continue aspirin to 162 mg daily. -Hold his carvedilol due to low blood pressure History of hyperlipidemia and hypertension: -Continue atorvastatin and ezetimibe. -Holding his amlodipine due to low blood pressure. Chronic wounds; -On right knuckle, left buttock and weaping wounds on legs were present on admission. -Getting dressing everyday. Diet: -Continue tube feeds. DVT prophylaxis: Mechanical and s/c heparin CODE STATUS: Full code Problem List: 1. Acute respiratory failure with hypoxia 2. Otitis externa 3. ACS (acute coronary syndrome) 4. Open wound Pain Ratin Tomorrow's Labs & Rationales: cbc icu bundle Plan DVT/Prophylaxis: mechanical, pharmacological
[2018-07-25 16:00] VITALS: BP 124/60
[2018-07-26] VITALS: BP 103/48
[2018-07-26 06:02] LABS: ABSOLUTE BASOPHIL COUNT 0 /CUMM (0.0-0.2); ABSOLUTE EOSINOPHIL COUNT 0.2 /CUMM (0.0-0.7); ABSOLUTE LYMPH COUNT 0.5 /CUMM (1.2-3.4); ABSOLUTE MONOCYTE COUNT 0.9 /CUMM (0.10-0.60); BASOPHIL % 0.2 % (0.0-2.0); EOSINOPHIL % 1.9 % (0-5); GRANULOCYTE % 82.2 % (42.2-75.2); HEMATOCRIT 24.2 % (42-52); MEAN CORPUSCULAR HGB 28.9 PG (27.0-31.0); MEAN CORPUSCULAR HGB CONC 33.7 G/DL (33.0-37.0); MEAN CORPUSCULAR VOLUME 85.7 FL (80.0-94.0); MEAN PLATELET VOLUME 7.4 FL (7.4-10.4); PLATELET COUNT 248 /CUMM (130-400); RBC DISTRIBUTION WIDTH 15.1 % (11.5-14.5); RED BLOOD CELL CT 2.82 /CUMM (4.70-6.10); WHITE BLOOD CELL COUNT 8.5 /CUMM (4.8-10.8)
--- NOTE | 2018-07-26 07:12 | PN- CRCU ---
Subjective HPI/Critical Care Issues: The patient remains intubated, on sedation but is awake and alert. He continues to have significant oxygen desaturations. His oxygen requirement continues to fluctuate noting he is down to 50%. The patient is hemodynamically stable. He is afebrile. He appears comfortable and offering no complaints. Objective Current Medications: Current Medications Sig/Jamie Start time Last Medication Dose Route Stop Time Status Admin Acetaminophen 1,000 MG BID PRN 07/17 1930 AC 07/19 IV 0415 Acyclovir 500 MG 1000,1800,0200 07/20 1800 DC 07/25 Dextrose/Water 100 ML IV 1040 Albuterol Sulfate 3 ML Q4P PRN 07/17 1945 AC INH Amiodarone HCl 100 MG DAILY 07/21 2315 AC 07/25 PO 0916 Aspirin 162 MG DAILY 07/21 09 AC 07/25 PO 0917 Atorvastatin Calcium 80 MG DAILY 07/18 09 AC 07/25 PO 0916 Budesonide/ 2 PUF BID 07/17 2100 AC 07/25 Formoterol Fumarate INH 2224 Ezetimibe 10 MG DAILY 07/18 09 AC 07/25 PO 0916 Fentanyl Citrate 1,000 MCG Q24H 07/20 0100 AC 07/25 Dextrose/Water 250 ML IV 2103 Furosemide 20 MG BID 07/22 1138 AC 07/25 IV 2045 Heparin Sodium 5,000 UNIT Q8 07/23 1400 AC 07/26 (Porcine) SC 0610 Ipratropium [place] 2.5 ML Q4P PRN 07/20 1545 AC INH Levothyroxine Sodium 0.088 MG DAILY AC 07/21 0700 AC 07/26 PO 0610 Neomycin/Polymyxin/ 4 GTT TID 07/20 2100 AC 07/25 Bacitr/Hydrocort OTIC 2043 Pantoprazole Sodium 40 MG DAILY 07/20 1209 AC 07/25 IV 0916 Potassium Chloride 40 MEQ DAILY 07/23 0900 AC 07/25 PO 0916 Senna 187 MG AT BEDTIME 07/24 2100 AC 07/25 PO 2045 Vancomycin HCl 1,000 MG Q24H 07/22 1200 AC 07/25 Sodium Chloride 250 ML IV 1227 Vital Signs & I&O Last 24 Hrs of Vitals and I&O: Vital Signs Date Time Temp Pulse Resp B/P B/P Pulse O2 O2 Flow FiO2 Mean Ox Delivery Rate 07/26 0615 50 07/26 0325 50 07/26 0103 50 07/26 0000 61.0 61 20 103/48 93 Ventilator 50% 07/26 0000 97 Ventilator 50% 07/25 2212 50 07/25 2000 50 07/25 2000 92 Ventilator 50% 07/25 1640 40 07/25 1600 90 Ventilator 40% 07/25 1600 98.4 58 18 124/60 90 Ventilator 40% 07/25 1348 40 07/25 1200 93 Ventilator 50% 07/25 1043 50 07/25 0916 62 120/50 07/25 0855 55 / 0825 60 07/25 0800 95 Ventilator 60% 07/25 0800 97.4 62 20 120/50 95 Ventilator 60% Intake & Output 07/26 0800 07/26 0000 07/25 1600 Intake Total 713 570 822 Output Total 365 262 2512 Balance 213 -230 -378 Intake, IV 47 51 402 Intake, Other Intake, Tube 308 269 320 Feeding Intake, Tube 358 250 100 Irrigant Number 0 0 Bowel Movements Output, Urine 017 796 1595 Exam General Appearance: alert, awake, comfortable, intubated Head: atraumatic Neck: normal inspection, supple Respiratory: decreased breath sounds Cardiovascular: regular rate/rhythm Gastrointestinal: normal bowel sounds, soft, non-tender Extremities: no edema, bilateral chronic venous changes, chronic wounds Sepsis Skin Exam (color): Normal for Ethnicity Results Last 24 Hrs of Lab Results: Laboratory Tests 07/26/18 0550: Anion Gap 7, Estimated GFR > 60, Glucose 130 H, Calcium 7.8 L, Phosphorus 4.2, Magnesium 2.2, Total Bilirubin 0.5, AST 73 H, ALT 86 H, Albumin 2.5 L, CBC w Diff NO MAN DIFF REQ, RBC 2.82 L, MCV 85.7, MCH 28.9, MCHC 33.7, RDW 15.1 H, MPV 7.4, Gran % 82.2 H, Lymphocytes % 5.4 L, Monocytes % 10.3 H, Eosinophils % 1.9, Basophils % 0.2, Absolute Granulocytes 7.0 H, Absolute Lymphocytes 0.5 L, Absolute Monocytes 0.9 H, Absolute Eosinophils 0.2, Absolute Basophils 0 Diagnostic Data CXR Findings: Pending. Impression/Plan Impression/Plan Impression/Plan: 1. Acute respiratory failure secondary to multilobar pneumonia, sputum positive for MRSA. 2. Acute systolic congestive heart failure. 3. Otitis externa and pharyngitis. 4. Ischemic heart disease with low EF (30%), PAF, and non-ST elevation [place]. 5. History of prior dysphasia with recurrent aspiration, possible underlying esophageal lesion? 6. Significant COPD with prior aspiration pneumonitis, and history of chronic respiratory failure. 7. History of rheumatoid arthritis, peripheral vascular disease, multiple ulcers and hypothyroidism. 8. Malnutrition and poor performance status. 9. Decrease in Hgb, without evidence of bleeding, likely delutional and second to venipunctures. 10. Multiple chronic wounds. 11. Malnutrition, on tube feeds. 12. Hypothyroidism, on levothyroxine. Recommendations: * Continue to wean oxygen down if able. Maintain saturations greater than 92%. * Weaning trials as tolerated. * Continue Lasix for negative fluid balance. * Monitor electrolytes and replete as necessary. * Continue amiodarone, which can be discontinued if the patient is bradycardic. * Antibiotics as per ID -vancomycin, 2 week course to be completed. * Slowly taper fentanyl drip down to off if able. * Can give IV Tylenol for pain PRN. * Attempt to minimize sedation. * Continue with wound care and skin monitoring. * Continue tube feeds and bowel regimen. Avoid constipation. * Ventilator bundlecontinue DVT and GI prophylaxis at all times. * Continue all supportive care.
[2018-07-26 08:00] VITALS: BP 118/50
--- NOTE | 2018-07-26 08:04 | PN- Infect Dx ---
Subjective Subjective: Afebrile without complaints Objective Last 24 Hrs of Vital Signs/I&O Vital Signs Date Time Temp Pulse Resp B/P B/P Pulse O2 O2 Flow FiO2 Mean Ox Delivery Rate 07/26 0615 50 07/26 0400 93 Ventilator 50% 07/26 0325 50 07/26 0103 50 07/26 0000 61.0 61 20 103/48 93 Ventilator 50% 07/26 0000 97 Ventilator 50% 07/25 2212 50 07/25 2000 50 07/25 2000 92 Ventilator 50% 07/25 1640 40 07/25 1600 90 Ventilator 40% 07/25 1600 98.4 58 18 124/60 90 Ventilator 40% 07/25 1348 40 07/25 1200 93 Ventilator 50% 07/25 1043 50 07/25 0916 62 120/50 07/25 0855 55 07/25 0825 60 07/25 0800 95 Ventilator 60% 07/25 0800 97.4 62 20 120/50 95 Ventilator 60% Intake & Output 07/26 0800 07/26 0000 07/25 1600 Intake Total 713 570 822 Output Total 264 095 7929 Balance 213 -230 -378 Intake, IV 47 51 402 Intake, Other Intake, Tube 308 269 320 Feeding Intake, Tube 358 250 100 Irrigant Number 0 0 Bowel Movements Output, Urine [phone] Physical Exam Other Physical Findings: He appears comfortable, in no acute distress, on the ventilator Lungs scattered rhonchi Heart regular rhythm with no murmur Abdomen is soft, nontender with positive bowel sounds Extremities no cyanosis, clubbing or edema Stout catheter remains in place Results Last 24 Hours of Lab Results: Laboratory Tests 07/26 0550 Chemistry Sodium (137 - 145 mmol/L) 129 L Potassium (3.5 - 5.1 mmol/L) 4.0 Chloride (98 - 107 mmol/L) 93 L Carbon Dioxide (22 - 30 mmol/L) 29 Anion Gap (5 - 16) 7 BUN (9 - 20 mg/dL) 21 H Creatinine (0.7 - 1.2 mg/dL) 0.6 L Estimated GFR (>60 ml/min) > 60 Glucose (65 - 99 mg/dL) 130 H Calcium (8.4 - 10.2 mg/dL) 7.8 L Phosphorus (2.5 - 4.5 mg/dL) 4.2 Magnesium (1.6 - 2.3 mg/dL) 2.2 Total Bilirubin (0.2 - 1.3 mg/dL) 0.5 AST (17 - 59 U/L) 73 H ALT (21 - 72 U/L) 86 H Albumin (3.5 - 5.0 g/dL) 2.5 L Hematology CBC w Diff NO MAN DIFF REQ WBC (4.8 - 10.8 /CUMM) 8.5 RBC (4.70 - 6.10 /CUMM) 2.82 L Hgb (14.0 - 18.0 G/DL) 8.1 L Hct (42 - 52 %) 24.2 L MCV (80.0 - 94.0 FL) 85.7 MCH (27.0 - 31.0 PG) 28.9 MCHC (33.0 - 37.0 G/DL) 33.7 RDW (11.5 - 14.5 %) 15.1 H Plt Count (130 - 400 /CUMM) 248 MPV (7.4 - 10.4 FL) 7.4 Gran % (42.2 - 75.2 %) 82.2 H Lymphocytes % (20.5 - 51.1 %) 5.4 L Monocytes % (1.7 - 9.3 %) 10.3 H Eosinophils % (0 - 5 %) 1.9 Basophils % (0.0 - 2.0 %) 0.2 Absolute Granulocytes (1.4 - 6.5 /CUMM) 7.0 H Absolute Lymphocytes (1.2 - 3.4 /CUMM) 0.5 L Absolute Monocytes (0.10 - 0.60 /CUMM) 0.9 H Absolute Eosinophils (0.0 - 0.7 /CUMM) 0.2 Absolute Basophils (0.0 - 0.2 /CUMM) 0 Last 24 Hours of Shen Results: No recent cultures Recent Imaging Studies: Chest x-ray reveals increased bilateral densities compared to the previous film Assessment/Plan ID Impression: Ongoing respiratory failure, though with some improvement in his oxygen requirements, with his temperatures and white blood cell count remaining normal on Vancomycin, Day 5 of treatment for multilobar MRSA pneumonia, presumably secondary to aspiration. His worsening chest x-ray may be positional or secondary to fluid overload, though he has diuresed to some extent over the last several days. Suggestion: 1. Further management of his fluid status per ICU team 2. Vancomycin trough level with his next dose 3. Continue Vancomycin
--- NOTE | 2018-07-26 08:22 | PN- Resident CRCU ---
Subjective HPI/CRCU Issues: Acute hypoxic and hypercapnic respiratory failure requiring intubation secondary to multilobar pneumonia, MRSA.(improving) Otitis externa, sinusitis, right-sided pharyngitis with ulcerative lesion. Acute systolic CHF ejection fraction 30% Rule out ACS, elevated troponin History of paroxysmal AF not on any anticoagulation History of COPD, aspiration pneumonitis and chronic respiratory failure Hx of heumatoid arthritis, peripheral vascular disease, multiple ulcers including ulcers on the back, malnutrition. 24 Hour Events: No overnight events. Patient remained afebrile overnight. Seen and examined this morning. Patient keep desaturating that's why he was not extubated. He is on 50% oxygen. He remained intubated and maintaining saturation 93%. He is responding to verbal command. Objective Vital Signs & I&O Last 8 Hrs of Vitals and I&O: Intake & Output 07/26 1600 07/26 0800 07/26 0000 Intake Total 904 713 570 Output Total 1000 500 800 Balance -96 213 -230 Intake, IV 398 47 51 Intake, Other Intake, Tube 306 308 269 Feeding Intake, Tube 200 358 250 Irrigant Number 0 0 Bowel Movements Output, Urine 1000 500 800 Laboratory Tests 07/26 0550 Chemistry Sodium (137 - 145 mmol/L) 129 L Potassium (3.5 - 5.1 mmol/L) 4.0 Chloride (98 - 107 mmol/L) 93 L Carbon Dioxide (22 - 30 mmol/L) 29 Anion Gap (5 - 16) 7 BUN (9 - 20 mg/dL) 21 H Creatinine (0.7 - 1.2 mg/dL) 0.6 L Estimated GFR (>60 ml/min) > 60 Glucose (65 - 99 mg/dL) 130 H Calcium (8.4 - 10.2 mg/dL) 7.8 L Phosphorus (2.5 - 4.5 mg/dL) 4.2 Magnesium (1.6 - 2.3 mg/dL) 2.2 Total Bilirubin (0.2 - 1.3 mg/dL) 0.5 AST (17 - 59 U/L) 73 H ALT (21 - 72 U/L) 86 H Albumin (3.5 - 5.0 g/dL) 2.5 L Hematology CBC w Diff NO MAN DIFF REQ WBC (4.8 - 10.8 /CUMM) 8.5 RBC (4.70 - 6.10 /CUMM) 2.82 L Hgb (14.0 - 18.0 G/DL) 8.1 L Hct (42 - 52 %) 24.2 L MCV (80.0 - 94.0 FL) 85.7 MCH (27.0 - 31.0 PG) 28.9 MCHC (33.0 - 37.0 G/DL) 33.7 RDW (11.5 - 14.5 %) 15.1 H Plt Count (130 - 400 /CUMM) 248 MPV (7.4 - 10.4 FL) 7.4 Gran % (42.2 - 75.2 %) 82.2 H Lymphocytes % (20.5 - 51.1 %) 5.4 L Monocytes % (1.7 - 9.3 %) 10.3 H Eosinophils % (0 - 5 %) 1.9 Basophils % (0.0 - 2.0 %) 0.2 Absolute Granulocytes (1.4 - 6.5 /CUMM) 7.0 H Absolute Lymphocytes (1.2 - 3.4 /CUMM) 0.5 L Absolute Monocytes (0.10 - 0.60 /CUMM) 0.9 H Absolute Eosinophils (0.0 - 0.7 /CUMM) 0.2 Absolute Basophils (0.0 - 0.2 /CUMM) 0 Intake & Output 07/26 1600 Intake Total 904 Output Total 1000 Balance -96 Intake, IV 398 Intake, Tube 306 Feeding Intake, Tube 200 Irrigant Output, Urine 1000 Exam General Appearance: no apparent distress, alert, awake Head: atraumatic Neck: normal inspection, supple Respiratory: normal breath sounds, chest non-tender Cardiovascular: regular rate/rhythm Gastrointestinal: soft, non-tender Extremities: no edema, b/l leg chronic wounds, right thumb chronic wound Skin Temp/Moisture Exam: Warm/Dry Sepsis Skin Exam (color): Normal for Ethnicity Weaning Parameters NIF: 23 Minute Volume: 5.21 Resp rate: 35 Vt: 150 Heart Rate: 66 Weaning Schedule Start Time: 2000 Minute Volume: 7.58 Resp Rate: 22 Vt: 340 Heart Rate: 68 Current Medications: Current Medications Sig/Jamie Start time Last Medication Dose Route Stop Time Status Admin Acetaminophen 1,000 MG ONCE ONE 07/26 0945 DC 07/26 N/A 1 UNIT IV 07/26 0959 1003 Acetaminophen 1,000 MG BID PRN 07/17 1930 AC 07/19 IV 0415 Albuterol Sulfate 3 ML Q4P PRN 07/17 1945 AC INH Amiodarone HCl 100 MG DAILY 07/21 2315 AC 07/26 PO 0845 Aspirin 162 MG DAILY 07/21 0900 AC 07/26 PO 0845 Atorvastatin Calcium 80 MG DAILY 07/18 0900 AC 07/26 PO 0844 Budesonide/ 2 PUF BID 07/17 2100 AC 07/26 Formoterol Fumarate INH 0902 Ezetimibe 10 MG DAILY 07/18 0900 AC 07/26 PO 0844 Fentanyl Citrate 1,000 MCG Q24H 07/20 0100 AC 07/25 Dextrose/Water 250 ML IV 2103 Furosemide 20 MG BID 07/22 1138 AC 07/26 IV 0844 Heparin Sodium 5,000 UNIT Q8 07/23 1400 AC 07/26 (Porcine) SC 1408 Ipratropium [place] 2.5 ML Q4P PRN 07/20 1545 AC INH Levothyroxine Sodium 0.088 MG DAILY AC 07/21 0700 AC 07/26 PO 0610 Neomycin/Polymyxin/ 4 GTT TID 07/20 2100 AC 07/26 Bacitr/Hydrocort OTIC 1405 Pantoprazole Sodium 40 MG DAILY 07/20 1209 AC 07/26 IV 0844 Potassium Chloride 40 MEQ DAILY 07/23 0900 AC 07/26 PO 0844 Senna 187 MG AT BEDTIME 07/24 2100 AC 07/25 PO 2045 Vancomycin HCl 1,000 MG Q24H 07/22 1200 AC 07/26 Sodium Chloride 250 ML IV 1227 Impression/Plan Impression/Problem List Impression: 73 YO M with PMH of HTN, HLD, COPD (not on any home oxygen), paroxysmal atrial fibrillation not on any AC due to fall risk, hypothyroidism, CAD s/p quadruple bypass in 2001, 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 He was known to be in his usual state of health until a few days prior to presentation. Recurrent fever with increasing WBC and worsening respiratory status, requiring intubation overnight, now on Zosyn after several days of various antibiotics, including Ceftriaxone, Azithromycin, Doxycycline, Unasyn and Vancomycin for what appears to be a multilobar community -acquired pneumonia of acute onset. Following the patient in ICU for following problems: Acute hypoxic and hypercapnic respiratory failure: -Possibly due to community-acquired pneumonia and aspiration pneumonia, MRSA and acute and chronic systolic CHF. -Possible sepsis as patient meeting SIRS criteria, WBC count 17.1, temperature 103.2 and on imaging study patient has a multilobar pneumonia. Although his lactic acid and remained negative. -Could be due to aspiration pneumonia that causing multiple lobe opacities. -Continue vancomycin 1gm, day 5 Total antibiotic D 9. Vanco trough before next dose. -Continue intubation with settings of respiratory rate 20, tidal volume 450, peak flow 65, PEEP 5 and percentage oxygen 50%. -Continue fentanyl drip @ 25 g/h with slow taper -Ativan when necessary -sputum culture is positive with MRSA. -Blood cultures remain negative so far. -TRC nebulization as needed -Continue iv ppi. Hypotension:(improved) -Possibly due to hypovolemia, less likely due to sepsis as his lactic acid remained negative. -His slowest blood pressure was 98/50. Central venous line was maintained and patient was given IV fluids and Levophed. -This morning his blood pressure was 103/48 -Off levophed. day 7 -We will remove his triple lumen today. Otitis externa and pharyngitis: -Patient is otitis externa and sinusitis with right sided pharyngitis with ulcerative region. -Possibly due to zoster infection, Coolin lópez syndrome. -Viral PCR is pending. -Continue Corticosporin ointment. -Continued acyclovir IV 500 mg yesterday, completed 7 days course. -ENT recommendations appreciate. Acute systolic CHF: -Patient has ejection fraction 30%. Contributing to his respiratory failure. -On imaging study patient had pulmonary congestion. His BNP was 574 -IV Lasix 20 mg twice a day. Day 5 -Follow cardiology recommendations -Daily potassium supplementation 40 mEq. Day 5 Elevated troponin: -Initially patient's troponin was normal but now his trop was last night 0.13--> 0.45-->0.53 -Possibly due to NSTEMI considering wall motion abnormality on echo and elevated trops. -IV heparin was discontinued as recommended by cardiology considering drop in H& H. -His Doppler studies negative for DVT. -Trops were trended -Follow up cardiology recommendations Hypophosphatemia:(resolved) -Possibly due to low intake of excessive excretion to kidney. -Repeating phosphate through tube feeds. -Today his phosphate level is 4.2 History of atrial fibrillation: -Not any anticoagulation -Amiodarone was resumed with low-dose 100 mg daily. History of hypothyroidism: -Continue levothyroxine to 0.088 mg daily. History of CAD status post CABG: -Continue aspirin to 162 mg daily. -Hold his carvedilol due to low blood pressure History of hyperlipidemia and hypertension: -Continue atorvastatin and ezetimibe. -Holding his amlodipine due to low blood pressure. Chronic wounds; -On right knuckle, left buttock and weaping wounds on legs were present on admission. -Getting dressing everyday. Diet: -Continue tube feeds increased rate to 50ml/h. DVT prophylaxis: Mechanical and s/c heparin CODE STATUS: Full code Problem List: 1. Chronic wound of extremity 2. Aspiration pneumonia 3. ACS (acute coronary syndrome) 4. Acute respiratory failure with hypoxia 5. Otitis externa Pain Ratin Pain Location: nonw Pain Plan: pain pathway Tomorrow's Labs & Rationales: cbc/icu bundle Plan DVT/Prophylaxis: mechanical, pharmacological
--- NOTE | 2018-07-26 13:55 | RADIOLOGY REPORT ---
EXAMINATION: XR PORTABLE CHEST CLINICAL INFORMATION: Intubated patient COMPARISON: Multiple priors, most recent dated 07/25/2018. TECHNIQUE: Portable frontal view of the chest was obtained. FINDINGS: Study is limited by patient positioning. The right hemithorax is partly imaged. Endotracheal tube terminates approximately 4.5 cm above the yakov. The course of the enteric tube is not well visualized. Sternotomy wires and abandoned pacemaker leads are again seen. Unchanged enlarged cardiac silhouette. The lungs are hypoinflated. There is mild central interstitial prominence which may be accentuated by low lung volumes. Unchanged dense left basilar opacity and blunting of the costophrenic angle. Osseous detail is limited. There is partially imaged cervical fusion hardware. IMPRESSION: Endotracheal tube is approximately 4.5 cm above the yakov. Enteric tube is not well visualized. Lungs are hypoexpanded. Unchanged left basilar opacity likely representing pleural fluid and associated airspace disease. Limited examination due to patient positioning.
[2018-07-26 16:00] VITALS: BP 112/50
--- NOTE | 2018-07-26 16:55 | Transfer of Care Summary ---
Hospital Course Course Hospital Course: Reason of ICU admission: Patient was transferred from telemetry floor being treated for pneumonia to ICU when he was found to have acute hypoxic and hypercapnic respiratory failure in the setting of pneumonia and acute systolic heart failure requiring BiPAP and then intubated. 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 He was known to be in his usual state of health until a few days prior to presentation. Recurrent fever with increasing WBC and worsening respiratory status, requiring intubation overnight, now on Zosyn after several days of various antibiotics, including Ceftriaxone, Azithromycin, Doxycycline, Unasyn and Vancomycin for what appears to be a multilobar community-acquired pneumonia of acute onset. Interval events in ICU: Patient was transferred to ICU with acute hypoxic and hypercapnic respiratory failure in the setting of pneumonia and acute systolic heart failure. Initially patient was on BiPAP but later on his respiratory status deteriorated. He was not able to maintain his airway also he had work up breathing that's why he was intubated. Today is DAY 8 status post intubation as he was intubated on 2017. Patient was kept on fentanyl and Ativan when necessary. Patient didn't require much ativan. His fentanyl drip was continued with tapering dose. At this point patient is on 25 g per hour fentanyl drip. Patient remained intubated as he required more oxygen and desaturates while weaning trials. His oxygen requirement is decreasing today (07/27/18) he is on 40%. Patient was extubated today (07/27/18) on high flow oxygen 40% maintaining saturation 92%. Initially patient was hypotensive, his lowest blood pressure was 98/50. Less likely due to sepsis. Possibly due to hypovolemia and in the setting of low cardiac output. Central line was placed in the right IJ and patient was requiring Levophed. After patient was hemodynamically stabilized his leave of it was discontinued next day. Patient had elevated troponin in the setting of wall motion abnormality on echocardiogram due to NSTEMI. Patient was given IV heparin for more than 3 days but later on discontinued considering his drop in H &H. All the patient's stool guaiac remained negative and there was no obvious bleeding. Echocardiogram was done and it showed ejection fraction 30% with full motion abnormality. Later on as his blood pressure was stabilized he was started on IV Lasix 20 mg twice a day and he was given supplemental potassium everyday 40 mEq. His Doppler studies remained negative for any DVTs. Initially his amiodarone was discontinued as he had low blood pressure. Later on 100 mg amiodarone was continued daily but patient's home dose was 200 mg. His aspirin was continued but we are holding his carvedilol due to borderline blood pressure and low heart rate. Continue his vancomycin as his sputum culture was showing MRSA. Today is day 6 of vancomycin and he needs 2 weeks of antibiotics. Patient completed 7 days course of acyclovir as there was concern of herpes zoster. His right ear lesions due to herpes her getting better. Mechanical ventilation: Still remained intubated as having difficulty in weaning off from ventilator in the setting of the saturation and requiring more oxygen. Patient was extubated today on high flow oxygen 40% and maintaining saturation 92%. NIPPV: Patient was using CPAP for BILL at home. Antibiotic plan: Continue vancomycin IV for at least 2 weeks. Follow-up with ID for further recommendations. Catheters and lines plan: Patient is on tube feeding. Holding his tube feed today for right upper quadrant ultrasound today. Continuing his Stout's catheter has we are monitoring his input and output. We will consider discontinuing Stout's catheter as soon as possible if we don't require any IOP. Things to follow up on floor: -Please follow up with vancomycin trough tomorrow at 11:30 AM before vancomycin dose. -Please consider discontinuing his Stout's catheter if we don't require any further IOP. -Follow-up with ID for antibiotic recommendations. -Amiodarone can be DC'd if he becomes bradycardic. -Follow-up cardiology for further recommendations for his cardiac medications. -Follow-up nutrition recommendations for tube feeds. Nutrition: Tube feeding. DVT prophylaxis: Mechanical and subcutaneous heparin CODE STATUS: Full code Assessment/Plan: Acute hypoxic and hypercapnic respiratory failure: -Possibly due to community-acquired pneumonia and aspiration pneumonia, MRSA and acute and chronic systolic CHF. -Possible sepsis as patient meeting SIRS criteria, WBC count 17.1, temperature 103.2 and on imaging study patient has a multilobar pneumonia. Although his lactic acid and remained negative. -Could be due to aspiration pneumonia that causing multiple lobe opacities. -Continue vancomycin 1gm, day 6 Total antibiotic D 10. Vanco trough before next dose pending. -Continue intubation with settings of respiratory rate 20, tidal volume 450, peak flow 65, PEEP 5 and percentage oxygen 45%. -Try to wean him off today if possible on high flow. -Continue fentanyl drip @ 25 g/h with slow taper -Ativan when necessary -sputum culture is positive with MRSA. -Negative blood cultures. -TRC nebulization as needed -Continue iv ppi. Hypotension:(improved) -Possibly due to hypovolemia, less likely due to sepsis as his lactic acid remained negative. -His slowest blood pressure was 98/50. Central venous line was maintained and patient was given IV fluids and Levophed. -This morning his blood pressure was 116/50 -Off levophed. day 8 -IOP 2291/2300 Otitis externa and pharyngitis: -Patient is otitis externa and sinusitis with right sided pharyngitis with ulcerative region. 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 -Viral PCR is pending. -Continue Corticosporin ointment. -completed acyclovir course. -ENT recommendations appreciate. Acute systolic CHF: -Patient has ejection fraction 30%. Contributing to his respiratory failure. -On imaging study patient had pulmonary congestion. His BNP was 574 -IV Lasix 20 mg twice a day. Day 6 -Follow cardiology recommendations -Daily potassium supplementation 40 mEq. Day 6 Elevated troponin: -Initially patient's troponin was normal but now his trop was last night 0.13--> 0.45-->0.53 -Possibly due to NSTEMI considering wall motion abnormality on echo and elevated trops. -IV heparin was discontinued as recommended by cardiology considering drop in H& H. -His Doppler studies negative for DVT. -Trops were trended -Follow up cardiology recommendations Hypophosphatemia:(resolved) -Possibly due to low intake of excessive excretion to kidney. -Repeating phosphate through tube feeds. -Today his phosphate level is 4.0 Abdominal pain: -Reported upper abdominal pain this morning. -Follow up USG abdomen to rule out acaculous cholecystitis. -Holding his tube feeds. History of atrial fibrillation: -Not any anticoagulation -Amiodarone was resumed with low-dose 100 mg daily. History of hypothyroidism: -Continue levothyroxine to 0.088 mg daily. History of CAD status post CABG: -Continue aspirin to 162 mg daily. -Hold his carvedilol due to low blood pressure History of hyperlipidemia and hypertension: -Continue atorvastatin and ezetimibe. -Holding his amlodipine due to low blood pressure. Chronic wounds; -On right knuckle, left buttock and weaping wounds on legs were present on admission. -Getting dressing everyday. Diet: -Continue tube feeds increased rate to 50ml/h. -Holding his tube feeds as c/o abdominal pain. DVT prophylaxis: Mechanical and s/c heparin CODE STATUS: Full code Full code
[2018-07-26 23:00] VITALS: BP 116/50
[2018-07-27 05:15] LABS: ABSOLUTE BASOPHIL COUNT 0 /CUMM (0.0-0.2); ABSOLUTE EOSINOPHIL COUNT 0.2 /CUMM (0.0-0.7); ABSOLUTE GRANULOCYTE CT 7.4 /CUMM (1.4-6.5); ABSOLUTE LYMPH COUNT 0.7 /CUMM (1.2-3.4); BASOPHIL % 0.1 % (0.0-2.0); EOSINOPHIL % 2.1 % (0-5); HEMATOCRIT 24.3 % (42-52); MEAN CORPUSCULAR HGB 29.4 PG (27.0-31.0); MEAN CORPUSCULAR HGB CONC 33.8 G/DL (33.0-37.0); MEAN CORPUSCULAR VOLUME 86.9 FL (80.0-94.0); MEAN PLATELET VOLUME 8.1 FL (7.4-10.4); PLATELET COUNT 271 /CUMM (130-400); RED BLOOD CELL CT 2.79 /CUMM (4.70-6.10); WHITE BLOOD CELL COUNT 9.4 /CUMM (4.8-10.8)
--- NOTE | 2018-07-27 07:10 | PN- Resident CRCU ---
Subjective HPI/CRCU Issues: Acute hypoxic and hypercapnic respiratory failure requiring intubation secondary to multilobar pneumonia, MRSA.(improving) Otitis externa, sinusitis, right-sided pharyngitis with ulcerative lesion. Acute systolic CHF ejection fraction 30% Rule out ACS, elevated troponin History of paroxysmal AF not on any anticoagulation History of COPD, aspiration pneumonitis and chronic respiratory failure Hx of heumatoid arthritis, peripheral vascular disease, multiple ulcers including ulcers on the back, malnutrition. 24 Hour Events: No overnight events. He remained afebrile overnight. Remained intubated on fentanyl drip. Seen and examined this morning. Patient is responding to verbal commands. He is still requiring more oxygen and desaturates that's why he failed weaning trial. Reported upper abdominal pain. Today he is on 45% oxygen and maintaining saturation 95%. Objective Vital Signs & I&O Last 8 Hrs of Vitals and I&O: Intake & Output 07/27 1600 07/27 0800 07/27 0000 Intake Total 652 735.3 Output Total 600 700 Balance 52 35.3 Intake, IV 48 51.3 Intake, Tube 344 359 Feeding Intake, Tube 260 325 Irrigant Number Bowel Movements Output, Urine 600 700 Laboratory Tests 07/27 1325 Blood Gas pH (7.35 - 7.45 PH) 7.46 H pCO2 (35 - 45 TORR) 41 pO2 (80 - 100 TORR) 72 L HCO3 (21 - 28 MEQ/L) 28 ABG O2 Sat (Measured) (>96.0 %) 94.0 L P-50 (Temp Corrected) N Carboxyhemoglobin (1.5 - 5.0 %) 0.2 L O2 Concentration % 40% Respiration Rate (BPM) 29 O2 Delivery Method VENT Vent Mode CPAP/PSV WEAN TRIAL Expiratory Pressure (CMH2O/P) 5 Tidal Volume (CC) 481 Pressure Support (CMH2O/P) 6 Miscellaneous Phlebotomy Draw Site RIGHT RADIAL 07/27 0402 Chemistry Sodium (137 - 145 mmol/L) 129 L Potassium (3.5 - 5.1 mmol/L) 4.3 Chloride (98 - 107 mmol/L) 94 L Carbon Dioxide (22 - 30 mmol/L) 27 Anion Gap (5 - 16) 8 BUN (9 - 20 mg/dL) 25 H Creatinine (0.7 - 1.2 mg/dL) 0.5 L Estimated GFR (>60 ml/min) > 60 Glucose (65 - 99 mg/dL) 121 H Calcium (8.4 - 10.2 mg/dL) 7.9 L Phosphorus (2.5 - 4.5 mg/dL) 4.0 Magnesium (1.6 - 2.3 mg/dL) 2.2 Total Bilirubin (0.2 - 1.3 mg/dL) 0.5 AST (17 - 59 U/L) 69 H ALT (21 - 72 U/L) 80 H Albumin (3.5 - 5.0 g/dL) 2.5 L Hematology CBC w Diff NO MAN DIFF REQ WBC (4.8 - 10.8 /CUMM) 9.4 RBC (4.70 - 6.10 /CUMM) 2.79 L Hgb (14.0 - 18.0 G/DL) 8.2 L Hct (42 - 52 %) 24.3 L MCV (80.0 - 94.0 FL) 86.9 MCH (27.0 - 31.0 PG) 29.4 MCHC (33.0 - 37.0 G/DL) 33.8 RDW (11.5 - 14.5 %) 15.0 H Plt Count (130 - 400 /CUMM) 271 MPV (7.4 - 10.4 FL) 8.1 Gran % (42.2 - 75.2 %) 79.0 H Lymphocytes % (20.5 - 51.1 %) 7.9 L Monocytes % (1.7 - 9.3 %) 10.9 H Eosinophils % (0 - 5 %) 2.1 Basophils % (0.0 - 2.0 %) 0.1 Absolute Granulocytes (1.4 - 6.5 /CUMM) 7.4 H Absolute Lymphocytes (1.2 - 3.4 /CUMM) 0.7 L Absolute Monocytes (0.10 - 0.60 /CUMM) 1.0 H Absolute Eosinophils (0.0 - 0.7 /CUMM) 0.2 Absolute Basophils (0.0 - 0.2 /CUMM) 0 Exam General Appearance: no apparent distress, alert, awake Head: atraumatic Neck: normal inspection Respiratory: chest non-tender, no respiratory distress, bibasilar decreased breath sounds. Cardiovascular: regular rate/rhythm Gastrointestinal: soft, non-tender Extremities: no edema, b/l chronic wounds, right thumb chronic wound Skin Temp/Moisture Exam: Warm/Dry Sepsis Skin Exam (color): Normal for Ethnicity Weaning Parameters NIF: 23 Minute Volume: 5.21 Resp rate: 35 Vt: 150 Heart Rate: 66 Weaning Schedule Start Time: 2000 Minute Volume: 7.58 Resp Rate: 22 Vt: 340 Heart Rate: 68 Current Medications: Current Medications Sig/Jamie Start time Last Medication Dose Route Stop Time Status Admin Acetaminophen 0 .STK-MED ONE 07/26 2046 DC PO Acetaminophen 650 MG Q6-PRN PRN 07/26 2045 AC 07/26 PO 2049 Acetaminophen 1,000 MG BID PRN 07/17 193 AC 07/19 IV 0415 Albuterol Sulfate 3 ML Q4P PRN 07/17 194 AC INH Amiodarone HCl 100 MG DAILY 07/21 2315 AC 07/27 PO 0851 Aspirin 162 MG DAILY 07/21 09 AC 07/27 PO 0851 Atorvastatin Calcium 80 MG DAILY 07/18 09 AC 07/27 PO 0850 Budesonide/ 2 PUF BID 07/17 2100 AC 07/27 Formoterol Fumarate INH 0846 Ezetimibe 10 MG DAILY 07/18 09 AC 07/27 PO 0850 Fentanyl Citrate 1,000 MCG Q24H 07/27 0115 AC 07/27 Dextrose/Water 250 ML IV 1304 Fentanyl Citrate 1,000 MCG Q24H 07/20 0100 DC 07/25 Dextrose/Water 250 ML IV 2103 Furosemide 20 MG BID 07/22 1138 AC 07/27 IV 0850 Heparin Sodium 5,000 UNIT Q8 07/23 1400 AC 07/27 (Porcine) SC 1442 Ipratropium [place] 2.5 ML Q4P PRN 07/20 1545 AC INH Levothyroxine Sodium 0.088 MG DAILY AC 07/21 07 AC 07/27 PO 0541 Neomycin/Polymyxin/ 4 GTT TID 07/20 2100 AC 07/27 Bacitr/Hydrocort OTIC 1440 Pantoprazole Sodium 40 MG DAILY 07/20 1209 AC 07/27 IV 0850 Potassium Chloride 40 MEQ DAILY 07/23 0900 AC 07/27 PO 0850 Senna 187 MG AT BEDTIME 07/24 2100 AC 07/26 PO 2050 Vancomycin HCl 1,000 MG Q24H 07/22 1200 AC 07/27 Sodium Chloride 250 ML IV 1252 Impression/Plan Impression/Problem List Impression: 73 YO M former smoker (50 packs/yr) with PMH of HTN, HLD, COPD (not on any home oxygen), BILL on CPAP, paroxysmal atrial fibrillation not on any AC due to fall risk, hypothyroidism, CAD s/p quadruple bypass in 2001, 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 He was known to be in his usual state of health until a few days prior to presentation. Recurrent fever with increasing WBC and worsening respiratory status, requiring intubation overnight, now on Zosyn after several days of various antibiotics, including Ceftriaxone, Azithromycin, Doxycycline, Unasyn and Vancomycin for what appears to be a multilobar community-acquired pneumonia of acute onset. Following the patient in ICU for following problems: Acute hypoxic and hypercapnic respiratory failure: -Possibly due to community-acquired pneumonia and aspiration pneumonia, MRSA and acute and chronic systolic CHF. -Possible sepsis as patient meeting SIRS criteria, WBC count 17.1, temperature 103.2 and on imaging study patient has a multilobar pneumonia. Although his lactic acid and remained negative. -Could be due to aspiration pneumonia that causing multiple lobe opacities. -Continue vancomycin 1gm, day 6 Total antibiotic D 10. Vanco trough before next dose pending. -Continue intubation with settings of respiratory rate 20, tidal volume 450, peak flow 65, PEEP 5 and percentage oxygen 45%. -Try to wean him off today if possible on high flow. -Continue fentanyl drip @ 25 g/h with slow taper. We will discontinue it once he is extubated. -Ativan when necessary -sputum culture is positive with MRSA. -Negative blood cultures. -TRC nebulization as needed -Continue iv ppi. Hypotension:(improved) -Possibly due to hypovolemia, less likely due to sepsis as his lactic acid remained negative. -His slowest blood pressure was 98/50. Central venous line was maintained and patient was given IV fluids and Levophed. -This morning his blood pressure was 116/50 -Off levophed. day 8 -IOP 2291/2300 Otitis externa and pharyngitis: -Patient is otitis externa and sinusitis with right sided pharyngitis with ulcerative region. -Possibly due to zoster infection, [place] lópez syndrome. -Viral PCR is pending. -Continue Corticosporin ointment. -completed acyclovir course. -ENT recommendations appreciate. Acute systolic CHF: -Patient has ejection fraction 30%. Contributing to his respiratory failure. -On imaging study patient had pulmonary congestion. His BNP was 574 -IV Lasix 20 mg twice a day. Day 6 -Follow cardiology recommendations -Daily potassium supplementation 40 mEq. Day 6 Elevated troponin: -Initially patient's troponin was normal but now his trop was last night 0.13--> 0.45-->0.53 -Possibly due to NSTEMI considering wall motion abnormality on echo and elevated trops. -IV heparin was discontinued as recommended by cardiology considering drop in H& H. -His Doppler studies negative for DVT. -Trops were trended -Follow up cardiology recommendations Hypophosphatemia:(resolved) -Possibly due to low intake of excessive excretion to kidney. -Repeating phosphate through tube feeds. -Today his phosphate level is 4.0 Abdominal pain: -Reported upper abdominal pain this morning. -Follow up USG abdomen to rule out acaculous cholecystitis. -Holding his tube feeds. History of atrial fibrillation: -Not any anticoagulation -Amiodarone was resumed with low-dose 100 mg daily. History of hypothyroidism: -Continue levothyroxine to 0.088 mg daily. History of CAD status post CABG: -Continue aspirin to 162 mg daily. -Hold his carvedilol due to low blood pressure History of hyperlipidemia and hypertension: -Continue atorvastatin and ezetimibe. -Holding his amlodipine due to low blood pressure. Chronic wounds; -On right knuckle, left buttock and weaping wounds on legs were present on admission. -Getting dressing everyday. Diet: -Continue tube feeds increased rate to 50ml/h. -Holding his tube feeds as c/o abdominal pain. DVT prophylaxis: Mechanical and s/c heparin CODE STATUS: Full code Problem List: 1. Acute respiratory failure with hypoxia 2. Otitis externa 3. ACS (acute coronary syndrome) 4. Aspiration pneumonia Pain Ratin Pain Location: NONE Tomorrow's Labs & Rationales: CBC/ICU BUNDLE Plan DVT/Prophylaxis: mechanical, pharmacological
--- NOTE | 2018-07-27 08:00 | RADIOLOGY REPORT ---
EXAMINATION: XR PORTABLE CHEST CLINICAL INFORMATION: Endotracheal tube COMPARISON: Chest x-ray 07/26/2018 TECHNIQUE: Portable frontal view of the chest was obtained. FINDINGS: Endotracheal tube terminates approximately 4.4 cm above the level of the yakov. Enteric tube extends below the level of the diaphragm. Persistent decreased volume of the left hemithorax, however, aeration of the left hemithorax appears mildly improved. Small left-sided pleural effusion persists. The right hemithorax is well aerated with only a few scattered opacities. Stable cardiomegaly. Incompletely visualized surgical hardware. IMPRESSION: 1. Stable support apparatus. 2. Persistent airspace disease, however, there appears to be mild interval improvement.
--- NOTE | 2018-07-27 09:49 | PN- CRCU ---
Subjective HPI/Critical Care Issues: Events and data over the weekend reviewed No overnight events. He remained afebrile overnight. Remained intubated on fentanyl drip. Seen and examined this morning. Patient is responding to verbal commands. He is still requiring more oxygen and desaturates that's why he failed weaning trial. Today he is on 45% oxygen and maintaining saturation 95%. Complaints some mild upper abdominal discomfort Objective Current Medications: Current Medications Sig/Jamie Start time Last Medication Dose Route Stop Time Status Admin Acetaminophen 0 .STK-MED ONE 07/26 2046 DC PO Acetaminophen 650 MG Q6-PRN PRN 07/26 2045 07/26 PO 9 Acetaminophen 1,000 MG ONCE ONE 07/26 0945 PR 07/26 N/A 1 UNIT IV 07/26 0959 1003 Acetaminophen 1,000 MG BID PRN 07/17 1930 AC 07/19 IV 0415 Albuterol Sulfate 3 ML Q4P PRN 07/17 1945 AC INH Amiodarone HCl 100 MG DAILY 07/21 2315 AC 07/27 PO 0851 Aspirin 162 MG DAILY 07/21 09 AC 07/27 PO 0851 Atorvastatin Calcium 80 MG DAILY 07/18 09 AC 07/27 PO 0850 Budesonide/ 2 PUF BID 07/17 2100 AC 07/27 Formoterol Fumarate INH 0846 Ezetimibe 10 MG DAILY 07/18 0900 AC 07/27 PO 0850 Fentanyl Citrate 1,000 MCG Q24H 07/27 0115 AC Dextrose/Water 250 ML IV Fentanyl Citrate 1,000 MCG Q24H 07/20 0100 DC 07/25 Dextrose/Water 250 ML IV 2103 Furosemide 20 MG BID 07/22 1138 AC 07/27 IV 0850 Heparin Sodium 5,000 UNIT Q8 07/23 1400 AC 07/27 (Porcine) SC 0543 Ipratropium [place] 2.5 ML Q4P PRN 07/20 1545 AC INH Levothyroxine Sodium 0.088 MG DAILY AC 07/21 0700 AC 07/27 PO 0541 Neomycin/Polymyxin/ 4 GTT TID 07/20 2100 AC 07/27 Bacitr/Hydrocort OTIC 0850 Pantoprazole Sodium 40 MG DAILY 07/20 1209 AC 07/27 IV 0850 Potassium Chloride 40 MEQ DAILY 07/23 0900 AC 07/27 PO 0850 Senna 187 MG AT BEDTIME 07/24 2100 AC 07/26 PO 2050 Vancomycin HCl 1,000 MG Q24H 07/22 1200 AC 07/26 Sodium Chloride 250 ML IV 1227 Vital Signs & I&O Last 24 Hrs of Vitals and I&O: Vital Signs Date Time Temp Pulse Resp B/P B/P Pulse O2 O2 Flow FiO2 Mean Ox Delivery Rate 07/27 0851 66 113/51 07/27 0836 40 07/27 0619 45 07/27 0400 95 Ventilator 45% 07/27 0316 45 07/27 0157 45 07/27 0000 94 Ventilator 45% 07/26 2311 45 07/26 2300 99.6 54 21 116/50 93 Ventilator 45% 07/26 2000 95 Ventilator 45% 07/26 1910 45 07/26 1640 50 07/26 1600 95 Ventilator 50% 07/26 1600 97.7 54 20 112/50 95 Ventilator 50% 07/26 1447 50 07/26 1200 95 Ventilator 50% 07/26 1140 50 Intake & Output 07/27 1600 07/27 0800 07/27 0000 Intake Total 652 735.3 Output Total 600 700 Balance 52 35.3 Intake, IV 48 51.3 Intake, Tube 344 359 Feeding Intake, Tube 260 325 Irrigant Number Bowel Movements Output, Urine 600 700 Laboratory Tests 07/27 07/26 0402 0550 Chemistry Sodium (137 - 145 mmol/L) 129 L 129 L Potassium (3.5 - 5.1 mmol/L) 4.3 4.0 Chloride (98 - 107 mmol/L) 94 L 93 L Carbon Dioxide (22 - 30 mmol/L) 27 29 Anion Gap (5 - 16) 8 7 BUN (9 - 20 mg/dL) 25 H 21 H Creatinine (0.7 - 1.2 mg/dL) 0.5 L 0.6 L Estimated GFR (>60 ml/min) > 60 > 60 Glucose (65 - 99 mg/dL) 121 H 130 H Calcium (8.4 - 10.2 mg/dL) 7.9 L 7.8 L Phosphorus (2.5 - 4.5 mg/dL) 4.0 4.2 Magnesium (1.6 - 2.3 mg/dL) 2.2 2.2 Total Bilirubin (0.2 - 1.3 mg/dL) 0.5 0.5 AST (17 - 59 U/L) 69 H 73 H ALT (21 - 72 U/L) 80 H 86 H Albumin (3.5 - 5.0 g/dL) 2.5 L 2.5 L Hematology CBC w Diff NO MAN DIFF REQ NO MAN DIFF REQ WBC (4.8 - 10.8 /CUMM) 9.4 8.5 RBC (4.70 - 6.10 /CUMM) 2.79 L 2.82 L Hgb (14.0 - 18.0 G/DL) 8.2 L 8.1 L Hct (42 - 52 %) 24.3 L 24.2 L MCV (80.0 - 94.0 FL) 86.9 85.7 MCH (27.0 - 31.0 PG) 29.4 28.9 MCHC (33.0 - 37.0 G/DL) 33.8 33.7 RDW (11.5 - 14.5 %) 15.0 H 15.1 H Plt Count (130 - 400 /CUMM) 271 248 MPV (7.4 - 10.4 FL) 8.1 7.4 Gran % (42.2 - 75.2 %) 79.0 H 82.2 H Lymphocytes % (20.5 - 51.1 %) 7.9 L 5.4 L Monocytes % (1.7 - 9.3 %) 10.9 H 10.3 H Eosinophils % (0 - 5 %) 2.1 1.9 Basophils % (0.0 - 2.0 %) 0.1 0.2 Absolute Granulocytes (1.4 - 6.5 /CUMM) 7.4 H 7.0 H Absolute Lymphocytes (1.2 - 3.4 /CUMM) 0.7 L 0.5 L Absolute Monocytes (0.10 - 0.60 /CUMM) 1.0 H 0.9 H Absolute Eosinophils (0.0 - 0.7 /CUMM) 0.2 0.2 Absolute Basophils (0.0 - 0.2 /CUMM) 0 0 Impression/Plan Impression/Plan Impression/Plan: General: WD/WN male in NAD; sedated and intubated HEENT: NC/AT, PERRL, EOMI pharynx difficult to eval Neck: no JVD, no carotid bruit Heart: RRR w/o murmur Lungs: decreased breath sounds on the right Abdomen: soft, NT, +ve bowel sounds Extremities: no edema IMPRESSION This is a gentleman with more than [id number] smoking history, obstructive sleep apnea on CPAP, significant COPD not on home oxygen, paroxysmal atrial fibrillation not on anticoagulation due to significant past history of fall, hypothyroidism on supplementation, ischemic heart disease with previous CABG in 2001, previous CVA with right-sided ramila-plegia, hyperlipidemia, significant history of rheumatoid arthritis does not seem to be on any immunosuppressive at this time, peripheral vascular disease, multiple wounds now has * Acute hypoxemic respiratory failure on mech vent / related to bilateral multilobar pneumonia MRSA compounded by acute systolic chf * Herpes zoster of the pinna and pharnyx s/p rx * Ischemic heart disease now with low ef, with acute systolic chf, paroxysmal atrial fibrillation (was not on anticoagulation prior to admission) and was on amiodarone however. Seems to be maintaining sinus rhythm. * Myocardial necrosis with mildly elevated troponin with low ef and wall motion abnormality, consistant with NSTEMI * Prior Dysphagia, difficulty swallowing at times with food getting stuck in the mid esophagus to rule out any esophageal lesion * Significant lung disease with prior smoking with chronic obstructive restrictive lung disease with prior aspiration pneumonitis and prolonged hospitalization due to chronic respiratory failure * Multiple other issues including rheumatoid arthritis, peripheral vascular disease, multiple ulcers including ulcers in the back with malnutrition and poor performance status * Rt upper qdt pain now RECOMMENDATION * Continue vent and reduce fio2 and can start weaning trials and extubate to high flow today * Order ultrasound of the upper abd- hold tube feeding * IV lasix 20 mg tid and potassium 40 meq daily * Amiodarone 100 and if becomes travis can dc for now * Abx per id * Reduce aspirin to 162 mg/ follow ekg and cont cardiac meds * Nebulizer therapy as needed with DuoNeb if wheezing * Restart ppi Prognosis guarded /Patient critically ill total time spent 39 minutes
--- NOTE | 2018-07-27 10:12 | PN- Infect Dx ---
Subjective Subjective: Afebrile without complaints Objective Last 24 Hrs of Vital Signs/I&O Vital Signs Date Time Temp Pulse Resp B/P B/P Pulse O2 O2 Flow FiO2 Mean Ox Delivery Rate 07/27 0851 66 113/51 07/27 0836 40 07/27 0619 45 07/27 0400 95 Ventilator 45% 07/27 0316 45 07/27 0157 45 07/27 0000 94 Ventilator 45% 07/26 2311 45 07/26 2300 99.6 54 21 116/50 93 Ventilator 45% 07/26 2000 95 Ventilator 45% 07/26 1910 45 07/26 1640 50 07/26 1600 95 Ventilator 50% 07/26 1600 97.7 54 20 112/50 95 Ventilator 50% 07/26 1447 50 07/26 1200 95 Ventilator 50% 07/26 1140 50 Intake & Output 07/27 1600 07/27 0800 07/27 0000 Intake Total 652 735.3 Output Total 600 700 Balance 52 35.3 Intake, IV 48 51.3 Intake, Tube 344 359 Feeding Intake, Tube 260 325 Irrigant Number Bowel Movements Output, Urine 600 700 Physical Exam Other Physical Findings: He appears comfortable on the ventilator in no acute distress HEENT crusted lesions in the right ear Lungs are clear Heart regular rhythm with no murmur Abdomen is soft, nontender with positive bowel sounds Extremities no cyanosis, clubbing or edema Stout catheter remains in place Results Last 24 Hours of Lab Results: Laboratory Tests 07/27 402 Chemistry Sodium (137 - 145 mmol/L) 129 L Potassium (3.5 - 5.1 mmol/L) 4.3 Chloride (98 - 107 mmol/L) 94 L Carbon Dioxide (22 - 30 mmol/L) 27 Anion Gap (5 - 16) 8 BUN (9 - 20 mg/dL) 25 H Creatinine (0.7 - 1.2 mg/dL) 0.5 L Estimated GFR (>60 ml/min) > 60 Glucose (65 - 99 mg/dL) 121 H Calcium (8.4 - 10.2 mg/dL) 7.9 L Phosphorus (2.5 - 4.5 mg/dL) 4.0 Magnesium (1.6 - 2.3 mg/dL) 2.2 Total Bilirubin (0.2 - 1.3 mg/dL) 0.5 AST (17 - 59 U/L) 69 H ALT (21 - 72 U/L) 80 H Albumin (3.5 - 5.0 g/dL) 2.5 L Hematology CBC w Diff NO MAN DIFF REQ WBC (4.8 - 10.8 /CUMM) 9.4 RBC (4.70 - 6.10 /CUMM) 2.79 L Hgb (14.0 - 18.0 G/DL) 8.2 L Hct (42 - 52 %) 24.3 L MCV (80.0 - 94.0 FL) 86.9 MCH (27.0 - 31.0 PG) 29.4 MCHC (33.0 - 37.0 G/DL) 33.8 RDW (11.5 - 14.5 %) 15.0 H Plt Count (130 - 400 /CUMM) 271 MPV (7.4 - 10.4 FL) 8.1 Gran % (42.2 - 75.2 %) 79.0 H Lymphocytes % (20.5 - 51.1 %) 7.9 L Monocytes % (1.7 - 9.3 %) 10.9 H Eosinophils % (0 - 5 %) 2.1 Basophils % (0.0 - 2.0 %) 0.1 Absolute Granulocytes (1.4 - 6.5 /CUMM) 7.4 H Absolute Lymphocytes (1.2 - 3.4 /CUMM) 0.7 L Absolute Monocytes (0.10 - 0.60 /CUMM) 1.0 H Absolute Eosinophils (0.0 - 0.7 /CUMM) 0.2 Absolute Basophils (0.0 - 0.2 /CUMM) 0 Last 24 Hours of Shen Results: No new cultures Chest x-ray July 27 reveals improved aeration of the left hemithorax Assessment/Plan ID Impression: Stable, though with some improvement in his respiratory status and chest x-ray, with a further decrease in his oxygen requirements, on Vancomycin, Day 6 of treatment for multilobar MRSA pneumonia, with his temperatures and white blood cell count remaining normal. He remains on Lasix though with no significant diuresis over the last 48 hours. Suggestion: 1. Further management of his fluid status per ICU team 2. Consider removal of his Stout catheter if his I's and O's are stable 3. Vancomycin trough level with his next dose 4. Continue Vancomycin
[2018-07-27 14:57] VITALS: BP 112/60
[2018-07-27 16:00] VITALS: BP 120/60
--- NOTE | 2018-07-27 18:30 | PN- Cardiology ---
Subjective Subjective: * Patient is on high flow oxygen without any specific complaints of shortness of breath or chest discomfort. * Severely anemic. * sinus rhythm Objective Vital Signs and I&Os Vital Signs Date Time Temp Pulse Resp B/P B/P Pulse O2 O2 Flow FiO2 Mean Ox Delivery Rate 07/27 1817 93 Nasal 40% Cannula 07/27 1630 95 Nasal 45% Cannula 07/27 1600 99.2 64 28 120/60 96 Nasal 45% Cannula 07/27 1457 93 Ventilator 40% 07/27 1457 98.4 64 20 112/60 93 Ventilator 40% 07/27 1159 40 07/27 0851 66 113/51 07/27 0836 40 07/27 0619 45 07/27 0400 95 Ventilator 45% 07/27 0316 45 07/27 0157 45 07/27 0000 94 Ventilator 45% 07/26 2311 45 07/26 2300 99.6 54 21 116/50 93 Ventilator 45% 07/26 2000 95 Ventilator 45% 07/26 1910 45 Intake & Output 07/27 1600 07/27 0800 07/27 0000 07/26 1600 07/26 0800 07/26 0000 Intake Total 409 652 735.3 904 713 570 Output Total 1030 960 044 5667 500 800 Balance -621 52 35.3 -96 213 -230 Intake, IV 59 48 51.3 398 47 51 Intake, Other Intake, Tube 150 344 359 306 308 269 Feeding Intake, Tube 200 260 325 200 358 250 Irrigant Number 0 0 Bowel Movements Output, Urine 1030 489 292 8225 500 800 Physical Exam: General: WD/WN male in NAD; alert and oriented x 3 HEENT: NC/AT, PERRL, EOMI Neck: no JVD, no carotid bruit Heart: RRR w/o murmur Lungs: clear bilaterally Abdomen: soft, NT, +ve bowel sounds Extremities: no edema Assessment/Plan Assessment/Plan * This patient had shortness of breath related to his pneumonia with some mild superimposed CHF which has also improved. Check a BNP. Continue his current dose of Lasix. * I believe this patient's mild rise is troponin was due to demand ischemia rather that a ruptured intracoronary plaque with thrombus. * Okay to restart Amiodarone at 100mg daily. Continue telemetry? Yes
--- NOTE | 2018-07-27 20:58 | ULTRASOUND REPORT ---
EXAMINATION: US ABDOMEN LIMITED CLINICAL INFORMATION: A calculus cholecystitis. Abdominal pain on tube feedings, intubated. COMPARISON: Chest CT 07/17/2017 TECHNIQUE: Real-time imaging of the right upper quadrant abdominal viscera. FINDINGS: PANCREAS: The visualized portions of the pancreas are unremarkable but a large portion of the gland is obscured by bowel gas. LIVER: Liver demonstrates increased echogenicity consistent with fatty infiltration. Intrahepatic biliary ductal dilatation is noted with dilated common bile duct measuring 1.4 cm. GALLBLADDER: Gallbladder was not seen.. Clips were noted in the gallbladder fossa on the CT scan. COMMON BILE DUCT: Normal in caliber measuring 1.4 cm in diameter. RIGHT KIDNEY: No hydronephrosis. No renal calculi or focal parenchymal lesions. The kidney measures 9.5 cm in maximum dimension. FREE FLUID: None. IMPRESSION: 1. I do not see a gallbladder and surgical clips were noted in the gallbladder fossa at the time of the prior CT. 2. Question of intrahepatic ductal dilatation with dilated common bile duct. Contrast enhanced CT scan with oral and IV contrast may be of value.
[2018-07-28] VITALS: BP 122/60
[2018-07-28 04:40] LABS: ABSOLUTE BASOPHIL COUNT 0 /CUMM (0.0-0.2); ABSOLUTE EOSINOPHIL COUNT 0.1 /CUMM (0.0-0.7); ABSOLUTE LYMPH COUNT 0.7 /CUMM (1.2-3.4); BASOPHIL % 0.1 % (0.0-2.0); EOSINOPHIL % 0.7 % (0-5); GRANULOCYTE % 85.1 % (42.2-75.2); HEMATOCRIT 26.8 % (42-52); MEAN CORPUSCULAR HGB 29.3 PG (27.0-31.0); MEAN CORPUSCULAR HGB CONC 33.8 G/DL (33.0-37.0); MEAN CORPUSCULAR VOLUME 86.7 FL (80.0-94.0); MEAN PLATELET VOLUME 8.1 FL (7.4-10.4); PLATELET COUNT 339 /CUMM (130-400); RED BLOOD CELL CT 3.09 /CUMM (4.70-6.10); WHITE BLOOD CELL COUNT 11.8 /CUMM (4.8-10.8)
--- NOTE | 2018-07-28 07:02 | PN- Resident CRCU ---
Subjective HPI/CRCU Issues: Acute hypoxic and hypercapnic respiratory failure requiring intubation secondary to multilobar pneumonia, MRSA. Now extubated. Otitis externa, sinusitis, right-sided pharyngitis with ulcerative lesion. Acute systolic CHF ejection fraction 30% Rule out ACS, elevated troponin History of paroxysmal AF not on any anticoagulation History of COPD, aspiration pneumonitis and chronic respiratory failure Hx of rheumatoid arthritis, peripheral vascular disease, multiple ulcers including ulcers on the back, malnutrition. 24 Hour Events: Pt was extubated yesterday, fentanyl drip discontinued. Maintained on HFNC, FiO2 intially 45% -> 40% with sats 90-95%. Respiratory rate 28-35. Was afebrile overnight. Was in sinus rhythym rate 64-72. Complained of sputum production, unable to clear everything out of his chest; additionally stated sputum caused GI discomfort as he was swallowing it down. Was given a basin to spit in. Complains of lower abdominal pain, midline, without urinary symptoms or back pain. Mild. No other acute events. Objective Vital Signs & I&O Last 8 Hrs of Vitals and I&O: Intake & Output 07/28 1600 Intake Total 250 Output Total 900 Balance -650 Intake, IV 250 Intake, Oral 0 Number 2 Bowel Movements Output, Urine 900 Exam General Appearance: no apparent distress, alert, awake Head: atraumatic, normal appearance Neck: normal inspection Respiratory: chest non-tender, rhonchi heard in all lung sutton; decreased breath sounds globally Cardiovascular: regular rate/rhythm Gastrointestinal: soft, mild abdominal ttp to infraumbilical region without radiation or grimace Extremities: no edema, b/l chronic wounds; r thumb chronic wound Cranial Nerves: normal speech Skin: intact Skin Temp/Moisture Exam: Warm/Dry Sepsis Skin Exam (color): Normal for Ethnicity Weaning Parameters NIF: 26 Minute Volume: 13.8 Resp rate: 25 Vt: 552 Heart Rate: 60 Weaning Schedule Start Time: 1208 Minute Volume: 12.6 Resp Rate: 25 Vt: 506 Heart Rate: 62 End Time: 1357 Minute Volume: 14.1 Resp Rate: 29 Vt: 489 Heart Rate: 63 Current Medications: Current Medications Sig/Jamie Start time Last Medication Dose Route Stop Time Status Admin Acetaminophen 650 MG Q6-PRN PRN 07/26 2045 AC 07/26 PO 2048 Acetaminophen 1,000 MG BID PRN 07/17 1930 AC 07/19 IV 0415 Albuterol Sulfate 3 ML Q4P PRN 07/17 1945 AC INH Amiodarone HCl 100 MG DAILY 07/21 2315 AC 07/27 PO 0851 Aspirin 162 MG DAILY 07/21 09 AC 07/27 PO 0851 Atorvastatin Calcium 80 MG DAILY 07/18 0900 AC 07/27 PO 0850 Bisacodyl 10 MG DAILY PRN 07/28 0700 AC OK Budesonide/ 2 PUF BID 07/17 2100 AC 07/28 Formoterol Fumarate INH 0927 Ezetimibe 10 MG DAILY 07/18 0900 AC 07/27 PO 0850 Fentanyl Citrate 1,000 MCG Q24H 07/27 0115 DC 07/27 Dextrose/Water 250 ML IV 1304 Furosemide 20 MG TID 07/27 2100 AC 07/28 IV 0926 Furosemide 20 MG BID 07/22 1138 DC 07/27 IV 0850 Heparin Sodium 5,000 UNIT Q8 07/23 1400 AC 07/28 (Porcine) SC 0513 Ipratropium Lindsay 2.5 ML Q4P PRN 07/20 1545 AC INH Levothyroxine Sodium 0.088 MG DAILY AC 07/21 0700 AC 07/27 PO 0541 Neomycin/Polymyxin/ 4 GTT TID 07/20 2100 AC 07/28 Bacitr/Hydrocort OTIC 0927 Pantoprazole Sodium 40 MG DAILY 07/20 1209 AC 07/28 IV 0926 Potassium Chloride 40 MEQ DAILY 07/23 0900 AC 07/27 PO 0850 Senna 187 MG AT BEDTIME 07/24 2100 AC 07/26 PO 2050 Vancomycin HCl 1,000 MG Q24H 07/22 1200 AC 07/28 Sodium Chloride 250 ML IV 1208 Impression/Plan Impression/Problem List Impression: 73 YO M former smoker (50 packs/yr) with PMH of HTN, HLD, COPD (not on any home oxygen), BILL on CPAP, paroxysmal atrial fibrillation not on any AC due to fall risk, hypothyroidism, CAD s/p quadruple bypass in 2001, 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 He was known to be in his usual state of health until a few days prior to presentation. Recurrent fever with increasing WBC and worsening respiratory status, requiring intubation overnight, now on Zosyn after several days of various antibiotics, including Ceftriaxone, Azithromycin, Doxycycline, Unasyn and Vancomycin for what appears to be a multilobar community-acquired pneumonia of acute onset. Following the patient in ICU for following problems: Acute hypoxic and hypercapnic respiratory failure: -Possibly due to community-acquired pneumonia and aspiration pneumonia, MRSA and acute and chronic systolic CHF. -Possible sepsis as patient meeting SIRS criteria, WBC count 17.1, temperature 103.2 and on imaging study patient has a multilobar pneumonia. Although his lactic acid and remained negative. -Could be due to aspiration pneumonia that causing multiple lobe opacities. -Continue vancomycin 1gm, day 7 Total antibiotic D 10. Vanco trough is 7.7 -Extubated yesterday, tolerating HFNC well at this time. -Failed swallow eval. STRICT NPO -sputum culture is positive with MRSA. -Negative blood cultures. -TRC nebulization as needed -Continue iv ppi. Hypotension:(improved), stable -Possibly due to hypovolemia, less likely due to sepsis as his lactic acid remained negative. -This morning his blood pressure was 116/50 -Off levophed. -IOP 2291/2300 Otitis externa and pharyngitis: -Patient is otitis externa and sinusitis with right sided pharyngitis with ulcerative region. -Possibly due to zoster infection, [place] lópez syndrome. -Continue Corticosporin ointment. -completed acyclovir course. -ENT recommendations appreciate. Acute systolic CHF: -Patient has ejection fraction 30%. Contributing to his respiratory failure. -On imaging study patient had pulmonary congestion. His BNP was 662, up from previous 574 -IV Lasix 20 mg increased to 20mg TID yesterday, hold today. -Follow cardiology recommendations -Will have to convert potassium to IV; per SPEECH pt failed swallow eval, STRICT NPO Elevated troponin: -Last trop on 07/20 was 0.45. Likely demand ischemia -Cardio recs appreciated. Hypophosphatemia:(resolved) -Possibly due to low intake of excessive excretion to kidney. -Today his phosphate level is 4.7 Abdominal pain: -Reported upper abdominal pain this morning. -Pt is without gallbladder, likely no acalculus cholecystitis. US shows intrahepatic ductal dilatation with dilated CBD; recommended CT scan with oral and IV contrast. Will f/u LRT; alk phos, if abnormal will pursue CT. History of atrial fibrillation: -Not any anticoagulation -Amiodarone discontinued after FAILED swallow eval History of hypothyroidism: -Levothyroxine converted to IV form as strict NPO History of CAD status post CABG: -Holding oral meds History of hyperlipidemia and hypertension: -Holding atorvastatin and ezetimibe. -Holding his amlodipine due to low blood pressure. Chronic wounds; -On right knuckle, left buttock and weaping wounds on legs were present on admission. -Getting dressing everyday. Diet: -STRICT NPO per swallow eval. Will maintain on IVF 50cc w/ d5 NS. DVT prophylaxis: Mechanical and s/c heparin CODE STATUS: DNR/DNI per discussion with [employer] Dr IZQUIERDO this morning Problem List: 1. Acute respiratory failure with hypoxia 2. Otitis externa 3. ACS (acute coronary syndrome) 4. Aspiration pneumonia 5. Chronic wound of extremity Pain Ratin Pain Location: lower abdomen Tomorrow's Labs & Rationales: ICU bundle, cbc Plan DVT/Prophylaxis: mechanical, pharmacological
[2018-07-28 08:00] VITALS: BP 128/58
--- NOTE | 2018-07-28 11:16 | PN- Infect Dx ---
Subjective Subjective: Afebrile without complaints. He was successfully extubated yesterday and reports no shortness of breath. Objective Last 24 Hrs of Vital Signs/I&O Vital Signs Date Time Temp Pulse Resp B/P B/P Pulse O2 O2 Flow FiO2 Mean Ox Delivery Rate 07/28 0911 93 Nasal 5.0L Cannula 07/28 0800 92 Nasal 40% Cannula 07/28 0800 98.0 70 30 128/58 92 Nasal 40% Cannula 07/28 0400 92 Nasal 40% Cannula 07/28 0228 93 Nasal 40% Cannula 07/28 0000 92 Nasal 40% Cannula 07/28 0000 97.4 70 33 122/60 92 Nasal 40% Cannula 07/27 2250 92 Nasal 40% Cannula 07/27 2000 91 Nasal 40% Cannula 07/27 1817 93 Nasal 40% Cannula 07/27 1630 95 Nasal 45% Cannula 07/27 1600 96 Nasal 45% Cannula 07/27 1600 99.2 64 28 120/60 96 Nasal 45% Cannula 07/27 1457 93 Ventilator 40% 07/27 1457 98.4 64 20 112/60 93 Ventilator 40% 07/27 1159 40 Intake & Output 07/28 1600 07/28 0800 07/28 0000 Intake Total 31.5 Output Total 600 1100 Balance -600 -1068.5 Intake, IV 31.5 Number 1 Bowel Movements Output, Urine 600 1100 Physical Exam Other Physical Findings: He appears comfortable in no acute distress, on nasal oxygen Lungs crackles at the left base Heart regular rhythm without murmur Abdomen is soft, mildly tender on palpation of the epigastrium, right upper quadrant and left lower quadrant, with no guarding or rebound, positive bowel sounds Extremities no cyanosis, clubbing or edema Stout catheter remains in place Results Last 24 Hours of Lab Results: Laboratory Tests 07/28 0351 Chemistry Sodium (137 - 145 mmol/L) 130 L Potassium (3.5 - 5.1 mmol/L) 4.5 Chloride (98 - 107 mmol/L) 93 L Carbon Dioxide (22 - 30 mmol/L) 29 Anion Gap (5 - 16) 8 BUN (9 - 20 mg/dL) 26 H Creatinine (0.7 - 1.2 mg/dL) 0.5 L Estimated GFR (>60 ml/min) > 60 Glucose (65 - 99 mg/dL) 97 Calcium (8.4 - 10.2 mg/dL) 8.5 Phosphorus (2.5 - 4.5 mg/dL) 4.7 H Magnesium (1.6 - 2.3 mg/dL) 2.1 Total Bilirubin (0.2 - 1.3 mg/dL) 0.5 AST (17 - 59 U/L) 66 H ALT (21 - 72 U/L) 81 H Albumin (3.5 - 5.0 g/dL) 2.9 L Hematology CBC w Diff MAN DIFF ORDERED WBC (4.8 - 10.8 /CUMM) 11.8 H RBC (4.70 - 6.10 /CUMM) 3.09 L Hgb (14.0 - 18.0 G/DL) 9.1 L Hct (42 - 52 %) 26.8 L MCV (80.0 - 94.0 FL) 86.7 MCH (27.0 - 31.0 PG) 29.3 MCHC (33.0 - 37.0 G/DL) 33.8 RDW (11.5 - 14.5 %) 15.0 H Plt Count (130 - 400 /CUMM) 339 MPV (7.4 - 10.4 FL) 8.1 Gran % (42.2 - 75.2 %) 85.1 H Lymphocytes % (20.5 - 51.1 %) 5.6 L Monocytes % (1.7 - 9.3 %) 8.5 Eosinophils % (0 - 5 %) 0.7 Basophils % (0.0 - 2.0 %) 0.1 Absolute Granulocytes (1.4 - 6.5 /CUMM) 10.0 H Segmented Neutrophils (42.2 - 75.2 %) 87 H Band Neutrophils (0.0 - 5.0 %) 1 Absolute Lymphocytes (1.2 - 3.4 /CUMM) 0.7 L Lymphocytes (20.5 - 51.1 %) 6 L Monocytes (1.7 - 9.3 %) 6 Absolute Monocytes (0.10 - 0.60 /CUMM) 1.0 H Absolute Eosinophils (0.0 - 0.7 /CUMM) 0.1 Absolute Basophils (0.0 - 0.2 /CUMM) 0 Platelet Estimate (ADEQUATE) ADEQUATE Polychromasia 1+ Poikilocytosis 1+ Basophilic Stippling 1+ Ovalocytes 1+ Other Body Source Fld Total RBCs Counted (%) 100 08/27 08/27 1325 1130 Blood Gas pH (7.35 - 7.45 PH) 7.46 H pCO2 (35 - 45 TORR) 41 pO2 (80 - 100 TORR) 72 L HCO3 (21 - 28 MEQ/L) 28 ABG O2 Sat (Measured) (>96.0 %) 94.0 L P-50 (Temp Corrected) N Carboxyhemoglobin (1.5 - 5.0 %) 0.2 L O2 Concentration % 40% Respiration Rate (BPM) 29 O2 Delivery Method VENT Vent Mode CPAP/PSV WEAN TRIAL Expiratory Pressure (CMH2O/P) 5 Tidal Volume (CC) 481 Pressure Support (CMH2O/P) 6 Miscellaneous Phlebotomy Draw Site RIGHT RADIAL Toxicology Vancomycin Trough Cancelled Last 24 Hours of Shen Results: No recent cultures Recent Imaging Studies: Right upper quadrant ultrasound July 27 reveals questionable intrahepatic ductal dilatation with a dilated common bile duct status post probable cholecystectomy Assessment/Plan ID Impression: Overall improved, status post successful extubation yesterday, with his temperatures remaining normal on Vancomycin, Day 7 of treatment for multilobar MRSA pneumonia. His white blood cell count is slightly elevated today, possibly secondary to hemoconcentration secondary to his increased dose of Lasix (now on 3 times daily dosing), status post a significant diuresis yesterday. The significance of the right upper quadrant ultrasound findings is unclear, particularly as he is presumably status post cholecystectomy. He does have some abdominal tenderness, but his liver enzymes are overall decreased. Suggestion: 1. Further management of his fluid status per the ICU team 2. Further evaluation of his biliary tree if his abdominal symptoms or signs persist 3. Remove Stout catheter 4. Follow-up Vancomycin trough level 5. Continue Vancomycin
--- NOTE | 2018-07-28 13:19 | PN- CRCU ---
Subjective HPI/Critical Care Issues: Doing ok S/p extubation Still has sig cough and wheezing PT eval noted Objective Current Medications: Current Medications Sig/Jamie Start time Last Medication Dose Route Stop Time Status Admin Acetaminophen 650 MG Q6-PRN PRN 07/26 2045 AC 07/26 PO 9 Acetaminophen 1,000 MG BID PRN 07/17 1930 AC 07/19 IV 0415 Albuterol Sulfate 3 ML Q4P PRN 07/17 1945 AC INH Amiodarone HCl 100 MG DAILY 07/21 2315 AC 07/27 PO 0851 Aspirin 162 MG DAILY 07/21 09 AC 07/27 PO 0851 Atorvastatin Calcium 80 MG DAILY 07/18 09 AC 07/27 PO 0850 Bisacodyl 10 MG DAILY PRN 07/28 0700 AC AL Budesonide/ 2 PUF BID 07/17 2100 AC 07/28 Formoterol Fumarate INH 27 Ezetimibe 10 MG DAILY 07/18 0900 AC 07/27 PO 0850 Fentanyl Citrate 1,000 MCG Q24H 07/27 0115 DC 07/27 Dextrose/Water 250 ML IV 1304 Furosemide 20 MG TID 07/27 2100 AC 07/28 IV 0926 Furosemide 20 MG BID 07/22 1138 DC 07/27 IV 0850 Heparin Sodium 5,000 UNIT Q8 07/23 1400 AC 07/28 (Porcine) SC 0513 Ipratropium Cable 2.5 ML Q4P PRN 07/20 1545 AC INH Levothyroxine Sodium 44 MCG DAILY 07/28 1400 AC IV Levothyroxine Sodium 0.088 MG DAILY AC 07/21 0700 DC 07/27 PO 0541 Neomycin/Polymyxin/ 4 GTT TID 07/20 2100 AC 07/28 Bacitr/Hydrocort OTIC 0927 Pantoprazole Sodium 40 MG DAILY 07/20 1209 AC 07/28 IV 0926 Potassium Chloride 40 MEQ DAILY 07/23 0900 AC 07/27 PO 0850 Senna 187 MG AT BEDTIME 07/24 2100 AC 07/26 PO 2050 Vancomycin HCl 1,000 MG Q24H 07/22 1200 AC 07/28 Sodium Chloride 250 ML IV 1208 Vital Signs & I&O Last 24 Hrs of Vitals and I&O: Vital Signs Date Time Temp Pulse Resp B/P B/P Pulse O2 O2 Flow FiO2 Mean Ox Delivery Rate 07/28 0911 93 Nasal 5.0L Cannula 08/28 0800 92 Nasal 40% Cannula 07/28 0800 98.0 70 30 128/58 92 Nasal 40% Cannula 07/28 0400 92 Nasal 40% Cannula 07/28 0228 93 Nasal 40% Cannula 07/28 0000 92 Nasal 40% Cannula 07/28 0000 97.4 70 33 122/60 92 Nasal 40% Cannula 07/27 2250 92 Nasal 40% Cannula 07/27 2000 91 Nasal 40% Cannula 07/27 1817 93 Nasal 40% Cannula 07/27 1630 95 Nasal 45% Cannula 07/27 1600 96 Nasal 45% Cannula 07/27 1600 99.2 64 28 120/60 96 Nasal 45% Cannula 07/27 1457 93 Ventilator 40% 07/27 1457 98.4 64 20 112/60 93 Ventilator 40% Intake & Output 07/28 1600 07/28 0807/28 0000 Intake Total 31.5 Output Total 600 1100 Balance -600 -1068.5 Intake, IV 31.5 Number 1 Bowel Movements Output, Urine 600 1100 Laboratory Tests 07/28 07/28 1130 0351 Chemistry Sodium (137 - 145 mmol/L) 130 L Potassium (3.5 - 5.1 mmol/L) 4.5 Chloride (98 - 107 mmol/L) 93 L Carbon Dioxide (22 - 30 mmol/L) 29 Anion Gap (5 - 16) 8 BUN (9 - 20 mg/dL) 26 H Creatinine (0.7 - 1.2 mg/dL) 0.5 L Estimated GFR (>60 ml/min) > 60 Glucose (65 - 99 mg/dL) 97 Calcium (8.4 - 10.2 mg/dL) 8.5 Phosphorus (2.5 - 4.5 mg/dL) 4.7 H Magnesium (1.6 - 2.3 mg/dL) 2.1 Total Bilirubin (0.2 - 1.3 mg/dL) 0.5 AST (17 - 59 U/L) 66 H ALT (21 - 72 U/L) 81 H Albumin (3.5 - 5.0 g/dL) 2.9 L Hematology CBC w Diff MAN DIFF ORDERED WBC (4.8 - 10.8 /CUMM) 11.8 H RBC (4.70 - 6.10 /CUMM) 3.09 L Hgb (14.0 - 18.0 G/DL) 9.1 L Hct (42 - 52 %) 26.8 L MCV (80.0 - 94.0 FL) 86.7 MCH (27.0 - 31.0 PG) 29.3 MCHC (33.0 - 37.0 G/DL) 33.8 RDW (11.5 - 14.5 %) 15.0 H Plt Count (130 - 400 /CUMM) 339 MPV (7.4 - 10.4 FL) 8.1 Gran % (42.2 - 75.2 %) 85.1 H Lymphocytes % (20.5 - 51.1 %) 5.6 L Monocytes % (1.7 - 9.3 %) 8.5 Eosinophils % (0 - 5 %) 0.7 Basophils % (0.0 - 2.0 %) 0.1 Absolute Granulocytes (1.4 - 6.5 /CUMM) 10.0 H Segmented Neutrophils (42.2 - 75.2 %) 87 H Band Neutrophils (0.0 - 5.0 %) 1 Absolute Lymphocytes (1.2 - 3.4 /CUMM) 0.7 L Lymphocytes (20.5 - 51.1 %) 6 L Monocytes (1.7 - 9.3 %) 6 Absolute Monocytes (0.10 - 0.60 /CUMM) 1.0 H Absolute Eosinophils (0.0 - 0.7 /CUMM) 0.1 Absolute Basophils (0.0 - 0.2 /CUMM) 0 Platelet Estimate (ADEQUATE) ADEQUATE Polychromasia 1+ Poikilocytosis 1+ Basophilic Stippling 1+ Ovalocytes 1+ Other Body Source Fld Total RBCs Counted (%) 100 Toxicology Vancomycin Trough (10.0 - 20.0 ug/mL) 7.7 L 07/27 07/27 1325 1130 Blood Gas pH (7.35 - 7.45 PH) 7.46 H pCO2 (35 - 45 TORR) 41 pO2 (80 - 100 TORR) 72 L HCO3 (21 - 28 MEQ/L) 28 ABG O2 Sat (Measured) (>96.0 %) 94.0 L P-50 (Temp Corrected) N Carboxyhemoglobin (1.5 - 5.0 %) 0.2 L O2 Concentration % 40% Respiration Rate (BPM) 29 O2 Delivery Method VENT Vent Mode CPAP/PSV WEAN TRIAL Expiratory Pressure (CMH2O/P) 5 Tidal Volume (CC) 481 Pressure Support (CMH2O/P) 6 Miscellaneous Phlebotomy Draw Site RIGHT RADIAL Toxicology Vancomycin Trough Cancelled 07/27 0402 Chemistry Sodium (137 - 145 mmol/L) 129 L Potassium (3.5 - 5.1 mmol/L) 4.3 Chloride (98 - 107 mmol/L) 94 L Carbon Dioxide (22 - 30 mmol/L) 27 Anion Gap (5 - 16) 8 BUN (9 - 20 mg/dL) 25 H Creatinine (0.7 - 1.2 mg/dL) 0.5 L Estimated GFR (>60 ml/min) > 60 Glucose (65 - 99 mg/dL) 121 H Calcium (8.4 - 10.2 mg/dL) 7.9 L Phosphorus (2.5 - 4.5 mg/dL) 4.0 Magnesium (1.6 - 2.3 mg/dL) 2.2 Total Bilirubin (0.2 - 1.3 mg/dL) 0.5 AST (17 - 59 U/L) 69 H ALT (21 - 72 U/L) 80 H [id number] Pept (<125 pg/mL) 662 H Albumin (3.5 - 5.0 g/dL) 2.5 L Hematology CBC w Diff NO MAN DIFF REQ WBC (4.8 - 10.8 /CUMM) 9.4 RBC (4.70 - 6.10 /CUMM) 2.79 L Hgb (14.0 - 18.0 G/DL) 8.2 L Hct (42 - 52 %) 24.3 L MCV (80.0 - 94.0 FL) 86.9 MCH (27.0 - 31.0 PG) 29.4 MCHC (33.0 - 37.0 G/DL) 33.8 RDW (11.5 - 14.5 %) 15.0 H Plt Count (130 - 400 /CUMM) 271 MPV (7.4 - 10.4 FL) 8.1 Gran % (42.2 - 75.2 %) 79.0 H Lymphocytes % (20.5 - 51.1 %) 7.9 L Monocytes % (1.7 - 9.3 %) 10.9 H Eosinophils % (0 - 5 %) 2.1 Basophils % (0.0 - 2.0 %) 0.1 Absolute Granulocytes (1.4 - 6.5 /CUMM) 7.4 H Absolute Lymphocytes (1.2 - 3.4 /CUMM) 0.7 L Absolute Monocytes (0.10 - 0.60 /CUMM) 1.0 H Absolute Eosinophils (0.0 - 0.7 /CUMM) 0.2 Absolute Basophils (0.0 - 0.2 /CUMM) 0 Impression/Plan Impression/Plan Impression/Plan: General: WD/WN male in NAD; sedated and intubated HEENT: NC/AT, PERRL, EOMI pharynx difficult to eval Neck: no JVD, no carotid bruit Heart: RRR w/o murmur Lungs: decreased breath sounds on the right Abdomen: soft, NT, +ve bowel sounds Extremities: no edema IMPRESSION This is a gentleman with more than [id number] smoking history, obstructive sleep apnea on CPAP, significant COPD not on home oxygen, paroxysmal atrial fibrillation not on anticoagulation due to significant past history of fall, hypothyroidism on supplementation, ischemic heart disease with previous CABG in 2001, previous CVA with right-sided ramila-plegia, hyperlipidemia, significant history of rheumatoid arthritis does not seem to be on any immunosuppressive at this time, peripheral vascular disease, multiple wounds now has * Resolving Acute hypoxemic respiratory failure was on prolonged mech vent support now extubated/ related to bilateral multilobar pneumonia MRSA compounded by acute systolic chf * Herpes zoster of the pinna and pharnyx s/p rx * Ischemic heart disease now with low ef, with acute systolic chf, paroxysmal atrial fibrillation (was not on anticoagulation prior to admission) and was on amiodarone however. Seems to be maintaining sinus rhythm. * Myocardial necrosis with mildly elevated troponin with low ef and wall motion abnormality, consistant with NSTEMI * Prior Dysphagia, difficulty swallowing at times with food getting stuck in the mid esophagus to rule out any esophageal lesion / PT failed bedside swallow * Significant lung disease with prior smoking with chronic obstructive restrictive lung disease with prior aspiration pneumonitis and prolonged hospitalization due to chronic respiratory failure * Multiple other issues including rheumatoid arthritis, peripheral vascular disease, multiple ulcers including ulcers in the back with malnutrition and poor performance status * Rt upper qdt pain ultrasound nil sig and bili is ok with lfts trending down and pt has no sig pain RECOMMENDATION * Cont current rx * NPO * Hold lasix * Ivf 50 cc with d5 normal saline * Watch blood work, add alk phos and lft to am labs * Nebulizer therapy as needed with DuoNeb if wheezing * Restart ppi Prognosis guarded /Patient critically ill total time spent 39 minutes Pt wishes DNR and DNI and wishes conservative care only from now on
[2018-07-28 16:00] VITALS: BP 126/60
[2018-07-29] VITALS: BP 123/90
[2018-07-29 05:22] LABS: ABSOLUTE BASOPHIL COUNT 0 /CUMM (0.0-0.2); ABSOLUTE EOSINOPHIL COUNT 0.1 /CUMM (0.0-0.7); ABSOLUTE LYMPH COUNT 0.8 /CUMM (1.2-3.4); BASOPHIL % 0 % (0.0-2.0); EOSINOPHIL % 0.9 % (0-5); HEMATOCRIT 26.8 % (42-52); MEAN CORPUSCULAR HGB CONC 33.2 G/DL (33.0-37.0); MEAN CORPUSCULAR VOLUME 87.4 FL (80.0-94.0); MEAN PLATELET VOLUME 8.1 FL (7.4-10.4); PLATELET COUNT 372 /CUMM (130-400); RED BLOOD CELL CT 3.07 /CUMM (4.70-6.10); WHITE BLOOD CELL COUNT 12.9 /CUMM (4.8-10.8)
[2018-07-29 05:58] LABS: GRANULOCYTE % 85.6 % (42.2-75.2)
[2018-07-29 08:00] VITALS: BP 118/60
--- NOTE | 2018-07-29 08:09 | PN- Resident CRCU ---
Subjective HPI/CRCU Issues: Acute hypoxic and hypercapnic respiratory failure requiring intubation secondary to multilobar pneumonia, MRSA. Now extubated. Otitis externa, sinusitis, right-sided pharyngitis with ulcerative lesion. Acute systolic CHF ejection fraction 30% Rule out ACS, elevated troponin History of paroxysmal AF not on any anticoagulation History of COPD, aspiration pneumonitis and chronic respiratory failure Hx of rheumatoid arthritis, peripheral vascular disease, multiple ulcers including ulcers on the back, malnutrition with failed swallow eval 24 Hour Events: Overnight had desaturations on 5LNC, was switched to HFNC maintained saturations at 94%, was in sinus rhythym overnight. Today he says that he feels better, is not bringing up as much mucuous. Was unaware of his desaturations. Objective Vital Signs & I&O Last 8 Hrs of Vitals and I&O: Afebrile, sinus rhythym, normotensive, desats that improved with HFNC Exam General Appearance: alert, awake, mild distress Head: atraumatic Neck: normal inspection Respiratory: decreased breath sounds Cardiovascular: regular rate/rhythm Gastrointestinal: soft, non-tender Extremities: no edema, r thumb chronic wound; b/l chronic wounds Cranial Nerves: normal speech Skin: intact Skin Temp/Moisture Exam: Warm/Dry Sepsis Skin Exam (color): Normal for Ethnicity Weaning Parameters NIF: 26 Minute Volume: 13.8 Resp rate: 25 Vt: 552 Heart Rate: 60 Weaning Schedule Start Time: 1208 Minute Volume: 12.6 Resp Rate: 25 Vt: 506 Heart Rate: 62 End Time: 1357 Minute Volume: 14.1 Resp Rate: 29 Vt: 489 Heart Rate: 63 Current Medications: Current Medications Sig/Jamie Start time Last Medication Dose Route Stop Time Status Admin Acetaminophen 1,000 MG BID PRN 07/17 1930 AC 07/19 IV 0415 Albuterol Sulfate 3 ML Q4P PRN 07/17 1945 AC INH Bisacodyl 10 MG DAILY PRN 07/28 0700 AC PA Budesonide/ 2 PUF BID 07/17 2100 DC 07/29 Formoterol Fumarate INH 0838 Dextrose/Sodium 1,000 ML Q20H 07/28 1345 AC 07/29 Chloride IV 1234 Furosemide 20 MG ONCE ONE 07/28 2230 DC 07/28 IV 07/28 2231 223 Heparin Sodium 5,000 UNIT Q8 07/23 1400 AC 07/29 (Porcine) SC 1319 Insulin Human Regular 0 Q6 07/28 1800 AC SC Ipratropium [place] 2.5 ML Q4P PRN 07/20 1545 AC INH Levothyroxine Sodium 44 MCG DAILY 07/28 1400 AC 07/29 IV 0928 Neomycin/Polymyxin/ 4 GTT TID 07/20 2100 AC 07/29 Bacitr/Hydrocort OTIC 1319 Pantoprazole Sodium 40 MG DAILY 07/20 1209 AC 07/29 IV 0838 Vancomycin HCl 1,500 MG Q24H 07/29 0900 AC 07/29 Sodium Chloride 250 ML IV 0928 Vancomycin HCl 1,000 MG Q24H 07/22 1200 DC 07/28 Sodium Chloride 250 ML IV 1208 Impression/Plan Impression/Problem List Impression: 73 YO M former smoker (50 packs/yr) with PMH of HTN, HLD, COPD (not on any home oxygen), BILL on CPAP, paroxysmal atrial fibrillation not on any AC due to fall risk, hypothyroidism, CAD s/p quadruple bypass in 2001, 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 He was known to be in his usual state of health until a few days prior to presentation. Recurrent fever with increasing WBC and worsening respiratory status, requiring intubation overnight, now on Zosyn after several days of various antibiotics, including Ceftriaxone, Azithromycin, Doxycycline, Unasyn and Vancomycin for what appears to be a multilobar community-acquired pneumonia of acute onset. Following the patient in ICU for following problems: Acute hypoxic and hypercapnic respiratory failure: -Possibly due to community-acquired pneumonia and aspiration pneumonia, MRSA and acute and chronic systolic CHF. -Possible sepsis as patient meeting SIRS criteria, WBC count 17.1, temperature 103.2 and on imaging study patient has a multilobar pneumonia. Although his lactic acid and remained negative. -Could be due to aspiration pneumonia that causing multiple lobe opacities. -Continue vancomycin 1.5gm, day 8 Total antibiotic D 10. Vanco trough yesterday 7.7 -Extubated two days ago, was on 5L NC but did not tolerate. Now tolerating HFNC well at this time. -Failed swallow eval. STRICT NPO -sputum culture is positive with MRSA. -Negative blood cultures. -TRC nebulization as needed -Continue iv ppi. -ID Recs appreciated. Per pt wishes, rosales will be kept in place. Hypotension:(improved), stable -Possibly due to hypovolemia, less likely due to sepsis as his lactic acid remained negative. -This morning his blood pressure was 118/60 -Off levophed. -IOP 1032/2100 Otitis externa and pharyngitis: -Patient is otitis externa and sinusitis with right sided pharyngitis with ulcerative region. 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 -Continue Corticosporin ointment. -completed acyclovir course. -ENT recommendations appreciate. Acute systolic CHF: -Patient has ejection fraction 30%. Contributing to his respiratory failure. -On imaging study patient had pulmonary congestion. His BNP was 662, up from previous 574 -IV Lasix 20 mg increased to 20mg TID yesterday, hold today. -Follow cardiology recommendations -Will have to convert potassium to IV; per SPEECH pt failed swallow eval, STRICT NPO Elevated troponin: -Last trop on 07/20 was 0.45. Likely demand ischemia -Cardio recs appreciated. Hypophosphatemia:(resolved) -Possibly due to low intake or excessive excretion to kidney. -Today his phosphate level is 4.1 Abdominal pain: -Reported upper abdominal pain this morning. -Pt is without gallbladder, likely no acalculus cholecystitis. US shows intrahepatic ductal dilatation with dilated CBD; recommended CT scan with oral and IV contrast. Will f/u LRT; alk phos, will hold off on further aggressive measures per pt wishes History of atrial fibrillation: -Not any anticoagulation -Amiodarone discontinued after FAILED swallow eval History of hypothyroidism: -Levothyroxine converted to IV form as strict NPO History of CAD status post CABG: -Holding oral meds History of hyperlipidemia and hypertension: -Holding atorvastatin and ezetimibe. -Holding his amlodipine due to low blood pressure. Chronic wounds; -On right knuckle, left buttock and weaping wounds on legs were present on admission. -Getting dressing everyday. Diet: -STRICT NPO per swallow eval. Will maintain on IVF 50cc w/ d5 NS. DVT prophylaxis: Mechanical and s/c heparin CODE STATUS: DNR/DNI per discussion with [facility] [employer] Specialist Dr IZQUIERDO yesterday morning. Likely transfer to telemetry pending bed space. No aggressive measures per pt. Pt wishes to keep rosales in place for now. Problem List: 1. Chronic wound of extremity 2. Aspiration pneumonia 3. Acute respiratory failure with hypoxia 4. Otitis externa Pain Ratin Tomorrow's Labs & Rationales: BEP Plan DVT/Prophylaxis: mechanical, pharmacological
--- NOTE | 2018-07-29 09:36 | PN- CRCU ---
Subjective HPI/Critical Care Issues: Doing a little worse Having difficulty handling secretions Failed a swallow eval Did not sleep well Wishes to stay in bed Objective Current Medications: Current Medications Sig/Jamie Start time Last Medication Dose Route Stop Time Status Admin Acetaminophen 650 MG Q6-PRN PRN 07/26 2045 DC 07/26 PO 2049 Acetaminophen 1,000 MG BID PRN 07/17 1930 AC 07/19 IV 0415 Albuterol Sulfate 3 ML Q4P PRN 07/17 1945 AC INH Amiodarone HCl 100 MG DAILY 07/21 2315 DC 07/27 PO 0851 Aspirin 162 MG DAILY 07/21 09 DC 07/27 PO 0851 Atorvastatin Calcium 80 MG DAILY 07/18 09 DC 07/27 PO 0850 Bisacodyl 10 MG DAILY PRN 07/28 07 AC SC Budesonide/ 2 PUF BID 07/17 2100 AC 07/29 Formoterol Fumarate INH 0838 Dextrose/Sodium 1,000 ML Q20H 07/28 1345 AC 07/28 Chloride IV 1415 Ezetimibe 10 MG DAILY 07/18 09 DC 07/27 PO 0850 Furosemide 20 MG ONCE ONE 07/28 2230 DC 07/28 IV 07/28 2231 2238 Furosemide 20 MG TID 07/27 2100 DC 07/28 IV 0926 Heparin Sodium 5,000 UNIT Q8 07/23 1400 AC 07/29 (Porcine) SC 0514 Insulin Human Regular 0 Q6 07/28 1800 AC SC Ipratropium [place] 2.5 ML Q4P PRN 07/20 1545 AC INH Levothyroxine Sodium 44 MCG DAILY 07/28 1400 AC 07/28 IV 1415 Levothyroxine Sodium 0.088 MG DAILY AC 07/21 0700 DC 07/27 PO 0541 Neomycin/Polymyxin/ 4 GTT TID 07/20 2100 AC 07/29 Bacitr/Hydrocort OTIC 0838 Pantoprazole Sodium 40 MG DAILY 07/20 1209 AC 07/29 IV 0838 Potassium Chloride 40 MEQ DAILY 07/23 09 DC 07/27 PO 0850 Senna 187 MG AT BEDTIME 07/24 2100 DC 07/26 PO 2050 Vancomycin HCl 1,500 MG Q24H 07/29 09 AC Sodium Chloride 250 ML IV Vancomycin HCl 1,000 MG Q24H 07/22 1200 DC 07/28 Sodium Chloride 250 ML IV 1208 Vital Signs & I&O Last 24 Hrs of Vitals and I&O: Vital Signs Date Time Temp Pulse Resp B/P B/P Pulse O2 O2 Flow FiO2 Mean Ox Delivery Rate 07/29 0531 93 Nasal 50% Cannula 07/29 0400 95 Nasal 5.0L Cannula 07/29 0145 69 92 07/29 0000 93 CPAP 6.0L 07/29 0000 97.1 64 34 123/90 94 Nasal 5.0L Cannula 07/28 2000 95 Nasal 5.0L Cannula 07/28 1643 94 Nasal 5.0L Cannula 07/28 1600 97.4 64 30 126/60 97 Nasal 5.0L Cannula 07/28 1600 97 Nasal 5.0L Cannula 07/28 1200 98 Nasal 5.0L Cannula Intake & Output 07/29 1600 07/29 0800 07/29 0000 Intake Total 382 400 Output Total 900 300 Balance -518 100 Intake, IV 382 400 Intake, Oral 0 0 Output, Urine 900 300 Impression/Plan Impression/Plan Impression/Plan: General: WD/WN male in NAD; sedated and intubated HEENT: NC/AT, PERRL, EOMI pharynx difficult to eval Neck: no JVD, no carotid bruit Heart: RRR w/o murmur Lungs: decreased breath sounds on the right Abdomen: soft, NT, +ve bowel sounds Extremities: no edema IMPRESSION This is a gentleman with more than [id number] smoking history, obstructive sleep apnea on CPAP, significant COPD not on home oxygen, paroxysmal atrial fibrillation not on anticoagulation due to significant past history of fall, hypothyroidism on supplementation, ischemic heart disease with previous CABG in 2001, previous CVA with right-sided ramila-plegia, hyperlipidemia, significant history of rheumatoid arthritis does not seem to be on any immunosuppressive at this time, peripheral vascular disease, multiple wounds now has * Resolving Acute hypoxemic respiratory failure was on prolonged mech vent support now extubated/ related to bilateral multilobar pneumonia MRSA compounded by acute systolic chf * Ongoing aspiration and pt failed swallow eval * Herpes zoster of the pinna and pharnyx s/p rx * Ischemic heart disease now with low ef, with acute systolic chf, paroxysmal atrial fibrillation (was not on anticoagulation prior to admission) and was on amiodarone however. Seems to be maintaining sinus rhythm Now not on systemic anticoag due to bleeding risk etc and pt has maintained sinus * Myocardial necrosis with mildly elevated troponin with low ef and wall motion abnormality, consistant with NSTEMI * Prior Dysphagia, difficulty swallowing at times with food getting stuck in the mid esophagus to rule out any esophageal lesion / PT failed bedside swallow * Significant lung disease with prior smoking with chronic obstructive restrictive lung disease with prior aspiration pneumonitis and prolonged hospitalization due to chronic respiratory failure * Multiple other issues including rheumatoid arthritis, peripheral vascular disease, multiple ulcers including ulcers in the back with malnutrition and poor performance status * Resolved Rt upper qdt pain ultrasound nil sig and bili is ok with lfts trending down and pt has no sig pain (nl bili and alk phos) RECOMMENDATION * Cont current rx * NPO for now Discussed with the pt about ng tube etc (peg if unable to swallow in the future) Pt wishes no further sig invasive intervention * Hold lasix * Ivf 50 cc with d5 normal saline * Dc symbicort * Nebulizer therapy as needed with DuoNeb if wheezing * Restart ppi Pt wishes no further agg care Wishes to be dnr and dni No artifical feeding No further BIPAP etc No other life support interventions Will transfer to tele for now if bed is needed and then will cont abx, rpt swallow eval / Out of bed to chair if pt wishes (refusing at this time) Met with his daughter before (she is estranged from Mr Mikaelestefany) and she is aware of his issues
--- NOTE | 2018-07-29 12:01 | PN- Infect Dx ---
Subjective Subjective: Afebrile without complaints. He apparently failed a swallowing evaluation. Objective Last 24 Hrs of Vital Signs/I&O Vital Signs Date Time Temp Pulse Resp B/P B/P Pulse O2 O2 Flow FiO2 Mean Ox Delivery Rate 07/29 08 96 Nasal 50% Cannula 07/29 0800 98.9 65 32 118/60 96 Nasal 50% Cannula 07/29 0531 93 Nasal 50% Cannula 07/29 0400 95 Nasal 5.0L Cannula 07/29 0145 69 92 07/29 0000 93 CPAP 6.0L 07/29 0000 97.1 64 34 123/90 94 Nasal 5.0L Cannula 07/28 2000 95 Nasal 5.0L Cannula 07/28 1643 94 Nasal 5.0L Cannula 07/28 1600 97.4 64 30 126/60 97 Nasal 5.0L Cannula 07/28 1600 97 Nasal 5.0L Cannula 07/28 1200 98 Nasal 5.0L Cannula Intake & Output 07/29 1600 07/29 0800 07/29 0000 Intake Total 382 400 Output Total 900 300 Balance -518 100 Intake, IV 382 400 Intake, Oral 0 0 Output, Urine 900 300 Physical Exam Other Physical Findings: He is awake and alert, now on high flow oxygen, in no acute distress Lungs decreased breath sounds at the left base Heart regular rhythm with no murmur Abdomen is soft, mildly tender on palpation of the right upper quadrant, with no guarding or rebound, positive bowel sounds Extremities no cyanosis, clubbing or edema Stout catheter remains in place Results Last 24 Hours of Lab Results: Laboratory Tests 07/297 Chemistry Sodium (137 - 145 mmol/L) 132 L Potassium (3.5 - 5.1 mmol/L) 4.2 Chloride (98 - 107 mmol/L) 95 L Carbon Dioxide (22 - 30 mmol/L) 32 H Anion Gap (5 - 16) 5 BUN (9 - 20 mg/dL) 25 H Creatinine (0.7 - 1.2 mg/dL) 0.6 L Estimated GFR (>60 ml/min) > 60 Glucose (65 - 99 mg/dL) 95 Calcium (8.4 - 10.2 mg/dL) 8.5 Phosphorus (2.5 - 4.5 mg/dL) 4.1 Magnesium (1.6 - 2.3 mg/dL) 1.9 Total Bilirubin (0.2 - 1.3 mg/dL) 0.5 AST (17 - 59 U/L) 64 H ALT (21 - 72 U/L) 77 H Albumin (3.5 - 5.0 g/dL) 2.8 L Hematology CBC w Diff NO MAN DIFF REQ WBC (4.8 - 10.8 /CUMM) 12.9 H RBC (4.70 - 6.10 /CUMM) 3.07 L Hgb (14.0 - 18.0 G/DL) 8.9 L Hct (42 - 52 %) 26.8 L MCV (80.0 - 94.0 FL) 87.4 MCH (27.0 - 31.0 PG) 29.0 MCHC (33.0 - 37.0 G/DL) 33.2 RDW (11.5 - 14.5 %) 15.0 H Plt Count (130 - 400 /CUMM) 372 MPV (7.4 - 10.4 FL) 8.1 Gran % (42.2 - 75.2 %) 85.6 H Lymphocytes % (20.5 - 51.1 %) 6.1 L Monocytes % (1.7 - 9.3 %) 7.4 Eosinophils % (0 - 5 %) 0.9 Basophils % (0.0 - 2.0 %) 0 Absolute Granulocytes (1.4 - 6.5 /CUMM) 11.0 H Absolute Lymphocytes (1.2 - 3.4 /CUMM) 0.8 L Absolute Monocytes (0.10 - 0.60 /CUMM) 1.0 H Absolute Eosinophils (0.0 - 0.7 /CUMM) 0.1 Absolute Basophils (0.0 - 0.2 /CUMM) 0 Last 24 Hours of Shen Results: No new cultures Assessment/Plan ID Impression: Overall status poor, now back on high flow oxygen after extubation 2 days ago, with his temperatures remaining normal, but with his white blood cell count increasing, on Vancomycin, Day 8 of treatment for multilobar MRSA pneumonia, with his Vancomycin dose increased yesterday based on a low trough level. His leukocytosis may still be secondary to hemoconcentration secondary to the increased dose of Lasix, which has now been discontinued. The significance of his right upper quadrant tenderness is unclear, with the ultrasound revealing questionable intrahepatic ductal dilatation and a dilated common bile duct, but, as no further intervention is desired, do not feel that further workup is warranted. Suggestion: 1. Further management with regard to his overall level of care per Medicine 2. Remove Stout catheter 3. Continue Vancomycin for 2 more days
[2018-07-29 16:00] VITALS: BP 118/58
[2018-07-30] VITALS: BP 110/60
--- NOTE | 2018-07-30 07:27 | PN- Resident CRCU ---
Subjective HPI/CRCU Issues: Acute hypoxic and hypercapnic respiratory failure requiring intubation secondary to multilobar pneumonia, MRSA. Now extubated. Otitis externa, sinusitis, right-sided pharyngitis with ulcerative lesion. Acute systolic CHF ejection fraction 30% Rule out ACS, elevated troponin History of paroxysmal AF not on any anticoagulation History of COPD, aspiration pneumonitis and chronic respiratory failure Hx of rheumatoid arthritis, peripheral vascular disease, multiple ulcers including ulcers on the back, malnutrition with failed swallow eval 24 Hour Events: Patient desaturated again last night, his FiO2 is increased at 85% maintain saturations overnight. Continues to desaturate, currently on 95% high flow nasal cannula. Does not want BiPAP or any invasive measures. Has 1 day left of antibiotics. Is not complaining of anything at this time. Section today showed frothy yellow sputum, last night suction was green sputum. Afebrile, denies chest pain, denies shortness of breath, denies abdominal pain, denies urinary symptoms, no swelling to the lower extremities. Objective Vital Signs & I&O Last 8 Hrs of Vitals and I&O: Intake & Output 07/30 0800 Intake Total 349 Output Total 250 Balance 99 Intake, IV 349 Output, Urine 250 Exam General Appearance: alert, awake, mild distress Head: atraumatic Ears, Nose, Throat: normal pharynx Respiratory: rhonchi in all sutton Cardiovascular: regular rate/rhythm Gastrointestinal: soft, non-tender Extremities: no edema Skin: multiple ulcers, wound on R thumb Skin Temp/Moisture Exam: Warm/Dry Weaning Parameters NIF: 26 Minute Volume: 13.8 Resp rate: 25 Vt: 552 Heart Rate: 60 Weaning Schedule Start Time: 1208 Minute Volume: 12.6 Resp Rate: 25 Vt: 506 Heart Rate: 62 End Time: 1357 Minute Volume: 14.1 Resp Rate: 29 Vt: 489 Heart Rate: 63 Current Medications: Current Medications Sig/Jamie Start time Last Medication Dose Route Stop Time Status Admin Acetaminophen 1,000 MG BID PRN 07/17 1930 AC 07/29 IV 2153 Albuterol Sulfate 3 ML Q4P PRN 07/17 1945 AC 07/30 INH 1209 Bisacodyl 10 MG DAILY PRN 07/28 0700 AC NH Dextrose/Sodium 1,000 ML Q20H 07/28 1345 AC 07/30 Chloride IV 1421 Furosemide 20 MG ONCE ONE 07/30 1100 DC 07/30 IV 07/30 1101 1135 Heparin Sodium 5,000 UNIT Q8 07/23 1400 AC 07/30 (Porcine) SC 1413 Insulin Human Regular 0 Q6 07/28 1800 AC SC Ipratropium [place] 2.5 ML Q4P PRN 07/20 1545 AC 07/30 INH 1209 Levothyroxine Sodium 44 MCG DAILY 07/28 1400 AC 07/30 IV 0957 Neomycin/Polymyxin/ 4 GTT TID 07/20 2100 AC 07/30 Bacitr/Hydrocort OTIC 1413 Pantoprazole Sodium 40 MG DAILY 07/20 1209 AC 07/30 IV 0957 Vancomycin HCl 1,500 MG Q24H 07/29 0900 AC 07/30 Sodium Chloride 250 ML IV 0957 Impression/Plan Impression/Problem List Impression: 73 YO M former smoker (50 packs/yr) with PMH of HTN, HLD, COPD (not on any home oxygen), BILL on CPAP, paroxysmal atrial fibrillation not on any AC due to fall risk, hypothyroidism, CAD s/p quadruple bypass in 2001, 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 He was known to be in his usual state of health until a few days prior to presentation. Recurrent fever with increasing WBC and worsening respiratory status, requiring intubation overnight, now on Zosyn after several days of various antibiotics, including Ceftriaxone, Azithromycin, Doxycycline, Unasyn and Vancomycin for what appears to be a multilobar community-acquired pneumonia of acute onset. Following the patient in ICU for following problems: #Acute hypoxic and hypercapnic respiratory failure: extubated but worsening, does not want invasive measures at this time -Possibly due to community-acquired pneumonia and aspiration pneumonia, MRSA and acute and chronic systolic CHF. -Possible sepsis as patient meeting SIRS criteria, WBC count 17.1, temperature 103.2 and on imaging study patient has a multilobar pneumonia. Although his lactic acid and remained negative. -Could be due to aspiration pneumonia that causing multiple lobe opacities. -Continue vancomycin 1.5gm, day 9. Total antibiotic D 10. -Extubated three days ago, was on 5L NC but did not tolerate. Now tolerating HFNC with continued desaturations, currently on 95% at this time. -Failed swallow eval. STRICT NPO per speech, but can feed patient if hungry per attending given no advanced measure by patient -sputum culture is positive with MRSA. -Negative blood cultures. -TRC nebulization as needed -Continue iv ppi. -ID Recs appreciated. Per pt wishes, rosales will be kept in place. Hypotension:(improved), stable Otitis externa and pharyngitis: -Patient is otitis externa and sinusitis with right sided pharyngitis with ulcerative region. 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 -Continue Corticosporin ointment. -completed acyclovir course. -ENT recommendations appreciate. Acute systolic CHF: -Patient has ejection fraction 30%. Contributing to his respiratory failure. -On imaging study patient had pulmonary congestion. His BNP was 662, up from previous 574 -Recieved lasix 20mg IV once this day. PRN. -Follow cardiology recommendations -Will have to convert potassium to IV; per SPEECH pt failed swallow eval, STRICT NPO Elevated troponin: -Last trop on 07/20 was 0.45. Likely demand ischemia -Cardio recs appreciated. Hypophosphatemia:(resolved) -Possibly due to low intake or excessive excretion to kidney. Abdominal pain: -Reported upper abdominal pain this morning. -Pt is without gallbladder, likely no acalculus cholecystitis. US shows intrahepatic ductal dilatation with dilated CBD; recommended CT scan with oral and IV contrast. Will f/u LRT; alk phos, will hold off on further aggressive measures per pt wishes History of atrial fibrillation: -Not any anticoagulation -Amiodarone discontinued after FAILED swallow eval History of hypothyroidism: -Levothyroxine converted to IV form as strict NPO History of CAD status post CABG: -Holding oral meds History of hyperlipidemia and hypertension: -Holding atorvastatin and ezetimibe. Chronic wounds; -On right knuckle, left buttock and weaping wounds on legs were present on admission. -Getting dressing everyday. Diet: -STRICT NPO per swallow eval. Will maintain on IVF 50cc w/ d5 NS. Per attending, can feed if he is hungry given patient wishes for no advanced measures and considering patient comfort. DVT prophylaxis: Mechanical and s/c heparin CODE STATUS: DNR/DNI per discussion with [employer] Dr IZQUIERDO two days ago morning. Likely transfer to [facility] pending bed space. No aggressive measures per pt. Pt wishes to keep rosales in place for now. Conservative treatment now. Will go to hospice if patient condition worsens; PRN morphine as needed Problem List: 1. Acute respiratory failure with hypoxia Pain Ratin Tomorrow's Labs & Rationales: conservative treatment na Plan DVT/Prophylaxis: mechanical, pharmacological
[2018-07-30 08:00] VITALS: BP 116/60
[2018-07-30 11:24] LABS: ABSOLUTE BASOPHIL COUNT 0 /CUMM (0.0-0.2); ABSOLUTE EOSINOPHIL COUNT 0.1 /CUMM (0.0-0.7); ABSOLUTE GRANULOCYTE CT 12.2 /CUMM (1.4-6.5); ABSOLUTE LYMPH COUNT 0.8 /CUMM (1.2-3.4); ABSOLUTE MONOCYTE COUNT 0.8 /CUMM (0.10-0.60); BASOPHIL % 0.1 % (0.0-2.0); EOSINOPHIL % 0.4 % (0-5); HEMATOCRIT 27.2 % (42-52); MEAN CORPUSCULAR HGB 28.8 PG (27.0-31.0); MEAN CORPUSCULAR HGB CONC 32.7 G/DL (33.0-37.0); MEAN CORPUSCULAR VOLUME 87.9 FL (80.0-94.0); MEAN PLATELET VOLUME 7.6 FL (7.4-10.4); PLATELET COUNT 391 /CUMM (130-400); RBC DISTRIBUTION WIDTH 14.3 % (11.5-14.5); WHITE BLOOD CELL COUNT 13.9 /CUMM (4.8-10.8)
--- NOTE | 2018-07-30 13:32 | PN- Pulmonary ---
Subjective HPI/Critical Care Issues: Doing poorly Objective Current Medications: Current Medications Sig/Jamie Start time Last Medication Dose Route Stop Time Status Admin Acetaminophen 1,000 MG BID PRN 07/17 1930 AC 07/29 IV 2153 Albuterol Sulfate 3 ML Q4P PRN 07/17 1945 AC 07/30 INH 1209 Bisacodyl 10 MG DAILY PRN 07/28 0700 AC MN Dextrose/Sodium 1,000 ML Q20H 07/28 1345 AC 07/29 Chloride IV 1234 Furosemide 20 MG ONCE ONE 07/30 1100 DC 07/30 IV 07/30 1101 1135 Heparin Sodium 5,000 UNIT Q8 07/23 1400 AC 07/30 (Porcine) SC 0547 Insulin Human Regular 0 Q6 07/28 1800 AC SC Ipratropium [place] 2.5 ML Q4P PRN 07/20 1545 AC 07/30 INH 1209 Levothyroxine Sodium 44 MCG DAILY 07/28 1400 AC 07/30 IV 0957 Neomycin/Polymyxin/ 4 GTT TID 07/20 2100 AC 07/30 Bacitr/Hydrocort OTIC 0957 Pantoprazole Sodium 40 MG DAILY 07/20 1209 AC 07/30 IV 0957 Vancomycin HCl 1,500 MG Q24H 07/29 0900 AC 07/30 Sodium Chloride 250 ML IV 0957 Vital Signs & I&O Last 24 Hrs of Vitals and I&O: Vital Signs Date Time Temp Pulse Resp B/P B/P Pulse O2 O2 Flow FiO2 Mean Ox Delivery Rate 07/30 0851 91 Nasal 95% Cannula 07/30 0800 97.9 64 20 116/60 92 Nasal 80% Cannula 07/30 0800 92 Nasal 80% Cannula 07/30 0601 92 Nasal 85% Cannula 07/30 0129 92 Nasal 85% Cannula 07/30 0030 89 Nasal 80% Cannula 07/30 0000 94 Nasal 80% Cannula 07/30 0000 97.2 66 30 110/60 94 Nasal 80% Cannula 07/29 2236 93 Nasal 70% Cannula 07/29 1600 94 Nasal 75% Cannula 07/29 1600 97.5 68 22 118/58 94 Nasal 50% Cannula Intake & Output 07/30 1600 07/30 0800 07/30 0000 Intake Total 349 500 Output Total 250 300 Balance 99 200 Intake, IV 349 500 Output, Urine 250 300 Impression/Plan Impression/Plan Impression/Plan: General: WD/WN male in NAD; sedated and intubated HEENT: NC/AT, PERRL, EOMI pharynx difficult to eval Neck: no JVD, no carotid bruit Heart: RRR w/o murmur Lungs: decreased breath sounds on the right Abdomen: soft, NT, +ve bowel sounds Extremities: no edema IMPRESSION This is a gentleman with more than [id number] smoking history, obstructive sleep apnea on CPAP, significant COPD not on home oxygen, paroxysmal atrial fibrillation not on anticoagulation due to significant past history of fall, hypothyroidism on supplementation, ischemic heart disease with previous CABG in 2001, previous CVA with right-sided ramila-plegia, hyperlipidemia, significant history of rheumatoid arthritis does not seem to be on any immunosuppressive at this time, peripheral vascular disease, multiple wounds now has * Acute hypoxemic respiratory failure was on prolonged mech vent support now extubated/ related to bilateral multilobar pneumonia MRSA compounded by acute systolic chf * Herpes zoster of the pinna and pharnyx s/p rx * Ischemic heart disease now with low ef, with acute systolic chf, paroxysmal atrial fibrillation (was not on anticoagulation prior to admission) and was on amiodarone however. Seems to be maintaining sinus rhythm. * Myocardial necrosis with mildly elevated troponin with low ef and wall motion abnormality, consistant with NSTEMI * Prior Dysphagia, difficulty swallowing at times with food getting stuck in the mid esophagus to rule out any esophageal lesion / PT failed bedside swallow * Significant lung disease with prior smoking with chronic obstructive restrictive lung disease with prior aspiration pneumonitis and prolonged hospitalization due to chronic respiratory failure * Multiple other issues including rheumatoid arthritis, peripheral vascular disease, multiple ulcers including ulcers in the back with malnutrition and poor performance status * Rt upper qdt pain ultrasound nil sig and bili is ok with lfts trending down and pt has no sig pain RECOMMENDATION * Cont current rx * NPO till swallow eval * Hold lasix * Ivf 50 cc with d5 normal saline * Watch blood work, add alk phos and lft to am labs * Nebulizer therapy as needed with DuoNeb if wheezing * Restart ppi Prognosis guarded /Patient critically ill total time spent 39 minutes Pt wishes DNR and DNI and wishes conservative care only from now on No BIPAP NO ICU/DIALYSIS OR VASOPRESSORS TO PVT ROOM CONT CONSERVATIVE RX IF WORSE HOSPICE PT WISHES NOT TO REDO SWALLOW EVAL IF PT WISHES TO EAT IN THE FUTURE REGARDLESS OF CONSEQUENCES OK TO FEED FOR COMFORT WISHES HOSPICE IF WORSE PRN MORPHINE
[2018-07-30 16:00] VITALS: BP 120/60
--- NOTE | 2018-07-30 16:07 | PN- Infect Dx ---
Subjective Subjective: No fever; ineffective cough; refusing to be suctioned. Review of Systems Comments: 12 points reviewed as noted, otherwise negative. Objective Last 24 Hrs of Vital Signs/I&O Vital Signs Date Time Temp Pulse Resp B/P B/P Pulse O2 O2 Flow FiO2 Mean Ox Delivery Rate 07/30 0851 91 Nasal 95% Cannula 07/30 0800 97.9 64 20 116/60 92 Nasal 80% Cannula 07/30 0800 92 Nasal 80% Cannula 07/30 0601 92 Nasal 85% Cannula 07/30 0129 92 Nasal 85% Cannula 07/30 0030 89 Nasal 80% Cannula 07/30 0000 94 Nasal 80% Cannula 07/30 0000 97.2 66 30 110/60 94 Nasal 80% Cannula 07/29 2236 93 Nasal 70% Cannula Intake & Output 07/30 1600 07/30 0800 07/30 0000 Intake Total 575 349 500 Output Total 1350 250 300 Balance -775 99 200 Intake, IV 575 349 500 Output, Urine 1350 250 300 Physical Exam Other Physical Findings: He is awake and alert, now on high flow oxygen, in no acute distress Lungs decreased breath sounds at the left base Heart regular rhythm with no murmur Abdomen is soft, mildly tender on palpation of the right upper quadrant, with no guarding or rebound, positive bowel sounds Extremities no cyanosis, clubbing or edema Stout catheter remains in place Results Last 24 Hours of Lab Results: Laboratory Tests 07/30 1045 Chemistry Sodium (137 - 145 mmol/L) 134 L Potassium (3.5 - 5.1 mmol/L) 3.8 Chloride (98 - 107 mmol/L) 102 Carbon Dioxide (22 - 30 mmol/L) 27 Anion Gap (5 - 16) 5 BUN (9 - 20 mg/dL) 20 Creatinine (0.7 - 1.2 mg/dL) 0.3 L Estimated GFR (>60 ml/min) > 60 Glucose (65 - 99 mg/dL) 120 H Calcium (8.4 - 10.2 mg/dL) 8.2 L Phosphorus (2.5 - 4.5 mg/dL) 3.3 Magnesium (1.6 - 2.3 mg/dL) 1.8 Total Bilirubin (0.2 - 1.3 mg/dL) 0.4 AST (17 - 59 U/L) 47 ALT (21 - 72 U/L) 64 Albumin (3.5 - 5.0 g/dL) 2.6 L Hematology CBC w Diff NO MAN DIFF REQ WBC (4.8 - 10.8 /CUMM) 13.9 H RBC (4.70 - 6.10 /CUMM) 3.10 L Hgb (14.0 - 18.0 G/DL) 8.9 L Hct (42 - 52 %) 27.2 L MCV (80.0 - 94.0 FL) 87.9 MCH (27.0 - 31.0 PG) 28.8 MCHC (33.0 - 37.0 G/DL) 32.7 L RDW (11.5 - 14.5 %) 14.3 Plt Count (130 - 400 /CUMM) 391 MPV (7.4 - 10.4 FL) 7.6 Gran % (42.2 - 75.2 %) 88.0 H Lymphocytes % (20.5 - 51.1 %) 5.7 L Monocytes % (1.7 - 9.3 %) 5.8 Eosinophils % (0 - 5 %) 0.4 Basophils % (0.0 - 2.0 %) 0.1 Absolute Granulocytes (1.4 - 6.5 /CUMM) 12.2 H Absolute Lymphocytes (1.2 - 3.4 /CUMM) 0.8 L Absolute Monocytes (0.10 - 0.60 /CUMM) 0.8 H Absolute Eosinophils (0.0 - 0.7 /CUMM) 0.1 Absolute Basophils (0.0 - 0.2 /CUMM) 0 Last 24 Hours of Shen Results: Patient : ANGEL VALERIO Acct: [id number] DR: Eliana COVINGTON,Jaden Lutz Birthdate: [birth year] Age/Sex: 73/M Unit: [id number] Loc: [facility] 107- 01 Status : ADM IN SPEC #: [id number] KIMBERLY: 07/20/18 STATUS: COMP RECD: 07/20/[address]: Soren Stanley MD SOURCE: LOWER RESP ENTR: 07/19/18-[address]: Joce COVINGTON,Dolores SPDESC: SPUTUMTRABeatriz Dang MD, Bill Ramsey ORDERED: LOWER RESPIRATO Procedure Result > GRAM STAIN Final 07/20/18-1425 WHITE BLOOD CELLS MODERATE SQUAMOUS CELLS FEW GRAM POSITIVE COCCI RARE > LOWER RESPIRATORY CULTURE Final 07/24/18-944 SCANT MIXED LUCIE AFTER 2 DAYS WITH: Scant growth of: METH RESIST STAPH AUREUS ISOLATED Called to/Readback by : COLTON by LAB.SVCY 07/24/18 0939 1. METH RESIST STAPH AUREUS RX ABN ------ --- 1. METH RESIST STAPH AUREUS RX AB ------ -- CEFAZOLIN R AMOXICILLIN/CLAVULINIC ACID R AMPICILLIN/SULBACTAM R TETRACYCLINE S TRIMETHOPRIM/SULFAMETHOXAZOLE S AZITHROMYCIN R CLINDAMYCIN R ERYTHROMYCIN R OXACILLIN R VANCOMYCIN S ATTENTIONATTENTIONPLACE PATIENT ON CONTACT PRECAUTIONS Recent Imaging Studies: SERVICE DATE: 07/27/18 EXAM TYPE: RAD - XRY-PORTABLE CHEST XRAY EXAMINATION: XR PORTABLE CHEST CLINICAL INFORMATION: Endotracheal tube COMPARISON: Chest x-ray 07/26/2018 TECHNIQUE: Portable frontal view of the chest was obtained. FINDINGS: Endotracheal tube terminates approximately 4.4 cm above the level of the yakov. Enteric tube extends below the level of the diaphragm. Persistent decreased volume of the left hemithorax, however, aeration of the left hemithorax appears mildly improved. Small left-sided pleural effusion persists. The right hemithorax is well aerated with only a few scattered opacities. Stable cardiomegaly. Incompletely visualized surgical hardware. IMPRESSION: 1. Stable support apparatus. 2. Persistent airspace disease, however, there appears to be mild interval improvement. DICTATED BY: Bert Hernandez MD DATE/TIME DICTATED:07/27/18751 TELEPHONIC CASE MANAGER:ANTONIA DATE/TIME TRANSCRIBED:07/27/18751 CONFIDENTIAL, DO NOT COPY WITHOUT APPROPRIATE AUTHORIZATION. <Electronically signed in Other Vendor System> SIGNED BY: Bert Hernandez MD 07/27/18 08 Assessment/Plan ID Impression: 73 y/o WM known with obstructive sleep apnea on CPAP, significant COPD not on home oxygen, paroxysmal atrial fibrillation not on anticoagulation due to significant past history of fall, nonICM, hypothyroidism on supplementation, ischemic heart disease with previous CABG in 2001, previous CVA with right-sided ramila-plegia, hyperlipidemia, significant history of rheumatoid arthritis does not seem to be on any immunosuppressive at this time, peripheral vascular disease, multiple wounds w/ complicated hosp course; acute hypoxemic respiratory failure was on prolonged mech vent support now extubated/ multilobar pneumonia MRSA compounded by acute systolic chf/herpes zoster of the pinna and pharnyx s/p rx/persistent leukocytosis; WBC trending up Suggestion: Vancomycin, Day# 9 of treatment for multilobar MRSA pneumonia, with his Vancomycin dose increased 8/ based on a low trough level. 1. Further management with regard to his overall level of care per Medicine 2. Pulm toilet. 3. Continue Vancomycin in order to complete total 14 d therapy.
--- NOTE | 2018-07-30 20:32 | Event Note ---
See Addendum Event Note Event Note: Patient was having difficulty in the breathing and was desaturating to 86-88%. Discussed with the patient in detail he does not wanted anything to be done for him he wanted to breath comfortably. Me and the nurse Cassidy, we discussed with him and told that what are the options. He wanted to go for comfort. We updated Dr Monroy, he aggreed with change in code satus to comfort. We started patient on comfort medication - Morphine and ativan as needed. I updated his daughter Ms. Russell about it.
== END 2018-07-30 21:35 | disposition expired | DRG 207 ==
LOC: ERH 15:23 → ERHI 17:19 → CRI 17:19 → ENRESERV 18:19 → ENTRNSPT 19:43 → EDTRNSPT 19:49 → EDTRNSPTSTS 19:49 → 1NO 19:58 → CMPTRNSPT 20:07 → 1NO 07-19 19:10 → CRI 07-19 21:50
PROVIDERS: Emergency Medicine; General Practice; Hospitalist; Internal Medicine; Internal Medicine Endocrinology, Diabetes & Metabolism; Internal Medicine Pulmonary Disease; Physical Medicine & Rehabilitation; Preventive Medicine Public Health & General Preventive Medicine; Student in an Organized Health Care Education/Training Program
PROC: 0BH17EZ Insertion of Endotracheal Airway into Trachea, Via Natural or Artificial Opening (ICD-10-PCS; principal; 2018-07-20)
PROC: 5A1955Z Respiratory Ventilation, Greater than 96 Consecutive Hours (ICD-10-PCS; principal; 2018-07-20)
PROC: 02HV33Z Insertion of Infusion Device into Superior Vena Cava, Percutaneous Approach (ICD-10-PCS; 2018-07-20)
DX: J15.212 Pneumonia due to Methicillin resistant Staphylococcus aureus (principal); J96.01 Acute respiratory failure with hypoxia; J96.02 Acute respiratory failure with hypercapnia; I50.21 Acute systolic (congestive) heart failure; I69.351 Hemiplegia and hemiparesis following cerebral infarction affecting right dominant side; E46 Unspecified protein-calorie malnutrition; B02.8 Zoster with other complications; J44.0 Chronic obstructive pulmonary disease with (acute) lower respiratory infection; L97.929 Non-pressure chronic ulcer of unspecified part of left lower leg with unspecified severity; L97.919 Non-pressure chronic ulcer of unspecified part of right lower leg with unspecified severity; I24.8 Other forms of acute ischemic heart disease; L98.429 Non-pressure chronic ulcer of back with unspecified severity; Z51.5 Encounter for palliative care; I95.9 Hypotension, unspecified; I48.0 Paroxysmal atrial fibrillation; I11.0 Hypertensive heart disease with heart failure; E83.39 Other disorders of phosphorus metabolism; R13.10 Dysphagia, unspecified; D64.9 Anemia, unspecified; M06.9 Rheumatoid arthritis, unspecified; I25.10 Atherosclerotic heart disease of native coronary artery without angina pectoris; E78.5 Hyperlipidemia, unspecified; Z66 Do not resuscitate; E03.9 Hypothyroidism, unspecified; H60.91 Unspecified otitis externa, right ear; J02.9 Acute pharyngitis, unspecified; I87.2 Venous insufficiency (chronic) (peripheral); G47.33 Obstructive sleep apnea (adult) (pediatric); Z68.27 Body mass index [BMI] 27.0-27.9, adult; I73.9 Peripheral vascular disease, unspecified; J69.0 Pneumonitis due to inhalation of food and vomit; J32.0 Chronic maxillary sinusitis; E87.6 Hypokalemia; Z95.1 Presence of aortocoronary bypass graft; Z90.49 Acquired absence of other specified parts of digestive tract; Z98.1 Arthrodesis status; Z87.891 Personal history of nicotine dependence
CPT/HCPCS: 1NSP; 87184; CCU; 36415; 36592; 71045; 81001; 82436; 82570; 87040; 87070; 87086; 87147; 87449; 87450; 93005; 93010; 93306; 93970; 96374; 97110-GO; 97161-GP; 97530-GO; 99291; J0131; J0456; J0696; J1644; J1940; J2060; J2543; J3010; J3370; J3490; J7040; J7042; J7060